=== PATIENT | male | born 1965 | race Caucasian/White ===

== ENCOUNTER 2019-12-31 13:41 | Outpatient (REF) | payer OTHER, MEDICARE, MEDICAID, SELFPAY ==
--- NOTE | 2019-12-31 13:58 | XR_ITS ---
EXAMINATION: XR HIP, RIGHT CLINICAL INFORMATION: Hip pain status post fall. COMPARISON: 05/07/2014 TECHNIQUE: Two views of the right hip. FINDINGS: Alignment is anatomic. Hip joint space is maintained. No acute fracture or dislocation is seen. Mild symphysis pubis degeneration. IMPRESSION: No radiographic evidence of acute fracture.
--- NOTE | 2019-12-31 13:58 | XR_ITS ---
EXAMINATION: XR RIBS, RIGHT CLINICAL INFORMATION: Right-sided rib pain status post fall. COMPARISON: 05/28/2019 TECHNIQUE: 3 views of the right ribs were obtained. FINDINGS: Lungs are clear. No consolidation, pneumothorax, or pleural effusion. The cardiomediastinal silhouette and pulmonary vasculature are normal. No acute displaced rib fracture is seen. IMPRESSION: No evidence of acute pulmonary process. No acute displaced rib fracture is seen.
== END 2019-12-31 13:42 | disposition home or self-care (01) ==
LOC: HO.HMGCX 13:41
PROVIDERS: PCP Nurse Practitioner Family; Visit Provider Nurse Practitioner Family
DX: M25.551 Pain in right hip (principal); R07.81 Pleurodynia; Z91.81 History of falling
CPT/HCPCS: 71101; 73502

== ENCOUNTER → 2020-01-13 11:08 | Outpatient (BNVA) | payer OTHER, MEDICARE, MEDICAID, SELFPAY | PROVIDERS: PCP Nurse Practitioner Family; Referring Provider Nurse Practitioner Family; Visit Provider Dietitian, Registered | DX: Z76.89 Persons encountering health services in other specified circumstances (principal) ==

== ENCOUNTER 2020-01-13 15:21 | Outpatient (REF) | payer OTHER, MEDICARE, MEDICAID, SELFPAY | END 2020-01-13 15:22 | disposition home or self-care (01) | LOC: HO.HMGCLDS 15:21 | PROVIDERS: PCP Nurse Practitioner Family; Visit Provider Internal Medicine | DX: Z20.828 Contact with and (suspected) exposure to other viral communicable diseases (principal) | CPT/HCPCS: 87635 ==

== ENCOUNTER 2020-02-07 11:51 | Outpatient (REF) | payer OTHER, MEDICARE, MEDICAID, SELFPAY ==
[2020-02-07 14:05] LABS: MANUAL DIFF FLAG NO
[2020-02-07 14:17] LABS: Basophils Absolute Auto 0.1 X10*3/uL (0.0-0.2); Basophils Percent Auto 0.9 % (0-2); Eosinophils Absolute Auto 0.6 X10*3/uL (0.0-0.4); Eosinophils Percent Auto 7.9 % (0-4); Hematocrit 42.6 % (42-52); Imm Gran Abs Auto 0.02 X10*3/uL (0.00-0.03); Imm Gran Pct Auto 0.3 % (0.0-0.4); Lymphocytes Absolute Auto 2.7 X10*3/uL (1.2-4.9); Lymphocytes Percent Auto 37.6 % (20-40); Mean Corpuscular HGB Conc 32.9 g/dl (31.0-36.0); Mean Corpuscular Hemoglobin 31.9 pg (27.0-33.0); Mean Platelet Volume 10.2 fL (9.4-12.4); Monocytes Absolute Auto 0.6 X10*3/uL (0.1-1.2); Monocytes Percent Auto 8.9 % (2-11); Neutrophils Absolute Auto 3.1 X10*3/uL (2.0-8.3); Neutrophils Percent Auto 44.4 % (45-73); Platelet Count 265 X10*3/uL (160-400); Red Blood Count 4.39 X10*6/uL (4.60-5.80); Red Cell Distribution Width 13.5 % (11.0-16.0); White Blood Count 7.1 X10*3/uL (4.8-10.8)
[2020-02-07 14:52] LABS: Alanine Aminotransferase 29 U/L (0-40); Albumin Level 4.3 g/dL (3.5-5.0); Alkaline Phosphatase 76 U/L (39-117); Anion Gap 15 (12-20); Aspartate Amino Transferase 29 U/L (5-37); Bilirubin Total 1.1 mg/dL (0.0-1.0); Blood Urea Nitrogen 17 mg/dL (9-16); Calcium 8.8 mg/dL (8.4-10.2); Carbon Dioxide 25 mmol/L (22-29); Chloride 104 mmol/L (96-108); Cholesterol 165 mg/dL; Estimated Glomerular Filt Rate > 60; Glucose Fasting 95 mg/dL (60-99); HDL Cholesterol 63 mg/dL; LDL Cholesterol Calculated 90 mg/dl; Potassium 4.4 mmol/l (3.3-5.1); Sodium 140 mmol/L (135-145); Total Protein 6.9 g/dL (6.5-8.0); Triglycerides 61 mg/dL
[2020-02-07 15:00] LABS: Prostate Specific Antigen Scr 1.65 ng/mL (<0.05-4.0); TSH reflex Free T4 1.14 mIU/mL (0.32-4.0)
== END 2020-02-07 11:52 | disposition home or self-care (01) ==
LOC: HO.HMGCLDS 11:51
PROVIDERS: PCP Nurse Practitioner Family; Visit Provider Internal Medicine
DX: N40.0 Benign prostatic hyperplasia without lower urinary tract symptoms (principal); Z20.828 Contact with and (suspected) exposure to other viral communicable diseases; Z86.73 Personal history of transient ischemic attack (TIA), and cerebral infarction without residual deficits; Z12.5 Encounter for screening for malignant neoplasm of prostate
CPT/HCPCS: 36415; 80053; 80061; 84153; 84443; 85025; C9803; U0003

== ENCOUNTER → 2020-02-21 07:32 | Outpatient (REF) | payer OTHER, MEDICARE, MEDICAID, SELFPAY ==
--- NOTE | 2020-02-21 07:35 | CA_ITS ---
Transthoracic Echocardiogram Patient (Last, First, Middle): Michael Bland K Gender: Male Date of : 1965 Age: 54 Procedure Date: 02/21/2020 Procedure Type: Transthoracic Echocardiogram Location: OP Height: 172.72 cm Weight: 89.36 kg BSA: 2.03 m2 Heart Rate: bpm BP: 128 / 80 mmHg Structural Ironworker: Referring MD: Don Meraz [facility] Flame Channeler: Alec Moreland MD Symptoms: Q21.1 - Atrial septal defect Study Quality: Fair ECG Rhythm: Sinus Conclusions: - 1. Atrial shunting cannot be ruled out on this study 2. Normal LV systolic function with mild LVH with grade 1 diastolic dysfunction 3. Normal cardiac valvular Doppler 4. Normal RV systolic pressure 5. No pericardial effusion Findings Left Ventricle Normal left ventricular size and systolic function. There is mildly increased left ventricular wall thickness. The visually estimated ejection fraction is between 60-65%. Spectral Doppler is indicative of an impaired relaxation filling pattern. E/E prime ratio is <8, consistent with normal filling pressures. Evidence suggests grade I (mild) diastolic dysfunction. Right Ventricle Normal right ventricular cavity size and systolic function. Atria Both atria are normal in size. There is lipomatous hypertrophy of the interatrial septum. Interatrial shunt cannot be excluded. Saline contrast study was suboptimal. Aortic Valve The aortic valve structure and function is likely normal. There is no aortic valve stenosis. There is no aortic valve regurgitation. Mitral Valve There is mild anterior and posterior mitral leaflet thickening. There is trace mitral valve regurgitation. There is no mitral valve stenosis. Pulmonic Valve The pulmonic valve was not well visualized. Tricuspid Valve Likely normal tricuspid valve structure and function. There is trace tricuspid valve regurgitation. The right ventricular systolic pressure is normal. The right ventricular systolic pressure is 23 mmHg. Normal right atrial pressure. There is no evidence of pulmonary hypertension. Great Vessels All visible segments of the aorta are normal in size. The pulmonary artery was not well visualized. Venous The inferior vena cava is normal in size and collapses greater than 50% with inspiration. Pericardium/Pleural There is no evidence of pericardial effusion. Prior Study Comparison No previous study in the last 5 years for comparison Measurements 2D Linear Measurements IVSd: 1.31 0.6-0.9/0.6-1.0 cm LVIDd: 4.02 3.9-5.3/4.2-5.9 cm LVIDd Index: 1.98 2.4-3.2/2.2-3.1 cm/m2 LVIDs: 2.74 2.0-3.6 cm LVPWd: 1.38 0.7-1.1 cm Ao Root: 3.10 2.1-3.5 cm LA Diam: 3.00 2.7-3.8/3.0-4.0 cm LAIDs Index: 1.48 1.5-2.3 cm/m2 LV Mass: 246.63 67-162/88-224 g LV Mass Index: 121.49 43-95/49-115 g/m2 LVOT Diam: 2.30 3.0+(-)1.3 cm Mitral Valve MV Pk E: 0.84 MV PK A: 1.01 MV Decel Time: 215.00 E/A: 0.80 E'Lateral: 7.93 E'Medial: 12.20 E/E' Med: 6.90 E/E' Lat: 10.60 PHT: 63.00 MVA PHT: 3.49 Decel [place]: 3.91 Aortic Valve AoV Pk Noel: 1.37 AoV Mn Noel: 0.88 AoV VTI: 0.32 AoV Pk Grad: 8.00 Aov Mn Grad: 4.00 LVOT LVOT Diam: 2.30 LVOT Area: 4.15 Diastolic Function MV Pk E: 0.84 MV Pk A: 1.01 E/A: 0.80 E'Medial: 12.20 E/E' Med: 6.90 E' Laterial: 7.93 E/E' Lat: 10.60 Tricuspid Valve TR Pk Noel: 2.23 TR Pk Grad: 20.00 RA Press: 3.00 RVSP: 23.00 Great Vessels Aorta Ao Root-2D: 3.10 2.0-3.7 cm Ao Asc: 3.00 2.1-3.4 cm Pulmonary Valve PV Pk Noel: 1.07 Peak PV Grad: 5.00 Updated in Other Vendor System with Status of Final Alce Moreland MD electronically signed on 02/22/2020 11:30:05 AM with status of Final
== END ==
LOC: HO.CARD 07:32
PROVIDERS: PCP Nurse Practitioner Family; Visit Provider Nurse Practitioner Family
DX: Q21.1 Atrial septal defect (principal)
CPT/HCPCS: 93306

== ENCOUNTER 2020-02-21 09:06 | Outpatient (REF) | payer OTHER, MEDICARE, MEDICAID, SELFPAY | END 2020-02-21 09:07 | disposition home or self-care (01) | LOC: HO.LAB 09:06 | PROVIDERS: Visit Provider Internal Medicine | DX: Z20.828 Contact with and (suspected) exposure to other viral communicable diseases (principal) | CPT/HCPCS: C9803; U0003 ==

== ENCOUNTER 2020-02-27 13:25 | Outpatient (REF) | payer OTHER, MEDICARE, MEDICAID, SELFPAY ==
--- NOTE | 2020-02-27 13:27 | FL_ITS ---
EXAMINATION: XR BARIUM SWALLOW CLINICAL INFORMATION: Dysphagia, right-sided stroke. COMPARISON: None. TECHNIQUE: Modified barium swallow was performed and lateral fluoroscopy in presence of speech therapist. FINDINGS: Following oral administration of thin barium, apple puree, pudding and cookie-coated with barium, there is normal oral mastication with propagation of bolus from the oral cavity through the pharynx and into the esophagus. No laryngeal penetration or aspiration seen. No retention of food seen in the valleculae or piriform sinuses. FLUOROSCOPY TIME: 1.9 minutes. DOSE AREA PRODUCT: 1.645 uGy-m2 (microgray-meter squared). FL/FL barium swallow modified IMPRESSION: Unremarkable modified barium swallow exam. No laryngeal penetration or aspiration. Correlate with speech therapy report.
--- NOTE | 2020-03-17 11:47 | MHC.SL.POC ---
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 Patient is recommended chopped solids with GROUND/MECHANICALLY SOFT meats. Patient tolerated THIN liquids during this exam. Patient is recommended the following precautions: -avoid tough (i.e. steak) and sticky (i.e. peanut butter) foods -sit upright at 90 degree angle during meals and for at least 30 minutes afterwards -take small bites and chew food well -swallow what is in oral cavity before taking more bites -alternate a bite of food with a sip of liquid -multiple swallow strategy with both solids and liquids -take one sip of liquid at a time/ avoid chugging or consecutive sips -take small sips Frequency/Duration: Patient would benefit from 3-5 weekly speech therapy visits for dysphagia. Recommend review aspiration precautions, strategies promoting oral/pharyngeal clearance, trial pharyngeal strengthening exercises improve pharyngeal clearance, and provide education RE: modified diet. Date Range for Service Requested: 03/02/20-05/03/20 Timeline to reassess: 3 months Notes: Patient is a 54 year old male who was referred for a modified barium swallow study due to complaints of dysphagia with dry food. Patient had CVA at age 3, and presents with residual right side weakness. He is hard of hearing and has a cochlear implant. Patient reports having a previous MBSS ?years ago,? but was unable to recall where it was done or the findings. Patient reports difficulty swallowing solids, stating, ?it feels stuck.? He states that he is unable to swallow any dry meat (i.e. chicken), unless it is moistened with gravy, softened, or ground up. He reports intermittent pain, which he rated 5 out of 10. Patient reports dysphagia for a long time, but feels that it has recently worsened. Patient prepares his own meals. Goal #1 : Status of Goal #1 : Objectives/Clinical Observations: Goal #2 : Status of Goal #2: Objectives/Clinical Observations : Goal #3 : Status of Goal #3: Objectives/Clinical Observations : Goal #4: Status of Goal #4: Objectives/Clinical Observations : Recommended Referrals: Audiological Evaluation Neurology Other Referrals: The patient might benefit from a referral to: -Neurology- to follow-up RE: history of CVA -Audiology- Patient complains of difficulty hearing speech in his good ear. -Speech-language pathology- Patient expressed concerns regarding his communication. Soap Boiler Clinican/Clinical Fellow: No Supervisory Statement: I have reviewed and agree with the documentation written by the student/clinical fellow: N/A Speech Language Pathologist: Charleen Andres M.A., CCC-RAG SHREDDER
--- NOTE | 2020-03-17 11:49 | MHC.SL.IMP ---
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 Patient had CVA at age 3, and presents with residual right side weakness. He is hard of hearing and has a cochlear implant. Patient reports having a previous MBSS ?years ago,? but was unable to recall where it was done or the findings. Patient reports difficulty swallowing solids, stating, ?it feels stuck.? He states that he is unable to swallow any dry meat (i.e. chicken), unless it is moistened with gravy, softened, or ground up. He reports intermittent pain, which he rated 5 out of 10. Patient reports dysphagia for a long time, but feels that it has recently worsened. Patient prepares his own meals. Pre-evaluation Dietary Consistencies: Regular Pre-evaluation Liquid Consistency: Thin Pre-evaluation Medication Administration: Whole with Liquid Medical History: Hearing Loss Stroke Comments: Modified Barium Swallow Study Fluoroscopic Evaluation of Swallowing Function CPT Code 25676 Evaluation Year: 2019 Reason for Study: Patient reports globus sensation. Referring Physician: Don Meraz HEAVY MEDIA OPERATOR-BC/ PCP Dr. Ornelas Evaluating Clinician: Charleen Andres M.A. CCC-MARINE EQUIPMENT DESIGN ENGINEER Study Number: 1 Patient Name: Michael Bland Status: Outpatient, Ambulatory/Assisted Age: 54 Gender: Male MEDICAL HISTORY: Year of Onset or Diagnosis: 2019 Comorbidities: Acoustic neuroma ADD Bipolar disorder 1 CVA Cervical radiculopathy Enlarged prostate Past Surgical History: Colonoscopy Brain surgery Cochlear implant Elbow surgery Sinus surgery Current (pre-evaluation) Intake/Diet: Route: PO Diet Grade: Regular Liquid Consistencies: Thin Pre-Study Functional Oral Intake Scale (FOIS): 7- Total oral intake with no restrictions Pain: Chronic/Ongoing reported at time of study, Level of vocal folds and in region of sternum, rated 5 on scale 0-10 Oral Motor Exam Facial Symmetry: Symmetrical Facial Movement: Oral-Facial Facial Miscellaneous Observations: Mouth Occlusion: Normal Oral-Facial Teeth Characteristics: Intact/Normal Oral-Facial Teeth Miscellaneous Observation: Oral-Facial Lip Pucker Description: Normal Oral-Facial Smile (Lips) Description: Normal Oral-Facial Puff Cheeks Description: Normal Oral-Facial Lip Miscellaneous Comment: Tongue Size: Normal Tongue Frenum Length: Tongue Excursion Description: Normal Tongue Range of Movement Description: Normal Tongue Speed of Movement Description: Normal Tongue Strength of Movement (against opposing pressure): Normal Tongue Movement Characteristics: Tongue Movement Miscellaneous Observation: Oral Expression Ability: Is patient able to manage secretions?: Yes Is patient able to produce volitional cough?: Yes Food and Liquid Trials: Oral Impairment: Lip Closure: 0=No labial escape Oral Impairment: Tongue Control During Bolus Hold: 1=Escape to lateral buccal cavity/floor of mouth (FOM) Oral Impairment: Bolus Preparation/Mastication: 1=Slow prolonged chewing/mashing with complete re-collection Oral Impairment: Bolus Transport/Lingual Motion: 2=Slowed tongue motion Oral Impairment: Oral Residue: 2=Residue collection on oral structures Oral Impairment:Initiation of Pharyngeal Swallow: 2=Bolus head at posterior laryngeal surface of epiglottis Pharyngeal Impairment: Soft Palate Elevation: 0=No bolus between soft palate (SP)/pharyngeal wall (PW) Pharyngeal Impairment: Larngeal Elevation: 1=Partial thyroid cartilage/arytenoids to epiglottic petiole movement Pharyngeal Impairment: Anterior Hyoid Excursion: 0=Complete anterior movement Pharyngeal Impairment: Epiglottic Movement: 1=Partial inversion Pharyngeal Impairment: Laryngeal Vestibular Closure:: 0=Complete: no air/contrast in laryngeal vestibule Pharyngeal Impairment: Pharyngeal Stripping Wave: 1=Present: diminished Pharyngeal Impairment: Pharyngeal Contraction: Did not test Pharyngeal Impairment: Pharyngoesophageal Segment Openin=Complete distension and complete duration: no obstruction of flow Pharyngeal Impairment: Tongue Base (TB) Retraction: 2=Narrow column of contrast/air between TB and posterior PW Pharyngeal Impairment: Pharyngeal Residue: 2=Collection of residue within or on pharyngeal structures Pharyngeal Impairment: Espohogeal Clearance Upright Position: Did not test Impressions and Recommendations Clinicial Observations: OBJECTIVE: Time-out: performed at 1:45 Evaluation Start: 1:35; Stop: 1:40 Viewing Planes: LATERAL ONLY Contrast: MBSImP? Standardized Protocol using commercially prepared, standardized Barium viscosities, including: Varibar? THIN LIQUID (40% w/v, <15 cps) , 1/2 Shortbread Cookie (1 x1 x.25 ) MBSImP ID: [id number] MBSImP Results: Lip closure for intraoral bolus containment resulted in no labial escape. Tongue control during bolus hold allowed bolus escape to the lateral buccal cavity/floor of mouth. Bolus preparation and mastication resulted in slow, prolonged chewing/mashing but with complete re-collection. Bolus transport/lingual motion was with slowed tongue motion. Oral residue was a collection on oral structures. Initiation of the pharyngeal swallow occurred as the bolus head was at the posterior laryngeal surface of the epiglottis. Soft palate elevation resulted in no bolus between the soft palate and the pharyngeal wall. Laryngeal elevation was decreased, with partial superior movement of the thyroid cartilage/partial approximation of the arytenoids to the epiglottic petiole. Anterior hyoid excursion demonstrated complete anterior movement. Epiglottic movement resulted in partial inversion. Laryngeal vestibular closure was complete, as indicated by no air or contrast within the laryngeal vestibule at the height of the swallow. Pharyngeal stripping wave was present, but diminished. Pharyngeal contraction could not be determined due to logistical reasons not related to physiologic impairment. Pharyngoesophageal segment opening was completely distended for complete duration with no obstruction of bolus flow. Tongue base retraction allowed a narrow column of contrast or air between the retracted tongue base and the posterior pharyngeal wall. Pharyngeal residue was a collection of residue within or on pharyngeal structures. Esophageal clearance in the upright position could not be assessed due to logistical reasons not related to physiologic impairment. Oral Impairment Score: 8 Pharyngeal Impairment Score: 7 (absence of score, component 13) Esophageal Impairment Score: --- (absence of score, component 17) Laryngeal Penetration and Aspiration: Neither penetration nor aspiration was observed in today's study with Cookie, Thin. ASSESSMENT: This exam was conducted by speech-language pathologist and radiologist. Patient sat upright at 90 degree angle for lateral view only. Patient trialed the following solid and liquid consistencies: -5 mL thin liquid barium -cup sip thin liquid barium -pureed solid (applesauce mixed with barium paste) -ground solid (chicken salad mixed with barium paste) -regular solid (Kaylene Doone cookie coated with barium paste) The patient's performance in today's study indicates mild oropharyngeal dysphagia characterized by impairments in the following components of swallow physiology: ORAL PHASE: -mildly prolonged mastication when chewing hard solid with mild oral residue collection PHARYNGEAL PHASE: -partial laryngeal elevation with partial epiglottic inversion -diminished pharyngeal stripping wave -reduced tongue base retraction -mild to moderate pharyngeal retention No aspiration or penetration evident with this exam. Patient took large sips of liquid. He displayed trace pharyngeal retention in valleculae and pyriforms when taking large sips of liquid. This cleared with subsequent dry swallow. Good oral and pharyngeal seen with pureed solid. Mild oral and pharyngeal residue seen with ground solid. Retention increased in valleculae and pyriforms with hard solid, which he exhibited difficulty clearing. Patient trialed various strategies. Liquid wash, multiple swallows, and effortful swallow were effective in reducing pharyngeal collection. Chin tuck and head turn to right and left sides had minimal to no effect in reducing pharyngeal residue. The following compensatory strategies have not been used until today's study, but when employed, improved swallowing function: Bolus Volume Change decreased Oral Residue, Pharyngeal Residue The following compensatory strategies have been used in therapy as well as in today's study and improved swallowing function: Rate of Ingestion Change decreased Oral Residue, Pharyngeal Residue Liquid Wash decreased Oral Residue, Pharyngeal Residue Additional Swallow(s) per Bolus decreased Oral Residue, Pharyngeal Residue Effortful Swallow (used during PO intake) decreased Oral Residue, Pharyngeal Residue Liquid Intake Recommendation: Thin Liquid Intake Strategies: Small Sips: Unrestricted Dietary Recommendations: Medication Administration: Compensatory Strategies Recommended: Sitting Upright (90 deg) Double Swallow Small Bites and Sips Alternate Liquids/Solids Rate of Ingestion Change Avoid Specific Foods Supervision during eating and or drinking: Intermittent Supervision Recommended Treatments: Recommendation for Speech Therapy: Further Testing Needed Outpatient Speech Therapy: Intake Recommendations: Route: PO Diet Grade: Mechanical Soft Liquid Consistencies: Thin Post-Study Functional Oral Intake Scale (FOIS): 5- Total oral intake of multiple consistencies requiring special preparation Due to patient?s complaints of pain/globus sensation and effort in clearing oral/pharyngeal spaces during this exam, patient is recommended a softer diet. Patient is recommended chopped solids with GROUND/MECHANICALLY SOFT meats. Patient tolerated THIN liquids during this exam. Patient is recommended the following precautions: -avoid tough (i.e. steak) and sticky (i.e. peanut butter) foods -sit upright at 90 degree angle during meals and for at least 30 minutes afterwards -take small bites and chew food well -swallow what is in oral cavity before taking more bites -alternate a bite of food with a sip of liquid -multiple swallow strategy with both solids and liquids -take one sip of liquid at a time/ avoid chugging or consecutive sips -take small sips Frequency/Duration: Patient would benefit from 3-5 weekly speech therapy visits for dysphagia. Recommend review aspiration precautions, strategies promoting oral/pharyngeal clearance, trial pharyngeal strengthening exercises improve pharyngeal clearance, and provide education RE: modified diet. Date Range for Service Requested: 03/02/20-05/03/20 Timeline to reassess: 3 months Real Estate Utilization Officer Clinican/Clinical Fellow: No Supervisory Statement: N/A Speech Language Pathologist: Charleen Andres M.A., CCC-MARINE EQUIPMENT DESIGN ENGINEER
--- NOTE | 2020-03-17 11:57 | MHC.SL.IMP ---
Name: Michael Bland Date of : 1965 Age: 55 Date of Registration: 02/27/20 Date of Plan of Treatment: 02/27/20 Onset of Symptoms/Illness: 02/27/20 Date Treatment Started: 02/27/20 Admitting Diagnosis: CVA age 3 Primary Speech & Language Diagnosis: R13.12 Oropharyngeal Phase Dysphagia Secondary Speech & Language Diagnosis: Reason for Today's Visit: 18250 Modified Barium Swallow Study Comments: Patient is a 54 year old male who was referred for a modified barium swallow study due to complaints of dysphagia with dry food. Patient had CVA at age 3, and presents with residual right side weakness. He is hard of hearing and has a cochlear implant. Patient reports having a previous MBSS ?years ago,? but was unable to recall where it was done or the findings. Patient reports difficulty swallowing solids, stating, ?it feels stuck.? He states that he is unable to swallow any dry meat (i.e. chicken), unless it is moistened with gravy, softened, or ground up. He reports intermittent pain, which he rated 5 out of 10. Patient reports dysphagia for a long time, but feels that it has recently worsened. Patient prepares his own meals. Pre-evaluation Dietary Consistencies: Regular Pre-evaluation Liquid Consistency: Thin Pre-evaluation Medication Administration: Whole with Liquid Medical History: Hearing Loss Stroke Comments: Modified Barium Swallow Study Fluoroscopic Evaluation of Swallowing Function CPT Code 40973 Evaluation Year: 2019 Reason for Study: Patient reports globus sensation. Referring Physician: Don Meraz VETERINARY MEDICINE TEACHER-BC/ PCP Dr. Ornelas Evaluating Clinician: Charleen Andres M.A., CCC-MANAGER QUALITY Study Number: 1 Patient Name: Michael Bland Status: Outpatient, Ambulatory/Assisted Age: 54 Gender: Male MEDICAL HISTORY: Year of Onset or Diagnosis: 2019 Comorbidities: Acoustic neuroma ADD Bipolar disorder 1 CVA Cervical radiculopathy Enlarged prostate Past Surgical History: Colonoscopy Brain surgery Cochlear implant Elbow surgery Sinus surgery Current (pre-evaluation) Intake/Diet: Route: PO Diet Grade: Regular Liquid Consistencies: Thin Pre-Study Functional Oral Intake Scale (FOIS): 7- Total oral intake with no restrictions Pain: Chronic/Ongoing reported at time of study, Level of vocal folds and in region of sternum, rated 5 on scale 0-10 [facility] Fall Risk Assessment Score: Oral Motor Exam Facial Symmetry: Symmetrical Facial Movement: Oral-Facial Facial Miscellaneous Observations: Mouth Occlusion: Normal Oral-Facial Teeth Characteristics: Intact/Normal Oral-Facial Teeth Miscellaneous Observation: Oral-Facial Lip Pucker Description: Normal Oral-Facial Smile (Lips) Description: Normal Oral-Facial Puff Cheeks Description: Normal Oral-Facial Lip Miscellaneous Comment: Tongue Size: Normal Tongue Frenum Length: Tongue Excursion Description: Normal Tongue Range of Movement Description: Normal Tongue Speed of Movement Description: Normal Tongue Strength of Movement (against opposing pressure): Normal Tongue Movement Characteristics: Tongue Movement Miscellaneous Observation: Oral Expression Ability: Is patient able to manage secretions?: Yes Is patient able to produce volitional cough?: Yes Food and Liquid Trials: Oral Impairment: Lip Closure: 0=No labial escape Oral Impairment: Tongue Control During Bolus Hold: 1=Escape to lateral buccal cavity/floor of mouth (FOM) Oral Impairment: Bolus Preparation/Mastication: 1=Slow prolonged chewing/mashing with complete re-collection Oral Impairment: Bolus Transport/Lingual Motion: 2=Slowed tongue motion Oral Impairment: Oral Residue: 2=Residue collection on oral structures Oral Impairment:Initiation of Pharyngeal Swallow: 2=Bolus head at posterior laryngeal surface of epiglottis Pharyngeal Impairment: Soft Palate Elevation: 0=No bolus between soft palate (SP)/pharyngeal wall (PW) Pharyngeal Impairment: Larngeal Elevation: 1=Partial thyroid cartilage/arytenoids to epiglottic petiole movement Pharyngeal Impairment: Anterior Hyoid Excursion: 0=Complete anterior movement Pharyngeal Impairment: Epiglottic Movement: 1=Partial inversion Pharyngeal Impairment: Laryngeal Vestibular Closure:: 0=Complete: no air/contrast in laryngeal vestibule Pharyngeal Impairment: Pharyngeal Stripping Wave: 1=Present: diminished Pharyngeal Impairment: Pharyngeal Contraction: Did not test Pharyngeal Impairment: Pharyngoesophageal Segment Openin=Complete distension and complete duration: no obstruction of flow Pharyngeal Impairment: Tongue Base (TB) Retraction: 2=Narrow column of contrast/air between TB and posterior PW Pharyngeal Impairment: Pharyngeal Residue: 2=Collection of residue within or on pharyngeal structures Pharyngeal Impairment: Espohogeal Clearance Upright Position: Did not test Impressions and Recommendations Clinicial Observations: OBJECTIVE: Time-out: performed at 1:45 Evaluation Start: 1:35; Stop: 1:40 Viewing Planes: LATERAL ONLY Contrast: MBSImP? Standardized Protocol using commercially prepared, standardized Barium viscosities, including: Varibar? THIN LIQUID (40% w/v, <15 cps) , 1/2 Shortbread Cookie (1 x1 x.25 ) MBSImP ID: [id number] MBSImP Results: Lip closure for intraoral bolus containment resulted in no labial escape. Tongue control during bolus hold allowed bolus escape to the lateral buccal cavity/floor of mouth. Bolus preparation and mastication resulted in slow, prolonged chewing/mashing but with complete re-collection. Bolus transport/lingual motion was with slowed tongue motion. Oral residue was a collection on oral structures. Initiation of the pharyngeal swallow occurred as the bolus head was at the posterior laryngeal surface of the epiglottis. Soft palate elevation resulted in no bolus between the soft palate and the pharyngeal wall. Laryngeal elevation was decreased, with partial superior movement of the thyroid cartilage/partial approximation of the arytenoids to the epiglottic petiole. Anterior hyoid excursion demonstrated complete anterior movement. Epiglottic movement resulted in partial inversion. Laryngeal vestibular closure was complete, as indicated by no air or contrast within the laryngeal vestibule at the height of the swallow. Pharyngeal stripping wave was present, but diminished. Pharyngeal contraction could not be determined due to logistical reasons not related to physiologic impairment. Pharyngoesophageal segment opening was completely distended for complete duration with no obstruction of bolus flow. Tongue base retraction allowed a narrow column of contrast or air between the retracted tongue base and the posterior pharyngeal wall. Pharyngeal residue was a collection of residue within or on pharyngeal structures. Esophageal clearance in the upright position could not be assessed due to logistical reasons not related to physiologic impairment. Oral Impairment Score: 8 Pharyngeal Impairment Score: 7 (absence of score, component 13) Esophageal Impairment Score: --- (absence of score, component 17) Laryngeal Penetration and Aspiration: Neither penetration nor aspiration was observed in today's study with Cookie, Thin. ASSESSMENT: This exam was conducted by speech-language pathologist and radiologist. Patient sat upright at 90 degree angle for lateral view only. Patient trialed the following solid and liquid consistencies: -5 mL thin liquid barium -cup sip thin liquid barium -pureed solid (applesauce mixed with barium paste) -ground solid (chicken salad mixed with barium paste) -regular solid (Kaylene Doone cookie coated with barium paste) The patient's performance in today's study indicates mild oropharyngeal dysphagia characterized by impairments in the following components of swallow physiology: ORAL PHASE: -mildly prolonged mastication when chewing hard solid with mild oral residue collection PHARYNGEAL PHASE: -partial laryngeal elevation with partial epiglottic inversion -diminished pharyngeal stripping wave -reduced tongue base retraction -mild to moderate pharyngeal retention No aspiration or penetration evident with this exam. Patient took large sips of liquid. He displayed trace pharyngeal retention in valleculae and pyriforms when taking large sips of liquid. This cleared with subsequent dry swallow. Good oral and pharyngeal seen with pureed solid. Mild oral and pharyngeal residue seen with ground solid. Retention increased in valleculae and pyriforms with hard solid, which he exhibited difficulty clearing. Patient trialed various strategies. Liquid wash, multiple swallows, and effortful swallow were effective in reducing pharyngeal collection. Chin tuck and head turn to right and left sides had minimal to no effect in reducing pharyngeal residue. The following compensatory strategies have not been used until today's study, but when employed, improved swallowing function: Bolus Volume Change decreased Oral Residue, Pharyngeal Residue The following compensatory strategies have been used in therapy as well as in today's study and improved swallowing function: Rate of Ingestion Change decreased Oral Residue, Pharyngeal Residue Liquid Wash decreased Oral Residue, Pharyngeal Residue Additional Swallow(s) per Bolus decreased Oral Residue, Pharyngeal Residue Effortful Swallow (used during PO intake) decreased Oral Residue, Pharyngeal Residue Liquid Intake Recommendation: Thin Liquid Intake Strategies: Small Sips Unrestricted Dietary Recommendations: Medication Administration: Compensatory Strategies Recommended: Sitting Upright (90 deg) Double Swallow Small Bites and Sips Alternate Liquids/Solids Rate of Ingestion Change Avoid Specific Foods Supervision during eating and or drinking: Intermittent Supervision Recommended Treatments: Recommendation for Speech Therapy: Further Testing Needed Outpatient Speech Therapy Text Comment: Intake Recommendations: Route: PO Diet Grade: Mechanical Soft Liquid Consistencies: Thin Post-Study Functional Oral Intake Scale (FOIS): 5- Total oral intake of multiple consistencies requiring special preparation Due to patient?s complaints of pain/globus sensation and effort in clearing oral/pharyngeal spaces during this exam, patient is recommended a softer diet. Patient is recommended chopped solids with GROUND/MECHANICALLY SOFT meats. Patient tolerated THIN liquids during this exam. Patient is recommended the following precautions: -avoid tough (i.e. steak) and sticky (i.e. peanut butter) foods -sit upright at 90 degree angle during meals and for at least 30 minutes afterwards -take small bites and chew food well -swallow what is in oral cavity before taking more bites -alternate a bite of food with a sip of liquid -multiple swallow strategy with both solids and liquids -take one sip of liquid at a time/ avoid chugging or consecutive sips -take small sips Frequency/Duration: Patient would benefit from 3-5 weekly speech therapy visits for dysphagia. Recommend review aspiration precautions, strategies promoting oral/pharyngeal clearance, trial pharyngeal strengthening exercises improve pharyngeal clearance, and provide education RE: modified diet. Date Range for Service Requested: 03/02/20-05/03/20 Timeline to reassess: 3 months Preflight Inspector Clinican/Clinical Fellow: No Supervisory Statement: N/A Speech Language Pathologist: Charleen Andres M.A., CCC-MANAGER QUALITY
== END 2020-02-27 13:26 | disposition home or self-care (01) ==
LOC: HO.XRAY 13:25
PROVIDERS: PCP Nurse Practitioner Family; Referring Provider Nurse Practitioner Family; Visit Provider Nurse Practitioner Family
DX: R13.10 Dysphagia, unspecified (principal)
CPT/HCPCS: 74230; 92611

== ENCOUNTER → 2020-03-16 12:00 | Outpatient (BNVA) | payer OTHER, MEDICARE, MEDICAID, SELFPAY | PROVIDERS: PCP Nurse Practitioner Family; Visit Provider Dietitian, Registered | DX: Z76.89 Persons encountering health services in other specified circumstances (principal) ==

== ENCOUNTER 2020-03-17 12:53 | Outpatient (REF) | payer OTHER, MEDICARE, MEDICAID, SELFPAY ==
--- NOTE | 2020-03-17 13:03 | CT_ITS ---
EXAMINATION: CT HEAD WITHOUT CONTRAST CLINICAL INFORMATION: Cerebral infarction. COMPARISON: CT brain with IV contrast 10/16/2018 TECHNIQUE: Contiguous axial imaging was performed from the skull base to vertex without intravenous administration of contrast. This CT examination was performed using dose optimization techniques as appropriate, variously including the following: *Automated exposure control *Adjustment of mA and/or kV according to patient size (this includes techniques or standardized protocols for targeted exams where dose is matched to indication/reason for exam; i.e. extremities or head) *Use of iterative reconstruction technique DLP: 820 mGy-cm FINDINGS: There is a left frontal temporal lobe encephalomalacia from previous insult. No acute intracranial lead, mass or acute infarct seen. No midline shift or edema noted. There is asymmetrical ventricles with left lateral ventricle appearing larger secondary to ex vacuole dilatation from adjacent encephalomalacia and gliosis. No abnormality seen in the posterior fossa. On the senior advisor view there is left-sided bone anchored hearing aid in place with abundant streak artifact. Left occipital craniotomy with a small metallic plate anchoring the flap is noted. Bilateral mastoid sinuses are well-aerated and clear. There is diffuse mucoperiosteal thickening of bilateral ethmoid and maxillary sinuses. CT/CT head/brain wo con IMPRESSION: No acute intracranial process seen on the present exam given the limitations hearing 8 and the streak artifact. 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 The findings are stable compared to 10/09/2018.
== END 2020-03-17 12:54 | disposition home or self-care (01) ==
LOC: HO.CT 12:53
PROVIDERS: PCP Nurse Practitioner Family; Visit Provider Nurse Practitioner Family
DX: I63.9 Cerebral infarction, unspecified (principal); S09.90XA Unspecified injury of head, initial encounter; W19.XXXA Unspecified fall, initial encounter
CPT/HCPCS: 70450

== ENCOUNTER 2020-03-30 08:06 | Outpatient (REF) | payer OTHER, MEDICARE, MEDICAID, SELFPAY ==
--- NOTE | 2020-03-31 12:18 | MHC.AU.P13 ---
Adult Audiological Evaluation Date of Visit: 03/30/20 Medicaid Plan Compliance Director Used: Not Applicable Reason for Appointment: Audiologic evaluation due to increasing difficulties understanding speech as well as perception of speech and sounds reverberating. Does patient feel they have a hearing loss?: Yes If Yes, Which Ear?: Both Ears When Was Hearing Difficulty First Noticed?: Long-standing Has hearing been tested previously?: Yes Previous Hearing Test Results: Dr. Rodriguez Results are not available for review. Hearing Handicap Inventory HHIE SCORE: 28 Based on HHIE score, patient has: Severe perceived hearing handicap Ear History: History of Ear Wax Buildup: Both Ears Previous Ear Surgery: BAHA Left Ear Approximately 7 years ago Bothersome Tinnitus/Ringing/Noises in Ears: Left Ear Ear used on the phone: Right Ear History of occupational noise exposure?: Yes History: History: No Medical History: Medical History: Measles Meningitis Stroke Medication List: Adderall, Vitamin D, Asprin Otoscopy: Right Ear: Non-occluding cerumen around canal wall Left Ear: Partially occluded with cerumen Tympanometry: Right Ear: Normal Middle Ear System (Type A) Left Ear: Normal Middle Ear System (Type A) Otoacoustic Emissions Right Ear Results: Not performed at today's visit. Left Ear Results: Not performed at today's visit. Hearing Evaluation: Transducer(s) Used: Insert Earphones Bone Conduction Method: Conventional Audiometry Stimuli Used: Pure Tones Right Ear: Description of Hearing: Normal hearing thresholds 250-8000 Hz Left Ear: Description of Hearing: Profound mixed hearing loss through all frequencies Speech Recognition Threshold (SRT): Method Used: Monitored Live Voice Stimuli Used: Spondee Words Right Ear: 10 dB HL Left Ear: Could Not Test Word Discrimination: Method: Recorded Lists Word Lists Used: NU-6 Right Ear: 96% at 50 dB HL Left Ear: Could Not Test Comparison: Compared to the most recent evaluation: N/A Recommendations: Recommendations: Audiological re-evaluation in one year. Trial with amplification is recommended. Medical clearance from a physician is required before fitting. Recommendations (Other): Trial period with a CROS hearing aid system. Scheduled an appointment to place a Applimation CROS system on 04/06/2020 Diagnosis: Primary Diagnosis: H90.42 SNHL Unilateral Left Side, W/Unrestricted Contralateral Hearing Services Performed: Services Performed: Comprehensive Audiological Evaluation (CPT 26820) Tympanometry (CPT 96245) Signature: Provider: Gabbie Escobedo, SELAM-A
--- NOTE | 2020-04-06 11:07 | MHC.AU.MED ---
Medical Clearance for Hearing Instrumentation Date: 04/06/20 Patient Name: Michael Bland Date of : 1965 Primary Care Provider: Referring Provider: PITA Corona We have seen your patient on 04/06/20 and have determined that they are a candidate for amplification (See accompanying report). Specifically, they would benefit from: Hearing aid use in the right ear Hearing aid use in the left ear Hearing aid use in both ears There is a statute that addresses Medical Evaluation Requirements prior to fitting a patient with a hearing aid. According to [place] statute 265 CMR:6.03(1), (a) General. Except as provided in 265 CMR 6.03(1)(b), a alloy weigher shall not sell a hearing aid unless the prospective user has presented to the alloy weigher a written statement signed by a licensed physician that states that the patient's hearing loss has been medically evaluated and the patient may be considered a candidate for a hearing aid. The medical evaluation must have taken place within the preceding six months. Please note: Due to the [place] Statute referenced above, we cannot accept a signature other than that of a licensed physician. EXECUTIVE ADMINISTRATOR and PA signatures cannot be accepted. I am in agreement with the above recommendation. There is no medical contraindication for hearing instrumentation. Physician Signature Date Physician Name (Printed)
== END 2020-03-30 08:07 | disposition home or self-care (01) ==
LOC: HO.SH 08:06
PROVIDERS: Visit Provider Nurse Practitioner Family
DX: H90.42 Sensorineural hearing loss, unilateral, left ear, with unrestricted hearing on the contralateral side (principal)
CPT/HCPCS: 92526; 92557; 92567

== ENCOUNTER 2020-04-06 10:01 | Outpatient (REF) | payer OTHER, MEDICARE, MEDICAID, SELFPAY ==
--- NOTE | 2020-04-06 11:19 | MHC.AU.P13 ---
Hearing Aid Evaluation- Binaural Date of Visit: 04/06/20 Solar Energy System Installer Used: Not Applicable Description of Hearing: Right ear - Normal hearing thresholds through all frequencies. Left ear - Profound sensorineural hearing loss Current Hearing Instrument Information: BAHA, unable to use as it causes migraines and constant echo/reverberation Additional Information: Due to patient's inability to tolerate the BAHA system, tried a Demo Richar CROS hearing aid system in the office today with patient noticing improved understanding of speech and the system is comfortable while in the office. Practiced insertion and patient is able to manipulate the aids and chuck tender well. As part of the remediation process, recommend the below rechargeable CROS hearing aid system as patient has manual dexterity difficulties with no use of his right hand Hearing Instrument Selection: Right Ear: Drink Waiter: Adapta Medical Model: Shaquille 1600 ERIKA-R Battery Size: Rechargeable Color: Roly Biology Internship: #3 40 gain Type of Dome: Small Open Left Ear: Drink Waiter: Adapta Medical Model: CROS-R Battery Size: Rechargeable Color: Roly Biology Internship: #3 CROS Tube Type of Dome: Small Open Plan: Plan of Care for Hearing Instrument Fitting: Patient wishes to purchase hearing aids as prescribed Action Taken/Action Needed: Medical Clearance to be requested from PCP Hearing Fitting to be scheduled when materials arrive Diagnosis Code(s): Primary Diagnosis: H90.42 SNHL Unilateral Left Side, W/Unrestricted Contralateral Hearing Services Performed: Hearing Aid Evaluation Type: HAE B: Binaural 3rd Green Party Signature: Provider: Gabbie Escobedo, [facility]
--- NOTE | 2020-04-06 11:24 | MHC.AU.MED ---
Medical Clearance for Hearing Instrumentation Date: 04/06/20 Patient Name: Michael Bland Date of : 1965 Primary Care Provider: Referring Provider: PITA Corona We have seen your patient on 04/06/20 and have determined that they are a candidate for amplification (See accompanying report). Specifically, they would benefit from: Hearing aid use : CROS Hearing Aid System There is a statute that addresses Medical Evaluation Requirements prior to fitting a patient with a hearing aid. According to [place] statute 265 CMR:6.03(1), (a) General. Except as provided in 265 CMR 6.03(1)(b), a parole hearing officer shall not sell a hearing aid unless the prospective user has presented to the parole hearing officer a written statement signed by a licensed physician that states that the patient's hearing loss has been medically evaluated and the patient may be considered a candidate for a hearing aid. The medical evaluation must have taken place within the preceding six months. Please note: Due to the [place] Statute referenced above, we cannot accept a signature other than that of a licensed physician. DISPLAY SCREEN FABRICATOR and PA signatures cannot be accepted. I am in agreement with the above recommendation. There is no medical contraindication for hearing instrumentation. Physician Signature Date Physician Name (Printed)
== END 2020-04-06 10:02 | disposition home or self-care (01) ==
LOC: HO.HAP 10:01
PROVIDERS: Visit Provider Nurse Practitioner Family
DX: Z46.1 Encounter for fitting and adjustment of hearing aid (principal)
CPT/HCPCS: 92591

== ENCOUNTER 2020-04-20 10:06 | Outpatient (REF) | payer OTHER, MEDICARE, MEDICAID, SELFPAY | END 2020-04-20 10:07 | disposition home or self-care (01) | LOC: HO.HAP 10:06 | PROVIDERS: Visit Provider Internal Medicine | DX: Z46.1 Encounter for fitting and adjustment of hearing aid (principal); H90.42 Sensorineural hearing loss, unilateral, left ear, with unrestricted hearing on the contralateral side | CPT/HCPCS: V5011; V5020; V5221; V5240 ==

== ENCOUNTER 2020-04-30 12:29 | Outpatient (REF) | payer OTHER, MEDICARE, MEDICAID, SELFPAY | END 2020-04-30 12:30 | disposition home or self-care (01) | LOC: HO.HAP 12:29 | PROVIDERS: Visit Provider Internal Medicine | DX: Z13.89 Encounter for screening for other disorder (principal) ==

== ENCOUNTER → 2020-06-11 13:46 | Outpatient (BNVA) | payer OTHER, MEDICARE, MEDICAID, SELFPAY | PROVIDERS: PCP Nurse Practitioner Family; Visit Provider Dietitian, Registered ==

== ENCOUNTER → 2020-06-23 13:19 | Outpatient (BNVA) | payer OTHER, MEDICARE, MEDICAID, SELFPAY | PROVIDERS: PCP Nurse Practitioner Family; Visit Provider Urology | DX: N52.01 Erectile dysfunction due to arterial insufficiency (principal); N32.0 Bladder-neck obstruction | CPT/HCPCS: 51798 ==

== ENCOUNTER 2020-09-18 12:57 | Outpatient (REF) | payer OTHER, MEDICARE, MEDICAID, SELFPAY ==
[2020-09-18 14:09] LABS: Prostate Specific Antigen 2.04 ng/mL (<0.05-4.0)
== END 2020-09-18 12:58 | disposition home or self-care (01) ==
LOC: HO.LAB 12:57
PROVIDERS: PCP Nurse Practitioner Family; Visit Provider Urology
DX: Z12.5 Encounter for screening for malignant neoplasm of prostate (principal); N13.8 Other obstructive and reflux uropathy; N32.0 Bladder-neck obstruction; N40.1 Benign prostatic hyperplasia with lower urinary tract symptoms
CPT/HCPCS: 36415; 84153

== ENCOUNTER → 2020-09-24 13:58 | Outpatient (BNVA) | payer OTHER, MEDICARE, MEDICAID, SELFPAY | PROVIDERS: PCP Nurse Practitioner Family; Visit Provider Urology ==

== ENCOUNTER → 2020-11-03 14:01 | Outpatient (REF) | payer OTHER, MEDICARE, MEDICAID, SELFPAY | LOC: HO.CARD 14:01 | PROVIDERS: Visit Provider Nurse Practitioner Family | DX: Z13.89 Encounter for screening for other disorder (principal) ==

== ENCOUNTER → 2020-11-09 07:38 | Outpatient (REF) | payer OTHER, MEDICARE, MEDICAID, SELFPAY | LOC: HO.CARD 07:38 | PROVIDERS: Visit Provider Nurse Practitioner Family | DX: Q21.1 Atrial septal defect (principal) | CPT/HCPCS: 93308 ==

== ENCOUNTER → 2020-11-27 11:29 | Outpatient (REF) | payer OTHER, MEDICARE, MEDICAID, SELFPAY ==
--- NOTE | 2020-11-27 11:35 | CA_ITS ---
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 Findings Atria During rest, there is no transit of bubbles. With valsalva, few bubbles seen in left ventricle. Possible small PFO vs pulmonary AVM. Prior Study Comparison No significant change compared to prior study. Updated in Other Vendor System with Status of Final Kurt Bergman MD electronically signed on 11/28/2020 2:39:29 PM with status of Final
== END ==
LOC: HO.CARD 11:29
PROVIDERS: Visit Provider Nurse Practitioner Family
DX: Q21.1 Atrial septal defect (principal)
CPT/HCPCS: 93308

== ENCOUNTER → 2020-12-16 13:43 | Outpatient (BNVA) | payer OTHER, MEDICARE, MEDICAID, SELFPAY | PROVIDERS: PCP Nurse Practitioner Family; Referring Provider Nurse Practitioner Family; Visit Provider Internal Medicine | DX: Q21.1 Atrial septal defect (principal); I63.9 Cerebral infarction, unspecified | CPT/HCPCS: 93005 ==

== ENCOUNTER 2020-12-21 16:36 | Outpatient (REF) | payer OTHER, MEDICARE, MEDICAID, SELFPAY ==
--- NOTE | ~2020-12-21 | XR_ITS ---
EXAMINATION: XR THORACIC SPINE CLINICAL INFORMATION: Pain in the thoracic spine COMPARISON: Chest x-ray May 28, 2019 TECHNIQUE: 2 views. FINDINGS: There is no fracture or bone destruction seen and the vertebral alignment is normal. There is no disc space narrowing. There is no abnormality of the paraspinal soft tissues. XR/XR thoracic spine 3V IMPRESSION: Unremarkable examination.
== END 2020-12-21 16:37 | disposition home or self-care (01) ==
LOC: HO.HMGCX 16:36
PROVIDERS: PCP Nurse Practitioner Family; Visit Provider Physician Assistant Medical
DX: M54.9 Dorsalgia, unspecified (principal)
CPT/HCPCS: 72072

== ENCOUNTER → 2021-02-22 15:39 | Outpatient (BNVA) | payer OTHER, MEDICARE, MEDICAID, SELFPAY | PROVIDERS: PCP Nurse Practitioner Family; Visit Provider Internal Medicine | DX: G47.30 Sleep apnea, unspecified (principal); F90.9 Attention-deficit hyperactivity disorder, unspecified type; Q21.1 Atrial septal defect; Z86.73 Personal history of transient ischemic attack (TIA), and cerebral infarction without residual deficits | CPT/HCPCS: 99202 ==

== ENCOUNTER 2021-03-08 11:12 | Outpatient (REF) | payer OTHER, MEDICARE, MEDICAID, SELFPAY ==
[2021-03-08 14:03] LABS: Appearance Urine TURBID; Color Urine YELLOW; Glucose Urine UA NEG (NEG); Leukocyte Esterase Urine NEG (NEG); Nitrite Urine NEG (NEG); Specific Gravity - Urine >= 1.030 (1.005-1.025); Urine Blood NEG (NEG); Urine Ketones 15 MG/DL (NEG); Urine Protein TRACE MG/DL (NEG-TRACE)
[2021-03-08 14:53] LABS: Alanine Aminotransferase 19 U/L (0-40); Albumin Level 4.3 g/dL (3.5-5.0); Alkaline Phosphatase 59 U/L (39-117); Anion Gap 15 (12-20); Aspartate Amino Transferase 21 U/L (5-37); Bilirubin Total 0.8 mg/dL (0.0-1.0); Blood Urea Nitrogen 16 mg/dL (9-16); Calcium 9.5 mg/dL (8.4-10.2); Carbon Dioxide 27 mmol/L (22-29); Chloride 105 mmol/L (96-108); Cholesterol 155 mg/dL; Estimated Glomerular Filt Rate > 60; Glucose Fasting 85 mg/dL (60-99); HDL Cholesterol 56 mg/dL; LDL Cholesterol Calculated 88 mg/dl; Potassium 3.8 mmol/L (3.3-5.1); Sodium 143 mmol/L (135-145); Total Protein 7.2 g/dL (6.5-8.0); Triglycerides 57 mg/dL
[2021-03-08 15:00] LABS: TSH reflex Free T4 1.42 uIU/mL (0.32-4.0)
== END 2021-03-08 11:13 | disposition home or self-care (01) ==
LOC: HO.HMGCLDS 11:12
PROVIDERS: PCP Nurse Practitioner Family; Visit Provider Nurse Practitioner Family
DX: Z00.00 Encounter for general adult medical examination without abnormal findings (principal)
CPT/HCPCS: 36415; 80053; 80061; 81003; 84443

== ENCOUNTER → 2021-03-25 11:56 | Outpatient (BNVA) | payer OTHER, MEDICARE, MEDICAID, SELFPAY | PROVIDERS: PCP Nurse Practitioner Family; Visit Provider Urology | DX: N52.01 Erectile dysfunction due to arterial insufficiency (principal) | CPT/HCPCS: 51798 ==

== ENCOUNTER → 2021-03-30 14:10 | Outpatient (BNVA) | payer OTHER, MEDICARE, MEDICAID, SELFPAY | PROVIDERS: PCP Nurse Practitioner Family; Referring Provider Nurse Practitioner Family; Visit Provider Internal Medicine ==

== ENCOUNTER 2021-05-08 13:38 | Outpatient (REF) | payer OTHER, MEDICARE, MEDICAID, SELFPAY ==
--- NOTE | ~2021-05-08 | XR_ITS ---
EXAMINATION: XR BILATERAL HIPS CLINICAL INFORMATION: Bilateral hip pain COMPARISON: Right hip x-rays December 31, [address] abdomen pelvis May 06, 2019 TECHNIQUE: 2 views of each hip were obtained. FINDINGS: There is neither fracture nor dislocation of either hip. There is only mild narrowing of both femoral acetabular joint spaces. There are no significant degenerative changes of either hip identified. Sacroiliac joints appear symmetric. Pelvic calcifications are likely vascular in nature. XR/XR hips JOAQUÍN min 3V IMPRESSION: Minimal degenerative changes of both hips without fracture or dislocation.
== END 2021-05-08 13:39 | disposition home or self-care (01) ==
LOC: HO.HMGCX 13:38
PROVIDERS: PCP Nurse Practitioner Family; Visit Provider Physician Assistant Medical
DX: M54.50 Low back pain, unspecified (principal)
CPT/HCPCS: 73522

== ENCOUNTER 2021-05-17 08:43 | Outpatient (REF) | payer OTHER, MEDICARE, MEDICAID, SELFPAY ==
[2021-05-17 12:07] LABS: Alanine Aminotransferase 20 U/L (0-40); Albumin Level 4.3 g/dL (3.5-5.0); Alkaline Phosphatase 59 U/L (39-117); Anion Gap 11 (12-20); Aspartate Amino Transferase 26 U/L (5-37); Bilirubin Total 0.5 mg/dL (0.0-1.0); Blood Urea Nitrogen 26 mg/dL (9-16); Calcium 9.7 mg/dL (8.4-10.2); Carbon Dioxide 30 mmol/L (22-29); Chloride 103 mmol/L (96-108); Estimated Glomerular Filt Rate > 60; Glucose Random 99 mg/dL (60-115); Potassium 4.3 mmol/L (3.3-5.1); Sodium 140 mmol/L (135-145); Total Protein 7.3 g/dL (6.5-8.0)
== END 2021-05-17 08:44 | disposition home or self-care (01) ==
LOC: HO.HMGCLDS 08:43
PROVIDERS: Visit Provider Nurse Practitioner Family
DX: R10.11 Right upper quadrant pain (principal)
CPT/HCPCS: 36415; 80053

== ENCOUNTER → 2021-06-28 10:53 | Outpatient (BNVA) | payer OTHER, MEDICARE, MEDICAID, SELFPAY | PROVIDERS: PCP Nurse Practitioner Family; Visit Provider Internal Medicine | DX: Z13.89 Encounter for screening for other disorder (principal) ==

== ENCOUNTER 2021-06-29 12:34 | Outpatient (REF) | payer OTHER, MEDICARE, MEDICAID, SELFPAY ==
--- NOTE | ~2021-06-29 | US_ITS ---
EXAMINATION: US ABDOMEN COMPLETE CLINICAL INFORMATION: Right upper quadrant pain. COMPARISON: Ultrasound abdomen complete 05/06/2019. CT abdomen with contrast 06/27/2018. TECHNIQUE: Real-time imaging of the abdominal viscera. FINDINGS: PANCREAS: The pancreas is obscured partially. Visualized body of the pancreas is homogeneous in echotexture. ABDOMINAL AORTA: The proximal, mid, and distal segments are normal in caliber. INFERIOR VENA CAVA: Visualized portions are normal. LIVER: The liver is normal in size. The liver contour is normal. Parenchymal echogenicity is normal. There are 2 anechoic cysts and right hepatic lobe measuring 1.4 x 0.8 x 1.6 cm and 1.3 x 1.0 x 1.5 cm. There is no intrahepatic biliary duct dilatation seen. GALLBLADDER: Normal. The gallbladder is physiologically distended without evidence of stones, sludge, polyps, wall thickening or pericholecystic fluid. COMMON BILE DUCT: Normal in caliber measuring 0.4 cm in diameter. RIGHT KIDNEY: There is a small anechoic cyst in the midpole measuring 0.6 x 0.4 x 0.4 cm. No hydronephrosis or renal calculi. The kidney measures 10.2 cm in maximum dimension. LEFT KIDNEY: There is an anechoic cyst in the lower pole measuring 0.6 x 0.4 x 0.4 cm. No hydronephrosis or renal calculi. The kidney measures 9.6 cm in maximum dimension. SPLEEN: Normal. The spleen measures 9.1 cm in maximum dimension. FREE FLUID: None. US/US abdomen complete IMPRESSION: Two right hepatic lobe cysts. Single cyst in each kidney. No echogenic stones or hydronephrosis.
== END 2021-06-29 12:35 | disposition home or self-care (01) ==
LOC: HO.US 12:34
PROVIDERS: PCP Nurse Practitioner Family; Visit Provider Nurse Practitioner Family
DX: R10.11 Right upper quadrant pain (principal)
CPT/HCPCS: 76700

== ENCOUNTER → 2021-07-06 11:51 | Outpatient (BNVA) | payer OTHER, MEDICARE, MEDICAID, SELFPAY | PROVIDERS: PCP Nurse Practitioner Family; Visit Provider Urology | DX: N52.01 Erectile dysfunction due to arterial insufficiency (principal); N28.1 Cyst of kidney, acquired | CPT/HCPCS: 51798 ==

== ENCOUNTER 2021-07-06 13:45 | Outpatient (REF) | payer OTHER, MEDICARE, MEDICAID, SELFPAY ==
--- NOTE | ~2021-07-06 | XR_ITS ---
EXAMINATION: XR LUMBOSACRAL SPINE CLINICAL INFORMATION: Low back pain. COMPARISON: 04/28/2017 TECHNIQUE: Three views of the lumbosacral spine. FINDINGS: There is mild scoliosis of the lumbar spine convex left. There is significant narrowing of the L2-L3 disc space with marginal spurring and sclerosis. There is also noted to be spurring involving the L4 and L5 vertebral bodies. There is mild narrowing of the L4-L5 and L5-S1 disc spaces. There is facet arthropathy seen on the left L5-S1 level. No acute fracture, spondylolisthesis, or spondylolysis is appreciated. There appears to be some degree of facet arthropathy involving the right L2-L3 space. SI joints appear unremarkable. Pedicles are intact. XR/XR lumbar spine 2-3V IMPRESSION: Lumbar spondylosis as described above without evidence of acute fracture, spondylolisthesis, or spondylolysis.
== END 2021-07-06 13:46 | disposition home or self-care (01) ==
LOC: HO.HMGCX 13:45
PROVIDERS: Visit Provider Nurse Practitioner Family
DX: M54.50 Low back pain, unspecified (principal)
CPT/HCPCS: 72100

== ENCOUNTER → 2021-07-19 16:06 | Outpatient (RCR) | payer OTHER, MEDICARE, MEDICAID, SELFPAY ==
--- NOTE | 2020-06-10 10:19 | MHC.SL.POC ---
Name: Michael Bland Date of : 1965 Age: 55 Date of Registration: 05/28/20 Referring provider: Don Meraz NP-BC/ PCP Dr. Ornelas Reason for Referral: Globus sensation and pain when swallowing Type of Treatment: Date of Plan of Treatment: 02/27/20 Onset of Symptoms/Illness: 02/27/20 Date Treatment Started: 02/27/20 Medical Diagnosis: Pt is a 54 year old male who was referred for an MBSS due to complaints of dysphagia with dry food. Patient had a CVA at age 3, and presents with residual right sided weakness. He is hard of hearing and has a cochlear implant, however stated that he does not wear it because of the level of discomfort it causes. Patient reports difficulty swallowing solids, stating it feels stuck . An MBSS was completed on 02/27/20 in which he was recommended chopped diet with meats ground/mechanically altered and thin liquids. Speech & Language Primary Diagnosis:R13.12 Oropharyngeal Phase Dysphagia Recommendation for Speech Therapy: Michael has completed his course of recommended outpatient speech therapy. He has been practicing pharyngeal strengthening exercises at home and is aware of the compensatory strategies to ensure safe swallowing. LABORATORY GENETICIST continues to recommend CHOPPED/ADVANCED (NDD3) solids and GROUND/MECH ALTERED(NDD2) meats and THIN liquids. A repeat MBSS is also recommended to re-assess his swallowing function after practicing pharyngeal strengthening exercises for 3 months. Recommended Referrals: Other Referrals: Repeat MBSS in June or July District Director Clinican/Clinical Fellow: Yes: Iman Weinberg M.A., CF-LABORATORY GENETICIST Supervisory Statement: I have reviewed and agree with the documentation written by the student/clinical fellow: Yes Speech Language Pathologist: Charleen Andres M.A., CCC-LABORATORY GENETICIST
--- NOTE | 2020-06-10 10:31 | MHC.SL.SOA ---
Referring Provider: Don Meraz BUTCHER-BC/ PCP Dr. Ornelas Reason for Referral: Globus sensation and pain when swallowing Date of Plan of Treatment:02/27/20 Onset of Symptoms/Illness:02/27/20 Date Treatment Started:02/27/20 Medical Diagnosis:Pt is a 54 year old male who was referred for an MBSS due to complaints of dysphagia with dry food. Patient had a CVA at age 3, and presents with residual right sided weakness. He is hard of hearing and has a cochlear implant, however stated that he does not wear it because of the level of discomfort it causes. Patient reports difficulty swallowing solids, stating it feels stuck . An MBSS was completed on 02/27/20 in which he was recommended chopped diet with meats ground/mechanically altered and thin liquids. Primary Speech Language Diagnosis:R13.12 Oropharyngeal Phase Dysphagia Reason for Visit:[id number] Dysphagia Treatment Other: Subjective:Michael arrived on time to his treatment session today. He was pleasant and appeared eager to participate. Pt was seen for dysphagia therapy following an MBSS completed on 02/27/20 in which he was recommended chopped/advanced solids with ground/mechanically altered meats and thin liquids. Pt presents with oropharyngeal dysphagia characterized by the following: mildly prolonged mastication, partial laryngeal elevation, partial epiglottic inversion, diminished pharyngeal stripping wave, reduced tongue base retraction, and mild to moderate pharyngeal retention. Objective: Michael participated in review of pharyngeal strengthening exercises (Nelsy, Effortful Swallow, Shaker, and Elizabeth Maneuver). Michael stated that the exercises have been going well at home. Assessment: Michael participated in conversation RE: how pharyngeal strengthening exercises have been going at home. He stated that he has difficulty with the Shaker exercise due to inability to keep his shoulders flat to the surface when lifting chin. POULTRY FARMER MEAT stated that it is not imperative that he complete this exercise, as the other exercises are targeting pharyngeal strengthening as well. . Michael stated that the other exercises, effortful swallow, nelsy, and elizabeth maneuver are easy for him to complete. Compensatory strategies were reviewed this date as well. Michael stated that he no longer is grinding up his meats, however he has a friend who is cutting up his meat into small bite sizes which he seems to be tolerating. POULTRY FARM[employer] reiterated the rationale behind recommendation for ground meats. Michael stated that he is extremely carful when chewing and takes his time during meals. Michael participated in further discussion regarding recommendation for occupational therapist as he continues to ask this POULTRY FARMER MEAT for recommendations for eating utensils that will help him become more independent in cutting his food. Plan: Michael was scheduled for one final session on 05/14 at 1pm however, called and cancelled due to transportation issues. P[employer] FARMER [employer] contacted Michael to re-schedule his last appointment. Michael stated that he is practicing the pharyngeal strengthening exercises at home and understands the compensatory strategies reviewed. He opted to not to re-schedule, as his life is busy right now . POULTRY FARMER ME[employer] discussed recommendation for repeat MBSS in 1-2 months to identify any changes in swallowing function following consistent practice of pharyngeal strengthening exercises. Recommendation was sent to Don HUERTA/ PCP Dr. Ornelas. Seen by: Graduate/Clinical Fellow: Yes: Iman Weinberg M.A., CF-[employer] Supervisory Statement: f_Reg Query Last Value , MHC.AU.SIGNAT Speech Language Pathologist: Charleen Andres M.A., CCC-[employer]
== END | disposition home or self-care (01) ==
LOC: HO.SH 03-26 12:58
PROVIDERS: Visit Provider Nurse Practitioner Family
DX: R13.12 Dysphagia, oropharyngeal phase (principal)
CPT/HCPCS: 92526

== ENCOUNTER 2021-08-19 10:10 | Outpatient (REF) | payer OTHER, MEDICARE, MEDICAID, SELFPAY ==
--- NOTE | ~2021-08-19 | XR_ITS ---
EXAMINATION: XR FOOT, RIGHT CLINICAL INFORMATION: Right foot pain, unspecified. COMPARISON: None TECHNIQUE: AP, lateral, and oblique views of the right foot. FINDINGS: Comminuted fracture is seen involving the paramediastinal phalanx of the right great toe. The remainder of the visualized bones show satisfactory alignment and intact cortices. XR/XR foot RT min 3V IMPRESSION: Comminuted fracture involving terminal phalanx of the right great toe.
[2021-08-19 12:20] LABS: Influenza A PCR NEGATIVE (Negative); Influenza B PCR NEGATIVE (Negative); Resp Syncy Virus RNA Qual PCR NEGATIVE (Negative); SARS COV2 PCR INHOUSE NEGATIVE (Negative)
== END 2021-08-19 10:11 | disposition home or self-care (01) ==
LOC: HO.HOSX 10:10
PROVIDERS: Internal Medicine; Visit Provider Physician Assistant
DX: M79.671 Pain in right foot (principal); M21.371 Foot drop, right foot; Z20.822 Contact with and (suspected) exposure to COVID-19
CPT/HCPCS: 0241U; 73630

== ENCOUNTER 2021-09-01 11:35 | Outpatient (REF) | payer OTHER, MEDICARE, MEDICAID, SELFPAY ==
--- NOTE | ~2021-09-01 | US_ITS ---
EXAMINATION: US VENOUS ULTRASOUND WITH DOPPLER LOWER EXTREMITY, RIGHT CLINICAL INFORMATION: Swelling. COMPARISON: None TECHNIQUE: Ultrasound of the deep veins is performed from the hip to the calf with compression sonography and color and pulse Doppler assessment. Spectral analysis with color-flow imaging is performed. FINDINGS: There is acute thrombus seen in the posterior tibial veins in the calf. There is normal venous compression and respiratory variation and augmented flow. The visualized common femoral vein, superficial femoral vein, profunda femoral vein, popliteal vein, and the peroneal veins shows no evidence of deep venous thrombosis. There is no significant popliteal fossa cyst. US/US venous duplex LE RT IMPRESSION: DVT in the posterior tibial veins in the calf. Findings were communicated to Dr. Don Meraz by telephone on 09/01/2021 at 12:23 PM.
== END 2021-09-01 11:36 | disposition home or self-care (01) ==
LOC: HO.HMGCX 11:35
PROVIDERS: Visit Provider Nurse Practitioner Family
DX: R60.0 Localized edema (principal); M79.89 Other specified soft tissue disorders
CPT/HCPCS: 93971

== ENCOUNTER 2021-09-01 12:43 | Emergency (ER) | payer OTHER, MEDICARE, MEDICAID, SELFPAY ==
[2021-09-01 13:19] VITALS: BP 145/76; PULSE 86; RESP 17; TEMP 36.3; O2SAT 97; BMI 26.9
[2021-09-01 13:41] LABS: Basophils Percent Auto 0.6 % (0-2); Eosinophils Absolute Auto 0.6 X10*3/uL (0.0-0.4); Eosinophils Percent Auto 7.9 % (0-4); Hematocrit 39.5 % (42.0-52.0); Hemoglobin 12.9 g/dl (14.0-18.0); Imm Gran Abs Auto 0.02 X10*3/uL (0.00-0.03); Imm Gran Pct Auto 0.3 % (0.0-0.4); Lymphocytes Absolute Auto 3.2 X10*3/uL (1.2-4.9); Lymphocytes Percent Auto 45.3 % (20-40); MANUAL DIFF FLAG NO; Mean Corpuscular HGB Conc 32.7 g/dl (31.0-36.0); Mean Corpuscular Hemoglobin 31.7 pg (27.0-33.0); Mean Corpuscular Volume 97.1 fL (80.0-98.0); Monocytes Absolute Auto 0.8 X10*3/uL (0.1-1.2); Monocytes Percent Auto 11.4 % (2-11); Neutrophils Absolute Auto 2.4 x10*3/uL (2.0-8.3); Neutrophils Percent Auto 34.5 % (45-73); Platelet Count 253 X10*3/uL (160-400); Red Blood Count 4.07 X10*6/uL (4.60-5.80); Red Cell Distribution Width 13.5 % (11.0-16.0)
[2021-09-01 13:50] LABS: Partial Thromboplastin Time 34.4 SEC (24.1-38.0)
[2021-09-01 13:59] LABS: Anion Gap 12 (12-20); Blood Urea Nitrogen 23 mg/dL (9-16); Calcium 9.4 mg/dL (8.4-10.2); Carbon Dioxide 26 mmol/L (22-29); Chloride 106 mmol/L (96-108); Creatinine Clr Calc Pharmacy 82.1; Estimated Glomerular Filt Rate > 60; Glucose Random 103 mg/dL (60-115); Potassium 4.4 mmol/L (3.3-5.1); Sodium 140 mmol/L (135-145)
[2021-09-01 14:04] LABS: B Type Natriuretic Peptide 33 pg/mL (<100); Troponin-I High Sensitivity < 3.5 ng/L (<3.5-35.0)
[2021-09-01 15:29] LABS: Prothrombin Time 11.4 SEC (9.9-13.0)
--- NOTE | 2021-09-01 15:42 | ED.EXTPRO ---
HPI - Extremity Problem General Chief complaint: General Medical Stated complaint: quest of blood clot r leg Time Seen by Provider: 09/01/21 15:39 Source: patient Mode of arrival: wheelchair Limitations: no limitations History of Present Illness HPI Narrative: Patient presents emergency department stating that he has a blood clot in his right leg. States that he had an ultrasound obtained from . Isac was advised to come to the emergency department. A that he had neck surgery 4 weeks ago, 2 weeks later he noticed redness and swelling to the right foot. Denies any numbness or tingling in the leg or foot. Denies confusion, persistent headache, vision changes, neck pain, chest pain, palpitations, shortness of breath, difficulty breathing, nausea, vomiting, abdominal pain. Denies being on any anticoagulants, currently taking a low-dose aspirin daily. Denies prior history of DVT/PE. Denies any personal history of cancer. Related Data Home Medications Medication Instructions Recorded Confirmed aspirin 81 mg tablet,delayed 81 mg PO DAILY 02/05/20 09/01/21 release cholecalciferol (vitamin D3) 25 25 mcg PO DAILY 02/05/20 09/01/21 mcg (1,000 unit) capsule multivitamin 1 tab PO DAILY 02/05/20 09/01/21 dextroamphetamine-amphetamine 20 20 mg PO QID 03/30/21 09/01/21 mg tablet (Adderall) gabapentin 300 mg capsule 300 mg PO TID 09/01/21 09/01/21 Previous Rx's Medication Instructions Recorded leg brace (Ankle Brace) #1 ea 03/24/20 miscellaneous medical supply 1 ea miscellaneous .COMPLEX #1 ea 12/08/20 cyclobenzaprine 10 mg tablet 10 mg PO BEDTIME PRN muscle spasm 07/05/21 25 days #25 tabs celecoxib 100 mg capsule (Celebrex) 100 mg PO BID PRN pain 30 days #60 07/08/21 caps apixaban 5 mg (74 tabs) tablets in 5 mg PO BID #74 ea 09/01/21 a dose pack (Eliquis DVT-PE Treat 30D Start) Allergies Allergy/AdvReac Type Severity Reaction Status Date / Time Penicillins Allergy Severe ANAPHYLAXIS Verified 09/01/21 11:30 Review of Systems Review of Systems: Constitutional: No fever. No chills. No weakness. No fatigue. Eye: No swelling. No redness. ENT: No sore throat. No rhinorrhea. No nasal congestion. Skin: No rash. No itching. Cardiovascular: No chest pain. No chest pressure. No palpitations. Positive right pedal edema. Respiratory: No shortness of breath. No cough. No sputum production. Gastrointestinal: No nausea. No vomiting. No diarrhea. No abdominal pain. No blood in stool. Genitourinary: No burning micturition. No urinary frequency. No incontinence. Neurologic: No headache. No dizziness. No pre-syncope/ syncope. No unilateral weakness. No ataxia. No numbness. No tingling. Musculoskeletal: Positive foot pain Hematologic: No bleeding. No bruising. Yes all other systems are reviewed and are negative PMFSH Past Medical History Attestation statement: The following information was validated with the patient. Source: old records reviewed Medical History Acoustic neuroma Attention deficit disorder Bipolar 1 disorder Cervical radiculopathy Encounter for screening Encounter for screening Feeling of incomplete bladder emptying Hearing loss Weak urinary stream Surgical History H/O colonoscopy History of back surgery History of brain surgery History of cochlear implant History of elbow surgery History of sinus surgery History of surgery Family History Family History Father No problems noted. Mother History of breast cancer Social History Social History Housing: House Alcohol intake: current Alcohol intake frequency: holidays/special occasions only Patient Tobacco Use Status: Never used Tobacco e-Cigarette/Vaping Use: Never Used Advance Directives: No Advance Directives Information Provided: No service: No Current occupational status: unemployed Cognitive needs: No Hearing needs: No Vision needs: No Physical Exam Vital Signs: Vital Signs: Last Vital Signs Temp 97.3 F 09/01/21 13:19 Pulse 86 09/01/21 13:19 Resp 17 09/01/21 13:19 BP 145/76 H 09/01/21 13:19 Pulse Ox 97 09/01/21 13:19 O2 Del Method 09/01/21 13:19 BMI result Body Mass Index 26.9 Vital signs have been reviewed and appeared to be correct. Hypertensive? Heart rate normal.? Respiration rate normal. Temperature normal.? Oxygen saturation normal. Appearance: Alert.?Oriented to person, place and time. No acute distress.?Normal affect. Eyes: Pupils equal, round and reactive to light.? ENT: Pharynx normal.?? Neck: Normal inspection.? Neck supple.?? CVS: Heart sounds normal. Normal heart rate and rhythm.? Pulses normal.?? Respiratory: No respiratory distress.? Lung sounds clear to auscultation bilaterally?? Abdomen: Soft and non-tender. ? Skin: Skin warm and dry.? Normal skin color.? Extremities: 1+ palpable DP/PT pulse on the right, nonpitting edema, erythema COVID a right dorsal foot, tenderness with palpation right calf, no calf/ swelling/ erythema/ rash. Neuro: Moves all extremities spontaneously. Sensation intact bilaterally. No focal neuro deficits. Course Course Course Narrative: Patient is a 56-year-old male with a past medical history of cervical radiculopathy, bipolar disorder, PVD, remote history of stroke as a child, presenting to the emergency department by recommendation of his PCP for DVT to the right lower extremity. Patient underwent a laminectomy with decompression C6-C7 and T1 approximately 1 month ago at [facility], he is unaware of the name of his surgeon. He states he has been less mobile since his surgery, thinks that may be why he developed a clot. He states he has had swelling and redness to the right foot for the past 2 weeks, therefore when evaluated by his primary care provider today, he had an ultrasound obtained outpatient which revealed acute thrombus of the posterior tibial veins. Patient is followed by Dr. 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 Discussed plan of care with patient including Eliquis with dosage taper, discontinuation of aspirin, not to use NSAIDs in addition of this medication, advised reasons to return back to the emergency department, outpatient follow-up with his primary care provider within 5 days. Discussed this case with ED attending Dr. Fofana, who agrees with plan of care in for discharge home, he is at low risk for bleeding, has no renal insufficiency, no suspicion for pulmonary embolism, do not feel that patient needs inpatient care. Will refer patient to wire straightener, to determine duration of anti-coagulation, whether provoked or not. MDM - Extremity (Nontraumatic) Medical Records Attestation: I reviewed the patient's medical records. Lab Data Attestation: I reviewed the patient's lab results. Result diagrams: 09/01/21 13:33 09/01/21 13:33 Labs: Lab Results 09/01/21 09/01/21 09/01/21 Range/Units 13:33 13:33 13:33 WBC 7.0 (4.8-10.8) X10*3/uL RBC 4.07 L (4.60-5.80) X10*6/uL Hgb 12.9 L (14.0-18.0) g/dl Hct 39.5 L (42.0-52.0) % MCV 97.1 (80.0-98.0) fL MCH 31.7 (27.0-33.0) pg MCHC 32.7 (31.0-36.0) g/dl RDW 13.5 (11.0-16.0) % Plt Count 253 (160-400) X10*3/uL MPV 9.0 L (9.4-12.4) fL Immature Gran % (Auto) 0.3 (0.0-0.4) % Neut % (Auto) 34.5 L (45-73) % Lymph % (Auto) 45.3 H (20-40) % [place] % (Auto) 11.4 H (2-11) % Eos % (Auto) 7.9 H (0-4) % Baso % (Auto) 0.6 (0-2) % Lymph # (Auto) 3.2 (1.2-4.9) X10*3/uL [place] # (Auto) 0.8 (0.1-1.2) X10*3/uL Eos # (Auto) 0.6 H (0.0-0.4) X10*3/uL Baso # (Auto) 0.0 (0.0-0.2) X10*3/uL Abs Immat Gran (auto) 0.02 (0.00-0.03) X10*3/uL Absolute Neuts (auto) 2.4 (2.0-8.3) x10*3/uL Absolute Nucleated RBC 0.000 (0.0-0.012) X10*3/uL Nucleated RBC % (auto) 0.0 (0.0-0.2) /100WBC PT (9.9-13.0) SEC INR (0.9-1.1) APTT (24.1-38.0) SEC Sodium 140 (135-145) mmol/L Potassium 4.4 (3.3-5.1) mmol/L Chloride 106 (96-108) mmol/L Carbon Dioxide 26 (22-29) mmol/L Anion Gap 12 (12-20) BUN 23 H (9-16) mg/dL Creatinine 0.98 (0.5-1.4) mg/dL Estim Creat Clear Calc 82.1 Estimated GFR > 60 Random Glucose 103 (60-115) mg/dL Calcium 9.4 (8.4-10.2) mg/dL Troponin I High Sens < 3.5 (<3.5-35.0) ng/L B-Natriuretic Peptide 33 (<100) pg/mL 09/01/21 Range/Units 13:33 WBC (4.8-10.8) X10*3/uL RBC (4.60-5.80) X10*6/uL Hgb (14.0-18.0) g/dl Hct (42.0-52.0) % MCV (80.0-98.0) fL MCH (27.0-33.0) pg MCHC (31.0-36.0) g/dl RDW (11.0-16.0) % Plt Count (160-400) X10*3/uL MPV (9.4-12.4) fL Immature Gran % (Auto) (0.0-0.4) % Neut % (Auto) (45-73) % Lymph % (Auto) (20-40) % [place] % (Auto) (2-11) % Eos % (Auto) (0-4) % Baso % (Auto) (0-2) % Lymph # (Auto) (1.2-4.9) X10*3/uL [place] # (Auto) (0.1-1.2) X10*3/uL Eos # (Auto) (0.0-0.4) X10*3/uL Baso # (Auto) (0.0-0.2) X10*3/uL Abs Immat Gran (auto) (0.00-0.03) X10*3/uL Absolute Neuts (auto) (2.0-8.3) x10*3/uL Absolute Nucleated RBC (0.0-0.012) X10*3/uL Nucleated RBC % (auto) (0.0-0.2) /100WBC PT 11.4 (9.9-13.0) SEC INR 1.0 (0.9-1.1) APTT 34.4 (24.1-38.0) SEC Sodium (135-145) mmol/L Potassium (3.3-5.1) mmol/L Chloride (96-108) mmol/L Carbon Dioxide (22-29) mmol/L Anion Gap (12-20) BUN (9-16) mg/dL Creatinine (0.5-1.4) mg/dL Estim Creat Clear Calc Estimated GFR Random Glucose (60-115) mg/dL Calcium (8.4-10.2) mg/dL Troponin I High Sens (<3.5-35.0) ng/L B-Natriuretic Peptide (<100) pg/mL Imaging Data Venous US: Radiologist's impression: FINDINGS: There is acute thrombus seen in the posterior tibial veins in the calf. There is normal venous compression and respiratory variation and augmented flow. The visualized common femoral vein, superficial femoral vein, profunda femoral vein, popliteal vein, and the peroneal veins shows no evidence of deep venous thrombosis. There is no significant popliteal fossa cyst. US/US venous duplex LE RT IMPRESSION: DVT in the posterior tibial veins in the calf. Discharge Plan Discharge Clinical Impression: DVT (deep venous thrombosis) Patient Disposition: Home, Self-Care Instructions: Deep Vein Thrombosis (ED), Blood Thinners (ED) Additional Instructions: You have a blood clot in the veins of your lower leg, your calf. Eliquis 10 mg twice daily for 7 days. After that dosage would be 5 mg twice daily. This is a blood thinning medication. As we discussed you may be at risk for bleeding and easy bruising. If fall and hit your head you need to be evaluated in the emergency department right away. If you have any bleeding, developed chest pain, palpitations, shortness of breath, difficulty breathing, dizziness, lightheadedness, persistent headache he should be re-evaluated in the emergency department. Stop taking aspirin. Do not take other NSAIDs such as ibuprofen/Motrin, Aleve/naproxen while taking Eliquis. Please contact Hematology to schedule a new patient visit. Follow-up with your primary care provider as scheduled. Prescriptions: New Eliquis DVT-PE Treat 30D Start 5 mg (74 tabs) tablets,dose pack 5 mg PO BID Qty: 74 0RF Rx Instructions: Take 2 tablets, 10 mg twice daily for 7 days. Then take 1 tablet 5 mg twice daily. No Action (DME) Ankle Brace Misc See Rx Instructions .ROUTE .MEDSUPPLY Qty: 1 0RF Rx Instructions: Right solid ankle AFO celecoxib [Celebrex] 100 mg capsule 100 mg PO BID PRN (Reason: pain) 30 Days Qty: 60 0RF Rx Instructions: do not take with motrin cholecalciferol (vitamin D3) 25 mcg (1,000 unit) capsule 25 mcg PO DAILY aspirin 81 mg tablet,delayed release (DR/EC) 81 mg PO DAILY multivitamin Tablet 1 tab PO DAILY miscellaneous medical supply Misc 1 ea miscellaneous .COMPLEX Qty: 1 0RF Rx Instructions: 1 ea miscellaneous right arch support, daily; right arch support dextroamphetamine-amphetamine [Adderall] 20 mg tablet 20 mg PO QID gabapentin 300 mg capsule 300 mg PO TID cyclobenzaprine 10 mg tablet 10 mg PO BEDTIME PRN (Reason: muscle spasm) 25 Days Qty: 25 0RF Referrals: Don Meraz FNP-JESUS [Primary Care Provider] - Segundo Salas MD [Physician] - 1 week (DVT, ) Interventions: ED Discharge Assessment Last Done: 09/01/21 16:51 Discharge Date/Time: 09/01/21 16:53
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
== END 2021-09-01 16:53 | disposition home or self-care (01) ==
PROVIDERS: Emergency Provider Emergency Medicine; PCP Nurse Practitioner Family
DX: I82.441 Acute embolism and thrombosis of right tibial vein (principal); I73.9 Peripheral vascular disease, unspecified; Z86.73 Personal history of transient ischemic attack (TIA), and cerebral infarction without residual deficits; Z79.82 Long term (current) use of aspirin; Z79.899 Other long term (current) drug therapy
CPT/HCPCS: 36415; 80048; 83880; 84484; 85025; 85610; 85730; 99283

== ENCOUNTER → 2021-09-30 11:05 | Outpatient (REF) | payer OTHER, MEDICARE, MEDICAID, SELFPAY | LOC: HO.SL 11:05 | PROVIDERS: PCP Nurse Practitioner Family; Visit Provider Internal Medicine | DX: G47.33 Obstructive sleep apnea (adult) (pediatric) (principal); R40.0 Somnolence | CPT/HCPCS: 95806 ==

== ENCOUNTER 2022-02-02 11:56 | Day surgery (SDC) | payer OTHER, MEDICARE, MEDICAID, SELFPAY ==
--- NOTE | 2022-02-01 08:02 | P.CONAN_ITS ---
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 DVT s/p cervial spine surgery - was on eliquis until 11/2021 [facility] Active Problems Active Problems: All Active Problems (Updated 01/26/22 @ 15:25 by Joyce Jorge RN) Rib pain on right side (Acute) Hip pain (Acute) Overweight (BMI 25.0-29.9) (Acute) Enlarged prostate (Acute) Dysphagia (Acute) PFO (patent foramen ovale) (Acute) Fall (Acute) Acute head trauma (Acute) Atrial septal defect (Acute) ADHD (Acute) Numerous moles (Acute) Dermatitis (Acute) Erectile dysfunction due to arterial insufficiency (Acute) Sleep apnea (Acute) Physical exam (Acute) Stroke due to embolism (Acute) Back pain (Acute) RUQ pain (Acute) Liver cyst (Acute) Kidney cysts (Acute) Weakness of left upper extremity (Acute) Cervical neck pain with evidence of disc disease (Acute) Chronic pain (Acute) Encounter for screening for COVID-19 (Acute) Weakness of left upper extremity (Acute) Right foot drop (Acute) Swelling of right lower extremity (Acute) Discoloration of skin of lower leg (Acute) DVT (deep venous thrombosis) (Acute) Cerumen impaction (Acute) KASANDRA (obstructive sleep apnea) (Acute) Somnolence, daytime (Acute) Thoracic back pain (Acute) Lower back pain (Acute) Bladder outlet obstruction (Acute) Cerebrovascular accident (Acute) Past Medical History Medical History Acoustic neuroma Attention deficit disorder Bipolar 1 disorder Bladder outlet obstruction Cerebrovascular accident Cervical radiculopathy Encounter for screening Encounter for screening Feeling of incomplete bladder emptying Hearing loss History of shingles Lower back pain Migraine KASANDRA (obstructive sleep apnea) PTSD (post-traumatic stress disorder) Somnolence, daytime Thoracic back pain Weak urinary stream Family History Family History Father No problems noted. Mother History of breast cancer Surgical History Surgical History H/O colonoscopy History of back surgery History of brain surgery History of cochlear implant History of elbow surgery History of esophagogastroduodenoscopy (EGD) History of sinus surgery History of surgery Social History Social History Household Members: None Housing: House Are you a primary post acute care nurse practitioner to a significant other at home: No Do you presently have visiting nurse or other home services: No Alcohol intake: current Alcohol intake frequency: holidays/special occasions only Patient Tobacco Use Status: Never used Tobacco e-Cigarette/Vaping Use: Never Used Second Hand Smoke Exposure: No Advance Directives: No Advance Directives Information Provided: Yes service: No Current occupational status: unemployed Cognitive needs: No Hearing needs: No Vision needs: No Meds Allergies Allergy/AdvReac Type Severity Reaction Status Date / Time Penicillins Allergy Severe ANAPHYLAXIS Verified 01/26/22 15:24 Home Medications Medication Instructions Recorded Confirmed Last Taken Type cholecalciferol (vitamin D3) 25 25 mcg PO DAILY 02/05/20 01/26/22 Unknown History mcg (1,000 unit) capsule multivitamin 1 tab PO DAILY 02/05/20 01/26/22 Unknown History vitamin E (dl, acetate) 45 mg (100 45 mg PO DAILY 11/01/21 01/26/22 Unknown History unit) capsule dextroamphetamine-amphetamine 20 20 mg PO BID attention 11/08/21 01/26/22 Unknown History mg tablet (Adderall) levomilnacipran 20 mg capsule,24 1 cap PO QAM depressive disorder 01/26/22 01/26/22 Unknown History hr,extended release (Fetzima) aspirin 81 mg tablet,delayed 81 mg PO DAILY 01/27/22 01/27/22 Unknown History release Exam Exam Date and Time: February 01, 2022 0802 Pertinent Lab Results Pertinent Lab Results: Laboratory Tests 09/01/21 09/01/21 13:33 13:33 WBC 7.0 Hgb 12.9 L Hct 39.5 L Plt Count 253 Sodium 140 Potassium 4.4 Chloride 106 Carbon Dioxide 26 BUN 23 H Creatinine 0.98 Narrative Narrative: Limited Echo 2020 Findings [facility] During rest, there is no transit of bubbles. With valsalva, few bubbles seen in left ventricle. Possible small PFO vs pulmonary AVM. Assessment and Plan Assessment Anesthesia Assessment: Chart Reviewed Documented by User: Ashley Pena MD 02/02/22 12:42 PMFSH Past Medical History Medical History Acoustic neuroma Attention deficit disorder Bipolar 1 disorder Bladder outlet obstruction Cerebrovascular accident Cervical radiculopathy Encounter for screening Encounter for screening Feeling of incomplete bladder emptying Hearing loss History of shingles Lower back pain Migraine KASANDRA (obstructive sleep apnea) PTSD (post-traumatic stress disorder) Somnolence, daytime Thoracic back pain Weak urinary stream Family History Family History Father No problems noted. Mother History of breast cancer Surgical History Surgical History H/O colonoscopy History of back surgery History of brain surgery History of cochlear implant History of elbow surgery History of esophagogastroduodenoscopy (EGD) History of sinus surgery History of surgery History of Problems with Anesthesia: No Social History Social History Household Members: None Housing: House Are you a primary post acute care nurse practitioner to a significant other at home: No Do you presently have visiting nurse or other home services: No Alcohol intake: current Alcohol intake frequency: holidays/special occasions only Patient Tobacco Use Status: Never used Tobacco e-Cigarette/Vaping Use: Never Used Second Hand Smoke Exposure: No Advance Directives: No Advance Directives Information Provided: Yes service: No Current occupational status: unemployed Cognitive needs: No Hearing needs: No Vision needs: No Meds Allergies Allergy/AdvReac Type Severity Reaction Status Date / Time Penicillins Allergy Severe ANAPHYLAXIS Verified 01/26/22 15:24 Home Medications Medication Instructions Recorded Confirmed Last Taken Type cholecalciferol (vitamin D3) 25 25 mcg PO DAILY 02/05/20 01/26/22 Unknown History mcg (1,000 unit) capsule multivitamin 1 tab PO DAILY 02/05/20 01/26/22 Unknown History vitamin E (dl, acetate) 45 mg (100 45 mg PO DAILY 11/01/21 01/26/22 Unknown History unit) capsule dextroamphetamine-amphetamine 20 20 mg PO BID attention 11/08/21 01/26/22 Unknown History mg tablet (Adderall) levomilnacipran 20 mg capsule,24 1 cap PO QAM depressive disorder 01/26/22 01/26/22 Unknown History hr,extended release (Fetzima) aspirin 81 mg tablet,delayed 81 mg PO DAILY 01/27/22 01/27/22 Unknown History release Exam Airway Mallampati Class: II TM Dist: >3cm Neck ROM: Full Loose/Missing/Broken Teeth: No Heart: RRR Lungs: CTA Assessment and Plan Assessment Anesthesia Assessment: Anesthesia Plan Discussed Final Anesthetic Review History of Problems with Anesthesia: No NPO: Yes ASA Class: III Final Preanesthetic Review: Meds/Allgs Chart Reviewed, Consent Obtained/Reviewed and Anes Risks/Benef Reviewed Patient Risk: Intermediate Procedure Risk: Low Anesthetic Plan Anesthetic Plan: MAC: Disposition: Standard PACU
--- NOTE | 2022-02-02 12:11 | MHC.SHP ---
Pre-Procedural Eval Section A Date of Service: 02/02/22 Section B Chief Complaint: Benign neoplasm of colon, Relevant Family History (Specify if Yes): No Relevant Social History: None Present Medications: see Short Stay Collaborative assessment Medical History: Significant History (Acoustic neuroma Attention deficit disorder Bipolar 1 disorder Bladder outlet obstruction Cerebrovascular accident Cervical radiculopathy Encounter for screening Encounter for screening Feeling of incomplete bladder emptying Hearing loss History of shingles Lower back pain Migraine KASANDRA (obstructive ) History of Previous Operations: Relevant previous surgery/procedure and date(s) ( H/O colonoscopy History of back surgery History of brain surgery History of cochlear implant History of elbow surgery History of esophagogastroduodenoscopy (EGD) History of sinus surgery History of surgery) Allergies: Allergies Allergy/AdvReac Type Severity Reaction Status Date / Time Penicillins Allergy Severe ANAPHYLAXIS Verified 01/26/22 15:24 Review of Systems Sugical H&P ROS: Negative: Constitution, Cardiovascular, Respiratory, Neurological, Psychiatric, Hem-Onc, Allergic/Immunologic, Gastrointestinal, Genitourinary, Musculoskeletal, Integumentary, Endocrine and Eyes/Ears/Nose/Throat Exam Surgical H&P Exam: Normal: HEENT, Normal: Heart, Normal: Lungs, Normal: Extremities, Normal: Abdomen and Normal: Skin and Significant Findings: Neurological (hemiparesis) Plan Diagnosis/Plan: Unchanged I have reviewed the history and physical and performed a pertinent physical examination on my patient. No changes have occurred unless specified.
--- NOTE | 2022-02-02 12:32 | W.PM.OPN ---
Operative Note Operative Note Date of Service: 02/02/22 Narrative: Operative Information Procedure Description: Colonoscopy Indication: screening Anesthesia: MAC COLONOSCOPY Instrument: Olympus variable stiffness adult scope 190L Colonoscopy Monitoring: Vital signs and clinical assessment, continuous EKG monitoring, Pulse oximetry, Carbon Dioxide monitoring and blood pressure monitoring were done throughout the procedure. Colon withdrawal time was 7 minutes. Procedure: The patient was placed in the left lateral decubitis position and pre-procedure medications were administered. After a digital rectal examination of the ano-rectum, the video colonoscope was inserted into the rectum and advanced through the colon to the cecum/TI. The colonoscope was slowly withdrawn in a retrograde panoramic fashion and the colon mucosa was carefully examined including a retroflexed view of the rectum. Findings and interventions are described below. Procedure Difficulty: easy Findings: Terminal Ileum-normal Cecum:normal Ascending Colon: normal Transverse Colon -normal Descending Colon:normal Sigmoid Colon: mild diverticulosis Rectum: Retroflexion with small internal hemorrhoids, grade I Anorectum - normal Colon preparation: [place] Bowel Preparation Scale Right colon; 2 Transverse colon: 3 Left colon; 3 (0 = Unprepared colon segment with mucosa not seen due to solid stool that cannot be cleared. 1 = Portion of mucosa of the colon segment seen, but other areas of the colon segment not well seen due to staining, residual stool and/or opaque liquid. 2 = Minor amount of residual staining, small fragments of stool and/or opaque liquid, but mucosa of colon segment seen well. 3 = Entire mucosa of colon segment seen well with no residual staining, small fragments of stool or opaque liquid) Impression and Post Procedure Diagnosis: internal hemorrhoids diverticular disease Plan: High fiber diet leaflet Avoid straining at stool, epsom salts and sitz bath, anusol supps or cream Repeat Colonoscopy in 5 years due to hx of polyps in past or earlier if clinically indicated Above findings were reviewed with the patient and relevant handouts were provided if indicated.
[2022-02-02 12:49] VITALS: BMI 27.1
[2022-02-02] MEDS: Lactated Ringers 1,000 ML 100 ML IVCONT (12:50)
[2022-02-02 12:51] VITALS: BP 111/74; PULSE 74; RESP 16; TEMP 37.1; O2SAT 96
[2022-02-02 13:15] VITALS: BP 114/68; PULSE 76; RESP 16; TEMP 36.6; O2SAT 98
[2022-02-02 13:30] VITALS: BP 120/64; PULSE 80; RESP 16; TEMP 37.3; O2SAT 96
[2022-02-02 13:45] VITALS: BP 140/81; PULSE 72; RESP 16; O2SAT 98
[2022-02-02 14:00] VITALS: BP 133/86; PULSE 67; RESP 16; TEMP 37.1; O2SAT 99
--- NOTE | 2022-02-02 14:18 | MHC.SHP ---
Pre-Procedural Eval Section A Date of Service: 02/02/22 Section B Chief Complaint: Benign neoplasm of colon, Details of Present Illness: GERD Relevant Family History (Specify if Yes): No Relevant Social History: None Present Medications: see Short Stay Collaborative assessment Medical History: Significant History (Acoustic neuroma Attention deficit disorder Bipolar 1 disorder Bladder outlet obstruction Cerebrovascular accident Cervical radiculopathy Encounter for screening Encounter for screening Feeling of incomplete bladder emptying Hearing loss History of shingles Lower back pain Migraine KASANDRA (obstructive ) History of Previous Operations: Relevant previous surgery/procedure and date(s) (H/O colonoscopy History of back surgery History of brain surgery History of cochlear implant History of elbow surgery History of esophagogastroduodenoscopy (EGD) History of sinus surgery History of surgery) Allergies: Allergies Allergy/AdvReac Type Severity Reaction Status Date / Time Penicillins Allergy Severe ANAPHYLAXIS Verified 01/26/22 15:24 Review of Systems Sugical H&P ROS: Negative: Constitution, Cardiovascular, Respiratory, Neurological, Psychiatric, Hem-Onc, Allergic/Immunologic, Gastrointestinal, Genitourinary, Musculoskeletal, Integumentary, Endocrine and Eyes/Ears/Nose/Throat Exam Surgical H&P Exam: Normal: HEENT, Normal: Heart, Normal: Lungs, Normal: Extremities, Normal: Abdomen, Normal: Skin and Normal: Neurological Plan Diagnosis/Plan: Unchanged I have reviewed the history and physical and performed a pertinent physical examination on my patient. No changes have occurred unless specified.
== END 2022-02-02 15:21 | disposition home or self-care (01) ==
PROVIDERS: PCP Nurse Practitioner Family; Visit Provider Internal Medicine Gastroenterology
PROC: 0DJD8ZZ Inspection of Lower Intestinal Tract, Via Natural or Artificial Opening Endoscopic (ICD-10-PCS; CPT 45378; principal; 2022-02-02 13:00)
DX: Z12.11 Encounter for screening for malignant neoplasm of colon (principal); Z86.010 Personal history of colon polyps; K57.30 Diverticulosis of large intestine without perforation or abscess without bleeding; K64.0 First degree hemorrhoids; F90.9 Attention-deficit hyperactivity disorder, unspecified type; F31.9 Bipolar disorder, unspecified; H91.90 Unspecified hearing loss, unspecified ear; G47.33 Obstructive sleep apnea (adult) (pediatric); Q21.12 Patent foramen ovale; I69.351 Hemiplegia and hemiparesis following cerebral infarction affecting right dominant side; Z86.718 Personal history of other venous thrombosis and embolism; Z79.01 Long term (current) use of anticoagulants; Z79.899 Other long term (current) drug therapy; Z88.0 Allergy status to penicillin; Z86.69 Personal history of other diseases of the nervous system and sense organs; Z98.890 Other specified postprocedural states; Z79.82 Long term (current) use of aspirin
CPT/HCPCS: G0105

== ENCOUNTER → 2022-03-31 14:23 | Outpatient (BNVA) | payer OTHER, MEDICARE, MEDICAID, SELFPAY | PROVIDERS: PCP Nurse Practitioner Family; Referring Provider Nurse Practitioner Family; Visit Provider Internal Medicine | DX: Q21.10 Atrial septal defect, unspecified (principal); I63.9 Cerebral infarction, unspecified | CPT/HCPCS: 93005 ==

== ENCOUNTER 2022-06-06 15:30 | Outpatient (REF) | payer OTHER, MEDICARE, MEDICAID, SELFPAY ==
--- NOTE | ~2022-06-06 | US_ITS ---
EXAMINATION: US RETROPERITONEAL LIMITED (RENAL ONLY) CLINICAL INFORMATION: Cyst of kidney, acquired. COMPARISON: Ultrasound abdomen complete 06/29/2021 and 05/06/2019. CT abdomen with contrast 06/27/2018. TECHNIQUE: Real-time imaging of the kidneys. FINDINGS: RIGHT KIDNEY: 9.0 x 4.5 x 5.1 cm (SAG x AP x TRV). The kidney is normal in size, contour, and echogenicity. Renal cortical thickness is normal. No calculi or focal parenchymal lesions. No hydronephrosis. LEFT KIDNEY: 8.5 x 4.7 x 5.3 cm (SAG x AP x TRV). The kidney is normal in size, contour, and echogenicity. Renal cortical thickness is normal. No renal calculi or hydronephrosis. Simple cyst in the midpole measuring 0.6 x 0.5 x 0.7 cm, for which no imaging follow-up is recommended. US/US renal BI IMPRESSION: No acute sonographic abnormalities.
== END 2022-06-06 15:31 | disposition home or self-care (01) ==
LOC: HO.HMGCX 15:30
PROVIDERS: PCP Nurse Practitioner Family; Visit Provider Urology
DX: N28.1 Cyst of kidney, acquired (principal)
CPT/HCPCS: 76775

== ENCOUNTER → 2022-09-01 11:00 | Outpatient (BNVA) | payer OTHER, MEDICARE, MEDICAID, SELFPAY | PROVIDERS: PCP Nurse Practitioner Family; Visit Provider Urology ==

== ENCOUNTER 2022-09-23 12:05 | Outpatient (REF) | payer OTHER, MEDICARE, MEDICAID, SELFPAY | END 2022-09-23 12:06 | disposition home or self-care (01) | LOC: HO.HMGCLDS 12:05 | PROVIDERS: PCP Nurse Practitioner Family; Visit Provider Nurse Practitioner Family | DX: Z00.00 Encounter for general adult medical examination without abnormal findings (principal); Z12.5 Encounter for screening for malignant neoplasm of prostate; Z20.2 Contact with and (suspected) exposure to infections with a predominantly sexual mode of transmission; Z13.220 Encounter for screening for lipoid disorders; Z13.29 Encounter for screening for other suspected endocrine disorder | CPT/HCPCS: 36415; 80053; 80061; 81003; 84153; 84443; 85025 ==

== ENCOUNTER 2022-10-13 14:57 | Outpatient (AMB) | payer OTHER, MEDICARE, MEDICAID, SELFPAY ==
[2022-10-13 14:59] VITALS: BP 138/86; PULSE 79; O2SAT 97; BMI 29.3
--- NOTE | 2022-10-13 14:59 | A.OFFPC_ITS ---
Vital Signs 10/13/22 14:59 Height 5 ft 9 in Weight 198 lb 6 oz BMI 29.3 BP 138/86 Blood Pressure Location Lt brachial Position Sitting Pulse 79 Pulse Source Pulse Oximeter Pulse Oximetry (%) 97 Oxygen Delivery Method Room Air Intake Visit Reasons: Annual PE Allergies Penicillins Allergy (Severe, Verified 10/13/22 15:02) ANAPHYLAXIS Tobacco use date assessed: 10/13/22 Dental Screening Dental Screen Date: 10/13/22 Did you have a dental visit in the last 12 months?: Yes Did you have a dental problem in the last 6 months where you did not have access to dental care?: No Was dental information given to patient?: Patient has dentist HPI Annual PE HPI Details Pt is here for a PE. Will order labs. Colon screen is up to date. PSA is up to date. Pt has baseline weakness to his RUE and RLE due to hx of stroke (at age 2). Pt is seeing a neurosurgeon in [place] for LUE weakness/cervical spine issue. [facility] Medical History Acoustic neuroma Attention deficit disorder Bipolar 1 disorder Bladder outlet obstruction Cerebrovascular accident Cervical radiculopathy Encounter for screening Encounter for screening Feeling of incomplete bladder emptying Hearing loss History of shingles Lower back pain Migraine KASANDRA (obstructive sleep apnea) PTSD (post-traumatic stress disorder) Somnolence, daytime Thoracic back pain Weak urinary stream Surgical History H/O colonoscopy History of back surgery History of brain surgery History of cochlear implant History of elbow surgery History of esophagogastroduodenoscopy (EGD) History of sinus surgery History of surgery Family History Father No problems noted. Mother History of breast cancer Social History Household Members: None Housing: House Are you a primary healthcare advisory services manager to a significant other at home: No Do you presently have visiting nurse or other home services: No Alcohol intake: current Alcohol intake frequency: does not drink Patient Tobacco Use Status: Never used Tobacco e-Cigarette/Vaping Use: Never Used Second Hand Smoke Exposure: No service: No Current occupational status: unemployed Cognitive needs: No Hearing needs: No Vision needs: No Questionnaire Thrive Questionnaire Date Thrive assessed: 07/05/21 BERNADETTE-7 AMB Questionnaire BERNADETTE-7 Date BERNADETTE - 7 assessed: 07/05/21 Source: Developed by Drs. Manjeet Hawthorne, Martha Alonso, Elijah Pena and colleagues, with an educational gustavo from [employer]. Review of Systems Const Denies chills and Denies fever(s) Eyes Denies blurry vision ENT Denies vertigo, Denies dizziness and Denies sore throat Card Denies chest pain at rest, Denies chest pain with activity, Denies diaphoresis, Denies dyspnea and Denies dyspnea on exertion Resp Denies cough, Denies dyspnea, Denies dyspnea on exertion and Denies wheezing GI Denies abdominal pain, Denies melena, Denies hematochezia, Denies constipation, Denies diarrhea and Denies loose stools Denies hematuria Musc Denies numbness and Denies tingling Skin/Breast Denies lesions Neuro Denies vertigo, Denies dizziness, Denies numbness and Denies tingling Psych Denies anxiety, Denies depression, Denies homicidal ideation, Denies suicidal ideation and Denies other (substance abuse) Aller/Immun Denies wheezing Physical exam (Primary Care) Vital Signs: Last Vital Signs Pulse 79 10/13/22 14:59 BP 138/86 10/13/22 14:59 Pulse Ox 97 10/13/22 14:59 Oxygen Delivery Method Room Air 10/13/22 14:59 BMI result Body Mass Index 29.3 Tobacco/Smoking Status: Tobacco use Status Tobacco use date assessed 10/13/22 10/13/22 15:07 Patient Tobacco Use Status Never used Tobacco 10/13/22 15:03 e-Cigarette/Vaping Use Never Used 10/13/22 15:03 Thrive Assessment: Date of Thrive Assessment Date Thrive assessed 07/05/21 10/13/22 15:03 Const General: cooperative Nutritional Appearance: well nourished Orientation/consciousness: patient oriented x3 HENMT Head: Yes normal to inspection, Yes normocephalic and Yes atraumatic Ears: TM's normal bilaterally Eyes General: appearance normal, both eyes and all related structures Alignment and Position: alignment normal and position normal Neck Neck: Yes normal visual inspection and Yes no lymphadenopathy Thyroid: Thyroid normal Resp Effort & Inspection: normal respiratory effort Auscultation: clear to auscultation bilaterally Cardio Rate: regular rate Rhythm: regular rhythm Heart sounds: S1 normal heart sound present, S2 normal heart sound present and no murmurs GI Palpation (GI): Soft to palpation and nontender Auscultation: normal bowel sounds Male General Exam: Yes normal external exam Penis: normal penis Scrotum: scrotum normal, testes descended bilaterally and no inguinal hernias Testes: no testicular mass Skin Other: just behind left ear with sutured region (to skull), no signs of infection, right inguinal region with faint macular erythema Rashes: no rashes Neuro General: patient oriented x3 and deep tendon reflexes 2+ bilaterally Romberg Test: Negative Extrem Other: baseline weakness of RUE (muscle atrophy) and RLE, left hand finger flexion at PIP joints of all fingers, carbon fiber brace to distal RLE Psych Appearance: grossly normal Mental Status: mental status grossly normal Speech and movement: Normal speech and movement present Affect: normal affect Attitude: cooperative Thought process: Normal thought process present Thought content: Normal thought content present Insight: Good insight present (Psych) Judgement: Good judgement present (Psych) Assessment and Plan Assessment & Plan (1) Physical exam: Code(s): Z00.00 - Encounter for general adult medical examination without abnormal findings Plan: Labs ordered (2) Screening PSA (prostate specific antigen): Code(s): Z12.5 - Encounter for screening for malignant neoplasm of prostate Plan The patient agreed to the use of a medical office professional instructor for this encounter. Scribed for PITA Lucas by Maura Mc medical office professional instructor, on 10/13/2022 at 15:15 EST. Orders: Orders Comprehensive [place]. Panel Fast Today Z00.00 - Encounter for general adult medical examination without abnormal findings Lipid Panel Today Z00.00 - Encounter for general adult medical examination without abnormal findings TSH reflex Free T4 Today Z00.00 - Encounter for general adult medical examination without abnormal findings Complete Blood Count Auto Diff Today Z00.00 - Encounter for general adult medical examination without abnormal findings UA CC w/rflx Micro + Cult Today Z00.00 - Encounter for general adult medical examination without abnormal findings Prostate Specific Antigen Scr Today Z12.5 - Encounter for screening for malignant neoplasm of prostate Medications: New triamcinolone acetonide 0.5% 1 appl topical DAILY 15 grams 1RF Coding Level of Care Code Est Pt Prev Care 40-64y(85052) Diagnoses Physical exam Z00.00 Screening PSA (prostate specific antigen) Z12.5
== END 2022-10-13 16:55 | disposition home or self-care (01) ==
PROVIDERS: Visit Provider Nurse Practitioner Family
DX: Z00.00 Encounter for general adult medical examination without abnormal findings (principal); Z12.5 Encounter for screening for malignant neoplasm of prostate
CPT/HCPCS: 99396

== ENCOUNTER 2023-02-27 14:35 | Outpatient (AMB) | payer OTHER, MEDICARE, MEDICAID, SELFPAY ==
--- NOTE | 2023-02-27 14:47 | A.OFFPC_ITS ---
Vital Signs 02/27/23 14:49 Height 5 ft 9 in Weight 200 lb BMI 29.5 BP 118/80 Blood Pressure Location Lt brachial Position Sitting Intake Visit Reasons: HDF ~ Post hospital discharge FU Allergies Penicillins Allergy (Severe, Verified 02/27/23 15:01) ANAPHYLAXIS Medication List - Last Reconciled 02/27/23 by PITA Corbin aspirin 81 mg PO DAILY atorvastatin 80 mg PO BEDTIME cholecalciferol (vitamin D3) 25 mcg PO DAILY dextroamphetamine-amphetamine 20 mg (Adderall) 20 mg PO BID mecobalamin (vitamin B12) 1,000 mcg PO metoprolol succinate ER 25 mg PO DAILY multivitamin 1 tab PO DAILY ticagrelor 90 mg PO BID triamcinolone acetonide 0.025% 1 appl topical BID Tobacco use date assessed: 10/13/22 HPI HDF ~ Post hospital discharge FU HPI Details (see [facility] notes)Pt was seen in the [facility] on 02/10 c/o left-sided neck and chest pain. EKG showed ST depression in V2 to V4. Troponin was 694, repeat tripled to 1886. Pt was started on a heparin and nitro drip. He underwent a cath on 02/10 with TITA to mLAD and [employer]ISS[employer]ED POL[employer] OFFICER of RCA with good collaterals. Echo showed significantly reduced LVEF of 15-20% with inferior hypokinesis and akinetic lateral and anterior wall. Pt was started on aspirin, brilinta, metoprolol, and atorvastatin. Pt was seen by OT and it was recommended that he be d/c to rehab. There was an incidental finding of liver lesions on CT. Follow-up US showed simple cystic structures with no concerning findings, no further imaging recommended. Pt reports doing well overall. Pt reports that his blood pressure at home is usually in the 110s/80s-90s. Will start spironolactone 25mg. Pt will continue to monitor his blood pressure at home. Pt will follow up with his casserole preparer 03/27/2023. Denies chest pain, shortness of breath, headache, dizziness, and blurred vision. Encouraged pt to have his labs drawn (ordered in September). Pt's is also partaking in pt's care. [facility] Medical History History of shingles Migraine PTSD (post-traumatic stress disorder) KASANDRA (obstructive sleep apnea) Somnolence, daytime Encounter for screening Encounter for screening Thoracic back pain Lower back pain Feeling of incomplete bladder emptying Weak urinary stream Bladder outlet obstruction Hearing loss Acoustic neuroma Cervical radiculopathy Cerebrovascular accident Attention deficit disorder Bipolar 1 disorder Surgical History History of esophagogastroduodenoscopy (EGD) History of back surgery H/O colonoscopy History of surgery History of cochlear implant History of elbow surgery History of sinus surgery History of brain surgery Family History Father No problems noted. Mother History of breast cancer Social History Household Members: None Housing: House Are you a primary healthcare business analyst to a significant other at home: No Do you presently have visiting nurse or other home services: No Alcohol intake: current Alcohol intake frequency: does not drink Patient Tobacco Use Status: Never used Tobacco e-Cigarette/Vaping Use: Never Used Second Hand Smoke Exposure: No service: No Current occupational status: unemployed Cognitive needs: No Hearing needs: No Vision needs: No Questionnaire Thrive Questionnaire Date Thrive assessed: 07/05/21 BERNADETTE-7 AMB Questionnaire BERNADETTE-7 Date BERNADETTE - 7 assessed: 07/05/21 Source: Developed by Drs. Manjeet Hawthorne, Martha Alonso, Elijah Pena and colleagues, with an educational gustavo from [employer]. Review of Systems Const Reports as per HPI Physical exam (Primary Care) Vital Signs: Last Vital Signs BP 118/80 02/27/23 14:49 BMI result Body Mass Index 29.5 Tobacco/Smoking Status: Tobacco use Status Tobacco use date assessed 10/13/22 02/27/23 14:47 Patient Tobacco Use Status Never used Tobacco 02/27/23 14:47 e-Cigarette/Vaping Use Never Used 02/27/23 14:47 Thrive Assessment: Date of Thrive Assessment Date Thrive assessed 07/05/21 02/27/23 14:47 Const General: cooperative Orientation/consciousness: patient oriented x3 Resp Effort & Inspection: normal respiratory effort Auscultation: clear to auscultation bilaterally Cardio Rate: regular rate Rhythm: regular rhythm Heart sounds: S1 normal heart sound present and S2 normal heart sound present Neuro General: patient oriented x3 Extrem Right lower extremity: no edema Left lower extremity: no edema Psych Appearance: grossly normal Mental Status: mental status grossly normal Speech and movement: Normal speech and movement present Affect: normal affect Attitude: cooperative Thought process: Normal thought process present Thought content: Normal thought content present Insight: Good insight present (Psych) Judgement: Good judgement present (Psych) Assessment and Plan Assessment & Plan (1) NSTEMI (non-ST elevated myocardial infarction): Comment: 01/2023 Code(s): I21.4 - Non-ST elevation (NSTEMI) myocardial infarction Plan The patient agreed to the use of a medical coding auditor for this encounter. Scribed for PITA Lucas by Maura Mc medical coding auditor, on 02/27/2023 at 15:10 EST. Medications: New spironolactone 25 mg PO DAILY 90 tabs 0RF Coding Level of Care Code Est Pt Level 3 (17133) Diagnoses NSTEMI (non-ST elevated myocardial infarction) I21.4
[2023-02-27 14:49] VITALS: BP 118/80; BMI 29.5
== END 2023-02-27 16:45 | disposition home or self-care (01) ==
LOC: HO.HMGC 14:35
PROVIDERS: PCP Nurse Practitioner Family; Visit Provider Nurse Practitioner Family
DX: I21.4 Non-ST elevation (NSTEMI) myocardial infarction (principal)
CPT/HCPCS: 99213

== ENCOUNTER 2023-03-22 13:20 | Outpatient (REF) | payer OTHER, MEDICARE, MEDICAID, SELFPAY | END 2023-03-22 13:21 | disposition home or self-care (01) | LOC: HO.HMGCLDS 13:20 | PROVIDERS: PCP Nurse Practitioner Family; Visit Provider Nurse Practitioner Family | DX: Z00.00 Encounter for general adult medical examination without abnormal findings (principal); Z12.5 Encounter for screening for malignant neoplasm of prostate | CPT/HCPCS: 36415; 80053; 80061; 81001; 84153; 84443; 85025 ==

== ENCOUNTER 2023-03-27 13:38 | Outpatient (REF) | payer OTHER, MEDICARE, MEDICAID, SELFPAY | END 2023-03-27 13:39 | disposition home or self-care (01) | LOC: HO.HMGCLDS 13:38 | PROVIDERS: PCP Nurse Practitioner Family; Visit Provider Nurse Practitioner Family | DX: Z13.89 Encounter for screening for other disorder (principal) ==

== ENCOUNTER 2023-03-27 15:31 | Outpatient (REF) | payer OTHER, MEDICARE, MEDICAID, SELFPAY ==
[2023-03-28 13:18] LABS: Urine Cytology See Pathology rpt
[2023-03-28 13:26] LABS: Appearance Urine Clear; Color Urine Yellow; Glucose Urine UA Negative (Negative); Leukocyte Esterase Urine Negative (Negative); Nitrite Urine Negative (Negative); Specific Gravity - Urine 1.015 (1.005-1.025); Urine Blood Negative (Negative); Urine Ketones Negative (Negative); Urine Protein Negative (Neg-Trace)
== END 2023-03-27 15:32 | disposition home or self-care (01) ==
LOC: HO.HMGCLNP 15:31
PROVIDERS: PCP Nurse Practitioner Family; Visit Provider Nurse Practitioner Family
DX: R31.29 Other microscopic hematuria (principal)
CPT/HCPCS: 81003; 87086; 88112

== ENCOUNTER 2023-04-17 09:48 | Outpatient (AMB) | payer OTHER, MEDICARE, MEDICAID, SELFPAY ==
[2023-04-17 09:56] VITALS: BP 118/80; PULSE 89; O2SAT 95; BMI 29.1
--- NOTE | 2023-04-17 09:56 | MHC.PC.OV ---
Vital Signs 04/17/23 09:56 Height 5 ft 9 in Weight 197 lb 4 oz BMI 29.1 BP 118/80 Blood Pressure Location Lt brachial Position Sitting Pulse 89 Pulse Source Pulse Oximeter Pulse Oximetry (%) 95 Oxygen Delivery Method Room Air Intake Visit Reasons: 6 M. F/U-ADD Intake Note: Pt is here for a 6 month follow up for ADD Allergies Penicillins Allergy (Severe, Verified 04/17/23 09:59) ANAPHYLAXIS Medication List - Last Reconciled 04/17/23 by PITA Corbin aspirin 81 mg PO DAILY atorvastatin 80 mg PO BEDTIME cholecalciferol (vitamin D3) 25 mcg PO DAILY dextroamphetamine-amphetamine 20 mg (Adderall) 20 mg PO BID mecobalamin (vitamin B12) 1,000 mcg PO metoprolol succinate ER 25 mg PO DAILY multivitamin 1 tab PO DAILY sacubitril-valsartan 24-26 mg (Entresto) 1 tab PO BID ticagrelor 90 mg PO BID 90 days triamcinolone acetonide 0.025% 1 appl topical BID Tobacco use date assessed: 04/17/23 Dental Screening Dental Screen Date: 04/17/23 Did you have a dental visit in the last 12 months?: Yes Did you have a dental problem in the last 6 months where you did not have access to dental care?: No Was dental information given to patient?: Patient has dentist HPI 6 M. F/U-ADD HPI Details Pt is following up with cardiology due to a recent NSTEMI. He also recently started cardiac rehab. Pt reports doing well overall, though he does report fatigue. Denies chest pain, shortness of breath, and dizziness. Pt c/o muscle twitching of his left leg/spasms. Recommended OTC magnesium or vitamin B complex to try. [facility] Medical History History of shingles Migraine PTSD (post-traumatic stress disorder) KASANDRA (obstructive sleep apnea) Somnolence, daytime Encounter for screening Encounter for screening Thoracic back pain Lower back pain Feeling of incomplete bladder emptying Weak urinary stream Bladder outlet obstruction Hearing loss Acoustic neuroma Cervical radiculopathy Cerebrovascular accident Attention deficit disorder Bipolar 1 disorder Surgical History History of esophagogastroduodenoscopy (EGD) History of back surgery H/O colonoscopy History of surgery History of cochlear implant History of elbow surgery History of sinus surgery History of brain surgery Family History Father No problems noted. Mother History of breast cancer Social History Household Members: None Housing: House Are you a primary assisted living care manager to a significant other at home: No Do you presently have visiting nurse or other home services: No Alcohol intake: current Alcohol intake frequency: does not drink Patient Tobacco Use Status: Never used Tobacco e-Cigarette/Vaping Use: Never Used Second Hand Smoke Exposure: No service: No Current occupational status: unemployed Cognitive needs: No Hearing needs: No Vision needs: No Questionnaire PHQ-9 Over the last 2 weeks, how often have you been bothered by any of the following problems? 1. Little interest or pleasure in doing things: not at all 2. Feeling down, depressed, or hopeless: not at all 3. Trouble falling or staying asleep, or sleeping too much: not at all 4. Feeling tired or having little energy: not at all 5. Poor appetite or overeating: not at all 6. Feeling bad about yourself - or that you are a failure or have let yourself or your family down: not at all 7. Trouble concentrating on things, such as reading the newspaper or watching television: not at all 8. Moving or speaking so slowly that other people could have noticed. Or the opposite - being so fidgety or restless that you have been moving around a lot more than usual: not at all 9. Thoughts that you would be better off or of hurting yourself in some way: not at all Total score: 0 Source: Developed by Drs. Manjeet Hawthorne, Martha Alonso, Elijah Pena and colleagues, with an educational gustavo from [employer]. Thrive Questionnaire Date Thrive assessed: 04/17/23 I am a: Patient What is your living situation today?: I have a steady place to live Within the past 12 months, did the food you bought not last and you didn't have the money to get more?: Never true Within the past 12 months, did you worry whether your food would run out before you got money to buy more?: Never true Do you have trouble paying for medicines?: No Do you have trouble getting transportation to medical appointments?: No Do you have trouble paying your heating and electricity bill?: No Do you have trouble taking care of your child, family member or friend?: No Do you have trouble with day-to-day activities such as bathing, preparing meals, shopping, managing finances, etc.?: No Are you currently unemployed and looking for a job?: No Are you interested in more education?: No THRIVE Score: 0 AUDIT C Alcohol Use Questionnaire (AUDIT-C) 1. How often do you have a drink containing alcohol?: Never Total Score: 0 BERNADETTE-7 AMB Questionnaire BERNADETTE-7 Date BERNADETTE - 7 assessed: 04/17/23 Feeling nervous, anxious, or on edge: 0 = Not at all Not being able to stop or control worryin = Not at all Worrying too much about different things: 0 = Not at all Trouble relaxin = Not at all Being so restless that it is hard to sit still: 0 = Not at all Becoming easily annoyed or irritable: 1 = Several days Feeling afraid as if something awful might happen: 0 = Not at all Total BERNADETTE-7 score (0-4 normal; 5-9 mild; 10-14 moderate; 15-21 severe): 1 Source: Developed by Drs. Manjeet Hawthorne, Martha Alonso, Elijah Pena and colleagues, with an educational gustavo from [employer]. Review of Systems Const Reports as per HPI Physical exam (Primary Care) Vital Signs: Last Vital Signs Pulse 89 04/17/23 09:56 BP 118/80 04/17/23 09:56 Pulse Ox 95 04/17/23 09:56 Oxygen Delivery Method Room Air 04/17/23 09:56 BMI result Body Mass Index 29.1 Tobacco/Smoking Status: Tobacco use Status Tobacco use date assessed 04/17/23 04/17/23 10:05 Patient Tobacco Use Status Never used Tobacco 04/17/23 10:05 e-Cigarette/Vaping Use Never Used 04/17/23 10:05 Thrive Assessment: Date of Thrive Assessment Date Thrive assessed 07/05/21 04/17/23 10:05 Const General: cooperative Orientation/consciousness: patient oriented x3 Resp Effort & Inspection: normal respiratory effort Auscultation: clear to auscultation bilaterally Cardio Rate: regular rate Rhythm: regular rhythm Heart sounds: S1 normal heart sound present and S2 normal heart sound present Neuro General: patient oriented x3 Extrem Right lower extremity: no edema Left lower extremity: no edema Psych Appearance: grossly normal Mental Status: mental status grossly normal Speech and movement: Normal speech and movement present Affect: normal affect Attitude: cooperative Thought process: Normal thought process present Thought content: Normal thought content present Insight: Good insight present (Psych) Judgement: Good judgement present (Psych) Assessment and Plan Assessment & Plan (1) NSTEMI (non-ST elevated myocardial infarction): Comment: 01/2023 Code(s): I21.4 - Non-ST elevation (NSTEMI) myocardial infarction Plan: started cardiac rehab, sees cardiology (2) Muscle spasm: Code(s): M62.838 - Other muscle spasm Plan The patient agreed to the use of a medical center representative for this encounter. Scribed for AUGIE Lucas- by Maura Mc medical center representative, on 04/17/2023 at 10:10 EST. Orders: Orders UA CC w/rflx Micro + Cult Today I21.4 - Non-ST elevation (NSTEMI) myocardial infarction Vitamin B12 and Folate Today E53.8 - Deficiency of other specified B group vitamins Complete Blood Count Auto Diff Today I21.4 - Non-ST elevation (NSTEMI) myocardial infarction Comprehensive [place]. Panel Fast Today I21.4 - Non-ST elevation (NSTEMI) myocardial infarction TSH reflex Free T4 Today I21.4 - Non-ST elevation (NSTEMI) myocardial infarction Lipid Panel Today I21.4 - Non-ST elevation (NSTEMI) myocardial infarction Coding Level of Care Code Est Pt Level 3 (42858) Diagnoses NSTEMI (non-ST elevated myocardial infarction) I21.4 Muscle spasm M62.838
== END 2023-04-17 10:31 | disposition home or self-care (01) ==
LOC: HO.HMGC 09:49
PROVIDERS: PCP Nurse Practitioner Family; Visit Provider Nurse Practitioner Family
DX: M62.838 Other muscle spasm (principal); I25.2 Old myocardial infarction
CPT/HCPCS: 99213

== ENCOUNTER 2023-06-02 14:59 | Outpatient (AMB) | payer OTHER, MEDICARE, MEDICAID, SELFPAY ==
--- NOTE | 2023-06-02 15:04 | A.OFFVIS_ITS ---
Intake Intake Visit Reasons: micro hematuria Intake Note: Patient presents today for a follow-up on microhematuria Meds- None Allergies to Antibiotic- No Known Allergies Blood Thinner- Aspirin Cell Technician Required: No Accompanied by: Self / Same As Patient Allergies Penicillins Allergy (Severe, Verified 06/02/23 15:08) ANAPHYLAXIS HPI HPI Comments History of Present Illness Details Michael is a very pleasant male. He is a patient of Dr Gaines . He is seen for the following urologic conditions. 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 Current treatment includes more medications Prostate Symptom Score Moderate (9-19), Bother 3. Symptoms include incomplete emptying, nocturia (>2), and are progressing. Prior Prostate Score unknown. PSA - 10/07 2.0, 04/12 1.8 Associated conditions CAD No CVA No diabetes No elevated PSA No erectile dysfunction yes PFSH Medical History History of shingles Migraine PTSD (post-traumatic stress disorder) KASANDRA (obstructive sleep apnea) Somnolence, daytime Encounter for screening Encounter for screening Thoracic back pain Lower back pain Feeling of incomplete bladder emptying Weak urinary stream Bladder outlet obstruction Hearing loss Acoustic neuroma Cervical radiculopathy Cerebrovascular accident Attention deficit disorder Bipolar 1 disorder Surgical History History of esophagogastroduodenoscopy (EGD) History of back surgery H/O colonoscopy History of surgery History of cochlear implant History of elbow surgery History of sinus surgery History of brain surgery Family History Father No problems noted. Mother History of breast cancer Social History Household Members: None Housing: House Are you a primary home health care provider to a significant other at home: No Do you presently have visiting nurse or other home services: No Alcohol intake: current Alcohol intake frequency: does not drink Patient Tobacco Use Status: Never used Tobacco e-Cigarette/Vaping Use: Never Used Second Hand Smoke Exposure: No service: No Current occupational status: unemployed Cognitive needs: No Hearing needs: No Vision needs: No Review of Systems Const Denies chills and Denies fever(s) Card Reports no additional complaints and Denies syncope Resp Denies cough GI Denies abdominal pain and Denies heartburn Reports as per HPI and Denies change in libido Neuro Denies syncope Psych Denies change in libido Endo Denies change in libido Physical Exam Const General: cooperative, healthy appearing, comfortable and no acute distress Orientation/consciousness: patient oriented x3 HEENT Face and sinus: Yes normal facial exam Mouth: moist mucous membranes Neck Neck: Yes normal visual inspection, Yes full ROM and Yes trachea midline Chest Chest palpation & inspection: normal inspection of the chest Resp Effort & Inspection: normal respiratory effort, able to speak in complete sentences and no respiratory distress GI Inspection: Yes normal to inspection Back/Spine/Pelvis Cervical Spine: normal cervical lordosis Thoracic/Lumbar Spine: thoracic and lumbar spine normal to inspection Skin General skin exam: no rashes or lesions noted Neuro General: patient oriented x3, gait normal, tone normal and moves all extremities Extrem General: Yes normal to inspection and Yes capillary refill normal Results AMB Urinalysis, Automated UA Leukoctes 0 Chalino/uL Last Edit by Rosmery Fuller CMA on 06/02/23 15 :20 UA Nitrite Negative Last Edit by Rosmery Fuller CMA on 06/02/23 15: 20 UA Urobilinogen 0.2 mg/dL Last Edit by Rosmery Fuller CMA on 4 15:20 UA Protein 15 mg/dL Last Edit by oRsmery Fuller CMA on 06/02/23 15:2 0 UA pH 6.0 Last Edit by Rosmery Fuller CMA on 06/02/23 15:20 UA Blood 10 Giovanni/uL Last Edit by [facility] on 06/02/23 15:20 UA Specific [place] 1.025 Last Edit by [facility], [facility] on 15:20 UA Ketone Negative Last Edit by [facility], [facility] on 06/02/23 15:2 0 UA Bilirubin 0 mg/dL Last Edit by [facility], [facility] on 06/02/23 15: 20 UA Glucose 0 mg/dL Last Edit by [facility], [facility] on 06/02/23 15:20 Results Reviewed Results Reviewed: Laboratory Last Values Urine pH (Auto) 6.0 06/02/23 15:09 Specific [place] (Auto) 1.025 06/02/23 15:09 Urine Protein (Auto) 15 mg/dL 06/02/23 15:09 Glucose (UA)(Auto) 0 mg/dL 06/02/23 15:09 Urine Ketones (Auto) Negative 06/02/23 15:09 Urine Blood (Auto) 10 Giovanni/uL 06/02/23 15:09 Urine Nitrite (Auto) Negative 06/02/23 15:09 Urine Bilirubin (Auto) 0 mg/dL 06/02/23 15:09 Urine Urobilinogen (Auto) 0.2 mg/dL 06/02/23 15:09 Leukocyte Esterase (Auto) 0 Chalino/uL 06/02/23 15:09 Assessment & Plan Assessment & Plan (1) Microscopic hematuria: Code(s): R31.29 - Other microscopic hematuria (2) Enlarged prostate: Code(s): N40.0 - Benign prostatic hyperplasia without lower urinary tract symptoms Plan 12 month follow-up Orders: Orders AMB Urinalysis Automated 06/02/23 R33.9 - Retention of urine, unspecified Prostate Specific Antigen 364 Days N32.0 - Bladder-neck obstruction Patient Instructions: Imaging studies, laboratory and physical exam results were discussed and reviewed in detail. No major barriers to patient understanding were identified. An opportunity to ask questions regarding the treatment plan was provided. All questions were answered. The patient expressed understanding and agreement with the above treatment plan. The patient is aware they should contact our office by phone for worsening of their current condition or the appearance of new urologic symptoms. Compliance is encouraged with any medications and followup testing that is ordered. It is a privilege to participate in the urologic care of your patient. If you have any questions or concerns regarding treatment for the above conditions, or other urologic issues, please do not hesitate to contact me. The office telephone contact is [phone]. This note is constructed using voice recognition software. While every effort has been made to ensure accuracy court bailiff errors may have been included. Yours sincerely, Dr Fabian Walton MD, [facility] - Urology Providers of Expert, Compassionate Care for the Genitourinary System Coding Level of Care Code Est Pt Level 3 (51519) Diagnoses Microscopic hematuria R31.29 Enlarged prostate N40.0
== END 2023-06-02 15:57 | disposition home or self-care (01) ==
LOC: HO.HUSH 14:59
PROVIDERS: PCP Nurse Practitioner Family; Visit Provider Urology
DX: R31.29 Other microscopic hematuria (principal); N40.0 Benign prostatic hyperplasia without lower urinary tract symptoms
CPT/HCPCS: 99213

== ENCOUNTER → 2023-06-02 14:59 | Outpatient (BNVA) | payer OTHER, MEDICARE, MEDICAID, SELFPAY | PROVIDERS: PCP Nurse Practitioner Family; Visit Provider Urology | DX: R31.29 Other microscopic hematuria (principal); N40.1 Benign prostatic hyperplasia with lower urinary tract symptoms; R33.8 Other retention of urine | CPT/HCPCS: 81003 ==

== ENCOUNTER 2023-07-20 14:15 | Outpatient (REF) | payer OTHER, MEDICARE, MEDICAID, SELFPAY ==
[2023-07-20 16:08] LABS: MANUAL DIFF FLAG NO
[2023-07-20 16:18] LABS: Basophils Absolute Auto 0.1 X10*3/uL (0.0-0.2); Basophils Percent Auto 0.6 % (0-2); Eosinophils Absolute Auto 0.7 X10*3/uL (0.0-0.4); Hemoglobin 13.2 g/dl (14.0-18.0); Imm Gran Abs Auto 0.03 X10*3/uL (0.00-0.03); Imm Gran Pct Auto 0.4 % (0.0-0.4); Lymphocytes Absolute Auto 2.5 X10*3/uL (1.2-4.9); Lymphocytes Percent Auto 31.8 % (20-40); Mean Corpuscular HGB Conc 33.8 g/dl (31.0-36.0); Mean Corpuscular Hemoglobin 32.4 pg (27.0-33.0); Mean Corpuscular Volume 95.8 fL (80.0-98.0); Monocytes Absolute Auto 0.6 X10*3/uL (0.1-1.2); Monocytes Percent Auto 7.6 % (2-11); Neutrophils Absolute Auto 3.9 x10*3/uL (2.0-8.3); Neutrophils Percent Auto 50.6 % (45-73); Platelet Count 274 X10*3/uL (160-400); Red Blood Count 4.07 X10*6/uL (4.60-5.80); Red Cell Distribution Width 14.7 % (11.0-16.0); White Blood Count 7.7 X10*3/uL (4.8-10.8)
[2023-07-20 16:55] LABS: Alanine Aminotransferase 25 U/L (0-40); Albumin Level 4.2 g/dL (3.5-5.0); Alkaline Phosphatase 68 U/L (39-117); Anion Gap 13 (12-20); Aspartate Amino Transferase 25 U/L (5-37); Blood Urea Nitrogen 17 mg/dL (9-16); Calcium 9.6 mg/dL (8.4-10.2); Carbon Dioxide 24 mmol/L (22-29); Chloride 106 mmol/L (96-108); Cholesterol 120 mg/dL (<200); Estimated Glomerular Filt Rate > 60; Glucose Fasting 103 mg/dL (60-99); HDL Cholesterol 57 mg/dL (>40); LDL Cholesterol Calculated 54 mg/dL (<100); Potassium 4.3 mmol/L (3.3-5.1); Sodium 139 mmol/L (135-145); Total Protein 7.3 g/dL (6.5-8.0); Triglycerides 45 mg/dL (<150)
[2023-07-20 16:57] LABS: Appearance Urine Cloudy; Color Urine Yellow; Glucose Urine UA Negative (Negative); Leukocyte Esterase Urine Negative (Negative); Nitrite Urine Negative (Negative); Urine Blood Negative (Negative); Urine Ketones Negative (Negative); Urine Protein Negative (Neg-Trace)
[2023-07-20 17:07] LABS: Prostate Specific Antigen 1.91 ng/mL (<0.05-4.0)
[2023-07-20 17:10] LABS: TSH reflex Free T4 1.46 uIU/mL (0.32-4.0)
[2023-07-20 17:18] LABS: Folate 14.3 ng/mL (> or = 4.0); Vitamin B12 1516 pg/mL (200-900)
== END 2023-07-20 14:16 | disposition home or self-care (01) ==
LOC: HO.HMGCLDS 14:15
PROVIDERS: Urology; PCP Nurse Practitioner Family; Visit Provider Nurse Practitioner Family
DX: Z12.5 Encounter for screening for malignant neoplasm of prostate (principal); E53.8 Deficiency of other specified B group vitamins; I21.4 Non-ST elevation (NSTEMI) myocardial infarction; N32.0 Bladder-neck obstruction
CPT/HCPCS: 36415; 80053; 80061; 81003; 82607; 82746; 84153; 84443; 85025

== ENCOUNTER → 2023-08-09 10:17 | Outpatient (AMB) | payer OTHER, MEDICARE, MEDICAID, SELFPAY ==
--- NOTE | 2023-08-09 10:19 | MHC.PC.OV ---
Vital Signs 08/09/23 10:21 Height 5 ft 9 in Weight 198 lb BMI 29.2 BP 116/70 Blood Pressure Location Lt brachial Position Sitting Pulse 94 Pulse Source Pulse Oximeter Pulse Oximetry (%) 97 Oxygen Delivery Method Room Air Intake Visit Reasons: 4 M. F/U-ADD Intake Note: Patient is here to f/u on ADD Allergies Penicillins Allergy (Severe, Verified 06/02/23 15:08) ANAPHYLAXIS clopidogrel [From Plavix] Allergy (Intermediate, Verified 08/09/23 10:22) Itching morphine Adverse Reaction (Intermediate, Verified 08/09/23 10:43) Agitated Medication List - Last Reconciled 08/09/23 by PITA Corbin aspirin 81 mg PO DAILY atorvastatin 80 mg PO BEDTIME cholecalciferol (vitamin D3) 25 mcg PO DAILY dextroamphetamine-amphetamine 20 mg (Adderall) 20 mg PO BID mecobalamin (vitamin B12) 1,000 mcg PO metoprolol succinate ER 50 mg PO DAILY miscellaneous medical supply 1 ea miscellaneous .daily use 1 day multivitamin 1 tab PO DAILY sacubitril-valsartan 24-26 mg (Entresto) 1 tab PO BID ticagrelor 90 mg PO BID 90 days triamcinolone acetonide 0.025% 1 appl topical BID Tobacco use date assessed: 04/17/23 Dental Screening Dental Screen Date: 04/17/23 HPI 4 M. F/U-ADD HPI Details Pt reports ongoing weakness of his LUE. He also has baseline weakness to his RUE. Pt reports that it is difficult for him to complete daily tasks. He will be following up with neurosurgery at the beginning of August. Denies fever, chills, and dizziness. Expect OT after neurosurg. Will await their treatment plan (pt spoke about surg). [facility] Medical History History of shingles Migraine PTSD (post-traumatic stress disorder) KASANDRA (obstructive sleep apnea) Somnolence, daytime Encounter for screening Encounter for screening Thoracic back pain Lower back pain Feeling of incomplete bladder emptying Weak urinary stream Bladder outlet obstruction Hearing loss Acoustic neuroma Cervical radiculopathy Cerebrovascular accident Attention deficit disorder Bipolar 1 disorder Surgical History History of esophagogastroduodenoscopy (EGD) History of back surgery H/O colonoscopy History of surgery History of cochlear implant History of elbow surgery History of sinus surgery History of brain surgery Family History Father No problems noted. Mother History of breast cancer Social History Household Members: None Housing: House Are you a primary child caregiver private home to a significant other at home: No Do you presently have visiting nurse or other home services: No Alcohol intake: current Alcohol intake frequency: does not drink Patient Tobacco Use Status: Never used Tobacco e-Cigarette/Vaping Use: Never Used Second Hand Smoke Exposure: No service: No Current occupational status: unemployed Cognitive needs: No Hearing needs: No Vision needs: No Questionnaire Thrive Questionnaire Date Thrive assessed: 04/17/23 AUDIT C Alcohol Use Questionnaire (AUDIT-C) 1. How often do you have a drink containing alcohol?: Monthly or less 2. How many drinks containing alcohol do you have on a typical day when you are drinking?: 1 or 2 3. How often do you have six or more drinks on one occasion?: Never Total Score: 1 BERNADETTE-7 AMB Questionnaire BERNADETTE-7 Date BERNADETTE - 7 assessed: 04/17/23 Source: Developed by Drs. Manjeet Hawthorne, Martha Alonso, Elijah Pena and colleagues, with an educational gustavo from [employer]. Review of Systems Const Reports as per HPI Physical exam (Primary Care) Vital Signs: Last Vital Signs Pulse 94 08/09/23 10:21 BP 116/70 08/09/23 10:21 Pulse Ox 97 08/09/23 10:21 Oxygen Delivery Method Room Air 08/09/23 10:21 BMI result Body Mass Index 29.2 Tobacco/Smoking Status: Tobacco use Status Tobacco use date assessed 04/17/23 08/09/23 10:21 Patient Tobacco Use Status Never used Tobacco 08/09/23 10:21 e-Cigarette/Vaping Use Never Used 08/09/23 10:21 Thrive Assessment: Date of Thrive Assessment Date Thrive assessed 01/29/24 05/22/24 10:21 Const General: cooperative Orientation/consciousness: patient oriented x3 Resp Effort & Inspection: normal respiratory effort Auscultation: clear to auscultation bilaterally Cardio Rate: regular rate Rhythm: regular rhythm Heart sounds: S1 normal heart sound present and S2 normal heart sound present Neuro General: patient oriented x3 Extrem Other: significant muscle atrophy to RUE, weakness to LUE from forearm to hand, fingers are more contracted/flexed and weak at PIP joints, limited ROM and strength to left thumb Psych Appearance: grossly normal Mental Status: mental status grossly normal Speech and movement: Normal speech and movement present Affect: normal affect Attitude: cooperative Thought process: Normal thought process present Thought content: Normal thought content present Insight: Good insight present (Psych) Judgement: Good judgement present (Psych) Assessment and Plan Assessment & Plan (1) Weakness of left upper extremity: Code(s): R29.898 - Other symptoms and signs involving the musculoskeletal system Plan: awaiting neuro surg treatment, then OT, pt will follow up with me (2) Cervical neck pain with evidence of disc disease: Code(s): M50.90 - Cervical disc disorder, unspecified, unspecified cervical region Plan The patient agreed to the use of a medical transcriber for this encounter. Scribed for PITA Lucas by Maura Mc medical transcriber, on 08/09/2023 at 10:40 EST. Medications: New miscellaneous medical supply right foot, 1/2 inch lift (heel) 1 ea miscellaneous .daily use 1 ea 0RF off balance 1 day Changed From metoprolol succinate ER 25 mg PO DAILY 90 tabs 0RF To metoprolol succinate ER 50 mg PO DAILY Coding Level of Care Code Est Pt Level 3 (33410) Diagnoses Weakness of left upper extremity R29.898 Cervical neck pain with evidence of disc disease M50.90
[2023-08-09 10:21] VITALS: BP 116/70; PULSE 94; O2SAT 97; BMI 29.2
== END ==
PROVIDERS: PCP Nurse Practitioner Family; Visit Provider Nurse Practitioner Family
DX: R29.898 Other symptoms and signs involving the musculoskeletal system (principal); M50.90 Cervical disc disorder, unspecified, unspecified cervical region
CPT/HCPCS: 99213

== ENCOUNTER 2023-09-08 11:06 | Outpatient (AMB) | payer OTHER, MEDICARE, MEDICAID, SELFPAY ==
--- NOTE | 2023-09-08 11:07 | MHC.OFFVIS ---
Intake Visit Reasons: follow up/stress incontinence Intake Note: Pt presents to the office today for a follow up for stress incontinence. Urology Meds: none Blood thinner: Aspirin PVR: 24ml Allergies Penicillins Allergy (Severe, Verified 09/08/23 11:07) ANAPHYLAXIS clopidogrel [From Plavix] Allergy (Intermediate, Verified 09/08/23 11:07) Itching morphine Adverse Reaction (Intermediate, Verified 09/08/23 11:07) Agitated HPI Comments Details: Michael is a very pleasant male. He is a patient of Dr Gaines. He is seen for the following urologic conditions. 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 Current treatment includes more medications Prostate Symptom Score Moderate (9-19), Bother 3. Symptoms include incomplete emptying, nocturia (>2), and are progressing. Prior Prostate Score unknown. PSA - 10/07 2.0, 04/12 1.8 Associated conditions CAD No CVA No diabetes No elevated PSA No erectile dysfunction yes PFSH Medical History History of shingles Migraine PTSD (post-traumatic stress disorder) KASANDRA (obstructive sleep apnea) Somnolence, daytime Encounter for screening Encounter for screening Thoracic back pain Lower back pain Feeling of incomplete bladder emptying Weak urinary stream Bladder outlet obstruction Hearing loss Acoustic neuroma Cervical radiculopathy Cerebrovascular accident Attention deficit disorder Bipolar 1 disorder Surgical History History of esophagogastroduodenoscopy (EGD) History of back surgery H/O colonoscopy History of surgery History of cochlear implant History of elbow surgery History of sinus surgery History of brain surgery Family History Father No problems noted. Mother History of breast cancer Social History Household Members: None Housing: House Are you a primary resident care supervisor to a significant other at home: No Do you presently have visiting nurse or other home services: No Alcohol intake: current Alcohol intake frequency: does not drink Patient Tobacco Use Status: Never used Tobacco e-Cigarette/Vaping Use: Never Used Second Hand Smoke Exposure: No service: No Current occupational status: unemployed Cognitive needs: No Hearing needs: No Vision needs: No Review of Systems Const Denies chills and Denies fever(s) Card Reports no additional complaints and Denies syncope Resp Denies cough GI Denies abdominal pain and Denies heartburn Reports as per HPI and Denies change in libido Neuro Denies syncope Psych Denies change in libido Endo Denies change in libido Physical Exam Const General: cooperative, healthy appearing, comfortable and no acute distress Orientation/consciousness: patient oriented x3 HEENT Face and sinus: Yes normal facial exam Mouth: moist mucous membranes Neck Neck: Yes normal visual inspection, Yes full ROM and Yes trachea midline Chest Chest palpation & inspection: normal inspection of the chest Resp Effort & Inspection: normal respiratory effort, able to speak in complete sentences and no respiratory distress GI Inspection: Yes normal to inspection Back/Spine/Pelvis Cervical Spine: normal cervical lordosis Thoracic/Lumbar Spine: thoracic and lumbar spine normal to inspection Skin General skin exam: no rashes or lesions noted Neuro General: patient oriented x3, gait normal, tone normal and moves all extremities Extrem General: Yes normal to inspection and Yes capillary refill normal Office Procedures Post Void Residual Post Residual Void Post Void Residual (PVR): 24 25095-Xinh Void Residual by ultrasound Assessment & Plan Assessment & Plan (1) Enlarged prostate: Code(s): N40.0 - Benign prostatic hyperplasia without lower urinary tract symptoms Category: Medical (2) Erectile dysfunction due to arterial insufficiency: Code(s): N52.01 - Erectile dysfunction due to arterial insufficiency Category: Medical Plan Trial daily tadalafil Orders: Orders AMB Post Void Residual by ultrasound Today N39.3 - Stress incontinence (female) (male) Medications: New tadalafil 5 mg PO DAILY 90 days 90 tabs 1RF sexual activity N32.0 - Bladder-neck obstruction, N52.01 - Erectile dysfunction due to arterial insufficiency Patient Instructions: Imaging studies, laboratory and physical exam results were discussed and reviewed in detail. No major barriers to patient understanding were identified. An opportunity to ask questions regarding the treatment plan was provided. All questions were answered. The patient expressed understanding and agreement with the above treatment plan. The patient is aware they should contact our office by phone for worsening of their current condition or the appearance of new urologic symptoms. Compliance is encouraged with any medications and followup testing that is ordered. It is a privilege to participate in the urologic care of your patient. If you have any questions or concerns regarding treatment for the above conditions, or other urologic issues, please do not hesitate to contact me. The office telephone contact is [phone]. This note is constructed using voice recognition software. While every effort has been made to ensure accuracy senior technical business analyst errors may have been included. Yours sincerely, Dr Fabian Walton MD, [facility] - Urology Providers of Expert, Compassionate Care for the Genitourinary System Coding Level of Care Code Est Pt Level 4 (57041) Diagnoses Enlarged prostate N40.0 Erectile dysfunction due to arterial insufficiency N52.01 CPT Codes Post Residual Void - PVR CPT Code: 53567-Vsth Void Residual by ultrasound ([id number])
== END 2023-09-08 11:53 | disposition home or self-care (01) ==
LOC: HO.HUSH 11:06
PROVIDERS: PCP Nurse Practitioner Family; Visit Provider Urology
DX: N40.0 Benign prostatic hyperplasia without lower urinary tract symptoms (principal); N52.01 Erectile dysfunction due to arterial insufficiency
CPT/HCPCS: 99214

== ENCOUNTER → 2023-09-08 11:06 | Outpatient (BNVA) | payer OTHER, MEDICARE, MEDICAID, SELFPAY | PROVIDERS: PCP Nurse Practitioner Family; Visit Provider Urology | DX: N40.0 Benign prostatic hyperplasia without lower urinary tract symptoms (principal); N52.01 Erectile dysfunction due to arterial insufficiency; N39.3 Stress incontinence (female) (male) | CPT/HCPCS: 51798 ==

== ENCOUNTER 2023-11-09 13:06 | Outpatient (AMB) | payer OTHER, MEDICARE, MEDICAID, SELFPAY ==
[2023-11-09 13:07] VITALS: BP 118/72; PULSE 82; O2SAT 96
--- NOTE | 2023-11-09 13:07 | MHC.PC.OV ---
Vital Signs 11/09/23 13:07 Height 5 ft 9 in BMI Reason not done Patient refused/unable BP 118/72 Blood Pressure Location Rt brachial Position Sitting Pulse 82 Pulse Source Pulse Oximeter Pulse Oximetry (%) 96 Intake Visit Reasons: Annual PE Intake Note: pt is here for annual exam Sound Effects Manager Required: No Accompanied by: Self / Same As Patient Allergies Penicillins Allergy (Severe, Verified 11/09/23 13:08) ANAPHYLAXIS clopidogrel [From Plavix] Allergy (Intermediate, Verified 11/09/23 13:08) Itching morphine Adverse Reaction (Intermediate, Verified 11/09/23 13:08) Agitated Tobacco use date assessed: 04/17/23 Dental Screening Dental Screen Date: 04/17/23 HPI Annual PE HPI Details Pt is here for a PE. Will order labs. Colon screen is up to date. PSA is up to date. Denies dribbling with urination, weak stream, and frequent nocturia. Pt is seeing cardiology, dermatology, neurology, and urology. [facility] Medical History History of shingles Migraine PTSD (post-traumatic stress disorder) KASANDRA (obstructive sleep apnea) Somnolence, daytime Encounter for screening Encounter for screening Thoracic back pain Lower back pain Feeling of incomplete bladder emptying Weak urinary stream Bladder outlet obstruction Hearing loss Acoustic neuroma Cervical radiculopathy Cerebrovascular accident Attention deficit disorder Bipolar 1 disorder Surgical History History of esophagogastroduodenoscopy (EGD) History of back surgery H/O colonoscopy History of surgery History of cochlear implant History of elbow surgery History of sinus surgery History of brain surgery Family History Father No problems noted. Mother History of breast cancer Social History Household Members: None Housing: House Are you a primary career technical supervisor to a significant other at home: No Do you presently have visiting nurse or other home services: No Alcohol intake: current Alcohol intake frequency: does not drink Patient Tobacco Use Status: Never used Tobacco e-Cigarette/Vaping Use: Never Used Second Hand Smoke Exposure: No service: No Current occupational status: unemployed Cognitive needs: No Hearing needs: No Vision needs: No Questionnaire PHQ-9 Over the last 2 weeks, how often have you been bothered by any of the following problems? 31016 - PHQ-9 Billing: Patient declined-do not bill Source: Developed by Drs. Manjeet Hawthorne, Elijah Stevenson and colleagues, with an educational gustavo from [employer] Thrive Questionnaire Date Thrive assessed: 04/17/23 BERNADETTE-7 AMB Questionnaire BERNADETTE-7 Date BERNADETTE - 7 assessed: 04/17/23 Source: Developed by Drs. Manjeet Hawthorne, Martha Alonso, Elijah Pena and colleagues, with an educational gustavo from [employer] BERNADETTE-7 Assessment Billing BERNADETTE-7 Assessment Tool: pt declined-do not bill Review of Systems Const Denies chills and Denies fever(s) Eyes Denies blurry vision ENT Denies vertigo, Denies dizziness and Denies sore throat Card Denies chest pain at rest, Denies chest pain with activity, Denies diaphoresis, Denies dyspnea and Denies dyspnea on exertion Resp Denies cough, Denies dyspnea, Denies dyspnea on exertion and Denies wheezing GI Denies abdominal pain, Denies melena, Denies hematochezia, Denies constipation, Denies diarrhea and Denies loose stools Denies hematuria Musc Denies numbness and Denies tingling Skin/Breast Denies lesions Neuro Denies vertigo, Denies dizziness, Denies numbness and Denies tingling Psych Denies anxiety, Denies depression, Denies homicidal ideation, Denies suicidal ideation and Denies other (substance abuse) Aller/Immun Denies wheezing Physical exam (Primary Care) Vital Signs: Last Vital Signs Pulse 82 11/09/23 13:07 BP 118/72 11/09/23 13:07 Pulse Ox 96 11/09/23 13:07 Tobacco/Smoking Status: Tobacco use Status Tobacco use date assessed 04/17/23 11/09/23 13:18 Patient Tobacco Use Status Never used Tobacco 11/09/23 13:18 e-Cigarette/Vaping Use Never Used 11/09/23 13:18 Thrive Assessment: Date of Thrive Assessment Date Thrive assessed 04/17/23 11/09/23 13:18 Const General: cooperative Nutritional Appearance: well nourished Orientation/consciousness: patient oriented x3 HENMT Other: cerumen noted to right ear, after ear lavage TM easily seen Head: Yes normal to inspection, Yes normocephalic and Yes atraumatic Eyes General: appearance normal, both eyes and all related structures Alignment and Position: alignment normal and position normal Neck Neck: Yes normal visual inspection and Yes no lymphadenopathy Thyroid: Thyroid normal Resp Effort & Inspection: normal respiratory effort Auscultation: clear to auscultation bilaterally Cardio Rate: regular rate Rhythm: regular rhythm Heart sounds: S1 normal heart sound present, S2 normal heart sound present and no murmurs GI Palpation (GI): Soft to palpation and nontender Auscultation: normal bowel sounds Male General Exam: Yes normal external exam Penis: normal penis Scrotum: scrotum normal, testes descended bilaterally and no inguinal hernias Testes: no testicular mass Skin Other: scattered small singular areas of ecchymosis to abd Rashes: no rashes Neuro General: patient oriented x3, moves all extremities, no focal motor deficits and deep tendon reflexes 2+ bilaterally (hyperreflexsive right patellar) Romberg Test: Negative Extrem Other: AFO brace to RLE, RUE slightly contracted from elbow with muscle atrophy throughout (baseline), weakness with right knee and hip extension and flexion (baseline). slight weakness to LUE hand grasp Psych Appearance: grossly normal Mental Status: mental status grossly normal Speech and movement: Normal speech and movement present Affect: normal affect Attitude: cooperative Thought process: Normal thought process present Thought content: Normal thought content present Insight: Good insight present (Psych) Judgement: Good judgement present (Psych) Office Procedures Cerumen Removal From which ear canal was the cerumen removed: bilateral Removal: irrigation Notes: patient tolerated procedure well, no complications and ear canal clear [id number] Irrigation/Lavage Assessment and Plan Assessment & Plan (1) Encounter for routine adult physical exam with abnormal findings: Code(s): Z00.01 - Encounter for general adult medical examination with abnormal findings Plan: Labs ordered Plan The patient agreed to the use of a healthcare or medical for this encounter. Scribed for PITA Lucas by maci Fraire scribe, on 11/09/2023 at 13:25 EST. Orders: Orders Comprehensive [place]. Panel Fast Today Z00.01 - Encounter for general adult medical examination with abnormal findings TSH reflex Free T4 Today Z00.01 - Encounter for general adult medical examination with abnormal findings UA CC w/rflx Micro + Cult Today Z00. - Encounter for general adult medical examination with abnormal findings Complete Blood Count Auto Diff Today Z00. - Encounter for general adult medical examination with abnormal findings Coding Level of Care Code Est Pt Prev Care 40-64y(61940) Diagnoses Encounter for routine adult physical exam with abnormal findings Z00. CPT Codes Office Procedure - CPT: 36884-Zsv Irrigation/Lavage ([id number])
== END 2023-11-09 14:20 | disposition home or self-care (01) ==
PROVIDERS: PCP Nurse Practitioner Family; Visit Provider Nurse Practitioner Family
DX: Z00.01 Encounter for general adult medical examination with abnormal findings (principal); H61.23 Impacted cerumen, bilateral
CPT/HCPCS: 69209; 99396

== ENCOUNTER 2024-02-26 11:13 | Outpatient (AMB) | payer OTHER, MEDICARE, MEDICAID, SELFPAY ==
[2024-02-26 11:46] VITALS: BP 120/90; PULSE 72; O2SAT 98; BMI 31.0
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
--- OUTSIDE RECORDS SUMMARY | 2024-02-28 15:06 | XMS_ITS | Clinical Summary ---
Author Organization Unknown Care Team Providers Care Window Framer Name Role Phone JOSELUIS GROSSMAN, EDUARDO Unavailable Unavailable NETTE BERGER, GISELA Unavailable Unavailable VISHAL BERGER, ANN Unavailable Unavailable Payers Payer Name Policy Type Policy Number Effective Date Expira tion Date [place] [id number] MEDICARE - [place] - [facility] [id number] Problems Condition Name Condition Details Condition Category Status Onset Date Resolution Date Last Treatment Date Treating Clinician Comments ENCOUNTER FOR OTHER ORTHOPEDIC AFTERCARE Active 03-20 00:00: 00 SPINAL STENOSIS, CERVICAL REGION Active 03-20 00:00: 00 HEMIPLGA FOLLOWING CEREBRAL INFRC AFF RIGHT DOMINANT SIDE Active 03-20 00:00: 00 UNSPECIFIED HEARING LOSS, UNSPECIFIED EAR Active 03-20 00:00: 00 ATTENTION-DE FICIT HYPERACTIVIT Y DISORDER, UNSPECIFIED TYPE Active 03-20 00:00: 00 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 Ordering Clinician Indication Dosage Frequency Signature (SIG) Comments Components hydroxyzine pamoate 50 mg capsule 07-18 00:00: 00 08-05 00:00 :00 No [id number] Per instruc tions Per instructio ns (route: oral) Med Classific ation: Central Nervous System Agents hydroxyzine pamoate 50 mg capsule 07-18 00:00: 00 08-05 00:00 :00 No [id number] Per instruc tions EVERY EVENING AT BEDTIME NEEDED Per instructio ns EVERY EVENING AT BEDTIME NEEDED (route: oral) Med Classific ation: Central Nervous System Agents celecoxib 100 mg capsule 07-08 00:00: 00 08-05 00:00 :00 No [id number] Per instruc tions Per instructio ns (route: oral) Med Classific ation: Analgesic , Anti-infl ammatory or Antipyret ic celecoxib 100 mg capsule 07-08 00:00: 00 08-05 00:00 :00 No [id number] Per instruc tions TWICE A DAY NEEDED Per instructio ns TWICE A DAY NEEDED (route: oral) Med Classific ation: Analgesic , Anti-infl ammatory or Antipyret ic Adderall 20 mg tablet 07-07 00:00: 00 Yes [id number] 1 tablet DAILY 1 tablet DAILY (route: oral) Med Classific ation: Central Nervous System Agents Adderall 20 mg tablet 07-07 00:00: 00 08-05 00:00 :00 No [id number] Per instruc tions EVERY MORNING AND AT Per instructio ns EVERY MORNING AND AT (route: oral) Med Classific ation: Central Nervous System Agents acetaminoph en 325 mg capsule 08-04 00:00: 00 08-18 23:59 :00 No [id number] 3 capsule EVERY 6 HOURS 3 capsule EVERY 6 HOURS (route: oral) Med Classific ation: Analgesic , Anti-infl ammatory or Antipyret ic Aspirin Low Dose 81 mg tablet,yarelis yed release 08-04 00:00: 00 09-14 23:59 :00 No [id number] 1 tablet DAILY 1 tablet DAILY (route: oral) Med Classific ation: Hematolog ical Agents cholecalcif ruthy (vitamin D3) 10 mcg (400 unit) chewable tablet 08-04 00:00: 00 Yes [id number] 1 tablet DAILY 1 tablet DAILY (route: oral) Med Classific ation: Electroly te Balance-N utritiona l Products diazepam 2 mg tablet 08-04 00:00: 00 09-14 23:59 :00 No [id number] 1 tablet EVERY 8 HOURS 1 tablet EVERY 8 HOURS (route: oral) Med Classific ation: Central Nervous System Agents docusate sodium 100 mg capsule 08-04 00:00: 00 Yes [id number] 1 capsule 2 TIMES DAILY 1 capsule 2 TIMES DAILY (route: oral) Med Classific ation: Gastroint estinal Therapy Agents gabapentin 300 mg capsule 08-04 00:00: 00 Yes [id number] 1 capsule 3 TIMES DAILY 1 capsule 3 TIMES DAILY (route: oral) Med Classific ation: Central Nervous System Agents Lidocaine Pain Relief 4 % topical patch 08-05 00:00: 00 09-14 23:59 :00 No [id number] 1 adhesiv e patch, medicat ed DAILY 1 adhesive patch, medicated DAILY (route: topical) Med Classific ation: Dermatolo gical oxycodone 5 mg tablet 08-04 00:00: 00 Yes [id number] Per instruc tions EVERY 4 HOURS Per instructio ns EVERY 4 HOURS (route: oral) Med Classific ation: Analgesic , Anti-infl ammatory or Antipyret ic Eliquis 5 mg tablet 09-14 00:00: 00 Yes [id number] 5 mg 2 TIMES DAILY 5 mg 2 TIMES DAILY (route: oral) Med Classific ation: Hematolog ical Agents Celebrex 100 mg capsule 09-14 00:00: 00 09-15 23:59 :00 No [id number] 100 mg EVERY 12 HOURS 100 mg EVERY 12 HOURS (route: oral) Med Classific ation: Analgesic , Anti-infl ammatory or Antipyret ic cyclobenzap rine 10 mg tablet 09-14 00:00: 00 Yes [id number] 10 mg DAILY 10 mg DAILY (route: oral) Med Classific ation: Locomotor System Immunizations Ordered Immunization Name Filled Immunization Name Date Status Comments Refusal Reason INFLUENZA, TIV (INACTIVATED) 2021-02-17 00:00:00 Vital Signs Vital Name Observation Time Observation Value Commen ts Temperature 2021-09-29 17:13:00.000 98 [degF] Temperature 2021-09-21 10:33:00.000 97.2 [degF] Temperature 2021-09-14 21:00:00.000 98.1 [degF] Temperature 2021-09-08 18:25:00.000 97.1 [degF] Temperature 2021-09-03 20:25:00.000 97.1 [degF] Temperature 2021-08-27 15:43:00.000 97.8 [degF] Temperature 2021-08-17 09:57:00.000 96.9 [degF] Temperature 2021-08-11 13:36:00.000 98 [degF] Temperature 2021-08-09 13:15:00.000 97.6 [degF] Temperature 2021-08-05 23:14:00.000 97.8 [degF] BMI (%) 2021-08-27 15:43:00.000 25 kg/m2 BMI (%) 2021-08-05 23:14:00.000 25 kg/m2 Height 2021-08-27 15:43:00.000 69 [in_us] Height 2021-08-05 23:14:00.000 69 [in_us] Pulse 2021-09-30 18:25:00.000 78 /min Pulse 2021-09-29 17:13:00.000 81 /min Pulse 2021-09-21 10:33:00.000 68 /min Pulse 2021-09-14 21:00:00.000 88 /min Pulse 2021-09-13 16:51:00.000 66 /min Pulse 2021-09-08 18:25:00.000 82 /min Pulse 2021-09-08 10:41:00.000 70 /min Pulse 2021-09-03 20:25:00.000 83 /min Pulse 2021-08-27 15:43:00.000 60 /min Pulse 2021-08-17 10:53:00.000 86 /min Pulse 2021-08-17 10:50:00.000 86 /min Pulse 2021-08-17 09:57:00.000 73 /min Pulse 2021-08-11 13:36:00.000 86 /min Pulse 2021-08-09 13:15:00.000 92 /min Pulse 2021-08-05 23:14:00.000 96 /min O2 Saturation (%) 2021-09-30 18:25:00.000 96 % O2 Saturation (%) 2021-09-29 17:13:00.000 95 % O2 Saturation (%) 2021-09-21 10:33:00.000 99 % O2 Saturation (%) 2021-09-14 21:00:00.000 96 % O2 Saturation (%) 2021-09-13 16:51:00.000 95 % O2 Saturation (%) 2021-09-08 18:25:00.000 99 % O2 Saturation (%) 2021-09-08 10:41:00.000 98 % O2 Saturation (%) 2021-09-03 20:25:00.000 97 % O2 Saturation (%) 2021-08-27 15:43:00.000 98 % O2 Saturation (%) 2021-08-17 10:53:00.000 98 % O2 Saturation (%) 2021-08-17 10:50:00.000 98 % O2 Saturation (%) 2021-08-17 09:57:00.000 98 % O2 Saturation (%) 2021-08-11 13:36:00.000 98 % O2 Saturation (%) 2021-08-09 13:15:00.000 99 % O2 Saturation (%) 2021-08-05 23:14:00.000 97 % Respirations 2021-09-29 17:13:00.000 18 /min Respirations 2021-09-21 10:33:00.000 18 /min Respirations 2021-09-14 21:00:00.000 18 /min Respirations 2021-09-08 18:25:00.000 18 /min Respirations 2021-09-08 10:41:00.000 14 /min Respirations 2021-09-03 20:25:00.000 18 /min Respirations 2021-08-27 15:43:00.000 18 /min Respirations 2021-08-17 10:50:00.000 14 /min Respirations 2021-08-17 09:57:00.000 18 /min Respirations 2021-08-11 13:36:00.000 18 /min Respirations 2021-08-09 13:15:00.000 18 /min Respirations 2021-08-05 23:14:00.000 18 /min Weight (lbs) 2021-08-27 15:43:00.000 172 [lb_av] Weight (lbs) 2021-08-05 23:14:00.000 172 [lb_av] Systolic Blood Pressure 2021-09-30 18:25:00.000 122 mm [Hg] Systolic Blood Pressure 2021-09-29 17:13:00.000 126 mm [Hg] Systolic Blood Pressure 2021-09-21 10:33:00.000 122 mm [Hg] Systolic Blood Pressure 2021-09-14 21:00:00.000 130 mm [Hg] Systolic Blood Pressure 2021-09-08 18:25:00.000 122 mm [Hg] Systolic Blood Pressure 2021-09-08 10:41:00.000 122 mm [Hg] Systolic Blood Pressure 2021-09-03 20:25:00.000 128 mm [Hg] Systolic Blood Pressure 2021-08-27 15:43:00.000 128 mm [Hg] Systolic Blood Pressure 2021-08-17 10:53:00.000 134 mm [Hg] Systolic Blood Pressure 2021-08-17 10:50:00.000 130 mm [Hg] Systolic Blood Pressure 2021-08-17 09:57:00.000 152 mm [Hg] Systolic Blood Pressure 2021-08-11 13:36:00.000 132 mm [Hg] Systolic Blood Pressure 2021-08-09 13:15:00.000 132 mm [Hg] Systolic Blood Pressure 2021-08-05 23:14:00.000 128 mm [Hg] Diastolic Blood Pressure 2021-09-30 18:25:00.000 66 mm [Hg] Diastolic Blood Pressure 2021-09-29 17:13:00.000 72 mm [Hg] Diastolic Blood Pressure 2021-09-21 10:33:00.000 78 mm [Hg] Diastolic Blood Pressure 2021-09-14 21:00:00.000 68 mm [Hg] Diastolic Blood Pressure 2021-09-08 18:25:00.000 82 mm [Hg] Diastolic Blood Pressure 2021-09-08 10:41:00.000 76 mm [Hg] Diastolic Blood Pressure 2021-09-03 20:25:00.000 74 mm [Hg] Diastolic Blood Pressure 2021-08-27 15:43:00.000 86 mm [Hg] Diastolic Blood Pressure 2021-08-17 10:53:00.000 88 mm [Hg] Diastolic Blood Pressure 2021-08-17 10:50:00.000 90 mm [Hg] Diastolic Blood Pressure 2021-08-17 09:57:00.000 86 mm [Hg] Diastolic Blood Pressure 2021-08-11 13:36:00.000 80 mm [Hg] Diastolic Blood Pressure 2021-08-09 13:15:00.000 84 mm [Hg] Diastolic Blood Pressure 2021-08-05 23:14:00.000 80 mm [Hg] Plan of Treatment Planned Activity Planned Date Details Comments Future Scheduled Test SKILLED NU RSE TO PERFORM GENERAL ASSESSMENT AND EVALUATE PATIENT, IDENTIFY PRIMARY AND CO-MORBID CONDITIONS, AND DEVELOP PATIENT SPECIFIC PLAN OF CARE THAT INCLUDES PATIENT GOAL FOR HOME HEALTH. CLINICAL SUMMARY SOC THE PATIENT IS RECEIVING HOMECARE DUE TO NEW ONSET/EXACERBATION OF: SURGICAL AFTERCARE FOR CERVICAL SPINAL STENOSIS. COMORBIDITIES INCLUDE CVA WITH RESIDUAL RIGHT SIDED WEAKNESS, ADHD, [place]. HOMECARE FOR SURGICAL AFTERCARE, WOUND CARE AND MEDICATION EDUCATION AND OCCUPATIONAL THERAPY TO LEFT ARM AND HAND RECENT HOSPITALIZATION/INPATIENT ADMISSION RELATED TO: ADMITTED TO [facility] JULY 28 FOR SCHEDULED LAMINECTOMY OF POSTERIOR C6 - C7 AND C7-T1 ON JULY 31. PATIENT DISCHARGED HOME AUGUST 04 NEW OR CHANGED MEDICATIONS PERTINENT TO THE PLAN OF CARE: NEW MEDICATIONS INCLUDE DIAZEPAM, COLACE, GABAPENTIN, LIDOCAINE PATCH AND OXYCODONE PATIENT LIVING SITUATION/CAREGIVER STATUS: LIVES ALONE IN SINGLE FAMILY HOME WITH 4 SANDOR, 2 DOGS AND SUPPORTIVE DAUGHTERS. DISCUSSED MAKING REFERRAL TO [facility] FOR [facility] AND [facility]DLER TIER RECENT FALLS: NA SKILLED TEACHING AND TRAINING, OBSERVATION AND ASSESSMENT, AND/OR TREATMENTS THAT REQUIRE SKILLED CARE: PATIENT ALERT ORIENTEDX3 PAIN TO NECK OF 2 AT SURGICAL SITE. STERISTRIPS IN PLACE, NATHANAEL, NO SIGNS OF INFECTION. PATIENT WAS INDEPENDENT PRIOR TO THE LAST MONTH WHEN HIS LEFT ARM AND HAND BECAME PROGRESSIVELY WEAKER. DTR STATES IT STARTED 4 TO 5 MONTHS AGO BUT BECAME ALMOST USELESS ONE MONTH AGO. PATIENT HAS RIGHT SIDED WEAKNESS FROM A STROKE WHEN HE WAS 2 YEARS OLD. HE WEARS A BRACE TO HIS RIGHT LOWER EXTREMITY. PATIENT IS CONTINENT OF BOWEL AND BLADDER. REQUIRES ASSISTANCE WITH ALL ADLS. AMBULATES WITH NO DEVICE. MANAGES HIS OWN MEDICATIONS BUT NEEDS ASSISTANCE OPENING THE BOTTLES ADDITIONAL DISCIPLINES NEEDED OR DECLINED ORDERED SERVICES: OCCUPATIONAL THERAPY NEEDED [code = SKILLED NURSE TO PERFORM GENERAL ASSESSMENT AND EVALUATE PATIENT, IDENTIFY PRIMARY AND CO-MORBID CONDITIONS, AND DEVELOP PATIENT SPECIFIC PLAN OF CARE THAT INCLUDES PATIENT GOAL FOR HOME HEALTH. CLINICAL SUMMARY SOC THE PATIENT IS RECEIVING HOMECARE DUE TO NEW ONSET/EXACERBATION OF: SURGICAL AFTERCARE FOR CERVICAL SPINAL STENOSIS. COMORBIDITIES INCLUDE CVA WITH RESIDUAL RIGHT SIDED WEAKNESS, ADHD, [place]. [facility]ARE FOR SURGICAL AFTERCARE, WOUND CARE AND MEDICATION EDUCATION AND OCCUPATIONAL THERAPY TO LEFT ARM AND HAND RECENT HOSPITALIZATION/INPATIENT ADMISSION RELATED TO: ADMITTED TO [facility] JULY 28 FOR SCHEDULED LAMINECTOMY OF POSTERIOR C6 - C7 AND C7-T1 ON JULY 31. PATIENT DISCHARGED HOME AUGUST 04 NEW OR CHANGED MEDICATIONS PERTINENT TO THE PLAN OF CARE: NEW MEDICATIONS INCLUDE DIAZEPAM, COLACE, GABAPENTIN, LIDOCAINE PATCH AND OXYCODONE PATIENT LIVING SITUATION/CAREGIVER STATUS: LIVES ALONE IN SINGLE FAMILY HOME WITH 4 SANDOR, 2 DOGS AND SUPPORTIVE DAUGHTERS. DISCUSSED MAKING REFERRAL TO [facility] FOR [facility] AND [facility]DLER TIER RECENT FALLS: NA SKILLED TEACHING AND TRAINING, OBSERVATION AND ASSESSMENT, AND/OR TREATMENTS THAT REQUIRE SKILLED CARE: PATIENT ALERT ORIENTEDX3 PAIN TO NECK OF 2 AT SURGICAL SITE. STERISTRIPS IN PLACE, HAND PACKER, NO SIGNS OF INFECTION. PATIENT WAS INDEPENDENT PRIOR TO THE LAST MONTH WHEN HIS LEFT ARM AND HAND BECAME PROGRESSIVELY WEAKER. DTR STATES IT STARTED 4 TO 5 MONTHS AGO BUT BECAME ALMOST USELESS ONE MONTH AGO. PATIENT HAS RIGHT SIDED WEAKNESS FROM A STROKE WHEN HE WAS 2 YEARS OLD. HE WEARS A BRACE TO HIS RIGHT LOWER EXTREMITY. PATIENT IS CONTINENT OF BOWEL AND BLADDER. REQUIRES ASSISTANCE WITH ALL ADLS. AMBULATES WITH NO DEVICE. MANAGES HIS OWN MEDICATIONS BUT NEEDS ASSISTANCE OPENING THE BOTTLES ADDITIONAL DISCIPLINES NEEDED OR DECLINED ORDERED SERVICES: OCCUPATIONAL THERAPY NEEDED ] Future Scheduled Test SKILLED NU RSE TO REVIEW PATIENT MEDICATIONS. INSTRUCT PATIENT/CAREGIVER ON MONITORING OF EFFECTIVENESS, ADVERSE DRUG REACTIONS, SIDE EFFECTS OF ALL MEDICATIONS (PRESCRIPTION/-OTC), AND HOW AND WHEN TO REPORT PROBLEMS. [code = SKILLED NURSE TO REVIEW PATIENT MEDICATIONS. INSTRUCT PATIENT/CAREGIVER ON MONITORING OF EFFECTIVENESS, ADVERSE DRUG REACTIONS, SIDE EFFECTS OF ALL MEDICATIONS (PRESCRIPTION/-OTC), AND HOW AND WHEN TO REPORT PROBLEMS.] Future Scheduled Test SKILLED NU RSE TO PERFORM HOME SAFETY AND FALL ASSESSMENT AND PROVIDE INSTRUCTION TO IMPLEMENT HOME SAFETY AND FALL PREVENTION STRATEGIES. [code = SKILLED NURSE TO PERFORM HOME SAFETY AND FALL ASSESSMENT AND PROVIDE INSTRUCTION TO IMPLEMENT HOME SAFETY AND FALL PREVENTION STRATEGIES.] Future Scheduled Test SKILLED NU RSE FOR O/A OF NEUROCOGNITIVE AND BEHAVIORAL STATUS DUE TO ADHD [code = SKILLED NURSE FOR O/A OF NEUROCOGNITIVE AND BEHAVIORAL STATUS DUE TO ADHD] Future Scheduled Test SKILLED NU RSE TO PROVIDE ASSESSMENT AND TEACHING/REINFORCEMENT OF MANAGEMENT OF DEPRESSION INCLUDING DISEASE PROCESS, MEDICATION MANAGEMENT, COPING SKILLS AND IDENTIFY CHANGES ASSOCIATED WITH DEPRESSIVE DISORDERS FOR EARLY INTERVENTION. [code = SKILLED NURSE TO PROVIDE ASSESSMENT AND TEACHING/REINFORCEMENT OF MANAGEMENT OF DEPRESSION INCLUDING DISEASE PROCESS, MEDICATION MANAGEMENT, COPING SKILLS AND IDENTIFY CHANGES ASSOCIATED WITH DEPRESSIVE DISORDERS FOR EARLY INTERVENTION.] Future Scheduled Test SKILLED NU RSE TO OBTAIN PULSE OXIMETRY MEASUREMENT PRN FOR SIGNS AND SYMPTOMS OF SHORTNESS OF BREATH, ACTIVITY INTOLERANCE AND WHEN OXYGEN IS ORDERED. [code = SKILLED NURSE TO OBTAIN PULSE OXIMETRY MEASUREMENT PRN FOR SIGNS AND SYMPTOMS OF SHORTNESS OF BREATH, ACTIVITY INTOLERANCE AND WHEN OXYGEN IS ORDERED.] Future Scheduled Test PATIENT YATES S A RISK OF REHOSPITALIZATION. SKILLED NURSE TO ESTABLISH SUPPORT MEASURES TO MINIMIZE RISK OF REHOSPITALIZATION, AND INSTRUCT PATIENT/CAREGIVER ON METHODS TO REDUCE AVOIDABLE HOSPITALIZATION. [code = PATIENT HAS A RISK OF REHOSPITALIZATION. SKILLED NURSE TO ESTABLISH SUPPORT MEASURES TO MINIMIZE RISK OF REHOSPITALIZATION, AND INSTRUCT PATIENT/CAREGIVER ON METHODS TO REDUCE AVOIDABLE HOSPITALIZATION.] Future Scheduled Test SKILLED NU RSE TO PROVIDE INSTRUCTION TO PATIENT/CAREGIVER RELATED TO DISCHARGE PLANNING. [code = SKILLED NURSE TO PROVIDE INSTRUCTION TO PATIENT/CAREGIVER RELATED TO DISCHARGE PLANNING.] Future Scheduled Test SKILLED NU RSE FOR OBSERVATION AND ASSESSMENT OF PATIENTS PAIN LEVEL AND EFFECTIVENESS OF PAIN MANAGEMENT REGIMEN. SKILLED NURSE TO INSTRUCT PATIENT/CAREGIVER REGARDING PHARMACOLOGIC AND NON-PHARMACOLOGIC PAIN CONTROL MEASURES. SKILLED NURSE TO REPORT TO PHYSICIAN IF PAIN IS UNCONTROLLED WITH CURRENT PAIN MANAGEMENT REGIMEN. [code = SKILLED NURSE FOR OBSERVATION AND ASSESSMENT OF PATIENTS PAIN LEVEL AND EFFECTIVENESS OF PAIN MANAGEMENT REGIMEN. SKILLED NURSE TO INSTRUCT PATIENT/CAREGIVER REGARDING PHARMACOLOGIC AND NON-PHARMACOLOGIC PAIN CONTROL MEASURES. SKILLED NURSE TO REPORT TO PHYSICIAN IF PAIN IS UNCONTROLLED WITH CURRENT PAIN MANAGEMENT REGIMEN.] Future Scheduled Test OCCUPATION AL THERAPIST TO EVALUATE PATIENT FOR STRENGTHENING TO LEFT HAND AND ARM [code = OCCUPATIONAL THERAPIST TO EVALUATE PATIENT FOR STRENGTHENING TO LEFT HAND AND ARM ] Future Scheduled Test NEED FOR S KILLED TEACHING AND INTERVENTION RELATED TO SURGICAL INCISION TO POSTERIOR NECK. MONITOR SITE FOR SIGNS AND SYMPTOMS OF INFECTION [code = NEED FOR SKILLED TEACHING AND INTERVENTION RELATED TO SURGICAL INCISION TO POSTERIOR NECK. MONITOR SITE FOR SIGNS AND SYMPTOMS OF INFECTION ] Future Scheduled Test SKILLED NU RSE TO ASSESS PATIENT'S SKIN INTEGRITY AND INSTRUCT PATIENT/CAREGIVER ON MEASURES TO PREVENT PRESSURE ULCERS [code = SKILLED NURSE TO ASSESS PATIENT'S SKIN INTEGRITY AND INSTRUCT PATIENT/CAREGIVER ON MEASURES TO PREVENT PRESSURE ULCERS] Future Scheduled Test SKILLED NU RSE TO INSTRUCT PATIENT/CAREGIVER ON WARNING SIGNS OF CVA, RISK FACTORS, AND METHODS TO MANAGE LEVEL GLASS VIAL FILLER EFFECTS OF CVA (RIGHT HEMIPLEGIA) [code = SKILLED NURSE TO INSTRUCT PATIENT/CAREGIVER ON WARNING SIGNS OF CVA, RISK FACTORS, AND METHODS TO MANAGE LEVEL GLASS VIAL FILLER EFFECTS OF CVA (RIGHT HEMIPLEGIA)] Future Scheduled Test SKILLED NU RSE FOR O/A AND SKILLED TEACHING RELATED TO SIGNS AND SYMPTOMS AND MANAGEMENT OF CERVICAL SPINAL STENOSIS [code = SKILLED NURSE FOR O/A AND SKILLED TEACHING RELATED TO SIGNS AND SYMPTOMS AND MANAGEMENT OF CERVICAL SPINAL STENOSIS] Future Scheduled Test OCCUPATION AL THERAPIST TO EVALUATE PATIENT SECONDARY TO FUNCTIONAL DEFICITS/SAFETY CONCERNS IDENTIFIED DURING EVALUATION OCCUPATIONAL THERAPY TO ESTABLISH /UPGRADE/DOWNGRADE THERAPEUTIC EXERCISE PROGRAM AND INSTRUCT PATIENT/CAREGIVER ON EXERCISE PRECAUTIONS WITH WRITTEN HOME PROGRAM. MAY INCLUDE PROM, AAROM, AROM, RROM APPROPRIATE TO IMPROVE FUNCTIONAL STRENGTH AND/OR RANGE OF MOTION. OCCUPATIONAL THERAPY TO PROVIDE PATIENT/CAREGIVER FINE MOTOR COORDINATION TRAINING TECHNIQUES TO ENHANCE PARTICIPATION IN ADLS. OCCUPATIONAL THERAPY TO ASSESS AND RECOMMEND HOME SAFETY ADAPTATIONS AND EDUCATE PATIENT /CAREGIVER ON FALL PREVENTION STRATEGIES TO ENHANCE PARTICIPATION IN ADLS. SUMMARY OF THERAPY EVAL/ASSESSMENT FINDINGS AND REASON(S) SKILLS OF A THERAPIST ARE INDICATED: OT EVALUATION (08/09/21) PATIENT IS A 56 YEAR OLD MALE REFERRED TO OT SERVICES AFTER BEING ADMITTED TO [facility] 07/28/21 FOR SCHEDULED LAMINECTOMY OF POSTERIOR C6 - C7 AND C7-T1 ON 07/31/21. PATIENT REPORTS WEAKNESS IN LUE THAT STARTED A FEW MONTHS AGO BUT THE LAST MONTH BEFORE SURGERY HIS LEFT WRIST/HAND (DOMINANT AND ONLY FUNCTIONING EXTREMITY) BECAME USELESS . PMH SIGNIFICANT FOR CVA WITH RESIDUAL RUE HEMIPARESIS AT AGE 2, ADHD, [place] WITH COCHLEAR IMPLANT. PATIENT WAS STABILIZED AND DISCHARGED HOME 08/04/21. PRIOR LEVEL OF FUNCTION: INDEPENDENT WITH ALL SELFCARE, MOBILITY WITHOUT DEVICES, IADLS, AND WAS DRIVING. 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 CURRENT LEVEL OF FUNCTION: PATIENT SEEN TODAY IN HOME WITHOUT USE OF A DEVICE. PATIENT WAS ABLE TO PERFORM FUNCTIONAL TRANSFERS SIT TO STAND TOILET TRANSFERS WITHOUT DIFFICULTY ABLE TO STEP IN AND OUT OF SHOWER STALL HOWEVER DID RECOMMEND GRAB BARS TO INCREASE SAFETY. PATIENT HAS VERY SUPPORTIVE FAMILY INVOLVED DAUGHTER HAS BEEN ASSISTING WITH DRESSING GROOMING MEALS ALL IADL TASKS. PATIENT HAVING SIGNIFICANT DIFFICULTY MANIPULATING OBJECTS INCLUDING JUST PULLING UP PANTS AFTER TOILETING DUE TO IMPAIRED LEFT UPPER EXTREMITY WEAKNESS POST SURGERY. 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 PATIENT DOES HAVE FUNCTIONAL RANGE OF LEFT SHOULDER FLEXION ABDUCTION INTERNAL EXTERNAL ROTATION LEFT ELBOW GOOD FLEXION EXTENSION RANGE ACTIVELY. PATIENT HAVING DIFFICULTY WITH WRIST FOREARM AND DIGIT MOVEMENTS DUE TO WEAKNESS AND ATROPHY COME DECREASE USED OVER THE MONTH PRIOR TO SURGERY. PATIENT DEPENDENT IN ALL ASPECTS OF I ADL'S AT THIS TIME WHICH FAMILY IS ASSISTING WITH WELL NEIGHBORS AND FRIENDS. PATIENT OFFERS MINIMAL COMPLAINTS OF PAIN IN NECK AND ARM ONLY WHEN CERTAIN MOVEMENTS ARE PERFORMED IN PARTICULAR TODAY WITH WRIST RADIAL DEVIATION CREATED A TIGHTNESS PAIN UP IN THE NECK HOWEVER RELIEVED WHEN WE RETURNED TO NEUTRAL. PATIENT HAD ORIGINALLY DECLINED INPATIENT REHAB BECAUSE HE DID NOT WANT TO GO TO A LONGTERM HOWEVER IS MOST APPROPRIATE FOR ACUTE LEVEL INPATIENT REHAB SHOULD PATIENT CONTINUE TO STRUGGLE WITH DAY-TO-DAY TASKS INCLUDING BASIC SELF-CARE TOILETING HE DOES NOT HAVE 24 HOUR CARE. RECOMMEND MOST APPROPRIATE TRANSITION TO OUTPATIENT WITH A CERTIFIED HAND THERAPIST AFTER HIS SURGICAL FOLLOW-UP NEXT MONTH. ASSESSMENT/POC: OCCUPATIONAL THERAPY EVALUATION COMPLETED THIS DATE WITH RECOMMENDATION FOR SKILLED OT SERVICES TO ADDRESS SAFETY AND ROM/STRENGTHENING AND FINE MOTOR COORDINATION FOR SELFCARE TASKS. RECOMMEND 2X/WKX2, 1WKX 2 TO JEREMIAH GOALS. SURGEON FOLLOW UP NEXT MONTH 08/2021. NOTIFIED OF OT EVAL AND POC. [code = OCCUPATIONAL THERAPIST TO EVALUATE PATIENT SECONDARY TO FUNCTIONAL DEFICITS/SAFETY CONCERNS IDENTIFIED DURING EVALUATION OCCUPATIONAL THERAPY TO ESTABLISH /UPGRADE/DOWNGRADE THERAPEUTIC EXERCISE PROGRAM AND INSTRUCT PATIENT/CAREGIVER ON EXERCISE PRECAUTIONS WITH WRITTEN HOME PROGRAM. MAY INCLUDE PROM, AAROM, AROM, RROM APPROPRIATE TO IMPROVE FUNCTIONAL STRENGTH AND/OR RANGE OF MOTION. OCCUPATIONAL THERAPY TO PROVIDE PATIENT/CAREGIVER FINE MOTOR COORDINATION TRAINING TECHNIQUES TO ENHANCE PARTICIPATION IN ADLS. OCCUPATIONAL THERAPY TO ASSESS AND RECOMMEND HOME SAFETY ADAPTATIONS AND EDUCATE PATIENT /CAREGIVER ON FALL PREVENTION STRATEGIES TO ENHANCE PARTICIPATION IN ADLS. SUMMARY OF THERAPY EVAL/ASSESSMENT FINDINGS AND REASON(S) SKILLS OF A THERAPIST ARE INDICATED: OT EVALUATION (08/09/21) PATIENT IS A 56 YEAR OLD MALE REFERRED TO OT SERVICES AFTER BEING ADMITTED TO [facility] 07/28/21 FOR SCHEDULED LAMINECTOMY OF POSTERIOR C6 - C7 AND C7-T1 ON 07/31/21. PATIENT REPORTS WEAKNESS IN LUE THAT STARTED A FEW MONTHS AGO BUT THE LAST MONTH BEFORE SURGERY HIS LEFT WRIST/HAND (DOMINANT AND ONLY FUNCTIONING EXTREMITY) BECAME USELESS . PMH SIGNIFICANT FOR CVA WITH RESIDUAL RUE HEMIPARESIS AT AGE 2, ADHD, [place] WITH COCHLEAR IMPLANT. PATIENT WAS STABILIZED AND DISCHARGED HOME 08/04/21. PRIOR LEVEL OF FUNCTION: INDEPENDENT WITH ALL SELFCARE, MOBILITY WITHOUT DEVICES, IADLS, AND WAS DRIVING. 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 CURRENT LEVEL OF FUNCTION: PATIENT SEEN TODAY IN HOME WITHOUT USE OF A DEVICE. PATIENT WAS ABLE TO PERFORM FUNCTIONAL TRANSFERS SIT TO STAND TOILET TRANSFERS WITHOUT DIFFICULTY ABLE TO STEP IN AND OUT OF SHOWER STALL HOWEVER DID RECOMMEND GRAB BARS TO INCREASE SAFETY. PATIENT HAS VERY SUPPORTIVE FAMILY INVOLVED DAUGHTER HAS BEEN ASSISTING WITH DRESSING GROOMING MEALS ALL IADL TASKS. PATIENT HAVING SIGNIFICANT DIFFICULTY MANIPULATING OBJECTS INCLUDING JUST PULLING UP PANTS AFTER TOILETING DUE TO IMPAIRED LEFT UPPER EXTREMITY WEAKNESS POST SURGERY. 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 PATIENT DOES HAVE FUNCTIONAL RANGE OF LEFT SHOULDER FLEXION ABDUCTION INTERNAL EXTERNAL ROTATION LEFT ELBOW GOOD FLEXION EXTENSION RANGE ACTIVELY. PATIENT HAVING DIFFICULTY WITH WRIST FOREARM AND DIGIT MOVEMENTS DUE TO WEAKNESS AND ATROPHY COME DECREASE USED OVER THE MONTH PRIOR TO SURGERY. PATIENT DEPENDENT IN ALL ASPECTS OF I ADL'S AT THIS TIME WHICH FAMILY IS ASSISTING WITH WELL NEIGHBORS AND FRIENDS. PATIENT OFFERS MINIMAL COMPLAINTS OF PAIN IN NECK AND ARM ONLY WHEN CERTAIN MOVEMENTS ARE PERFORMED IN PARTICULAR TODAY WITH WRIST RADIAL DEVIATION CREATED A TIGHTNESS PAIN UP IN THE NECK HOWEVER RELIEVED WHEN WE RETURNED TO NEUTRAL. PATIENT HAD ORIGINALLY DECLINED INPATIENT REHAB BECAUSE HE DID NOT WANT TO GO TO A LONGTERM HOWEVER IS MOST APPROPRIATE FOR ACUTE LEVEL INPATIENT REHAB SHOULD PATIENT CONTINUE TO STRUGGLE WITH DAY-TO-DAY TASKS INCLUDING BASIC SELF-CARE TOILETING HE DOES NOT HAVE 24 HOUR CARE. RECOMMEND MOST APPROPRIATE TRANSITION TO OUTPATIENT WITH A CERTIFIED HAND THERAPIST AFTER HIS SURGICAL FOLLOW-UP NEXT MONTH. ASSESSMENT/POC: OCCUPATIONAL THERAPY EVALUATION COMPLETED THIS DATE WITH RECOMMENDATION FOR SKILLED OT SERVICES TO ADDRESS SAFETY AND ROM/STRENGTHENING AND FINE MOTOR COORDINATION FOR SELFCARE TASKS. RECOMMEND 2X/WKX2, 1WKX 2 TO JEREMIAH GOALS. SURGEON FOLLOW UP NEXT MONTH 08/2021. NOTIFIED OF OT EVAL AND POC.] Goal 2021-08-27 Patient Goal - TO GET MY CHAPMAN D BACK Goal 2021-09-30 Patient Goal - TO GET MY CHAPMAN D BACK Goal Provider Goal - A PLAN OF CARE WILL BE ESTABLISHED THAT MEETS PATIENT'S [facility] NEEDS AND INCLUDES PATIENT GOAL FOR HOME HEALTH. Goal Provider Goal - PATIENT/CAREGIVER WILL VERBALIZE UNDERSTANDING OF EDUCATION PROVIDED ON MEDICATIONS BY THE END OF THE CERTIFICATION PERIOD. Goal Provider Goal - PATIENT/CAREGIVER WILL VERBALIZE/DEMONSTRATE EFFECTIVE HOME SAFETY AND FALL PREVENTION STRATEGIES THROUGHOUT CERTIFICATION PERIOD. Goal Provider Goal - PATIENT WILL BE ABLE TO PERFORM DAILY FUNCTIONS AND MAINTAIN OPTIMAL BEHAVIORAL/NEUROCOGNITIVE STATUS. Goal Provider Goal - PATIENT/CAREGIVER WILL VERBALIZE/DEMONSTRATE UNDERSTANDING OF THE MANAGEMENT OF DEPRESSION BY THE END OF THE EPISODE AND SYMPTOMS ARE IDENTIFIED AND MANAGED TO MAINTAIN PATIENT SAFETY IN THE HOME Goal Provider Goal - PULSE OXIMETER RESULTS OBTAINED NEEDED FOR RESPIRATORY COMPLICATIONS. Goal Provider Goal - PATIENT WILL HAVE SUPPORT MEASURES ESTABLISHED TO PREVENT REHOSPITALIZATION AND PATIENT/CAREGIVER WILL VERBALIZE/DEMONSTRATE METHODS TO REDUCE AVOIDABLE HOSPITALIZATION BY OCTOBER 03 2021 Goal Provider Goal - PATIENT/CAREGIVER WILL VERBALIZE UNDERSTANDING OF DISCHARGE PLANNING INSTRUCTIONS BY DATE OF DISCHARGE. Goal Provider Goal - PATIENT/CAREGIVER WILL DEMONSTRATE UNDERSTANDING OF PHARMACOLOGIC AND NONPHARMACOLOGIC PAIN CONTROL MEASURES AND PATIENT WILL HAVE IMPROVEMENT IN PAIN INTERFERING WITH ACTIVITY EVIDENCED BY PAIN CONTROLLED AT LEVEL OF 7 OR LESS BY END OF CERTIFICATION PERIOD. Goal Provider Goal - OCCUPATIONAL THERAPY EVALUATION TO BE COMPLETED WITH RECOMMENDATIONS AND WRITTEN PLAN OF TREATMENT ESTABLISHED FOR THE PHYSICIANS SIGNATURE. Goal Provider Goal - WOUND CARE WILL BE COMPLETED AND PATIENT WILL HAVE IMPROVED WOUND STATUS EVIDENCED BY NO SIGNS AND SYMPTOMS OF INFECTION, DECREASED WOUND SIZE, AND/OR NO COMPLICATIONS BY THE END OF THE CERTIFICATION PERIOD. Goal Provider Goal - PATIENT/CAREGIVER WILL VERBALIZE UNDERSTANDING OF PRESSURE ULCER PREVENTION BY END OF EPISODE Goal Provider Goal - PATIENT/CAREGIVER WILL DEMONSTRATE COMPLIANCE WITH TREATMENT REGIME AND VERBALIZE SIGNS AND SYMPTOMS TO REPORT WELL POSSIBLE COMPLICATIONS OF CVA BY END OF EPISODE Goal Provider Goal - PATIENT/CAREGIVER WILL VERBALIZE UNDERSTANDING OF MUSCULOSKELETAL DISEASE INCLUDING SIGNS AND SYMPTOMS, MANAGEMENT, AND PRESCRIBED TREATMENT REGIMEN BY END OF EPISODE. Goal Provider Goal - OCCUPATIONAL THERAPIST TO EVALUATE PATIENT SECONDARY TO FUNCTIONAL DEFICITS/SAFETY CONCERNS IDENTIFIED DURING EVALUATION. PATIENT/CAREGIVER WILL PERFORM THERAPEUTIC EXERCISE/S AND DEMONSTRATE PARTICIPATION IN A HOME PROGRAM TO IMPROVE ROM AND STRENGTH OF LUE (DOMINANT ARM) FOR BASIC SELFCARE TASKS. PATIENT/CAREGIVER WILL DEMONSTRATE IMPROVED FINE MOTOR COORDINATION TO IMPROVE FUNCTION OF FORENSIC SERGEANT FOR FEEDING/GROOMING TASKS CAREGIVER/PATIENT WILL DEMONSTRATE/VERBALIZE UNDERSTANDING OF RECOMMENDATIONS TO INCREASE SAFETY IN THE HOME AND FALL PREVENTION. Reason for Visit INDEPENDENT IN THE HOME Encounters Start Date/Time End Date/Time Encounter Type Admission Type Attending [facility] Care Department Encounter ID Discharge Date Discharge Status Discharge Condition Discharge Reason Percent Goals Met 2021-08-05 00:00:00 2021-09-30 00:00:00 Outpatient NEW ADMISSION EARLENE RODGERSINA [facility] [id number] 3300-07-14 00:00:00 DISCHARGE TO HOME OR SELF CARE INDEPENDEN T IN THE HOME GOALS MET ( ONLY) 93.33
== END 2024-02-26 12:47 | disposition home or self-care (01) ==
PROVIDERS: PCP Nurse Practitioner Family; Visit Provider Physician Assistant
DX: J06.9 Acute upper respiratory infection, unspecified (principal)

== ENCOUNTER 2024-02-26 11:13 | Outpatient (REF) | payer OTHER, MEDICARE, MEDICAID, SELFPAY ==
--- NOTE | ~2024-02-26 | XR_ITS ---
EXAMINATION: XR CHEST CLINICAL INFORMATION: R05.9 - Cough, unspecified COMPARISON: CXR on 05/28/19 TECHNIQUE: 2 views of the chest were obtained. FINDINGS: No significant abnormality is noted involving the heart, lungs, mediastinum, bony thorax or soft tissues. XR/XR chest 2V IMPRESSION: Unremarkable examination. Electronically signed by: Diane Hernandez MD 02/26/2024 02:04 PM JANIS
--- OUTSIDE RECORDS SUMMARY | 2024-02-28 15:25 | XMS_ITS | Clinical Summary ---
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 Active 03-20 00:00: [...] 07-18 00:00: 00 08-05 00:00 :00 No [id number] Per instruc tions Per instructio ns (route: oral) Med Classific ation: Central Nervous System Agents hydroxyzine pamoate 50 mg capsule 07-18 00:00: 00 08-05 00:00 :00 No [id number] Per instruc tions EVERY EVENING AT BEDTIME NEEDED Per instructio ns EVERY EVENING AT BEDTIME NEEDED (route: oral) Med Classific ation: Central Nervous System Agents celecoxib 100 mg capsule 07-08 00:00: 00 08-05 00:00 :00 No [id number] Per instruc tions Per instructio ns (route: oral) Med Classific ation: Analgesic , Anti-infl ammatory or Antipyret ic celecoxib 100 mg capsule 07-08 00:00: 00 08-05 00:00 :00 No [id number] Per instruc tions TWICE A DAY NEEDED Per instructio ns TWICE A DAY NEEDED (route: oral) Med Classific ation: Analgesic , Anti-infl ammatory or Antipyret ic Adderall 20 mg tablet 07-07 00:00: 00 Yes [id number] 1 tablet DAILY 1 tablet DAILY (route: oral) Med Classific ation: Central Nervous System Agents Adderall 20 mg tablet 07-07 00:00: 00 08-05 00:00 :00 No [id number] Per instruc tions EVERY MORNING AND AT Per instructio ns EVERY MORNING AND AT (route: oral) Med Classific ation: Central Nervous System Agents acetaminoph en 325 mg capsule 08-04 00:00: 00 08-18 23:59 :00 No [id number] 3 capsule EVERY 6 HOURS 3 capsule EVERY 6 HOURS (route: oral) Med Classific ation: Analgesic , Anti-infl ammatory or Antipyret ic Aspirin Low Dose 81 mg tablet,yarelis yed release 08-04 00:00: 00 09-14 23:59 :00 No [id number] 1 tablet DAILY 1 tablet DAILY (route: oral) Med Classific ation: Hematolog ical Agents cholecalcif ruthy (vitamin D3) 10 mcg (400 unit) chewable tablet 08-04 00:00: 00 Yes [id number] 1 tablet DAILY 1 tablet DAILY (route: oral) Med Classific ation: Electroly te Balance-N utritiona l Products diazepam 2 mg tablet 08-04 00:00: 00 09-14 23:59 :00 No [id number] 1 tablet EVERY 8 HOURS 1 tablet EVERY 8 HOURS (route: oral) Med Classific ation: Central Nervous System Agents docusate sodium 100 mg capsule 08-04 00:00: 00 Yes [id number] 1 capsule 2 TIMES DAILY 1 capsule 2 TIMES DAILY (route: oral) Med Classific ation: Gastroint estinal Therapy Agents gabapentin 300 mg capsule 08-04 00:00: 00 Yes [id number] 1 capsule 3 TIMES DAILY 1 capsule 3 TIMES DAILY (route: oral) Med Classific ation: Central Nervous System Agents Lidocaine Pain Relief 4 % topical patch 08-05 00:00: 00 09-14 23:59 :00 No [id number] 1 adhesiv e patch, medicat ed DAILY 1 adhesive patch, medicated DAILY (route: topical) Med Classific ation: Dermatolo gical oxycodone 5 mg tablet 08-04 00:00: 00 Yes [id number] Per instruc tions EVERY 4 HOURS Per instructio ns EVERY 4 HOURS (route: oral) Med Classific ation: Analgesic , Anti-infl ammatory or Antipyret ic Eliquis 5 mg tablet 09-14 00:00: 00 Yes [id number] 5 mg 2 TIMES DAILY 5 mg 2 TIMES DAILY (route: oral) Med Classific ation: Hematolog ical Agents Celebrex 100 mg capsule 09-14 00:00: 00 09-15 23:59 :00 No [id number] 100 mg EVERY 12 HOURS 100 mg EVERY 12 HOURS (route: oral) Med Classific ation: Analgesic , Anti-infl ammatory or Antipyret ic cyclobenzap rine 10 mg tablet 09-14 00:00: 00 Yes [id number] 10 mg DAILY 10 mg DAILY (route: [...] CVA WITH RESIDUAL RIGHT SIDED WEAKNESS, ADHD, KOOTENAI. [facility], WOUND CARE AND MEDICATION EDUCATION AND OCCUPATIONAL THERAPY TO LEFT ARM AND HAND RECENT HOSPITALIZATION/INPATIENT ADMISSION RELATED TO: ADMITTED TO [facility] JULY 28 FOR SCHEDULED LAMINECTOMY OF POSTERIOR C6 - C7 AND C7-T1 ON JULY 31. PATIENT DISCHARGED HOME AUGUST 04 NEW OR CHANGED MEDICATIONS PERTINENT TO THE PLAN OF CARE: NEW MEDICATIONS INCLUDE DIAZEPAM, COLACE, GABAPENTIN, LIDOCAINE PATCH AND OXYCODONE PATIENT LIVING SITUATION/CAREGIVER STATUS: LIVES ALONE IN SINGLE FAMILY HOME WITH 4 SANDOR, 2 DOGS AND SUPPORTIVE DAUGHTERS. DISCUSSED MAKING RE[facility]ERRAL TO [facility] AND TRUCK AND TRANSPORT MECHANIC RECENT FALLS: NA SKILLED TEACHING AND TRAINING, [...] CVA WITH RESIDUAL RIGHT SIDED WEAKNESS, ADHD, KOOTENAI. [facility], WOUND CARE AND MEDICATION EDUCATION AND OCCUPATIONAL THERAPY TO LEFT ARM AND HAND RECENT HOSPITALIZATION/INPATIENT ADMISSION RELATED TO: ADMITTED TO [facility] JULY 28 FOR SCHEDULED LAMINECTOMY OF POSTERIOR C6 - C7 AND C7-T1 ON JULY 31. PATIENT DISCHARGED HOME AUGUST 04 NEW OR CHANGED MEDICATIONS PERTINENT TO THE PLAN OF CARE: NEW MEDICATIONS INCLUDE DIAZEPAM, COLACE, GABAPENTIN, LIDOCAINE PATCH AND OXYCODONE PATIENT LIVING SITUATION/CAREGIVER STATUS: LIVES ALONE IN SINGLE FAMILY HOME WITH 4 SANDOR, 2 DOGS AND SUPPORTIVE DAUGHTERS. DISCUSSED MAKING REFERRAL TO [facility] MOW AND TRUCK AND TRANSPORT MECHANIC RECENT FALLS: NA SKILLED TEACHING AND TRAINING, OBSERVATION AND ASSESSMENT, AND/OR TREATMENTS THAT REQUIRE SKILLED CARE: PATIENT ALERT ORIENTEDX3 PAIN TO NECK OF 2 AT SURGICAL SITE[address] STERISTRIPS IN PLACE, COUNSELING PSYCHOLOGIST, NO SIGNS OF INFECTION. PATIENT WAS INDEPENDENT [...] CVA, RISK FACTORS, AND METHODS TO MANAGE SENIOR TECHNICAL ARCHITECT EFFECTS OF CVA (RIGHT HEMIPLEGIA) [code = SKILLED NURSE TO INSTRUCT PATIENT/CAREGIVER ON WARNING SIGNS OF CVA, RISK FACTORS, AND METHODS TO MANAGE SENIOR TECHNICAL ARCHITECT EFFECTS OF CVA (RIGHT HEMIPLEGIA)] Future Scheduled [...] OT SERVICES AFTER BEING ADMITTED TO [facility] 07/28/21 FOR SCHEDULED LAMINECTOMY OF POSTERIOR C6 - C7 AND C7-T1 ON 07/31/21. PATIENT REPORTS WEAKNESS IN LUE THAT STARTED A FEW MONTHS AGO BUT THE LAST MONTH BEFORE SURGERY HIS LEFT WRIST/HAND (DOMINANT AND ONLY FUNCTIONING EXTREMITY) BECAME USELESS . PMH SIGNIFICANT FOR CVA WITH RESIDUAL RUE HEMIPARESIS AT AGE 2, ADHD, KOOTENAI WITH COCHLEAR IMPLANT. PATIENT WAS STABILIZED AND [...] DID NOT WANT TO GO TO A CARE HOME HOWEVER IS MOST APPROPRIATE FOR ACUTE LEVEL [...] OT SERVICES AFTER BEING ADMITTED TO [facility] 07/28/21 FOR SCHEDULED LAMINECTOMY OF POSTERIOR C6 - C7 AND C7-T1 ON 07/31/21. PATIENT REPORTS WEAKNESS IN LUE THAT STARTED A FEW MONTHS AGO BUT THE LAST MONTH BEFORE SURGERY HIS LEFT WRIST/HAND (DOMINANT AND ONLY FUNCTIONING EXTREMITY) BECAME USELESS . PMH SIGNIFICANT FOR CVA WITH RESIDUAL RUE HEMIPARESIS AT AGE 2, ADHD, KOOTENAI WITH COCHLEAR IMPLANT. PATIENT WAS STABILIZED AND [...] DID NOT WANT TO GO TO A CARE HOME HOWEVER IS MOST APPROPRIATE FOR ACUTE LEVEL [...] FINE MOTOR COORDINATION TO IMPROVE FUNCTION OF STUDENT AFFAIRS VICE PRESIDENT FOR FEEDING/GROOMING TASKS CAREGIVER/PATIENT WILL DEMONSTRATE/VERBALIZE UNDERSTANDING OF RECOMMENDATIONS TO INCREASE SAFETY IN THE HOME AND FALL PREVENTION. Reason for Visit INDEPENDENT IN THE HOME Encounters Start Date/Time End Date/Time Encounter Type Admission Type Attending [facility] Care Department Encounter ID Discharge Date Discharge Status Discharge Condition Discharge Reason Percent Goals Met 2021-08-05 00:00:00 2021-09-30 00:00:00 Outpatient NEW ADMISSION EARLENE RODGERSINA [facility] [id number] 5206-07-14 00:00:00 DISCHARGE TO HOME OR SELF CARE INDEPENDEN T IN THE HOME GOALS MET ( ONLY) 93.33
--- OUTSIDE RECORDS SUMMARY | 2024-02-28 15:25 | XMS_ITS | Clinical Summary ---
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 03-20 00:00: [...] 07-18 00:00: 00 08-05 00:00 :00 No [id number] Per instruc tions Per instructio ns (route: oral) Med Classific ation: Central Nervous System Agents hydroxyzine pamoate 50 mg capsule 07-18 00:00: 00 08-05 00:00 :00 No [id number] Per instruc tions EVERY EVENING AT BEDTIME NEEDED Per instructio ns EVERY EVENING AT BEDTIME NEEDED (route: oral) Med Classific ation: Central Nervous System Agents celecoxib 100 mg capsule 07-08 00:00: 00 08-05 00:00 :00 No [id number] Per instruc tions Per instructio ns (route: oral) Med Classific ation: Analgesic , Anti-infl ammatory or Antipyret ic celecoxib 100 mg capsule 07-08 00:00: 00 08-05 00:00 :00 No [id number] Per instruc tions TWICE A DAY NEEDED Per instructio ns TWICE A DAY NEEDED (route: oral) Med Classific ation: Analgesic , Anti-infl ammatory or Antipyret ic Adderall 20 mg tablet 07-07 00:00: 00 Yes [id number] 1 tablet DAILY 1 tablet DAILY (route: oral) Med Classific ation: Central Nervous System Agents Adderall 20 mg tablet 07-07 00:00: 00 08-05 00:00 :00 No [id number] Per instruc tions EVERY MORNING AND AT Per instructio ns EVERY MORNING AND AT (route: oral) Med Classific ation: Central Nervous System Agents acetaminoph en 325 mg capsule 08-04 00:00: 00 08-18 23:59 :00 No [id number] 3 capsule EVERY 6 HOURS 3 capsule EVERY 6 HOURS (route: oral) Med Classific ation: Analgesic , Anti-infl ammatory or Antipyret ic Aspirin Low Dose 81 mg tablet,yarelis yed release 08-04 00:00: 00 09-14 23:59 :00 No [id number] 1 tablet DAILY 1 tablet DAILY (route: oral) Med Classific ation: Hematolog ical Agents cholecalcif ruthy (vitamin D3) 10 mcg (400 unit) chewable tablet 08-04 00:00: 00 Yes [id number] 1 tablet DAILY 1 tablet DAILY (route: oral) Med Classific ation: Electroly te Balance-N utritiona l Products diazepam 2 mg tablet 08-04 00:00: 00 09-14 23:59 :00 No [id number] 1 tablet EVERY 8 HOURS 1 tablet EVERY 8 HOURS (route: oral) Med Classific ation: Central Nervous System Agents docusate sodium 100 mg capsule 08-04 00:00: 00 Yes [id number] 1 capsule 2 TIMES DAILY 1 capsule 2 TIMES DAILY (route: oral) Med Classific ation: Gastroint estinal Therapy Agents gabapentin 300 mg capsule 08-04 00:00: 00 Yes [id number] 1 capsule 3 TIMES DAILY 1 capsule 3 TIMES DAILY (route: oral) Med Classific ation: Central Nervous System Agents Lidocaine Pain Relief 4 % topical patch 08-05 00:00: 00 09-14 23:59 :00 No [id number] 1 adhesiv e patch, medicat ed DAILY 1 adhesive patch, medicated DAILY (route: topical) Med Classific ation: Dermatolo gical oxycodone 5 mg tablet 08-04 00:00: 00 Yes [id number] Per instruc tions EVERY 4 HOURS Per instructio ns EVERY 4 HOURS (route: oral) Med Classific ation: Analgesic , Anti-infl ammatory or Antipyret ic Eliquis 5 mg tablet 09-14 00:00: 00 Yes [id number] 5 mg 2 TIMES DAILY 5 mg 2 TIMES DAILY (route: oral) Med Classific ation: Hematolog ical Agents Celebrex 100 mg capsule 09-14 00:00: 00 09-15 23:59 :00 No [id number] 100 mg EVERY 12 HOURS 100 mg EVERY 12 HOURS (route: oral) Med Classific ation: Analgesic , Anti-infl ammatory or Antipyret ic cyclobenzap rine 10 mg tablet 09-14 00:00: 00 Yes [id number] 10 mg DAILY 10 mg DAILY (route: [...] CVA WITH RESIDUAL RIGHT SIDED WEAKNESS, ADHD, YOMBA SHOSHONE. [facility], WOUND CARE AND MEDICATION EDUCATION AND OCCUPATIONAL THERAPY TO LEFT ARM AND HAND RECENT HOSPITALIZATION/INPATIENT ADMISSION RELATED TO: ADMITTED TO [facility] JULY 28 FOR SCHEDULED LAMINECTOMY OF POSTERIOR C6 - C7 AND C7-T1 ON JULY 31. PATIENT DISCHARGED HOME AUGUST 04 NEW OR CHANGED MEDICATIONS PERTINENT TO THE PLAN OF CARE: NEW MEDICATIONS INCLUDE DIAZEPAM, COLACE, GABAPENTIN, LIDOCAINE PATCH AND OXYCODONE PATIENT LIVING SITUATION/CAREGIVER STATUS: LIVES ALONE IN SINGLE FAMILY HOME WITH 4 SANDOR, 2 DOGS AND SUPPORTIVE DAUGHTERS. DISCUSSED MAKING REFERRAL TO [facility] FOR MOW AND DRUG ABUSE PROGRAM COORDINATOR RECENT FALLS: NA SKILLED TEACHING AND TRAINING, [...] CVA WITH RESIDUAL RIGHT SIDED WEAKNESS, ADHD, YOMBA SHOSHONE. [facility], WOUND CARE AND MEDICATION EDUCATION AND OCCUPATIONAL THERAPY TO LEFT ARM AND HAND RECENT HOSPITALIZATION/INPATIENT ADMISSION RELATED TO: ADMITTED TO [facility] JULY 28 FOR SCHEDULED LAMINECTOMY OF POSTERIOR C6 - C7 AND C7-T1 ON JULY 31. PATIENT DISCHARGED HOME AUGUST 04 NEW OR CHANGED MEDICATIONS PERTINENT TO THE PLAN OF CARE: NEW MEDICATIONS INCLUDE DIAZEPAM, COLACE, GABAPENTIN, LIDOCAINE PATCH AND OXYCODONE PATIENT LIVING SITUATION/CAREGIVER STATUS: LIVES ALONE IN SINGLE FAMILY HOME WITH 4 SANDOR, 2 DOGS AND SUPPORTIVE DAUGHTERS. DISCUSSED MAKING REFERRAL TO [facility] FOR MOW AND DRUG ABUSE PROGRAM COORDINATOR RECENT FALLS: NA SKILLED TEACHING AND TRAINING, OBSERVATION AND ASSESSMENT, AND/OR TREATMENTS THAT REQUIRE SKILLED CARE: PATIENT ALERT ORIENTEDX3 PAIN TO NECK OF 2 AT SURGICAL SITE[address] STERISTRIPS IN PLACE, LOCOMOTIVE OBSERVER, NO SIGNS OF INFECTION. 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 PATIENT REPORTS WEAKNESS IN LUE THAT STARTED A FEW MONTHS AGO BUT THE LAST MONTH BEFORE SURGERY HIS LEFT WRIST/HAND (DOMINANT AND ONLY FUNCTIONING EXTREMITY) BECAME USELESS . PMH SIGNIFICANT FOR CVA WITH RESIDUAL RUE HEMIPARESIS AT AGE 2, ADHD, YOMBA SHOSHONE WITH COCHLEAR IMPLANT. PATIENT WAS STABILIZED AND [...] DID NOT WANT TO GO TO A PENITENTIARY HOWEVER IS MOST APPROPRIATE FOR ACUTE LEVEL [...] TO OT SERVICES AFTER BEING ADMITTED TO [facility] 07/28/21 FOR SCHEDULED LAMINECTOMY OF POSTERIOR C6 - C7 AND C7-T1 ON 07/31/21. PATIENT REPORTS WEAKNESS IN LUE THAT STARTED A FEW MONTHS AGO BUT THE LAST MONTH BEFORE SURGERY HIS LEFT WRIST/HAND (DOMINANT AND ONLY FUNCTIONING EXTREMITY) BECAME USELESS . PMH SIGNIFICANT FOR CVA WITH RESIDUAL RUE HEMIPARESIS AT AGE 2, ADHD, YOMBA SHOSHONE WITH COCHLEAR IMPLANT. PATIENT WAS STABILIZED AND [...] DID NOT WANT TO GO TO A PENITENTIARY HOWEVER IS MOST APPROPRIATE FOR ACUTE LEVEL [...] CARE WILL BE ESTABLISHED THAT MEETS PATIENT'S NURSING HOME NEEDS AND INCLUDES PATIENT GOAL FOR HOME [...] FINE MOTOR COORDINATION TO IMPROVE FUNCTION OF BUILDING SERVICES SUPERVISOR FOR FEEDING/GROOMING TASKS CAREGIVER/PATIENT WILL DEMONSTRATE/VERBALIZE UNDERSTANDING OF RECOMMENDATIONS TO INCREASE SAFETY IN THE HOME AND FALL PREVENTION. Reason for Visit INDEPENDENT IN THE HOME Encounters Start Date/Time End Date/Time Encounter Type Admission Type Attending [facility] Care Department Encounter ID Discharge Date Discharge Status Discharge Condition Discharge Reason Percent Goals Met 2021-08-05 00:00:00 2021-09-30 00:00:00 Outpatient NEW ADMISSION EARLENE RODGERSINA [facility] [id number] 00:00:00 DISCHARGE TO HOME OR SELF CARE INDEPENDEN T IN THE HOME GOALS MET ( ONLY) 93.33
== END 2024-02-26 11:14 | disposition home or self-care (01) ==
LOC: HO.HMGCX 11:13
PROVIDERS: PCP Nurse Practitioner Family; Visit Provider Physician Assistant
DX: J06.9 Acute upper respiratory infection, unspecified (principal); R05.9 Cough, unspecified; Z86.73 Personal history of transient ischemic attack (TIA), and cerebral infarction without residual deficits; Z87.74 Personal history of (corrected) congenital malformations of heart and circulatory system
CPT/HCPCS: 71046

== ENCOUNTER 2024-03-04 12:00 | Outpatient (REF) | payer OTHER, MEDICARE, MEDICAID, SELFPAY ==
--- OUTSIDE RECORDS SUMMARY | 2024-03-04 12:03 | XMS_ITS | Clinical Summary ---
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 PUBLIC (CURRENT) USE OF ASPIRIN Active 03-20 00:00: [...] 07-18 00:00: 00 08-05 00:00 :00 No [id number] Per instruc tions Per instructio ns (route: oral) Med Classific ation: Central Nervous System Agents hydroxyzine pamoate 50 mg capsule 07-18 00:00: 00 08-05 00:00 :00 No [id number] Per instruc tions EVERY EVENING AT BEDTIME NEEDED Per instructio ns EVERY EVENING AT BEDTIME NEEDED (route: oral) Med Classific ation: Central Nervous System Agents celecoxib 100 mg capsule 07-08 00:00: 00 08-05 00:00 :00 No [id number] Per instruc tions Per instructio ns (route: oral) Med Classific ation: Analgesic , Anti-infl ammatory or Antipyret ic celecoxib 100 mg capsule 07-08 00:00: 00 08-05 00:00 :00 No [id number] Per instruc tions TWICE A DAY NEEDED Per instructio ns TWICE A DAY NEEDED (route: oral) Med Classific ation: Analgesic , Anti-infl ammatory or Antipyret ic Adderall 20 mg tablet 07-07 00:00: 00 Yes [id number] 1 tablet DAILY 1 tablet DAILY (route: oral) Med Classific ation: Central Nervous System Agents Adderall 20 mg tablet 07-07 00:00: 00 08-05 00:00 :00 No [id number] Per instruc tions EVERY MORNING AND AT Per instructio ns EVERY MORNING AND AT (route: oral) Med Classific ation: Central Nervous System Agents acetaminoph en 325 mg capsule 08-04 00:00: 00 08-18 23:59 :00 No [id number] 3 capsule EVERY 6 HOURS 3 capsule EVERY 6 HOURS (route: oral) Med Classific ation: Analgesic , Anti-infl ammatory or Antipyret ic Aspirin Low Dose 81 mg tablet,yarelis yed release 08-04 00:00: 00 09-14 23:59 :00 No [id number] 1 tablet DAILY 1 tablet DAILY (route: oral) Med Classific ation: Hematolog ical Agents cholecalcif ruthy (vitamin D3) 10 mcg (400 unit) chewable tablet 08-04 00:00: 00 Yes [id number] 1 tablet DAILY 1 tablet DAILY (route: oral) Med Classific ation: Electroly te Balance-N utritiona l Products diazepam 2 mg tablet 08-04 00:00: 00 09-14 23:59 :00 No [id number] 1 tablet EVERY 8 HOURS 1 tablet EVERY 8 HOURS (route: oral) Med Classific ation: Central Nervous System Agents docusate sodium 100 mg capsule 08-04 00:00: 00 Yes [id number] 1 capsule 2 TIMES DAILY 1 capsule 2 TIMES DAILY (route: oral) Med Classific ation: Gastroint estinal Therapy Agents gabapentin 300 mg capsule 08-04 00:00: 00 Yes [id number] 1 capsule 3 TIMES DAILY 1 capsule 3 TIMES DAILY (route: oral) Med Classific ation: Central Nervous System Agents Lidocaine Pain Relief 4 % topical patch 08-05 00:00: 00 09-14 23:59 :00 No [id number] 1 adhesiv e patch, medicat ed DAILY 1 adhesive patch, medicated DAILY (route: topical) Med Classific ation: Dermatolo gical oxycodone 5 mg tablet 08-04 00:00: 00 Yes [id number] Per instruc tions EVERY 4 HOURS Per instructio ns EVERY 4 HOURS (route: oral) Med Classific ation: Analgesic , Anti-infl ammatory or Antipyret ic Eliquis 5 mg tablet 09-14 00:00: 00 Yes [id number] 5 mg 2 TIMES DAILY 5 mg 2 TIMES DAILY (route: oral) Med Classific ation: Hematolog ical Agents Celebrex 100 mg capsule 09-14 00:00: 00 09-15 23:59 :00 No [id number] 100 mg EVERY 12 HOURS 100 mg EVERY 12 HOURS (route: oral) Med Classific ation: Analgesic , Anti-infl ammatory or Antipyret ic cyclobenzap rine 10 mg tablet 09-14 00:00: 00 Yes [id number] 10 mg DAILY 10 mg DAILY (route: [...] CVA WITH RESIDUAL RIGHT SIDED WEAKNESS, ADHD, [place]. [facility], WOUND CARE AND MEDICATION EDUCATION AND OCCUPATIONAL THERAPY TO LEFT ARM AND HAND RECENT HOSPITALIZATION/INPATIENT ADMISSION RELATED TO: ADMITTED TO [facility] JULY 28 FOR SCHEDULED LAMINECTOMY [...] AND SUPPORTIVE DAUGHTERS. 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 [facility], WOUND CARE AND MEDICATION EDUCATION AND OCCUPATIONAL THERAPY TO LEFT ARM AND HAND RECENT HOSPITALIZATION/INPATIENT ADMISSION RELATED TO: ADMITTED TO [facility] JULY 28 FOR SCHEDULED LAMINECTOMY [...] AND SUPPORTIVE DAUGHTERS. DISCUSSED MAKING REFERRAL TO [facility] FOR MOW AND OFFSET PRINTER RECENT FALLS: NA SKILLED TEACHING AND TRAINING, OBSERVATION AND ASSESSMENT, AND/OR TREATMENTS THAT REQUIRE SKILLED CARE: PATIENT ALERT ORIENTEDX3 PAIN TO NECK OF 2 AT SURGICAL SITE. STERISTRIPS IN PLACE, OD GRINDER OPERATOR, NO SIGNS OF INFECTION. PATIENT WAS INDEPENDENT [...] CVA, RISK FACTORS, AND METHODS TO MANAGE ACCOUNTANT CERTIFIED PUBLIC EFFECTS OF CVA (RIGHT HEMIPLEGIA) [code = SKILLED NURSE TO INSTRUCT PATIENT/CAREGIVER ON WARNING SIGNS OF CVA, RISK FACTORS, AND METHODS TO MANAGE ACCOUNTANT CERTIFIED PUBLIC EFFECTS OF CVA (RIGHT HEMIPLEGIA)] Future Scheduled [...] TO OT SERVICES AFTER BEING ADMITTED TO [facility] 07/28/21 FOR SCHEDULED LAMINECTOMY OF POSTERIOR C6 - C7 AND C7-T1 ON 07/31/21. PATIENT REPORTS WEAKNESS IN LUE THAT STARTED A FEW MONTHS AGO BUT THE LAST MONTH BEFORE SURGERY HIS LEFT WRIST/HAND (DOMINANT AND ONLY FUNCTIONING EXTREMITY) BECAME USELESS . PMH SIGNIFICANT FOR CVA WITH RESIDUAL RUE HEMIPARESIS AT AGE 2, ADHD, [place]IAM[place] WITH COCHLEAR IMPLANT. PATIENT WAS STABILIZED AND [...] DID NOT WANT TO GO TO A INTERMEDIATE HOWEVER IS MOST APPROPRIATE FOR ACUTE LEVEL [...] TO OT SERVICES AFTER BEING ADMITTED TO [facility] 07/28/21 FOR SCHEDULED LAMINECTOMY OF POSTERIOR C6 - C7 AND C7-T1 ON 07/31/21. PATIENT REPORTS WEAKNESS IN LUE THAT STARTED A FEW MONTHS AGO BUT THE LAST MONTH BEFORE SURGERY HIS LEFT WRIST/HAND (DOMINANT AND ONLY FUNCTIONING EXTREMITY) BECAME USELESS . PMH SIGNIFICANT FOR CVA WITH RESIDUAL RUE HEMIPARESIS AT AGE 2, ADHD, [place] WITH COCHLEAR IMPLANT. PATIENT WAS STABILIZED AND [...] DID NOT WANT TO GO TO A INTERMEDIATE HOWEVER IS MOST APPROPRIATE FOR ACUTE LEVEL [...] CARE WILL BE ESTABLISHED THAT MEETS PATIENT'S LONGTERM NEEDS AND INCLUDES PATIENT GOAL FOR HOME [...] FINE MOTOR COORDINATION TO IMPROVE FUNCTION OF MOBILE EQUIPMENT MECHANIC FOR FEEDING/GROOMING TASKS CAREGIVER/PATIENT WILL DEMONSTRATE/VERBALIZE UNDERSTANDING OF RECOMMENDATIONS TO INCREASE SAFETY IN THE HOME AND FALL PREVENTION. Reason for Visit INDEPENDENT IN THE HOME Encounters Start Date/Time End Date/Time Encounter Type Admission Type Attending [facility] Care Department Encounter ID Discharge Date Discharge Status Discharge Condition Discharge Reason Percent Goals Met 2021-08-05 00:00:00 2021-09-30 00:00:00 Outpatient NEW ADMISSION EARLENE [facility]ODGERS[facility] [id number] 00:00:00 DISCHARGE TO HOME OR SELF CARE INDEPENDEN T IN THE HOME GOALS MET ( ONLY) 93.33
--- OUTSIDE RECORDS SUMMARY | 2024-03-04 12:03 | XMS_ITS | Clinical Summary ---
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 Active 03-20 00:00: [...] 07-18 00:00: 00 08-05 00:00 :00 No [id number] Per instruc tions Per instructio ns (route: oral) Med Classific ation: Central Nervous System Agents hydroxyzine pamoate 50 mg capsule 07-18 00:00: 00 08-05 00:00 :00 No [id number] Per instruc tions EVERY EVENING AT BEDTIME NEEDED Per instructio ns EVERY EVENING AT BEDTIME NEEDED (route: oral) Med Classific ation: Central Nervous System Agents celecoxib 100 mg capsule 07-08 00:00: 00 08-05 00:00 :00 No [id number] Per instruc tions Per instructio ns (route: oral) Med Classific ation: Analgesic , Anti-infl ammatory or Antipyret ic celecoxib 100 mg capsule 07-08 00:00: 00 08-05 00:00 :00 No [id number] Per instruc tions TWICE A DAY NEEDED Per instructio ns TWICE A DAY NEEDED (route: oral) Med Classific ation: Analgesic , Anti-infl ammatory or Antipyret ic Adderall 20 mg tablet 07-07 00:00: 00 Yes [id number] 1 tablet DAILY 1 tablet DAILY (route: oral) Med Classific ation: Central Nervous System Agents Adderall 20 mg tablet 07-07 00:00: 00 08-05 00:00 :00 No [id number] Per instruc tions EVERY MORNING AND AT Per instructio ns EVERY MORNING AND AT (route: oral) Med Classific ation: Central Nervous System Agents acetaminoph en 325 mg capsule 08-04 00:00: 00 08-18 23:59 :00 No [id number] 3 capsule EVERY 6 HOURS 3 capsule EVERY 6 HOURS (route: oral) Med Classific ation: Analgesic , Anti-infl ammatory or Antipyret ic Aspirin Low Dose 81 mg tablet,yarelis yed release 08-04 00:00: 00 09-14 23:59 :00 No [id number] 1 tablet DAILY 1 tablet DAILY (route: oral) Med Classific ation: Hematolog ical Agents cholecalcif ruthy (vitamin D3) 10 mcg (400 unit) chewable tablet 08-04 00:00: 00 Yes [id number] 1 tablet DAILY 1 tablet DAILY (route: oral) Med Classific ation: Electroly te Balance-N utritiona l Products diazepam 2 mg tablet 08-04 00:00: 00 09-14 23:59 :00 No [id number] 1 tablet EVERY 8 HOURS 1 tablet EVERY 8 HOURS (route: oral) Med Classific ation: Central Nervous System Agents docusate sodium 100 mg capsule 08-04 00:00: 00 Yes [id number] 1 capsule 2 TIMES DAILY 1 capsule 2 TIMES DAILY (route: oral) Med Classific ation: Gastroint estinal Therapy Agents gabapentin 300 mg capsule 08-04 00:00: 00 Yes [id number] 1 capsule 3 TIMES DAILY 1 capsule 3 TIMES DAILY (route: oral) Med Classific ation: Central Nervous System Agents Lidocaine Pain Relief 4 % topical patch 08-05 00:00: 00 09-14 23:59 :00 No [id number] 1 adhesiv e patch, medicat ed DAILY 1 adhesive patch, medicated DAILY (route: topical) Med Classific ation: Dermatolo gical oxycodone 5 mg tablet 08-04 00:00: 00 Yes [id number] Per instruc tions EVERY 4 HOURS Per instructio ns EVERY 4 HOURS (route: oral) Med Classific ation: Analgesic , Anti-infl ammatory or Antipyret ic Eliquis 5 mg tablet 09-14 00:00: 00 Yes [id number] 5 mg 2 TIMES DAILY 5 mg 2 TIMES DAILY (route: oral) Med Classific ation: Hematolog ical Agents Celebrex 100 mg capsule 09-14 00:00: 00 09-15 23:59 :00 No [id number] 100 mg EVERY 12 HOURS 100 mg EVERY 12 HOURS (route: oral) Med Classific ation: Analgesic , Anti-infl ammatory or Antipyret ic cyclobenzap rine 10 mg tablet 09-14 00:00: 00 Yes [id number] 10 mg DAILY 10 mg DAILY (route: [...] CVA WITH RESIDUAL RIGHT SIDED WEAKNESS, ADHD, [place]. [facility], WOUND CARE AND MEDICATION EDUCATION AND OCCUPATIONAL THERAPY TO LEFT ARM AND HAND RECENT HOSPITALIZATION/INPATIENT ADMISSION RELATED TO: ADMITTED TO [facility] JULY 28 FOR SCHEDULED LAMINECTOMY OF POSTERIOR C6 - C7 AND C7-T1 ON JULY 31. PATIENT DISCHARGED HOME AUGUST 04 NEW OR CHANGED MEDICATIONS PERTINENT TO THE PLAN OF CARE: NEW MEDICATIONS INCLUDE DIAZEPAM, COLACE, GABAPENTIN, LIDOCAINE PATCH AND OXYCODONE PATIENT LIVING SITUATION/CAREGIVER STATUS: LIVES ALONE IN SINGLE FAMILY HOME WITH 4 SANDOR, 2 DOGS AND SUPPORTIVE DAUGHTERS. 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 [facility], WOUND CARE AND MEDICATION EDUCATION AND OCCUPATIONAL THERAPY TO LEFT ARM AND HAND RECENT HOSPITALIZATION/INPATIENT ADMISSION RELATED TO: ADMITTED TO [facility] JULY 28 FOR SCHEDULED LAMINECTOMY OF POSTERIOR C6 - C7 AND C7-T1 ON JULY 31. PATIENT DISCHARGED HOME AUGUST 04 NEW OR CHANGED MEDICATIONS PERTINENT TO THE PLAN OF CARE: NEW MEDICATIONS INCLUDE DIAZEPAM, COLACE, GABAPENTIN, LIDOCAINE PATCH AND OXYCODONE PATIENT LIVING SITUATION/CAREGIVER STATUS: LIVES ALONE IN SINGLE FAMILY HOME WITH 4 SANDOR, 2 DOGS AND SUPPORTIVE DAUGHTERS. DISCUSSED MAKING REFERRAL TO [facility] FOR MOW AND SLICER MACHINE OPERATOR RECENT FALLS: NA SKILLED TEACHING AND TRAINING, OBSERVATION AND ASSESSMENT, AND/OR TREATMENTS THAT REQUIRE SKILLED CARE: PATIENT ALERT ORIENTEDX3 PAIN TO NECK OF 2 AT SURG[address]ITE[address] STERISTR[address] IN PLACE, LOADER SEMICONDUCTOR DIES, NO SIGNS OF INFECTION. PATIENT WAS INDEPENDENT [...] CVA, RISK FACTORS, AND METHODS TO MANAGE LAUNDRY ROUTE DRIVER EFFECTS OF CVA (RIGHT HEMIPLEGIA) [code = SKILLED NURSE TO INSTRUCT PATIENT/CAREGIVER ON WARNING SIGNS OF CVA, RISK FACTORS, AND METHODS TO MANAGE LAUNDRY ROUTE DRIVER EFFECTS OF CVA (RIGHT HEMIPLEGIA)] Future Scheduled [...] TO OT SERVICES AFTER BEING ADMITTED TO [facility] 07/28/21 FOR SCHEDULED LAMINECTOMY OF POSTERIOR C6 - C7 AND C7-T1 ON 07/31/21. PATIENT REPORTS WEAKNESS IN LUE THAT STARTED A FEW MONTHS AGO BUT THE LAST MONTH BEFORE SURGERY HIS LEFT WRIST/HAND (DOMINANT AND ONLY FUNCTIONING EXTREMITY) BECAME USELESS . 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 PATIENT WAS STABILIZED AND [...] DID NOT WANT TO GO TO A SKILLED NURSING HOWEVER IS MOST APPROPRIATE FOR ACUTE LEVEL [...] TO OT SERVICES AFTER BEING ADMITTED TO [facility] 07/28/21 FOR SCHEDULED LAMINECTOMY OF POSTERIOR C6 - C7 AND C7-T1 ON 07/31/21. PATIENT REPORTS WEAKNESS IN LUE THAT STARTED A FEW MONTHS AGO BUT THE LAST MONTH BEFORE SURGERY HIS LEFT WRIST/HAND (DOMINANT AND ONLY FUNCTIONING EXTREMITY) BECAME USELESS . 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 PATIENT WAS STABILIZED AND [...] DID NOT WANT TO GO TO A SKILLED NURSING HOWEVER IS MOST APPROPRIATE FOR ACUTE LEVEL [...] CARE WILL BE ESTABLISHED THAT MEETS PATIENT'S ASSISTED NEEDS AND INCLUDES PATIENT GOAL FOR HOME [...] FINE MOTOR COORDINATION TO IMPROVE FUNCTION OF RESIDENTIAL CASE MANAGER FOR FEEDING/GROOMING TASKS CAREGIVER/PATIENT WILL DEMONSTRATE/VERBALIZE UNDERSTANDING OF RECOMMENDATIONS TO INCREASE SAFETY IN THE HOME AND FALL PREVENTION. Reason for Visit INDEPENDENT IN THE HOME Encounters Start Date/Time End Date/Time Encounter Type Admission Type Attending [facility] Care Department Encounter ID Discharge Date Discharge Status Discharge Condition Discharge Reason Percent Goals Met 2021-08-05 00:00:00 2021-09-30 00:00:00 Outpatient NEW ADMISSION EARLENE R[facility]GERS[facility] [id number] 00:00:00 DISCHARGE TO HOME OR SELF CARE INDEPENDEN T IN THE HOME GOALS MET ( ONLY) 93.33
[2024-03-04 13:23] LABS: Appearance Urine Cloudy; Color Urine Yellow; Glucose Urine UA Negative (Negative); Leukocyte Esterase Urine Negative (Negative); Nitrite Urine Negative (Negative); PH 6.5 (5.0-9.0); Urine Blood Negative (Negative); Urine Ketones Negative (Negative); Urine Protein Negative (Neg-Trace)
[2024-03-04 13:34] LABS: MANUAL DIFF FLAG NO
[2024-03-04 13:52] LABS: Basophils Percent Auto 0.7 % (0-2); Eosinophils Absolute Auto 0.4 X10*3/uL (0.0-0.4); Eosinophils Percent Auto 6.8 % (0-4); Hematocrit 39.7 % (42.0-52.0); Hemoglobin 13.2 g/dl (14.0-18.0); Imm Gran Abs Auto 0.02 X10*3/uL (0.00-0.03); Imm Gran Pct Auto 0.4 % (0.0-0.4); Lymphocytes Absolute Auto 1.9 X10*3/uL (1.2-4.9); Lymphocytes Percent Auto 34.4 % (20-40); Mean Corpuscular HGB Conc 33.2 g/dl (31.0-36.0); Mean Corpuscular Hemoglobin 32.2 pg (27.0-33.0); Mean Corpuscular Volume 96.8 fL (80.0-98.0); Mean Platelet Volume 10.5 fL (9.4-12.4); Monocytes Absolute Auto 0.5 X10*3/uL (0.1-1.2); Monocytes Percent Auto 9.4 % (2-11); Neutrophils Absolute Auto 2.7 x10*3/uL (2.0-8.3); Neutrophils Percent Auto 48.3 % (45-73); Platelet Count 286 X10*3/uL (160-400); Red Cell Distribution Width 13.6 % (11.0-16.0); White Blood Count 5.6 X10*3/uL (4.8-10.8)
[2024-03-04 14:21] LABS: Alanine Aminotransferase 36 U/L (0-40); Albumin Level 4.1 g/dL (3.5-5.0); Alkaline Phosphatase 57 U/L (39-117); Anion Gap 11 (12-20); Aspartate Amino Transferase 39 U/L (5-37); Bilirubin Total 0.9 mg/dL (0.0-1.0); Blood Urea Nitrogen 18 mg/dL (9-16); Calcium 9.1 mg/dL (8.4-10.2); Carbon Dioxide 26 mmol/L (22-29); Chloride 106 mmol/L (96-108); Estimated Glomerular Filt Rate > 60; Glucose Fasting 102 mg/dL (60-99); Potassium 4.5 mmol/L (3.3-5.1); Sodium 138 mmol/L (135-145); Total Protein 7.1 g/dL (6.5-8.0)
[2024-03-04 14:40] LABS: TSH reflex Free T4 2.18 uIU/mL (0.32-4.0)
== END 2024-03-04 12:01 | disposition home or self-care (01) ==
LOC: HO.HMGCLDS 12:00
PROVIDERS: PCP Nurse Practitioner Family; Visit Provider Nurse Practitioner Family
DX: Z00.01 Encounter for general adult medical examination with abnormal findings (principal)
CPT/HCPCS: 36415; 80053; 81003; 84443; 85025

== ENCOUNTER 2024-03-08 11:37 | Outpatient (AMB) | payer OTHER, MEDICARE, MEDICAID, SELFPAY ==
--- NOTE | 2024-03-08 11:38 | A.OFFVIS_ITS ---
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 He is a patient of Dr Gaines. He is seen for the following urologic conditions. 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 Current treatment includes more medications Prostate Symptom Score Moderate (9-19), Bother 3. Symptoms include incomplete emptying, nocturia (>2), and are progressing. Prior Prostate Score unknown. PSA - 10/07 2.0, 04/12 1.8 Associated conditions CAD No CVA No diabetes No elevated PSA No erectile dysfunction yes PFSH Medical History History of shingles Migraine PTSD (post-traumatic stress disorder) KASANDRA (obstructive sleep apnea) Somnolence, daytime Encounter for screening Encounter for screening Thoracic back pain Lower back pain Feeling of incomplete bladder emptying Weak urinary stream Bladder outlet obstruction Hearing loss Acoustic neuroma Cervical radiculopathy Cerebrovascular accident Attention deficit disorder Bipolar 1 disorder Surgical History History of esophagogastroduodenoscopy (EGD) History of back surgery H/O colonoscopy History of surgery History of cochlear implant History of elbow surgery History of sinus surgery History of brain surgery Family History Father No problems noted. Mother History of breast cancer Social History Household Members: None Housing: House Are you a primary hearing care professional to a significant other at home: No Do you presently have visiting nurse or other home services: No Alcohol intake: current Alcohol intake frequency: does not drink Patient Tobacco Use Status: Never used Tobacco e-Cigarette/Vaping Use: Never Used Second Hand Smoke Exposure: No service: No Current occupational status: unemployed Cognitive needs: No Hearing needs: No Vision needs: No Review of Systems Const Denies chills and Denies fever(s) Card Reports no additional complaints and Denies syncope Resp Denies cough GI Denies abdominal pain and Denies heartburn Reports as per HPI and Denies change in libido Neuro Denies syncope Psych Denies change in libido Endo Denies change in libido Physical Exam Const General: cooperative, healthy appearing, comfortable and no acute distress Orientation/consciousness: patient oriented x3 HEENT Face and sinus: Yes normal facial exam Mouth: moist mucous membranes Neck Neck: Yes normal visual inspection, Yes full ROM and Yes trachea midline Chest Chest palpation & inspection: normal inspection of the chest Resp Effort & Inspection: normal respiratory effort, able to speak in complete sentences and no respiratory distress GI Inspection: Yes normal to inspection Back/Spine/Pelvis Cervical Spine: normal cervical lordosis Thoracic/Lumbar Spine: thoracic and lumbar spine normal to inspection Skin General skin exam: no rashes or lesions noted Neuro General: patient oriented x3, gait normal, tone normal and moves all extremities Extrem General: Yes normal to inspection and Yes capillary refill normal Office Procedures Post Void Residual Post Residual Void Post Void Residual (PVR): 0 [id number] Void Residual by ultrasound Assessment & Plan Assessment & Plan (1) Bladder outlet obstruction: Code(s): N32.0 - Bladder-neck obstruction Category: Medical (2) Erectile dysfunction due to arterial insufficiency: Code(s): N52.01 - Erectile dysfunction due to arterial insufficiency Category: Medical Plan Six-month follow-up Orders: Orders AMB Urinalysis Automated Today Z13.9 - Encounter for screening, unspecified Patient Instructions: Imaging studies, laboratory and physical exam results were discussed and reviewed in detail. No major barriers to patient understanding were identified. An opportunity to ask questions regarding the treatment plan was provided. All questions were answered. The patient expressed understanding and agreement with the above treatment plan. The patient is aware they should contact our office by phone for worsening of th eir current condition or the appearance of new urologic symptoms. Compliance is encouraged with any medications and followup testing that is ordered. It is a privilege to participate in the urologic care of your patient. If you have any questions or concerns regarding treatment for the above conditions, or other urologic issues, please do not hesitate to contact me. The office telephone contact is [phone]. This note is constructed using voice recognition software. While every effort has been made to ensure accuracy milling machine set up operator errors may have been included. Yours sincerely, Dr Fabian Walton MD, [facility] - Urology Providers of Expert, Compassionate Care for the Genitourinary System Coding Level of Care Code Est Pt Level 3 (86349) Diagnoses Bladder outlet obstruction N32.0 Erectile dysfunction due to arterial insufficiency N52.01 CPT Codes Post Residual Void - PVR CPT Code: 10008-Rpow Void Residual by ultrasound ([id number])
--- OUTSIDE RECORDS SUMMARY | 2024-03-08 11:39 | XMS_ITS | Clinical Summary ---
Author Organization Unknown Care Team Providers Care Paint Stockman Name Role Phone JOSELUIS GROSSMAN, EDUARDO Unavailable Unavailable NETTE BERGER, GISELA Unavailable Unavailable VISHAL BERGER, ANN Unavailable Unavailable Payers Payer Name Policy Type Policy Number Effective Date Expira tion Date [employer] INSURANCE [id number] [place]IC[place] - [place] [facility] [id number] Problems Condition Name Condition Details Condition Category [...] DISORDER, UNSPECIFIED TYPE Active 03-20 00:00: 00 SCREEN WRITER (CURRENT) USE OF ASPIRIN Active 03-20 00:00: [...] 07-18 00:00: 00 08-05 00:00 :00 No [id number] Per instruc tions Per instructio ns (route: oral) Med Classific ation: Central Nervous System Agents hydroxyzine pamoate 50 mg capsule 07-18 00:00: 00 08-05 00:00 :00 No [id number] Per instruc tions EVERY EVENING AT BEDTIME NEEDED Per instructio ns EVERY EVENING AT BEDTIME NEEDED (route: oral) Med Classific ation: Central Nervous System Agents celecoxib 100 mg capsule 07-08 00:00: 00 08-05 00:00 :00 No [id number] Per instruc tions Per instructio ns (route: oral) Med Classific ation: Analgesic , Anti-infl ammatory or Antipyret ic celecoxib 100 mg capsule 07-08 00:00: 00 08-05 00:00 :00 No [id number] Per instruc tions TWICE A DAY NEEDED Per instructio ns TWICE A DAY NEEDED (route: oral) Med Classific ation: Analgesic , Anti-infl ammatory or Antipyret ic Adderall 20 mg tablet 07-07 00:00: 00 Yes [id number] 1 tablet DAILY 1 tablet DAILY (route: oral) Med Classific ation: Central Nervous System Agents Adderall 20 mg tablet 07-07 00:00: 00 08-05 00:00 :00 No [id number] Per instruc tions EVERY MORNING AND AT Per instructio ns EVERY MORNING AND AT (route: oral) Med Classific ation: Central Nervous System Agents acetaminoph en 325 mg capsule 08-04 00:00: 00 08-18 23:59 :00 No [id number] 3 capsule EVERY 6 HOURS 3 capsule EVERY 6 HOURS (route: oral) Med Classific ation: Analgesic , Anti-infl ammatory or Antipyret ic Aspirin Low Dose 81 mg tablet,yarelis yed release 08-04 00:00: 00 09-14 23:59 :00 No [id number] 1 tablet DAILY 1 tablet DAILY (route: oral) Med Classific ation: Hematolog ical Agents cholecalcif ruthy (vitamin D3) 10 mcg (400 unit) chewable tablet 08-04 00:00: 00 Yes [id number] 1 tablet DAILY 1 tablet DAILY (route: oral) Med Classific ation: Electroly te Balance-N utritiona l Products diazepam 2 mg tablet 08-04 00:00: 00 09-14 23:59 :00 No [id number] 1 tablet EVERY 8 HOURS 1 tablet EVERY 8 HOURS (route: oral) Med Classific ation: Central Nervous System Agents docusate sodium 100 mg capsule 08-04 00:00: 00 Yes [id number] 1 capsule 2 TIMES DAILY 1 capsule 2 TIMES DAILY (route: oral) Med Classific ation: Gastroint estinal Therapy Agents gabapentin 300 mg capsule 08-04 00:00: 00 Yes [id number] 1 capsule 3 TIMES DAILY 1 capsule 3 TIMES DAILY (route: oral) Med Classific ation: Central Nervous System Agents Lidocaine Pain Relief 4 % topical patch 08-05 00:00: 00 09-14 23:59 :00 No [id number] 1 adhesiv e patch, medicat ed DAILY 1 adhesive patch, medicated DAILY (route: topical) Med Classific ation: Dermatolo gical oxycodone 5 mg tablet 08-04 00:00: 00 Yes [id number] Per instruc tions EVERY 4 HOURS Per instructio ns EVERY 4 HOURS (route: oral) Med Classific ation: Analgesic , Anti-infl ammatory or Antipyret ic Eliquis 5 mg tablet 09-14 00:00: 00 Yes [id number] 5 mg 2 TIMES DAILY 5 mg 2 TIMES DAILY (route: oral) Med Classific ation: Hematolog ical Agents Celebrex 100 mg capsule 09-14 00:00: 00 09-15 23:59 :00 No [id number] 100 mg EVERY 12 HOURS 100 mg EVERY 12 HOURS (route: oral) Med Classific ation: Analgesic , Anti-infl ammatory or Antipyret ic cyclobenzap rine 10 mg tablet 09-14 00:00: 00 Yes [id number] 10 mg DAILY 10 mg DAILY (route: [...] CVA WITH RESIDUAL RIGHT SIDED WEAKNESS, ADHD, TRIBAL. [facility], WOUND CARE AND MEDICATION EDUCATION AND OCCUPATIONAL THERAPY TO LEFT ARM AND HAND RECENT HOSPITALIZATION/INPATIENT ADMISSION RELATED TO: ADMITTED TO [facility] JULY 28 FOR SCHEDULED LAMINECTOMY OF POSTERIOR C6 - C7 AND C7-T1 ON JULY 31. PATIENT DISCHARGED HOME AUGUST 04 NEW OR CHANGED MEDICATIONS PERTINENT TO THE PLAN OF CARE: NEW MEDICATIONS INCLUDE DIAZEPAM, COLACE, GABAPENTIN, LIDOCAINE PATCH AND OXYCODONE PATIENT LIVING SITUATION/CAREGIVER STATUS: LIVES ALONE IN SINGLE FAMILY HOME WITH 4 SANDOR, 2 DOGS AND SUPPORTIVE DAUGHTERS. DISCUSSED MAKING REFERRAL TO [facility] FOR MOW AND SENIOR USER EXPERIENCE ARCHITECT RECENT FALLS: NA SKILLED TEACHING AND TRAINING, [...] CVA WITH RESIDUAL RIGHT SIDED WEAKNESS, ADHD, TRIBAL. [facility], WOUND CARE AND MEDICATION EDUCATION AND OCCUPATIONAL THERAPY TO LEFT ARM AND HAND RECENT HOSPITALIZATION/INPATIENT ADMISSION RELATED TO: ADMITTED TO [facility] JULY 28 FOR SCHEDULED LAMINECTOMY OF POSTERIOR C6 - C7 AND C7-T1 ON JULY 31. PATIENT DISCHARGED HOME AUGUST 04 NEW OR CHANGED MEDICATIONS PERTINENT TO THE PLAN OF CARE: NEW MEDICATIONS INCLUDE DIAZEPAM, COLACE, GABAPENTIN, LIDOCAINE PATCH AND OXYCODONE PATIENT LIVING SITUATION/CAREGIVER STATUS: LIVES ALONE IN SINGLE FAMILY HOME WITH 4 SANDOR, 2 DOGS AND SUPPORTIVE DAUGHTERS. DISCUSSED MAKING REFERRAL TO [facility] FOR MOW AND SENIOR USER EXPERIENCE ARCHITECT RECENT FALLS: NA SKILLED TEACHING AND TRAINING, OBSERVATION AND ASSESSMENT, AND/OR TREATMENTS THAT REQUIRE SKILLED CARE: PATIENT ALERT ORIENTEDX3 PAIN TO NECK OF 2 AT SURGICAL SITE[address] STERISTRIPS IN PLACE, HYSTER DRIVER, NO SIGNS OF INFECTION. PATIENT WAS INDEPENDENT [...] CVA, RISK FACTORS, AND METHODS TO MANAGE SCREEN WRITER EFFECTS OF CVA (RIGHT HEMIPLEGIA) [code = SKILLED NURSE TO INSTRUCT PATIENT/CAREGIVER ON WARNING SIGNS OF CVA, RISK FACTORS, AND METHODS TO MANAGE SCREEN WRITER EFFECTS OF CVA (RIGHT HEMIPLEGIA)] Future Scheduled [...] TO OT SERVICES AFTER BEING ADMITTED TO [facility] 07/28/21 FOR SCHEDULED LAMINECTOMY OF POSTERIOR C6 - C7 AND C7-T1 ON 07/31/21. PATIENT REPORTS WEAKNESS IN LUE THAT STARTED A FEW MONTHS AGO BUT THE LAST MONTH BEFORE SURGERY HIS LEFT WRIST/HAND (DOMINANT AND ONLY FUNCTIONING EXTREMITY) BECAME USELESS . PMH SIGNIFICANT FOR CVA WITH RESIDUAL RUE HEMIPARESIS AT AGE 2, ADHD, TRIBAL WITH COCHLEAR IMPLANT. PATIENT WAS STABILIZED AND [...] DID NOT WANT TO GO TO A HALFWAY HOWEVER IS MOST APPROPRIATE FOR ACUTE LEVEL [...] TO OT SERVICES AFTER BEING ADMITTED TO [facility] 07/28/21 FOR SCHEDULED LAMINECTOMY OF POSTERIOR C6 - C7 AND C7-T1 ON 07/31/21. PATIENT REPORTS WEAKNESS IN LUE THAT STARTED A FEW MONTHS AGO BUT THE LAST MONTH BEFORE SURGERY HIS LEFT WRIST/HAND (DOMINANT AND ONLY FUNCTIONING EXTREMITY) BECAME USELESS . PMH SIGNIFICANT FOR CVA WITH RESIDUAL RUE HEMIPARESIS AT AGE 2, ADHD, TRIBAL WITH COCHLEAR IMPLANT. PATIENT WAS STABILIZED AND [...] DID NOT WANT TO GO TO A HALFWAY HOWEVER IS MOST APPROPRIATE FOR ACUTE LEVEL [...] CARE WILL BE ESTABLISHED THAT MEETS PATIENT'S MCC NEEDS AND INCLUDES PATIENT GOAL FOR HOME [...] FINE MOTOR COORDINATION TO IMPROVE FUNCTION OF WEED COOKING OPERATOR FOR FEEDING/GROOMING TASKS CAREGIVER/PATIENT WILL DEMONSTRATE/VERBALIZE UNDERSTANDING OF RECOMMENDATIONS TO INCREASE SAFETY IN THE HOME AND FALL PREVENTION. Reason for Visit INDEPENDENT IN THE HOME Encounters Start Date/Time End Date/Time Encounter Type Admission Type Attending [facility] Care Department Encounter ID Discharge Date Discharge Status Discharge Condition Discharge Reason Percent Goals Met 2021-08-05 00:00:00 2021-09-30 00:00:00 Outpatient NEW ADMISSION EARLENE RODGERSINA [facility] [id number] 0716-07-14 00:00:00 DISCHARGE TO HOME OR SELF CARE INDEPENDEN T IN THE HOME GOALS MET ( ONLY) 93.33
--- OUTSIDE RECORDS SUMMARY | 2024-03-08 11:39 | XMS_ITS | Clinical Summary ---
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 Active 03-20 00:00: [...] 07-18 00:00: 00 08-05 00:00 :00 No [id number] Per instruc tions Per instructio ns (route: oral) Med Classific ation: Central Nervous System Agents hydroxyzine pamoate 50 mg capsule 07-18 00:00: 00 08-05 00:00 :00 No [id number] Per instruc tions EVERY EVENING AT BEDTIME NEEDED Per instructio ns EVERY EVENING AT BEDTIME NEEDED (route: oral) Med Classific ation: Central Nervous System Agents celecoxib 100 mg capsule 07-08 00:00: 00 08-05 00:00 :00 No [id number] Per instruc tions Per instructio ns (route: oral) Med Classific ation: Analgesic , Anti-infl ammatory or Antipyret ic celecoxib 100 mg capsule 07-08 00:00: 00 08-05 00:00 :00 No [id number] Per instruc tions TWICE A DAY NEEDED Per instructio ns TWICE A DAY NEEDED (route: oral) Med Classific ation: Analgesic , Anti-infl ammatory or Antipyret ic Adderall 20 mg tablet 07-07 00:00: 00 Yes [id number] 1 tablet DAILY 1 tablet DAILY (route: oral) Med Classific ation: Central Nervous System Agents Adderall 20 mg tablet 07-07 00:00: 00 08-05 00:00 :00 No [id number] Per instruc tions EVERY MORNING AND AT Per instructio ns EVERY MORNING AND AT (route: oral) Med Classific ation: Central Nervous System Agents acetaminoph en 325 mg capsule 08-04 00:00: 00 08-18 23:59 :00 No [id number] 3 capsule EVERY 6 HOURS 3 capsule EVERY 6 HOURS (route: oral) Med Classific ation: Analgesic , Anti-infl ammatory or Antipyret ic Aspirin Low Dose 81 mg tablet,yarelis yed release 08-04 00:00: 00 09-14 23:59 :00 No [id number] 1 tablet DAILY 1 tablet DAILY (route: oral) Med Classific ation: Hematolog ical Agents cholecalcif ruthy (vitamin D3) 10 mcg (400 unit) chewable tablet 08-04 00:00: 00 Yes [id number] 1 tablet DAILY 1 tablet DAILY (route: oral) Med Classific ation: Electroly te Balance-N utritiona l Products diazepam 2 mg tablet 08-04 00:00: 00 09-14 23:59 :00 No [id number] 1 tablet EVERY 8 HOURS 1 tablet EVERY 8 HOURS (route: oral) Med Classific ation: Central Nervous System Agents docusate sodium 100 mg capsule 08-04 00:00: 00 Yes [id number] 1 capsule 2 TIMES DAILY 1 capsule 2 TIMES DAILY (route: oral) Med Classific ation: Gastroint estinal Therapy Agents gabapentin 300 mg capsule 08-04 00:00: 00 Yes [id number] 1 capsule 3 TIMES DAILY 1 capsule 3 TIMES DAILY (route: oral) Med Classific ation: Central Nervous System Agents Lidocaine Pain Relief 4 % topical patch 08-05 00:00: 00 09-14 23:59 :00 No [id number] 1 adhesiv e patch, medicat ed DAILY 1 adhesive patch, medicated DAILY (route: topical) Med Classific ation: Dermatolo gical oxycodone 5 mg tablet 08-04 00:00: 00 Yes [id number] Per instruc tions EVERY 4 HOURS Per instructio ns EVERY 4 HOURS (route: oral) Med Classific ation: Analgesic , Anti-infl ammatory or Antipyret ic Eliquis 5 mg tablet 09-14 00:00: 00 Yes [id number] 5 mg 2 TIMES DAILY 5 mg 2 TIMES DAILY (route: oral) Med Classific ation: Hematolog ical Agents Celebrex 100 mg capsule 09-14 00:00: 00 09-15 23:59 :00 No [id number] 100 mg EVERY 12 HOURS 100 mg EVERY 12 HOURS (route: oral) Med Classific ation: Analgesic , Anti-infl ammatory or Antipyret ic cyclobenzap rine 10 mg tablet 09-14 00:00: 00 Yes [id number] 10 mg DAILY 10 mg DAILY (route: [...] CVA WITH RESIDUAL RIGHT SIDED WEAKNESS, ADHD, MENOMINEE. [facility], WOUND CARE AND MEDICATION EDUCATION AND OCCUPATIONAL THERAPY TO LEFT ARM AND HAND RECENT HOSPITALIZATION/INPATIENT ADMISSION RELATED TO: ADMITTED TO [facility] JULY 28 FOR SCHEDULED LAMINECTOMY OF POSTERIOR C6 - C7 AND C7-T1 ON JULY 31. PATIENT DISCHARGED HOME AUGUST 04 NEW OR CHANGED MEDICATIONS PERTINENT TO THE PLAN OF CARE: NEW MEDICATIONS INCLUDE DIAZEPAM, COLACE, GABAPENTIN, LIDOCAINE PATCH AND OXYCODONE PATIENT LIVING SITUATION/CAREGIVER STATUS: LIVES ALONE IN SINGLE FAMILY HOME WITH 4 SANDOR, 2 DOGS AND SUPPORTIVE DAUGHTERS. DISCUSSED MAKING REFERRAL TO [facility] FOR MOW AND SHACTOR RECENT FALLS: NA SKILLED TEACHING AND TRAINING, [...] CVA WITH RESIDUAL RIGHT SIDED WEAKNESS, ADHD, MENOMINEE. [facility], WOUND CARE AND MEDICATION EDUCATION AND OCCUPATIONAL THERAPY TO LEFT ARM AND HAND RECENT HOSPITALIZATION/INPATIENT ADMISSION RELATED TO: ADMITTED TO [facility] JULY 28 FOR SCHEDULED LAMINECTOMY OF POSTERIOR C6 - C7 AND C7-T1 ON JULY 31. PATIENT DISCHARGED HOME AUGUST 04 NEW OR CHANGED MEDICATIONS PERTINENT TO THE PLAN OF CARE: NEW MEDICATIONS INCLUDE DIAZEPAM, COLACE, GABAPENTIN, LIDOCAINE PATCH AND OXYCODONE PATIENT LIVING SITUATION/CAREGIVER STATUS: LIVES ALONE IN SINGLE FAMILY HOME WITH 4 SANDOR, 2 DOGS AND SUPPORTIVE DAUGHTERS. DISCUSSED MAKING REFERRAL TO [facility] FOR MOW AND SHACTOR RECENT FALLS: NA SKILLED TEACHING AND TRAINING, OBSERVATION AND ASSESSMENT, AND/OR TREATMENTS THAT REQUIRE SKILLED CARE: PATIENT ALERT ORIENTEDX3 PAIN TO NECK OF 2 AT SURGICAL SITE[address] STERISTRIPS IN PLACE, CLIENT SERVICE MANAGER, NO SIGNS OF INFECTION. PATIENT WAS INDEPENDENT [...] CVA, RISK FACTORS, AND METHODS TO MANAGE MUFFLE OPERATOR EFFECTS OF CVA (RIGHT HEMIPLEGIA) [code = SKILLED NURSE TO INSTRUCT PATIENT/CAREGIVER ON WARNING SIGNS OF CVA, RISK FACTORS, AND METHODS TO MANAGE MUFFLE OPERATOR EFFECTS OF CVA (RIGHT HEMIPLEGIA)] Future Scheduled [...] TO OT SERVICES AFTER BEING ADMITTED TO [facility] 07/28/21 FOR SCHEDULED LAMINECTOMY OF POSTERIOR C6 - C7 AND C7-T1 ON 07/31/21. PATIENT REPORTS WEAKNESS IN LUE THAT STARTED A FEW MONTHS AGO BUT THE LAST MONTH BEFORE SURGERY HIS LEFT WRIST/HAND (DOMINANT AND ONLY FUNCTIONING EXTREMITY) BECAME USELESS . PMH SIGNIFICANT FOR CVA WITH RESIDUAL RUE HEMIPARESIS AT AGE 2, ADHD, MENOMINEE WITH COCHLEAR IMPLANT. PATIENT WAS STABILIZED AND [...] DID NOT WANT TO GO TO A RETIREMENT HOWEVER IS MOST APPROPRIATE FOR ACUTE LEVEL [...] TO OT SERVICES AFTER BEING ADMITTED TO [facility] 07/28/21 FOR SCHEDULED LAMINECTOMY OF POSTERIOR C6 - C7 AND C7-T1 ON 07/31/21. PATIENT REPORTS WEAKNESS IN LUE THAT STARTED A FEW MONTHS AGO BUT THE LAST MONTH BEFORE SURGERY HIS LEFT WRIST/HAND (DOMINANT AND ONLY FUNCTIONING EXTREMITY) BECAME USELESS . PMH SIGNIFICANT FOR CVA WITH RESIDUAL RUE HEMIPARESIS AT AGE 2, ADHD, MENOMINEE WITH COCHLEAR IMPLANT. PATIENT WAS STABILIZED AND [...] DID NOT WANT TO GO TO A RETIREMENT HOWEVER IS MOST APPROPRIATE FOR ACUTE LEVEL [...] FINE MOTOR COORDINATION TO IMPROVE FUNCTION OF MOLD STRIPPER FOR FEEDING/GROOMING TASKS CAREGIVER/PATIENT WILL DEMONSTRATE/VERBALIZE UNDERSTANDING OF RECOMMENDATIONS TO INCREASE SAFETY IN THE HOME AND FALL PREVENTION. Reason for Visit INDEPENDENT IN THE HOME Encounters Start Date/Time End Date/Time Encounter Type Admission Type [facility] Department Encounter ID Discharge Date Discharge Status Discharge Condition Discharge Reason Percent Goals Met 2021-08-05 00:00:00 2021-09-30 00:00:00 Outpatient NEW ADMISSION EARLENE RODGERSINA [facility] [id number] 7096-07-14 00:00:00 DISCHARGE TO HOME OR SELF CARE INDEPENDEN T IN THE HOME GOALS MET ( ONLY) 93.33
== END 2024-03-08 12:13 | disposition home or self-care (01) ==
LOC: HO.HUSH 11:37
PROVIDERS: PCP Nurse Practitioner Family; Visit Provider Urology
DX: N32.0 Bladder-neck obstruction (principal); N52.01 Erectile dysfunction due to arterial insufficiency
CPT/HCPCS: 99213

== ENCOUNTER → 2024-03-08 11:37 | Outpatient (BNVA) | payer OTHER, MEDICARE, MEDICAID, SELFPAY | PROVIDERS: PCP Nurse Practitioner Family; Visit Provider Urology | DX: N32.0 Bladder-neck obstruction (principal); N20.1 Calculus of ureter; N52.01 Erectile dysfunction due to arterial insufficiency | CPT/HCPCS: 51798 ==

== ENCOUNTER 2024-07-11 15:28 | Outpatient (AMB) | payer OTHER, MEDICARE, MEDICAID, SELFPAY ==
--- NOTE | 2024-07-11 15:35 | AM.OFFWIN_ITS ---
Intake Vital Signs 07/11/24 15:36 Height 5 ft 9 in Weight 209 lb BMI 30.9 BP 120/86 Blood Pressure Location Lt brachial Position Sitting Pulse 75 Pulse Source Pulse Oximeter Pulse Oximetry (%) 96 Oxygen Delivery Method Room Air Intake Visit Reasons: EP mouth pain/numbness, cyst? Acid reflux Intake Note: Patient here for mouth sore/abscess on roof of mouth that he noticed this morning. Patient Tobacco Use Status: Never used Tobacco Allergies Penicillins Allergy (Severe, Verified 07/11/24 15:36) ANAPHYLAXIS clopidogrel [From Plavix] Allergy (Intermediate, Verified 07/11/24 15:36) Itching morphine Adverse Reaction (Intermediate, Verified 07/11/24 15:36) Agitated Do you need a note to return to daycare/school/sports/work: No HPI HPI Comments History of Present Illness Details History - The patient is a 59-year-old male pres enting with a lump on the roof of the mouth that popped today when he ran his tongue along it. - The spontaneous lump discovered today and broke open, causing brown pus-like discharge. - The patient describes a numb sensation without previous attempts at treatment. - Left ear discomfort described intermit tently as being present without pinpoint pain - Intervention for the mouth lump includ es history of acid reflux management. Physical Exam General: Cooperative, healthy appearing, comfortable and no acute distress Orientation/consciousness: Patient oriented x3 Limitations: No limitations Head: Normal to inspection Ears: Hearing grossly normal bilaterally, external ears normal and TM's normal bilaterally. Nose: Normal external nose present, Normal nares present and No nasal discharge present Face and sinus: Normal facial exam Mouth: Normal oral and mucosa present and moist mucous membranes. 1 cm oblong area of flat erythema on the upper palate, no raised lesions, no drainage, no other abnormalities noted. Throat: Yes tonsils normal, Yes uvula midline. Posterior oropharynx normal Eyes: Appearance normal, both eyes and all related structures Neck: Normal visual inspection Respiratory: Normal respiratory effort, able to speak in complete sentences, no respiratory distress, not tachypneic, no tripod positioning and no use of accessory muscles Skin: No rashes or lesions noted Neuro: Patient oriented x3 Extremities: Normal to inspection and Yes no clubbing, cyanosis or edema [facility] Medical History (Updated 07/11/24 @ 16:14 by Shey Butterfield PA-C) Left hand weakness History of shingles Migraine PTSD (post-traumatic stress disorder) KASANDRA (obstructive sleep apnea) Somnolence, daytime Encounter for screening Encounter for screening Thoracic back pain Lower back pain Feeling of incomplete bladder emptying Weak urinary stream Bladder outlet obstruction Hearing loss Acoustic neuroma Cervical radiculopathy Cerebrovascular accident Attention deficit disorder Bipolar 1 disorder Surgical History (Updated 04/02/24 @ 13:08 by [facility] History of esophagogastroduodenoscopy (EGD) History of back surgery H/O colonoscopy History of surgery History of cochlear implant History of elbow surgery History of sinus surgery History of brain surgery Family History Father No problems noted. Mother History of breast cancer Social History Household Members: None Housing: House Are you a primary home care provider to a significant other at home: No Do you presently have visiting nurse or other home services: No Alcohol intake: current Alcohol intake frequency: does not drink Patient Tobacco Use Status: Never used Tobacco e-Cigarette/Vaping Use: Never Used Second Hand Smoke Exposure: No service: No Current occupational status: unemployed Cognitive needs: No Hearing needs: No Vision needs: No Review of Systems Const All systems reviewed & are unremarkable except as noted in HPI and below Physical Exam Vital Signs: Last Vital Signs Pulse 75 07/11/24 15:36 BP 120/86 07/11/24 15:36 Pulse Ox 96 07/11/24 15:36 Oxygen Delivery Method Room Air 07/11/24 15:36 BMI result Body Mass Index 30.9 Assessment & Plan Assessment & Plan (1) Mouth lesion: Code(s): K13.70 - Unspecified lesions of oral mucosa Plan: The patient was advised to perform warm saltwater rinses multiple times daily on the upper palate for the mild redness observed due to the spontaneously resolved lump. The left ear was found with only minimal cerumen and required no intervention. A follow-up with his PCP, NGOC Ochoa on the forthcoming Monday was scheduled to ensure the observation of any further development or resolution of the palate condition, with a possibility to extend to an ENT specialist if necessary. The patient was advised to notify of any new-onset pain or symptom changes before the scheduled follow-up. Patient was informed and verbally consented to the use of an ambient scribe for clinic note documentation during this visit Coding Level of Care Code Est Pt Level 3 (76836) Diagnoses Mouth lesion K13.70
[2024-07-11 15:36] VITALS: BP 120/86; PULSE 75; O2SAT 96; BMI 30.9
--- OUTSIDE RECORDS SUMMARY | 2024-07-11 18:10 | XMS_ITS ---
Author Organization [facility] Care Team Providers Care Electronic Scale Subassembler Name Role Phone Darielaibethmathieu, Abisai Unavailable Unavailable Kim Magallon Unavailable Unavailable Allergies and adverse reactions Code CodeSystem Substance Reaction Severity StartDate Concern Status 483025835 SNOMED CT Penicillins Moderate 12/26/2022 acti ve 7052 RXNORM Morphine Unknown 12/26/2022 active adhesive tape-silicones Unknown 12/26/2022 active Care Team Name Role Address Phone Organization Dates Abisai Darielaibetht PCP [address] [place] [address], [facility] (Office): : [facility] 12/26/2022 - 01/07/2023 Kim Magallon Attending Physician [address] [place] [address], [facility] (Office): : [facility] 12/26/2022 - 01/07/2023 Mental Status Section Date Assessment Total Score Description 01/07/2023 BIMS 15 cognitively int act CAM 0 No delirium ind icated PHQ-9 09 mild depression 01/02/2023 BIMS 14 cognitively int act CAM 0 No delirium ind icated PHQ-9 09 mild depression Problems Problem # Description Date of onset Resolved Date Code CodeSystem Concern Status 1 RADICULOPATHY, THORACIC REGION [address] active 2 ATHEROSCLEROTIC HEART DISEASE OF [place] CORONARY ARTERY WITHOUT ANGINA PECTORIS [id number] active 3 ATTENTION-DEFICIT HYPERACTIVITY DISORDER, UNSPECIFIED TYPE [address] active 4 BENIGN NEOPLASM OF CRANIAL NERVES [address] active 5 CERVICAL DISC DISORDER WITH MYELOPATHY, UNSPECIFIED CERVICAL REGION [address] active 6 CLONIC HEMIFACIAL SPASM, RIGHT [id number] active 7 CONTRACTURE OF MUSCLE, RIGHT HAND [address] active 8 ENCOUNTER FOR CHANGE OR REMOVAL OF SURGICAL WOUND DRESSING [address] active 9 FUSION OF SPINE, CERVICAL REGION [address] active 10 HEMIPLEGIA AND HEMIPARESIS FOLLOWING UNSPECIFIED CEREBROVASCULAR DISEASE AFFECTING RIGHT DOMINANT SIDE [address] active 11 LESION OF ULNAR NERVE, LEFT UPPER LIMB [address] active 12 MUSCLE WASTING AND ATROPHY, NOT ELSEWHERE CLASSIFIED, LEFT HAND [address] active 13 OTALGIA, UNSPECIFIED EAR [address] active 14 OTHER SPONDYLOSIS WITH RADICULOPATHY, THORACIC REGION [address] active 15 OTHER SYMPTOMS AND SIGNS INVOLVING THE MUSCULOSKELETAL SYSTEM [address] active 16 SEZARY DISEASE, UNSPECIFIED SITE 023 12/26/[address] completed 17 SPINAL STENOSIS, CERVICAL REGION [address] active Reason for Referral No Reasons for Referral Entered Social History Social History Observation Description Start Date End Date Code Code System Current Smoking Status Tobacco smoking consumption unknown 175040345 SNOMED CT Sex Assigned At Male 1965 10080-9 [facility] Vital Signs Code Code System Vitals Name Values and Units Timing Information 62052-2 [facility] Pain Level Value=0.0 01/07/2023 8310-5 [facility] Body Temperature Value=97.3 Units=?? F 01/05/2023 88155-8 [facility] Weight Acwpl=420.2 Units=Lbs 9279-1 [facility] Respiratory Rate Value=18.0 Units=/m in 12/29/2022 8462-4 [facility] Blood Pressure-Diastolic Value=73 Un its=mmHg 12/29/2022 8480-6 [facility] Blood Pressure-Systolic Bucmw=485 Un its=mmHg 12/29/2022 8867-4 [facility] Heart rate Value=81.0 Units=/min 02/2023 8302-2 [facility] Height Value=68.0 Units=Inches 12/26/2022 82728-5 [facility] O2 % BldC Oximetry Value=96.0 Units= % 12/26/2022
--- OUTSIDE RECORDS SUMMARY | 2024-07-11 18:10 | XMS_ITS | Clinical Summary ---
Author Organization [facility] Address [address] [place] [address] Phone Care Team Providers Care Enterprise Manager Name Role Phone Gaye Pina MD Primary Care Provider [phone] Encounters Date Type Department Care Team Description 04/17/2024 Lab Requisition [facility] [address] [place] [id number] Gaye Pina MD Encounter for other general examination 04/13/2024 Lab Requisition [facility] [address] [place] [address] Gaye Pina MD Encounter for other general examination from Last 3 Months Social History Tobacco Use Types Packs/Day Years Used Date Smoking Tobacco: Never Assessed Sex and Gender Information Value Date Recorded Sex Assigned at Not on file Legal Sex Male 7:24 AM EST Gender Identity Not on file Sexual Orientation Not on file Plan of Treatment Health Maintenance Due Date Last Done Comments DTaP,Tdap,and Td Vaccines (1 - Tdap) 1982 Pneumococcal Vaccine: 50+ Ye ars (1 of 1 - PCV) 2013 Zoster Vaccines (1 of 2) 2013 Cholesterol Screening (Lipid Panel) 02/20/2022 Colorectal Cancer Screening: Colonoscopy 02/20/2022 Depression Screening 02/20/2022 HIV Screening 02/20/2022 Hepatitis C Screening 02/20/2022 Medicare Annual Wellness Visit 02/20/2022 Social Influencers of Health Screening 02/20/2022 COVID-19 Vaccine ( - 2023-2 5 season) 2023 Influenza Vaccine (Season Ended) 2024 04/18/19 18 RSV Immunization Adult Patie nts (1 - 1-dose 75+ series) 2038 HIB Vaccines Aged Out No longer eligi ble based on patient's age to complete this topic HPV Vaccines Aged Out No longer eligi ble based on patient's age to complete this topic Hepatitis A Vaccines Aged Out No long er eligible based on patient's age to complete this topic Hepatitis B Vaccines Aged Out No long er eligible based on patient's age to complete this topic IPV Vaccines Aged Out No longer eligi ble based on patient's age to complete this topic MMR Vaccines Aged Out No longer eligi ble based on patient's age to complete this topic Meningococcal ACWY Vaccine Aged Out N o longer eligible based on patient's age to complete this topic Meningococcal B Vaccine Aged Out No l onger eligible based on patient's age to complete this topic Pneumococcal Vaccine: Pediat rics (0 to 5 Years) and At-Risk Patients (6 to 64 Years) Aged Out No longer eligi ble based on patient's age to complete this topic RSV Immunization Patients Un marcy 20 months Aged Out No longer eligible b ased on patient's age to complete this topic Varicella Vaccines Aged Out No longer eligible based on patient's age to complete this topic Procedures Procedure Name Priority Date/Time Associated Diagnosis Comments CBC WITH AUTO DIFFERENTIAL Routine 04/17/2024 5:59 AM EST Encounter for other general examination MAGNESIUM Routine 04/17/2024 5:59 AM EST Encounter for other general examination CBC AND DIFFERENTIAL Routine 04/17/2024 5:59 AM EST Encounter for other general examination COMPREHENSIVE METABOLIC PANEL Routine 04/17/2024 5:59 AM EST Encounter for other general examination CBC WITH AUTO DIFFERENTIAL Routine 04/13/2024 5:53 AM EST Encounter for other general examination MAGNESIUM Routine 04/13/2024 5:53 AM EST Encounter for other general examination CBC AND DIFFERENTIAL Routine 04/13/2024 5:53 AM EST Encounter for other general examination COMPREHENSIVE METABOLIC PANEL Routine 04/13/2024 5:53 AM EST Encounter for other general examination from Last 3 Months Results * (ABNORMAL) CBC auto differential (04/17/2024 5:59 AM EST) Only the most recent of2 resultswithin the time period is included. WBC 8.4 4.8 - 10.8 K/mcL LAB HEMETOLOGY METHOD 04/17/2024 11:30 AM [facility] RBC 3.90(L) 4.50 - 5.50 M/mcL LAB HEMETOLOGY METHOD 04/17/2024 11:30 AM [facility] Hemoglobin 12.3(L) 13.5 - 17.5 g/dL LAB HEMETOLOGY METHOD 04/17/2024 11:30 AM [facility] LAB Hematocrit 37.8(L) 42.0 - 54.0 % LAB HEMETOLOGY METHOD 04/17/2024 11:30 AM [facility] LAB MCV 97.2 79.0 - 98.0 FL LAB HEMETOLOGY METHOD 04/17/2024 11:30 AM [facility] LAB MCH 31.6 27.0 - 32.0 pcg LAB HEMETOLOGY METHOD 04/17/2024 11:30 AM [facility] LAB MCHC 32.5 32.0 - 37.0 g/dL LAB HEMETOLOGY METHOD 04/17/2024 11:30 AM [facility] LAB RDW 14.0 11.0 - 15.0 % LAB HEMETOLOGY METHOD 04/17/2024 11:30 AM [facility] LAB Platelets 336 130 - 400 K/mcL LAB HEMETOLOGY METHOD 04/17/2024 11:30 AM [facility] LAB MPV 9.9 7.0 - 11.0 FL LAB HEMETOLOGY METHOD 04/17/2024 11:30 AM [facility] LAB NRBC 0.0 <1.0 % LAB HEMETOLOGY METHOD 04/17/2024 11:30 AM [facility] LAB NRBC Absolute 0.00 <0.10 K/mcL LAB HEMETOLOGY METHOD 04/17/2024 11:30 AM [facility] Neutrophils Relative 36.9 % LAB HEMETOLOGY METHOD 04/17/2024 11:30 AM [facility] Lymphocytes Relative 38.9 % LAB HEMETOLOGY METHOD 04/17/2024 11:30 AM [facility] Monocytes Relative 9.9 % LAB HEMETOLOGY METHOD 04/17/2024 11:30 AM [facility] Eosinophils Relative 12.9 % LAB HEMETOLOGY METHOD 04/17/2024 11:30 AM [facility] Basophils Relative 1.0 % LAB HEMETOLOGY METHOD 04/17/2024 11:30 AM [facility] Immature Granulocytes Relative 0.4 % LAB HEMETOLOGY METHOD 04/17/2024 11:30 AM [facility] Neutrophils Absolute 3.09 1.50 - 7.00 K/mcL LAB HEMETOLOGY METHOD 04/17/2024 11:30 AM [facility] Lymphocytes Absolute 3.25 1.00 - 5.00 K/mcL LAB HEMETOLOGY METHOD 04/17/2024 11:30 AM [facility] Monocytes Absolute 0.83 0.20 - 1.00 K/mcL LAB HEMETOLOGY METHOD 04/17/2024 11:30 AM [facility] LAB Eosinophils Absolute 1.08(H) 0.00 - 0.50 K/mcL LAB HEMETOLOGY METHOD 04/17/2024 11:30 AM [facility] Basophils Absolute 0.08 0.00 - 0.20 K/mcL LAB HEMETOLOGY METHOD 04/17/2024 11:30 AM [facility] Immature Granulocytes Absolute 0.03 0.00 - 0.03 K/mcL LAB HEMETOLOGY METHOD 04/17/2024 11:30 AM EST [facility] Blood Venous blood specimen / Unknown Venipuncture / Unknown 04/17/2024 5:59 AM EST 04/17/2024 10:36 AM EST us Gaye Pina MD LAB BLOOD ORDERABLES Final Resu lt Performing Organization Address [facility]/ZIP Co de Phone Number [facility] [address] [place] [address], [place] [phone] * Magnesium (04/17/2024 5:59 AM EST) Only the most recent of2 resultswithin the time period is included. [facility] Magnesium 2.4 1.9 - 2.6 mg/dL LAB CHEMISTRY METHOD 04/17/2024 11:26 AM EST [facility] Blood Venous blood specimen / Unknown Venipuncture / Unknown 04/17/2024 5:59 AM EST 04/17/2024 10:36 AM EST us Gaye Pina MD LAB BLOOD ORDERABLES Final Resu lt Performing Organization Address [facility] de Phone Number [facility] [address] [place] [address], [place] [phone] * (ABNORMAL) Comprehensive metabolic panel (04/17/2024 5:59 AM EST) Only the most recent of2 resultswithin the time period is included. Pathologist [facility] Sodium 135 133 - 145 mmol/L LAB CHEMISTRY METHOD 04/17/2024 12:17 PM [facility] Potassium 4.3 3.5 - 5.5 mmol/L LAB CHEMISTRY METHOD 04/17/2024 12:17 PM [facility] Chloride 102 96 - 110 mmol/L LAB CHEMISTRY METHOD 04/17/2024 12:17 PM [facility] CO2 27 21 - 32 mmol/L LAB CHEMISTRY METHOD 04/17/2024 12:17 PM [facility] Anion Gap 6 3 - 11 LAB CHEMISTRY METHOD 04/17/2024 12:17 PM [facility] Glucose 97 70 - 100 mg/dL LAB CHEMISTRY METHOD 04/17/2024 12:17 PM [facility] BUN 18 5 - 25 mg/dL LAB CHEMISTRY METHOD 04/17/2024 12:17 PM [facility] Creatinine 0.96 0.70 - 1.30 mg/dL LAB CHEMISTRY METHOD 04/17/2024 12:17 PM [facility] LAB eGFR 90 >=60 mL/min/1. 73m2 LAB CHEMISTRY METHOD 04/17/2024 12:17 PM [facility] Comment:Calculation based on the??Chronic Kidney Disease Epidemiology Collaboration (CKD-EPI) equation refit??without adjustment for race. BUN/Creatinine Ratio 18.8 LAB CHEMISTRY METHOD 04/17/2024 12:17 PM [facility] Calcium 8.7 8.5 - 10.5 mg/dL LAB CHEMISTRY METHOD 04/17/2024 12:17 PM [facility] LAB AST (SGOT) 54(H) 10 - 42 unit/L LAB CHEMISTRY METHOD 04/17/2024 12:17 PM [facility] ALT (SGPT) 96(H) 10 - 60 unit/L LAB CHEMISTRY METHOD 04/17/2024 12:17 PM [facility] Alkaline Phosphatase 66 42 - 121 unit/L LAB CHEMISTRY METHOD 04/17/2024 12:17 PM [facility] Total Protein 6.2 6.0 - 8.0 g/dL LAB CHEMISTRY METHOD 04/17/2024 12:17 PM [facility] Albumin 3.0(L) 3.2 - 5.0 g/dL LAB CHEMISTRY METHOD 04/17/2024 12:17 PM [facility] Total Bilirubin 0.4 0.0 - 1.4 mg/dL LAB CHEMISTRY METHOD 04/17/2024 12:17 PM EST [facility] Blood Venous blood specimen / Unknown Venipuncture / Unknown 04/17/2024 5:59 AM EST 04/17/2024 10:36 AM EST us Gaye Pina MD LAB BLOOD ORDERABLES Final Resu lt [facility] ([facility] [address] [place] [address], from Last 3 Months Insurance MEDICAID - [place] MEDICARE Care Teams Enterprise Manager Relationship Specialty Start Date End Date Gaye Pina MD [address] [place] [id number] PCP - General Hospitalist Medicine 04/17/24
--- OUTSIDE RECORDS SUMMARY | 2024-07-11 18:10 | XMS_ITS | Encounter Summary ---
Author Organization [facility] Address [address] [place] [address] Care Team Providers Care Pole Sander Operator Name Role Phone Gaye Pina MD Primary Care Provider Encounter Details Date Type Department Care Team (Late st Contact Info) Description 04/17/2024 Lab Requisition [facility] [address] [place] [address] Gaye Pina MD [address] [place] [id number] Encounter for other general examination Social History Tobacco Use Types Packs/Day Years Used Date Smoking Tobacco: Never Assessed Sex and Gender Information Value Date Recorded Sex Assigned at Not on file Legal Sex Male 7:24 AM EST Gender Identity Not on file Sexual Orientation Not on file documented as of this encounter Plan of Treatment Not on file documented as of this encounter Procedures Procedure Name Priority Date/Time Associated Diagnosis Comments CBC WITH AUTO DIFFERENTIAL Routine 04/17/2024 5:59 AM EST Encounter for other general examination CBC AND DIFFERENTIAL Routine 04/17/2024 5:59 AM EST Encounter for other general examination MAGNESIUM Routine 04/17/2024 5:59 AM EST Encounter for other general examination COMPREHENSIVE METABOLIC PANEL Routine 04/17/2024 5:59 AM EST Encounter for other general examination documented in this encounter Results * (ABNORMAL) CBC auto differential (04/17/2024 5:59 AM EST) WBC 8.4 4.8 - 10.8 K/[facility] LAB HEMETOLOGY METHOD 04/17/2024 11:30 AM [facility] RBC 3.90(L) 4.50 - 5.50 M/mcL LAB HEMETOLOGY METHOD 04/17/2024 11:30 AM [facility] LAB Hemoglobin 12.3(L) 13.5 - 17.5 g/dL LAB HEMETOLOGY METHOD 04/17/2024 11:30 AM [facility] LAB Hematocrit 37.8(L) 42.0 - 54.0 % LAB HEMETOLOGY METHOD 04/17/2024 11:30 AM [facility] LAB MCV 97.2 79.0 - 98.0 FL LAB HEMETOLOGY METHOD 04/17/2024 11:30 AM [facility] LAB MCH 31.6 27.0 - 32.0 pcg LAB HEMETOLOGY METHOD 04/17/2024 11:30 AM [facility] LAB MCHC 32.5 32.0 - 37.0 g/dL LAB HEMETOLOGY METHOD 04/17/2024 11:30 AM [facility] LAB RDW 14.0 11.0 - 15.0 % LAB HEMETOLOGY METHOD 04/17/2024 11:30 AM [facility] LAB Platelets 336 130 - 400 K/mcL LAB HEMETOLOGY METHOD 04/17/2024 11:30 AM [facility] LAB MPV 9.9 7.0 - 11.0 FL LAB HEMETOLOGY METHOD 04/17/2024 11:30 AM [facility] LAB NRBC 0.0 <1.0 % LAB HEMETOLOGY METHOD 04/17/2024 11:30 AM [facility] LAB NRBC Absolute 0.00 <0.10 K/mcL LAB HEMETOLOGY METHOD 04/17/2024 11:30 AM [facility] LAB Neutrophils Relative 36.9 % LAB HEMETOLOGY METHOD 04/17/2024 11:30 AM [facility] Lymphocytes Relative 38.9 % LAB HEMETOLOGY METHOD 04/17/2024 11:30 AM [facility] Monocytes Relative 9.9 % LAB HEMETOLOGY METHOD 04/17/2024 11:30 AM [facility] LAB Eosinophils Relative 12.9 % LAB HEMETOLOGY METHOD 04/17/2024 11:30 AM [facility] Basophils Relative 1.0 % LAB HEMETOLOGY METHOD 04/17/2024 11:30 AM [facility] LAB Immature Granulocytes Relative 0.4 % LAB HEMETOLOGY METHOD 04/17/2024 11:30 AM [facility] LAB Neutrophils Absolute 3.09 1.50 - 7.00 K/mcL LAB HEMETOLOGY METHOD 04/17/2024 11:30 AM [facility] LAB Lymphocytes Absolute 3.25 1.00 - 5.00 K/mcL LAB HEMETOLOGY METHOD 04/17/2024 11:30 AM [facility] Monocytes Absolute 0.83 0.20 - 1.00 K/mcL LAB HEMETOLOGY METHOD 04/17/2024 11:30 AM [facility] LAB Eosinophils Absolute 1.08(H) 0.00 - 0.50 K/mcL LAB HEMETOLOGY METHOD 04/17/2024 11:30 AM [facility] Basophils Absolute 0.08 0.00 - 0.20 K/mcL LAB HEMETOLOGY METHOD 04/17/2024 11:30 AM [facility] Immature Granulocytes Absolute 0.03 0.00 - 0.03 K/mcL LAB HEMETOLOGY METHOD 04/17/2024 11:30 AM [facility] Blood Venous blood specimen / Unknown Venipuncture / Unknown 04/17/2024 5:59 AM EST 04/17/2024 10:36 AM EST us Gaye Pina MD LAB BLOOD ORDERABLES Final Resu lt Performing Organization Address City/[facility]/ZIP Co de Phone Number [facility] [address] [place] [address], [place] [phone] * Magnesium (04/17/2024 5:59 AM EST) Pathologist [facility] Magnesium 2.4 1.9 - 2.6 mg/dL LAB CHEMISTRY METHOD 04/17/2024 11:[address] [facility] Blood Venous blood specimen / Unknown Venipuncture / Unknown 04/17/2024 5:59 AM EST 04/17/2024 10:36 AM EST Gaye Pina MD LAB BLOOD ORDERABLES Final Resu lt Performing Organization Address [facility]/ZIP Co de Phone Number [facility] [address] [place] [address], [place] [phone] * (ABNORMAL) Comprehensive metabolic panel (04/17/2024 5:59 AM EST) [facility] Sodium 135 133 - 145 mmol/L LAB CHEMISTRY METHOD 04/17/2024 12:17 PM [facility] Potassium 4.3 3.5 - 5.5 mmol/L LAB CHEMISTRY METHOD 04/17/2024 12:17 PM [facility] Chloride 102 96 - 110 mmol/L LAB CHEMISTRY METHOD 04/17/2024 12:17 PM [facility] CO2 27 21 - 32 mmol/L LAB CHEMISTRY METHOD 04/17/2024 12:17 PM [facility] Anion Gap 6 3 - 11 LAB CHEMISTRY METHOD 04/17/2024 12:17 PM [facility] Glucose 97 70 - 100 mg/dL LAB CHEMISTRY METHOD 04/17/2024 12:17 PM [facility] BUN 18 5 - 25 mg/dL LAB CHEMISTRY METHOD 04/17/2024 12:17 PM [facility] Creatinine 0.96 0.70 - 1.30 mg/dL LAB CHEMISTRY METHOD 04/17/2024 12:17 PM [facility] LAB eGFR 90 >=60 mL/min/1. 73m2 LAB CHEMISTRY METHOD 04/17/2024 12:17 PM [facility] LAB Comment:Calculation based on the??Chronic Kidney Disease Epidemiology Collaboration (CKD-EPI) equation refit??without adjustment for race. BUN/Creatinine Ratio 18.8 LAB CHEMISTRY METHOD 04/17/2024 12:17 PM [facility] Calcium 8.7 8.5 - 10.5 mg/dL LAB CHEMISTRY METHOD 04/17/2024 12:17 PM [facility] AST (SGOT) 54(H) 10 - 42 unit/L LAB CHEMISTRY METHOD 04/17/2024 12:17 PM [facility] ALT (SGPT) 96(H) 10 - 60 unit/L LAB CHEMISTRY METHOD 04/17/2024 12:17 PM [facility] Alkaline Phosphatase 66 42 - 121 unit/L LAB CHEMISTRY METHOD 04/17/2024 12:17 PM [facility] Total Protein 6.2 6.0 - 8.0 g/dL LAB CHEMISTRY METHOD 04/17/2024 12:17 PM [facility] Albumin 3.0(L) 3.2 - 5.0 g/dL LAB CHEMISTRY METHOD 04/17/2024 12:17 PM [facility] Total Bilirubin 0.4 0.0 - 1.4 mg/dL LAB CHEMISTRY METHOD 04/17/2024 12:17 PM [facility] Blood Venous blood specimen / Unknown Venipuncture / Unknown 04/17/2024 5:59 AM EST 04/17/2024 10:36 AM EST us Gaye Pina MD LAB BLOOD ORDERABLES Final Resu lt [facility] [address] [place] [address], documented in this encounter Visit Diagnoses Diagnosis Encounter for other general examination documented in this encounter Care Teams Pole Sander Operator Relationship Specialty Start Date End Date Gaye Pina MD [address] [place] [id number] PCP - General Hospitalist Medicine 04/17/24 documented as of this encounter
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
--- OUTSIDE RECORDS SUMMARY | 2024-07-11 18:10 | XMS_ITS | Encounter Summary ---
Author Organization [facility] Address [address] [place] [address] Care Team Providers Care Electrical Continuity Inspector Name Role Phone Gaye Pina MD Primary Care Provider [phone] Encounter Details Date Type Department Care Team (Late st Contact Info) Description 04/13/2024 Lab Requisition [facility] - Main Lab [address] [place] [address] Gaye Pina MD [address] [place] [phone] Encounter for other general examination Social History [...] Diagnosis Comments CBC WITH AUTO DIFFERENTIAL Routine 04/13/2024 5:53 AM EST Encounter for other general examination CBC AND DIFFERENTIAL Routine 04/13/2024 5:53 AM EST Encounter for other general examination MAGNESIUM Routine 04/13/2024 5:53 AM EST Encounter for other general examination COMPREHENSIVE METABOLIC PANEL Routine 04/13/2024 5:53 AM EST Encounter for other general examination documented in this encounter Results * (ABNORMAL) CBC auto differential (04/13/2024 5:53 AM EST) WBC 8.4 4.8 - 10.8 K/[facility] LAB HEMETOLOGY METHOD 04/13/2024 11:27 AM [facility] RBC 3.70(L) 4.50 - 5.50 M/mcL LAB HEMETOLOGY METHOD 04/13/2024 11:27 AM [facility] Hemoglobin 12.0(L) 13.5 - 17.5 g/dL LAB HEMETOLOGY METHOD 04/13/2024 11:27 AM [facility] Hematocrit 36.3(L) 42.0 - 54.0 % LAB HEMETOLOGY METHOD 04/13/2024 11:27 AM [facility] MCV 97.3 79.0 - 98.0 FL LAB HEMETOLOGY METHOD 04/13/2024 11:27 AM [facility] MCH 32.2(H) 27.0 - 32.0 pcg LAB HEMETOLOGY METHOD 04/13/2024 11:27 AM [facility] MCHC 33.1 32.0 - 37.0 g/dL LAB HEMETOLOGY METHOD 04/13/2024 11:27 AM [facility] RDW 13.6 11.0 - 15.0 % LAB HEMETOLOGY METHOD 04/13/2024 11:27 AM [facility] Platelets 227 130 - 400 K/mcL LAB HEMETOLOGY METHOD 04/13/2024 11:27 AM [facility] MPV 10.5 7.0 - 11.0 FL LAB HEMETOLOGY METHOD 04/13/2024 11:27 AM [facility] NRBC 0.0 <1.0 % LAB HEMETOLOGY METHOD 04/13/2024 11:27 AM [facility] NRBC Absolute 0.00 <0.10 K/mcL LAB HEMETOLOGY METHOD 04/13/2024 11:27 AM [facility] Neutrophils Relative 50.3 % LAB HEMETOLOGY METHOD 04/13/2024 11:27 AM [facility] Lymphocytes Relative 30.4 % LAB HEMETOLOGY METHOD 04/13/2024 11:27 AM [facility] Monocytes Relative 10.7 % LAB HEMETOLOGY METHOD 04/13/2024 11:27 AM [facility] Eosinophils Relative 7.6 % LAB HEMETOLOGY METHOD 04/13/2024 11:27 AM [facility] Basophils Relative 0.6 % LAB HEMETOLOGY METHOD 04/13/2024 11:27 AM [facility] Immature Granulocytes Relative 0.4 % LAB HEMETOLOGY METHOD 04/13/2024 11:27 AM [facility] Neutrophils Absolute 4.23 1.50 - 7.00 K/mcL LAB HEMETOLOGY METHOD 04/13/2024 11:27 AM [facility] Lymphocytes Absolute 2.55 1.00 - 5.00 K/mcL LAB HEMETOLOGY METHOD 04/13/2024 11:27 AM [facility] Monocytes Absolute 0.90 0.20 - 1.00 K/mcL LAB HEMETOLOGY METHOD 04/13/2024 11:27 AM [facility] Eosinophils Absolute 0.64(H) 0.00 - 0.50 K/mcL LAB HEMETOLOGY METHOD 04/13/2024 11:27 AM [facility] Basophils Absolute 0.05 0.00 - 0.20 K/mcL LAB HEMETOLOGY METHOD 04/13/2024 11:27 AM [facility] Immature Granulocytes Absolute 0.03 0.00 - 0.03 K/mcL LAB HEMETOLOGY METHOD 04/13/2024 11:27 AM [facility] Blood Venous blood specimen / Unknown Venipuncture / Unknown 04/13/2024 5:53 AM EST 04/13/2024 10:00 AM EST us Gaye Pina MD LAB BLOOD ORDERABLES Final Resu lt Performing Organization Address [facility]/ZIP Co de Phone Number [facility] [address] [place] [address], * Magnesium (04/13/2024 5:53 AM EST) Magnesium 2.2 1.9 - 2.6 mg/dL LAB CHEMISTRY METHOD 04/13/2024 12:00 PM [facility] Blood Venous blood specimen / Unknown Venipuncture / Unknown 04/13/2024 5:53 AM EST 04/13/2024 10:00 AM EST Gaye Pina MD LAB BLOOD ORDERABLES Final Resu lt Performing Organization Address [facility]/ZIP Co de Phone Number [facility] [address] [place] [address], [place] [phone] * (ABNORMAL) Comprehensive metabolic panel (04/13/2024 5:53 AM EST) Pathologist [facility] Sodium 134 133 - 145 mmol/L LAB CHEMISTRY METHOD 04/13/2024 12:00 PM [facility] Potassium 4.0 3.5 - 5.5 mmol/L LAB CHEMISTRY METHOD 04/13/2024 12:00 PM [facility] Chloride 102 96 - 110 mmol/L LAB CHEMISTRY METHOD 04/13/2024 12:00 PM [facility] CO2 25 21 - 32 mmol/L LAB CHEMISTRY METHOD 04/13/2024 12:00 PM [facility] Anion Gap 7 3 - 11 LAB CHEMISTRY METHOD 04/13/2024 12:00 PM [facility] Glucose 92 70 - 100 mg/dL LAB CHEMISTRY METHOD 04/13/2024 12:00 PM [facility] BUN 16 5 - 25 mg/dL LAB CHEMISTRY METHOD 04/13/2024 12:00 PM [facility] Creatinine 1.06 0.70 - 1.30 mg/dL LAB CHEMISTRY METHOD 04/13/2024 12:00 PM [facility] eGFR 80 >=60 mL/min/1. 73m2 LAB CHEMISTRY METHOD 04/13/2024 12:00 PM [facility] Comment:Calculation based on the??Chronic Kidney Disease Epidemiology Collaboration (CKD-EPI) equation refit??without adjustment for race. BUN/Creatinine Ratio 15.1 LAB CHEMISTRY METHOD 04/13/2024 12:00 PM [facility] Calcium 8.5 8.5 - 10.5 mg/dL LAB CHEMISTRY METHOD 04/13/2024 12:00 PM [facility] AST (SGOT) 50(H) 10 - 42 unit/L LAB CHEMISTRY METHOD 04/13/2024 12:00 PM [facility] ALT (SGPT) 53 10 - 60 unit/L LAB CHEMISTRY METHOD 04/13/2024 12:00 PM [facility] Alkaline Phosphatase 59 42 - 121 unit/L LAB CHEMISTRY METHOD 04/13/2024 12:00 PM [facility] Total Protein 5.9(L) 6.0 - 8.0 g/dL LAB CHEMISTRY METHOD 04/13/2024 12:00 PM [facility] Albumin 3.0(L) 3.2 - 5.0 g/dL LAB CHEMISTRY METHOD 04/13/2024 12:00 PM [facility] Total Bilirubin 0.9 0.0 - 1.4 mg/dL LAB CHEMISTRY METHOD 04/13/2024 12:00 PM [facility] Blood Venous blood specimen / Unknown Venipuncture / Unknown 04/13/2024 5:53 AM EST 04/13/2024 10:00 AM EST us Gaye Pina MD LAB BLOOD ORDERABLES Final Resu lt [facility] [address] [place] [address], documented in this encounter Visit Diagnoses Diagnosis Encounter for other general examination documented in this encounter Care Teams Electrical Continuity Inspector Relationship Specialty Start Date End Date Gaye Pina MD [address] [place] [phone] PCP - General Hospitalist Medicine 04/17/24 documented as of this encounter
== END 2024-07-11 16:16 | disposition home or self-care (01) ==
PROVIDERS: PCP Nurse Practitioner Family; Visit Provider Physician Assistant
DX: K13.70 Unspecified lesions of oral mucosa (principal)

== ENCOUNTER → 2024-07-11 15:28 | Outpatient (BNVA) | payer OTHER, MEDICARE, MEDICAID, SELFPAY | PROVIDERS: PCP Nurse Practitioner Family; Visit Provider Physician Assistant ==

== ENCOUNTER 2024-07-16 15:34 | Outpatient (AMB) | payer OTHER, MEDICARE, MEDICAID, SELFPAY ==
--- NOTE | 2024-07-16 15:36 | A.OFFPC_ITS ---
Vital Signs 07/16/24 15:39 Height 5 ft 9 in BMI Reason not done Patient refused/unable BP 108/72 Blood Pressure Location Lt brachial Position Sitting Pulse 94 Pulse Source Pulse Oximeter Pulse Oximetry (%) 95 Oxygen Delivery Method Room Air Intake Visit Reasons: HDF Accompanied by: Spouse Allergies Penicillins Allergy (Severe, Verified 07/16/24 17:07) ANAPHYLAXIS clopidogrel [From Plavix] Allergy (Intermediate, Verified 07/16/24 17:07) Itching morphine Adverse Reaction (Intermediate, Verified 07/16/24 17:07) Agitated Medication List - Last Reconciled 07/16/24 by AUGIE Corbin-BC [AFO brace right leg As directed] aspirin 81 mg PO DAILY atorvastatin 80 mg PO BEDTIME cholecalciferol (vitamin D3) 25 mcg PO DAILY clobetasol 0.05% 1 appl topical BID [custom arch support right foot Use As directed NS] dextroamphetamine-amphetamine 20 mg (Adderall) 20 mg PO BID mecobalamin (vitamin B12) 1,000 mcg PO metoprolol succinate ER 50 mg PO DAILY miscellaneous medical supply 1 ea miscellaneous .daily use 1 day miscellaneous medical supply custom right arch support, pt has a brace multivitamin 1 tab PO DAILY sacubitril-valsartan 24-26 mg (Entresto) 1 tab PO BID triamcinolone acetonide 0.1% appl topical Tobacco use date assessed: 07/16/24 Dental Screening Dental Screen Date: 07/16/24 Did you have a dental visit in the last 12 months?: Yes Did you have a dental problem in the last 6 months where you did not have access to dental care?: No Was dental information given to patient?: Patient has dentist HPI HDF HPI Details Chief Complaint The patient presents for a generalized follow-up and reports eustachian tube dysfunction. History of Present Illness The patient is a 59-year-old male presenting with eustachian tube dysfunction and for a generalized follow-up. He experiences bilateral ear fullness and occasional tenderness, though his ears appear clinically normal upon examination. The patient has a history of hemiparesis affecting his right lower extremity resulting from a previous stroke. He requests a prescription for an AFO brace and arch support for the right foot. His medical history includes a lumbar laminectomy performed in March, after which he reports significant relief from previous symptoms, with no current weakness or radiculopathy on the left side (lle). He denies chest pain, shortness of breath, or edema. Preventat gretchen care, including a PSA test, is deemed necessary as part of the routine follow-up. dyslipidemia: on a statin, will check lipid levels Social History Health Maintenance - Routine preventative care recommended. - Planned [facility]. Review of Systems - Ears: Reports fullness and occasional tenderness bilaterally. - Respiratory: Denies chest pain and epifanio rtness of breath. - Neurological: Denies weakness in the l eft lower extremity post-laminectomy. Physical Exam General: Cooperative, healthy appearing, comfortable, no acute distress and well developed Orientation: Patient oriented x3 Limitations: No limitations Head: Normal to inspection Ears: Hearing grossly normal bilaterally, TMs easily seen, no signs of infection noted Nose: Normal external nose present Face and sinus: Normal facial exam Eyes: Appearance normal, both eyes and all related structures Neck: Normal visual inspection and Yes full ROM Respiratory: Normal respiratory effort and able to speak in complete sentences. Clear to auscultation bilaterally Cardiovascular: Regular rate and rhythm. Normal S1 and S2 GI: Normal to inspection. Soft to palpation and nontender Skin: No rashes or lesions noted Neuro: Patient oriented x3 Extremities: no edema bilat, weakness to right upper and lower extrem (baseline) Results Plan I plan to manage the eustachian tube dysfunction and allergic conditions with cetirizine 20 mg daily and fluticasone nasal spray. I will prescribe an AFO brace for the right lower extremity due to residual weakness from a previous stroke and a prescription for arch support. I have ordered a PSA test as part of the patient's due routine screenings. These steps ensure continuity in his current care and address his preventative needs. Discussion Notes I discussed with the patient the management of his eustachian tube dysfunction using cetirizine and fluticasone, highlighting their potential benefits in reducing symptoms. We addressed the necessity of an AFO brace and arch support for his right foot, emphasizing compliance to maintain mobility and prevent complications due to his prior stroke. I recommended obtaining a PSA test due to its relevance in preventative health maintenance. The patient was informed about the importance of these measures and the plan for future follow-ups in monitoring his conditions. Patient Instructions - Take cetirizine 20 mg daily for allerg ies. - Use Flonase as directed to help with n britt passage clearance. - Obtain prescription and use AFO brace for right lower extremity. - Obtain arch support for right foot as prescribed. - Complete a PSA test as ordered. - Follow up as discussed for ongoing mon itoring and preventative care. [facility] Medical History Left hand weakness History of shingles Migraine PTSD (post-traumatic stress disorder) KASANDRA (obstructive sleep apnea) Somnolence, daytime Encounter for screening Encounter for screening Thoracic back pain Lower back pain Feeling of incomplete bladder emptying Weak urinary stream Bladder outlet obstruction Hearing loss Acoustic neuroma Cervical radiculopathy Cerebrovascular accident Attention deficit disorder Bipolar 1 disorder Surgical History History of esophagogastroduodenoscopy (EGD) History of back surgery H/O colonoscopy History of surgery History of cochlear implant History of elbow surgery History of sinus surgery History of brain surgery Family History Father No problems noted. Mother History of breast cancer Social History Household Members: None Housing: House Are you a primary md do resident urgent care to a significant other at home: No Do you presently have visiting nurse or other home services: No Alcohol intake: current Alcohol intake frequency: does not drink Patient Tobacco Use Status: Never used Tobacco e-Cigarette/Vaping Use: Never Used Second Hand Smoke Exposure: No service: No Current occupational status: unemployed Cognitive needs: No Hearing needs: No Vision needs: No Questionnaire PHQ-9 Over the last 2 weeks, how often have you been bothered by any of the following problems? 08495 - PHQ-9 Billing: Patient declined-do not bill Source: Developed by Drs. Manjeet Hawthorne, Martha Alonso, Elijah Pena and colleagues, with an educational gustavo from [employer]. Thrive Questionnaire Date Thrive assessed: 07/16/24 I am a: Patient What is your living situation today?: I have a steady place to live Within the past 12 months, did the food you bought not last and you didn't have the money to get more?: Never true Within the past 12 months, did you worry whether your food would run out before you got money to buy more?: Never true Do you have trouble paying for medicines?: No Do you have trouble getting transportation to medical appointments?: No Do you have trouble paying your heating and electricity bill?: No Do you have trouble taking care of your child, family member or friend?: No Do you have trouble with day-to-day activities such as bathing, preparing meals, shopping, managing finances, etc.?: No Are you currently unemployed and looking for a job?: No Are you interested in more education?: No THRIVE Score: 0 AUDIT C Alcohol Use Questionnaire (AUDIT-C) 1. How often do you have a drink containing alcohol?: Monthly or less 2. How many drinks containing alcohol do you have on a typical day when you are drinking?: 1 or 2 3. How often do you have six or more drinks on one occasion?: Never Total Score: 1 Score Reviewed/Action Taken: Yes BERNADETTE-7 AMB Questionnaire BERNADETTE-7 Date BERNADETTE - 7 assessed: 07/16/24 Feeling nervous, anxious, or on edge: 0 = Not at all Not being able to stop or control worryin = Not at all Worrying too much about different things: 0 = Not at all Trouble relaxin = Not at all Being so restless that it is hard to sit still: 0 = Not at all Becoming easily annoyed or irritable: 1 = Several days Feeling afraid as if something awful might happen: 0 = Not at all Total BERNADETTE-7 score (0-4 normal; 5-9 mild; 10-14 moderate; 15-21 severe): 1 Source: Developed by Drs. Manjeet Hawthorne, Martha Alonso, Elijah Pena and colleagues, with an educational gustavo from [employer]. BERNADETTE-7 Assessment Billing BERNADETTE-7 Assessment Tool: BERNADETTE-7 Assessment 17659 Physical exam (Primary Care) Vital Signs: Last Vital Signs Pulse 94 07/16/24 15:39 BP 108/72 07/16/24 15:39 Pulse Ox 95 07/16/24 15:39 Oxygen Delivery Method Room Air 07/16/24 15:39 Tobacco/Smoking Status: Tobacco use Status Tobacco use date assessed 07/16/24 07/16/24 15:41 Patient Tobacco Use Status Never used Tobacco 07/16/24 15:36 e-Cigarette/Vaping Use Never Used 07/16/24 15:36 Thrive Assessment: Date of Thrive Assessment Date Thrive assessed 07/16/24 07/16/24 15:41 Coding Level of Care Code Est Pt Level 3 (43970) Diagnoses Dyslipidemia E78.5 Screening PSA (prostate specific antigen) Z12.5 Additional Codes BERNADETTE-7 Assessment Billing - BERNADETTE-7 Assessment Tool: BERNADETTE-7 Assessment 05148 ([id number]) Assessment & Plan Assessment & Plan (1) Dyslipidemia: Code(s): E78.5 - Hyperlipidemia, unspecified Category: Medical (2) Screening PSA (prostate specific antigen): Code(s): Z12.5 - Encounter for screening for malignant neoplasm of prostate Category: Medical Plan . Orders: Orders Comprehensive [place]. Panel Fast Today E78.5 - Hyperlipidemia, unspecified Lipid Panel Today E78.5 - Hyperlipidemia, unspecified Complete Blood Count Auto Diff Today E78.5 - Hyperlipidemia, unspecified TSH reflex Free T4 Today E78.5 - Hyperlipidemia, unspecified UA CC w/rflx Micro + Cult Today E78.5 - Hyperlipidemia, unspecified Prostate Specific Antigen Scr Today Z12.5 - Encounter for screening for malignant neoplasm of prostate Medications: New miscellaneous medical supply custom right arch support, pt has a brace 1 ea 0RF stroke Refilled atorvastatin 80 mg PO BEDTIME 90 tabs 4RF
[2024-07-16 15:39] VITALS: BP 108/72; PULSE 94; O2SAT 95
== END 2024-07-16 16:50 | disposition home or self-care (01) ==
LOC: HO.HMCC 15:35
PROVIDERS: PCP Nurse Practitioner Family; Visit Provider Nurse Practitioner Family
DX: E78.5 Hyperlipidemia, unspecified (principal); Z12.5 Encounter for screening for malignant neoplasm of prostate

== ENCOUNTER → 2024-07-16 15:34 | Outpatient (BNVA) | payer OTHER, MEDICARE, MEDICAID, SELFPAY | PROVIDERS: PCP Nurse Practitioner Family; Visit Provider Nurse Practitioner Family | DX: E78.5 Hyperlipidemia, unspecified (principal); H69.90 Unspecified Eustachian tube disorder, unspecified ear; I69.351 Hemiplegia and hemiparesis following cerebral infarction affecting right dominant side | CPT/HCPCS: 96127 ==

== ENCOUNTER 2024-07-26 13:39 | Outpatient (AMB) | payer OTHER, MEDICARE, MEDICAID, SELFPAY ==
--- OUTSIDE RECORDS SUMMARY | 2024-07-26 13:44 | XMS_ITS | Encounter Summary ---
Author Organization [facility] Address [address] [place] [address] Care Team Providers Care Size Marker Name Role Phone Gaye Pina MD Primary Care Provider [phone] Encounter Details Date Type Department Care Team (Late st Contact Info) Description 04/13/[address] [facility] - Main Lab [address] [place] [address] Gaye Pina MD [address] [place] [phone] Encounter for other general examination Social History [...] AM EST) WBC 8.4 4.8 - 10.8 K/[facility] LAB HEMETOLOGY METHOD 04/13/2024 11:27 AM [facility] [...] ORDERABLES Final Resu lt Performing Organization Address [facility]/ZIP Co de Phone Number [facility] [address] [place] [address], * Magnesium (04/13/2024 5:53 AM EST) Magnesium 2.2 1.9 - 2.6 mg/dL LAB CHEMISTRY METHOD 04/13/2024 12:00 PM [facility] Blood Venous blood specimen / Unknown Venipuncture / Unknown 04/13/2024 5:53 AM EST 04/13/2024 10:00 AM EST Gaye Pina MD LAB BLOOD ORDERABLES Final Resu lt Performing Organization Address [facility]/ZIP Co de Phone Number [facility] [address] [place] [address], [place] [phone] * (ABNORMAL) Comprehensive metabolic panel (04/13/2024 5:53 AM EST) Pathologist [facility] Sodium 134 133 - 145 mmol/L LAB [...] MD LAB BLOOD ORDERABLES Final Resu lt [facility] [address] [place] [address], documented in this encounter Visit Diagnoses Diagnosis Encounter for other general examination documented in this encounter Care Teams Size Marker Relationship Specialty Start Date End Date Gaye Pina MD [address] [place] [phone] PCP - General Hospitalist Medicine 04/17/24 documented as of this encounter
--- OUTSIDE RECORDS SUMMARY | 2024-07-26 13:44 | XMS_ITS | Encounter Summary ---
Author Organization [facility] Address [address] [place] [address] Care Team Providers Care Health And Safety Director Name Role Phone Gaye Pina MD Primary Care Provider Encounter Details Date Type Department Care Team (Late st Contact Info) Description 04/17/2024 Lab Requisition [facility] - Main Lab [address] [place] [address] Gaye Pina MD [address] [place] [id number] Encounter for other general examination Social History [...] AM EST) WBC 8.4 4.8 - 10.8 K/[facility] LAB HEMETOLOGY METHOD 04/17/2024 11:30 AM [facility] RBC 3.90(L) 4.50 - 5.50 M/mcL LAB HEMETOLOGY METHOD 04/17/2024 11:30 AM [facility] Hemoglobin 12.3(L) 13.5 - 17.5 g/dL LAB HEMETOLOGY METHOD 04/17/2024 11:30 AM [facility] Hematocrit 37.8(L) 42.0 - 54.0 % LAB HEMETOLOGY METHOD 04/17/2024 11:30 AM [facility] MCV 97.2 79.0 - 98.0 FL LAB HEMETOLOGY METHOD 04/17/2024 11:30 AM [facility] MCH 31.6 27.0 - 32.0 pcg LAB HEMETOLOGY METHOD 04/17/2024 11:30 AM [facility] MCHC 32.5 32.0 - 37.0 g/dL LAB HEMETOLOGY METHOD 04/17/2024 11:30 AM [facility] RDW 14.0 11.0 - 15.0 % LAB HEMETOLOGY METHOD 04/17/2024 11:30 AM [facility] Platelets 336 130 - 400 K/mcL LAB HEMETOLOGY METHOD 04/17/2024 11:30 AM [facility] MPV 9.9 7.0 - 11.0 FL LAB HEMETOLOGY METHOD 04/17/2024 11:30 AM [facility] NRBC 0.0 <1.0 % LAB HEMETOLOGY METHOD 04/17/2024 11:30 AM [facility] NRBC Absolute 0.00 <0.10 K/mcL LAB HEMETOLOGY METHOD 04/17/2024 11:30 AM [facility] Neutrophils Relative 36.9 % LAB HEMETOLOGY METHOD 04/17/2024 11:30 AM [facility] Lymphocytes Relative 38.9 % LAB HEMETOLOGY METHOD 04/17/2024 11:30 AM [facility] Monocytes Relative 9.9 % LAB HEMETOLOGY METHOD 04/17/2024 11:30 AM [facility] Eosinophils Relative 12.9 % LAB HEMETOLOGY METHOD 04/17/2024 11:30 AM [facility] Basophils Relative 1.0 % LAB HEMETOLOGY METHOD 04/17/2024 11:30 AM [facility] Immature Granulocytes Relative 0.4 % LAB HEMETOLOGY METHOD 04/17/2024 11:30 AM [facility] Neutrophils Absolute 3.09 1.50 - 7.00 K/mcL LAB HEMETOLOGY METHOD 04/17/2024 11:30 AM [facility] Lymphocytes Absolute 3.25 1.00 - 5.00 K/mcL LAB HEMETOLOGY METHOD 04/17/2024 11:30 AM [facility] Monocytes Absolute 0.83 0.20 - 1.00 K/mcL LAB HEMETOLOGY METHOD 04/17/2024 11:30 AM [facility] Eosinophils Absolute 1.08(H) 0.00 - 0.50 K/mcL LAB HEMETOLOGY METHOD 04/17/2024 11:30 AM [facility] Basophils Absolute 0.08 0.00 - 0.20 K/mcL LAB HEMETOLOGY METHOD 04/17/2024 11:30 AM [facility] Immature Granulocytes Absolute 0.03 0.00 - 0.03 K/mcL LAB HEMETOLOGY METHOD 04/17/2024 11:30 AM [facility] Blood Venous blood specimen / Unknown Venipuncture / Unknown 04/17/2024 5:59 AM EST 04/17/2024 10:36 AM EST us Gaye Pina MD LAB BLOOD ORDERABLES Final Resu lt Performing Organization Address City/[facility]/ZIP Co de Phone Number [facility] [address] [place] [address], [place] [phone] * Magnesium (04/17/2024 5:59 AM EST) Pathologist [facility] Magnesium 2.4 1.9 - 2.6 mg/dL LAB CHEMISTRY METHOD 04/17/2024 11:26 AM EST [facility] Blood Venous blood specimen / Unknown Venipuncture / Unknown 04/17/2024 5:59 AM EST 04/17/2024 10:36 AM EST Gaye Pina MD LAB BLOOD ORDERABLES Final Resu lt Performing Organization Address [facility]/ZIP Co de Phone Number [facility] [address] [place] [address], [place] [phone] * (ABNORMAL) Comprehensive metabolic panel (04/17/2024 5:59 AM EST) [facility] Sodium 135 133 - 145 mmol/L LAB CHEMISTRY METHOD 04/17/2024 12:17 PM [facility] Potassium 4.3 3.5 - 5.5 mmol/L LAB CHEMISTRY METHOD 04/17/2024 12:17 PM [facility] Chloride 102 96 - 110 mmol/L LAB CHEMISTRY METHOD 04/17/2024 12:17 PM [facility] CO2 27 21 - 32 mmol/L LAB CHEMISTRY METHOD 04/17/2024 12:17 PM [facility] Anion Gap 6 3 - 11 LAB CHEMISTRY METHOD 04/17/2024 12:17 PM [facility] Glucose 97 70 - 100 mg/dL LAB CHEMISTRY METHOD 04/17/2024 12:17 PM [facility] BUN 18 5 - 25 mg/dL LAB CHEMISTRY METHOD 04/17/2024 12:17 PM [facility] Creatinine 0.96 0.70 - 1.30 mg/dL LAB CHEMISTRY METHOD 04/17/2024 12:17 PM [facility] eGFR 90 >=60 mL/min/1. 73m2 LAB CHEMISTRY METHOD 04/17/2024 12:17 PM [facility] Comment:Calculation based on the??Chronic Kidney Disease Epidemiology Collaboration (CKD-EPI) equation refit??without adjustment for race. BUN/Creatinine Ratio 18.8 LAB CHEMISTRY METHOD 04/17/2024 12:17 PM [facility] Calcium 8.7 8.5 - 10.5 mg/dL LAB CHEMISTRY METHOD 04/17/2024 12:17 PM [facility] AST (SGOT) 54(H) 10 - 42 unit/L LAB CHEMISTRY METHOD 04/17/2024 12:17 PM [facility] ALT (SGPT) 96(H) 10 - 60 unit/L LAB CHEMISTRY METHOD 04/17/2024 12:17 PM [facility] Alkaline Phosphatase 66 42 - 121 unit/L LAB CHEMISTRY METHOD 04/17/2024 12:17 PM [facility] Total Protein 6.2 6.0 - 8.0 g/dL LAB CHEMISTRY METHOD 04/17/2024 12:17 PM [facility] Albumin 3.0(L) 3.2 - 5.0 g/dL LAB CHEMISTRY METHOD 04/17/2024 12:17 PM [facility] Total Bilirubin 0.4 0.0 - 1.4 mg/dL LAB CHEMISTRY METHOD 04/17/2024 12:17 PM [facility] Blood Venous blood specimen / Unknown Venipuncture / Unknown 04/17/2024 5:59 AM EST 04/17/2024 10:36 AM EST us Gaye Pina MD LAB BLOOD ORDERABLES Final Resu lt [facility] [address] [place] [address], documented in this encounter Visit Diagnoses Diagnosis Encounter for other general examination documented in this encounter Care Teams Health And Safety Director Relationship Specialty Start Date End Date Gaye Pina MD [address] [place] [id number] PCP - General Hospitalist Medicine 04/17/24 documented as of this encounter
--- OUTSIDE RECORDS SUMMARY | 2024-07-26 13:44 | XMS_ITS | Clinical Summary ---
Author Organization [address] [facility] Address [address] [place] [address] Phone Care Team Providers Care Turbine Assembler Name Role Phone Gaye Pina MD Primary Care Provider [phone] Social History Tobacco Use Types Packs/Day Years [...] on patient's age to complete this topic Insurance MEDICAID - [place] MEDICARE Care Teams Turbine Assembler Relationship Specialty Start Date End Date Gaye Pina MD [address] [place] [id number] PCP - General Hospitalist Medicine 04/17/24
--- NOTE | 2024-07-26 14:01 | AM.OFFWIN_ITS ---
Intake Vital Signs 07/26/24 14:06 Weight 214 lb 9 oz BP 110/70 Blood Pressure Location Lt brachial Position Sitting Pulse 77 Pulse Source Pulse Oximeter Pulse Oximetry (%) 95 Oxygen Delivery Method Room Air Intake Visit Reasons: EP swollen rt foot, both feet bothering him Intake Note: Patient here for soles of feet have been hurting,itching and swelling which started about 1 week ago. Patient Tobacco Use Status: Never used Tobacco Allergies Penicillins Allergy (Severe, Verified 07/26/24 14:14) ANAPHYLAXIS clopidogrel [From Plavix] Allergy (Intermediate, Verified 07/26/24 14:14) Itching morphine Adverse Reaction (Intermediate, Verified 07/26/24 14:14) Agitated Medication List - Last Reconciled 07/26/24 by Santiago Moreno MD [AFO brace right leg As directed] aspirin 81 mg PO DAILY atorvastatin 80 mg PO BEDTIME cholecalciferol (vitamin D3) 25 mcg PO DAILY clobetasol 0.05% 1 appl topical BID [custom arch support right foot Use As directed NS] dextroamphetamine-amphetamine 20 mg (Adderall) 20 mg PO BID mecobalamin (vitamin B12) 1,000 mcg PO metoprolol succinate ER 50 mg PO DAILY miscellaneous medical supply 1 ea miscellaneous .daily use 1 day miscellaneous medical supply custom right arch support, pt has a brace multivitamin 1 tab PO DAILY sacubitril-valsartan 24-26 mg (Entresto) 1 tab PO BID triamcinolone acetonide 0.1% appl topical Do you need a note to return to daycare/school/sports/work: No HPI EP swollen rt foot, both feet bothering him HPI Details History - The patient is a 59-year-old male pres enting with bilateral foot eruptions with pruritus. At the bottom of foot 1st the right and then left - Symptoms began on the right foot appro ximately one week ago and subsequently appeared on the left foot last night. - The patient reports that the affected areas are pruritic, particularly exacerbated at night. - The patient has a history of lumbar ne uropathy, predominantly affecting the left side, but denies any history of diabetes mellitus. - The patient is not currently employed and does not participate in activities that would notably irritate or cause friction to the feet. - The patient utilizes arch support and foot drop right side footwear with leather components but does experience sweating in the feet, which could exacerbate fungal growth. - There is no noted sensation loss despi te the presence of lumbar neuropathy. - There is also a history of acid reflux for which the patient has been using [id number] medication without specifying the exact treatment. Problem List - Tinea Pedis - peripheral neuropathy with foot drop r ight side - Gastroesophageal Reflux Disease (GERD) Patient Instructions - Apply the prescribed antifungal cream as directed to both feet. - Try to avoid scratching the affected a reas to prevent further irritation or infection. 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 - Continue to monitor symptoms and repor t any worsening or additional symptoms. Review of Systems - General: No fever no chills - Neurological: No headaches no dizziness - Ear nose throat: No sore throat no hearing difficulty no ear pain - Cardiovascular: No syncope, no chest pain, no palpitations - Gastrointestinal: No nausea vomiting or diarrhea Physical Exam General: No acute distress HEENT: No acute findings Neck: Supple Respiratory system: Able to talk in full sentences, no audible wheeze Gastrointestinal: Reports of acid reflux, no pain bowel sounds positive Extremities: Scaly rash plantar aspect right foot with scratch brittani patient states similar rash on the left foot GROUP DYNAMICS INSTRUCTOR: Alert awake oriented x3 motor sensory intact, foot drop splint right foot PFSH Medical History Left hand weakness History of shingles Migraine PTSD (post-traumatic stress disorder) KASANDRA (obstructive sleep apnea) Somnolence, daytime Encounter for screening Encounter for screening Thoracic back pain Lower back pain Feeling of incomplete bladder emptying Weak urinary stream Bladder outlet obstruction Hearing loss Acoustic neuroma Cervical radiculopathy Cerebrovascular accident Attention deficit disorder Bipolar 1 disorder Surgical History History of esophagogastroduodenoscopy (EGD) History of back surgery H/O colonoscopy History of surgery History of cochlear implant History of elbow surgery History of sinus surgery History of brain surgery Family History Father No problems noted. Mother History of breast cancer Social History Household Members: None Housing: House Are you a primary pediatric critical care nurse to a significant other at home: No Do you presently have visiting nurse or other home services: No Alcohol intake: current Alcohol intake frequency: does not drink Patient Tobacco Use Status: Never used Tobacco e-Cigarette/Vaping Use: Never Used Second Hand Smoke Exposure: No service: No Current occupational status: unemployed Cognitive needs: No Hearing needs: No Vision needs: No Physical Exam Vital Signs: Last Vital Signs Pulse 77 07/26/24 14:06 BP 110/70 07/26/24 14:06 Pulse Ox 95 07/26/24 14:06 Oxygen Delivery Method Room Air 07/26/24 14:06 Assessment & Plan Assessment & Plan (1) Tinea pedis of both feet: Code(s): B35.3 - Tinea pedis (2) GERD (gastroesophageal reflux disease): Code(s): K21.9 - Gastro-esophageal reflux disease without esophagitis Qualifiers: Esophagitis presence: without esophagitis Qualified Code(s): K21.9 - Gastro-esophageal reflux disease without esophagitis (3) Right foot drop: Code(s): M21.371 - Foot drop, right foot Plan History - The patient is a 59-year-old male presenting with bilateral foot eruptions with pruritus. At the bottom of foot 1st the right and then left - Symptoms began on the right foot approximately one week ago and subsequently appeared on the left foot last night. - The patient reports that the affected areas are pruritic, particularly exacerbated at night. - The patient has a history of lumbar neuropathy, predominantly affecting the left side, but denies any history of diabetes mellitus. - The patient is not currently employed and does not participate in activities that would notably irritate or cause friction to the feet. - The patient utilizes arch support and foot drop right side footwear with leather components but does experience sweating in the feet, which could exacerbate fungal growth. - There is no noted sensation loss despite the presence of lumbar neuropathy. - There is also a history of acid reflux for which the patient has been using [id number] medication without specifying the exact treatment. Problem List - Tinea Pedis - peripheral neuropathy with foot drop right side - Gastroesophageal Reflux Disease (GERD) Patient Instructions - Apply the prescribed antifungal cream as directed to both feet. - Try to avoid scratching the affected areas to prevent further irritation or infection. 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 - Continue to monitor symptoms and report any worsening or additional symptoms. Medications: New ketoconazole 2% Wear socks after to prevent slipping 1 appl topical .qhs 30 days 60 grams 0RF omeprazole 20 mg PO DAILY 90 caps 0RF Coding Level of Care Code Est Pt Level 3 (08249) Diagnoses Tinea pedis of both feet B35.3 Gastroesophageal reflux disease without esophagitis K21.9 Esophagitis presence: without esophagitis Right foot drop M21.371
[2024-07-26 14:06] VITALS: BP 110/70; PULSE 77; O2SAT 95
== END 2024-07-26 14:29 | disposition home or self-care (01) ==
PROVIDERS: PCP Nurse Practitioner Family; Visit Provider Internal Medicine
DX: B35.3 Tinea pedis (principal); K21.9 Gastro-esophageal reflux disease without esophagitis; M21.371 Foot drop, right foot

== ENCOUNTER → 2024-07-26 13:39 | Outpatient (BNVA) | payer OTHER, MEDICARE, MEDICAID, SELFPAY | PROVIDERS: PCP Nurse Practitioner Family; Visit Provider Internal Medicine | DX: Z13.89 Encounter for screening for other disorder (principal) ==

== ENCOUNTER 2024-08-24 09:17 | Outpatient (REF) | payer OTHER, MEDICARE, MEDICAID, SELFPAY ==
--- NOTE | ~2024-08-24 | XR_ITS ---
CLINICAL HISTORY: S29.9XXA - Unspecified injury of thorax, initial encounter --- Additional Notes or Special Instructions: felt acute popping sensation to left anterior chest wall with exertion more sherwin n 2 weeks ago. Symptoms pain with respirations persist. 4 view, chest and left ribs Comparison: None Findings: No fractures or dislocations. The visualized lungs are normal. IMPRESSION: No acute rib fractures. This document has been electronically signed by: Lul Thomas MD on 08/24/2024 11:17:34
[2024-08-24 11:10] LABS: MANUAL DIFF FLAG NO
[2024-08-24 11:18] LABS: Basophils Absolute Auto 0.1 X10*3/uL (0.0-0.2); Basophils Percent Auto 1.3 % (0-2); Eosinophils Absolute Auto 0.9 X10*3/uL (0.0-0.4); Eosinophils Percent Auto 13.6 % (0-4); Hematocrit 41.5 % (42.0-52.0); Hemoglobin 13.7 g/dl (14.0-18.0); Imm Gran Abs Auto 0.02 X10*3/uL (0.00-0.03); Imm Gran Pct Auto 0.3 % (0.0-0.4); Mean Corpuscular Hemoglobin 32.2 pg (27.0-33.0); Mean Corpuscular Volume 97.6 fL (80.0-98.0); Mean Platelet Volume 10.1 fL (9.4-12.4); Monocytes Absolute Auto 0.6 X10*3/uL (0.1-1.2); Monocytes Percent Auto 9.3 % (2-11); Neutrophils Absolute Auto 2.3 x10*3/uL (2.0-8.3); Neutrophils Percent Auto 32.5 % (45-73); Platelet Count 243 X10*3/uL (160-400); Red Blood Count 4.25 X10*6/uL (4.60-5.80); White Blood Count 6.9 X10*3/uL (4.8-10.8)
[2024-08-24 11:49] LABS: Alanine Aminotransferase 35 U/L (0-40); Albumin Level 4.4 g/dL (3.5-5.0); Alkaline Phosphatase 63 U/L (39-117); Anion Gap 9 (12-20); Aspartate Amino Transferase 34 U/L (5-37); Bilirubin Total 0.6 mg/dL (0.0-1.0); Blood Urea Nitrogen 23 mg/dL (9-16); Calcium 9.5 mg/dL (8.4-10.2); Carbon Dioxide 28 mmol/L (22-29); Chloride 109 mmol/L (96-108); Cholesterol 137 mg/dL (<200); Estimated Glomerular Filt Rate > 60; Glucose Fasting 102 mg/dL (60-99); HDL Cholesterol 59 mg/dL (>40); LDL Cholesterol Calculated 70 mg/dL (<100); Potassium 5.2 mmol/L (3.3-5.1); Sodium 141 mmol/L (135-145); Total Protein 7.1 g/dL (6.5-8.0); Triglycerides 42 mg/dL (<150)
[2024-08-24 12:05] LABS: Prostate Specific Antigen Scr 2.89 ng/mL (<0.05-4.0)
[2024-08-24 12:06] LABS: TSH reflex Free T4 1.76 uIU/mL (0.32-4.0)
[2024-08-24 13:44] LABS: Appearance Urine Turbid; Color Urine Yellow; Glucose Urine UA Negative (Negative); Leukocyte Esterase Urine Negative (Negative); Nitrite Urine Negative (Negative); PH 5.5 (5.0-9.0); Specific Gravity - Urine 1.025 (1.005-1.025); Urine Blood Negative (Negative); Urine Ketones Trace mg/dL (Negative); Urine Protein Negative (Neg-Trace)
== END 2024-08-24 09:18 | disposition home or self-care (01) ==
LOC: HO.HMGCX 09:17
PROVIDERS: PCP Nurse Practitioner Family; Visit Provider Physician Assistant Medical
DX: E78.5 Hyperlipidemia, unspecified (principal); Z12.5 Encounter for screening for malignant neoplasm of prostate; S29.9XXA Unspecified injury of thorax, initial encounter
CPT/HCPCS: 36415; 71101; 80053; 80061; 81003; 84153; 84443; 85025

== ENCOUNTER 2024-08-24 09:17 | Outpatient (AMB) | payer OTHER, MEDICARE, MEDICAID, SELFPAY ==
[2024-08-24 09:29] VITALS: BP 90/60; PULSE 69; RESP 16; TEMP 36.4; O2SAT 95; BMI 31.5
--- NOTE | 2024-08-24 09:29 | MHC.OFFWIV ---
Intake Vital Signs 08/24/24 09:29 Height 5 ft 9 in Weight 213 lb BMI 31.5 BP 90/60 Blood Pressure Location Lt brachial Position Sitting Respiration 16 Pulse 69 Pulse Source Pulse Oximeter Temp 97.6 F Temp Source Oral Pulse Oximetry (%) 95 Oxygen Delivery Method Room Air Intake Visit Reasons: EP-Fell a pop on Lt armpit (Pain) Intake Note: Pt is here today c/o Lt side upper rib pain due to pulling up pants and heard a pop: x2.5 weeks ago Patient Tobacco Use Status: Never used Tobacco Allergies Penicillins Allergy (Severe, Verified 11/27/24 16:02) ANAPHYLAXIS clopidogrel (From Plavix) Allergy (Intermediate, Verified 11/27/24 16:02) Itching morphine Adverse Reaction (Intermediate, Verified 11/27/24 16:02) Agitated HPI EP-Fell a pop on Lt armpit (Pain) HPI Details Patient is a 59-year-old male who comes to the walk-in clinic complaining of persistent pain to the left upper lateral chest wall when he leaned over to pull up his pants a few weeks ago. He denies other apparent trauma, repetitive use injury, respiratory symptoms, sternal chest pain, shortness of breath, cough, or other significant associated symptoms. [facility] Medical History Left hand weakness History of shingles Migraine PTSD (post-traumatic stress disorder) KASANDRA (obstructive sleep apnea) Somnolence, daytime Encounter for screening Encounter for screening Thoracic back pain Lower back pain Feeling of incomplete bladder emptying Weak urinary stream Bladder outlet obstruction Hearing loss Acoustic neuroma Cervical radiculopathy Cerebrovascular accident Attention deficit disorder Bipolar 1 disorder Surgical History History of esophagogastroduodenoscopy (EGD) History of back surgery H/O colonoscopy History of surgery History of cochlear implant History of elbow surgery History of sinus surgery History of brain surgery Family History Father No problems noted. Mother History of breast cancer Social History Household Members: None Housing: House Are you a primary nurse healthcare manager to a significant other at home: No Do you presently have visiting nurse or other home services: No Alcohol intake: current Alcohol intake frequency: does not drink Patient Tobacco Use Status: Never used Tobacco e-Cigarette/Vaping Use: Never Used Second Hand Smoke Exposure: No service: No Current occupational status: unemployed Cognitive needs: No Hearing needs: No Vision needs: No Review of Systems Const All systems reviewed & are unremarkable except as noted in HPI and below Physical Exam Vital Signs: Last Vital Signs Temp 97.6 F 08/24/24 09:29 Pulse 69 08/24/24 09:29 Resp 16 08/24/24 09:29 BP 90/60 08/24/24 09:29 Pulse Ox 95 08/24/24 09:29 Oxygen Delivery Method Room Air 08/24/24 09:29 BMI result Body Mass Index 31.5 No apparent distress at rest, however deep respirations cause some discomfort, as well as twisting of the trunk. No palpable deformity to the left axillary area ribs. No paradoxical chest wall movement, and anterior posterior compression does elicit pain. Lung sounds are clear bilaterally with no wheezing rales or rhonchi. There is no cough or work of breathing apparent. His vitals are stable and he is comfortable at rest. Assessment & Plan Assessment & Plan (1) Rib pain on left side: Code(s): R07.81 - Pleurodynia Plan Patient is a 59-year-old male with chest wall discomfort to the with lateral/axillary area for a few weeks now. It is possible that he did fracture and rib and it has healed at this point enough to not be visible on plain film x-ray, which shows no acute osseous trauma. We discussed that rib injuries can take more than a month to heal, and then he should continue to try to avoid twisting lifting or any other aggravating factors. He can take anti-inflammatories, and heat as needed. If symptoms persist for another few weeks, he should follow up with his primary care to do further evaluation. Orders: Orders XR ribs LT min 3V w CXR1V 08/24/24 S29.9XXA - Unspecified injury of thorax, initial encounter Medications: New ibuprofen 600 mg PO Q8H PRN 30 tabs 0RF pain Coding Level of Care Code Est Pt Level 4 (36430) Diagnoses Rib pain on left side R07.81
== END 2024-08-24 11:37 | disposition home or self-care (01) ==
LOC: HO.HMCWIC 09:17
PROVIDERS: PCP Nurse Practitioner Family; Visit Provider Physician Assistant Medical
DX: R07.81 Pleurodynia (principal)

== ENCOUNTER → 2024-08-24 10:32 | Outpatient (BNV) | payer OTHER, MEDICARE, MEDICAID, SELFPAY | PROVIDERS: PCP Nurse Practitioner Family; Visit Provider Radiology Vascular & Interventional Radiology | DX: S29.9XXA Unspecified injury of thorax, initial encounter (principal) | CPT/HCPCS: 71101 ==

== ENCOUNTER 2024-09-10 14:09 | Outpatient (REF) | payer OTHER, MEDICARE, MEDICAID, SELFPAY ==
[2024-09-10 16:25] LABS: Anion Gap 15 (12-20); Carbon Dioxide 25 mmol/L (22-29); Chloride 105 mmol/L (96-108); Potassium 4.9 mmol/L (3.3-5.1); Sodium 140 mmol/L (135-145)
--- OUTSIDE RECORDS SUMMARY | 2024-09-10 17:17 | XMS_ITS | Clinical Summary ---
Author Organization [facility] Address [address] [place] [address] Phone Care Team Providers Care Senior Housekeeper Name Role Phone Gaye Pina MD Primary Care Provider [phone] Social History Tobacco Use Types Packs/Day Years [...] Insurance MEDICAID - [place] MEDICARE Care Teams Senior Housekeeper Relationship Specialty Start Date End Date Gaye Pina MD [address] [place] [id number] PCP - General Hospitalist Medicine 04/17/24
== END 2024-09-10 14:10 | disposition home or self-care (01) ==
LOC: HO.HMGCLDS 14:09
PROVIDERS: PCP Nurse Practitioner Family; Visit Provider Nurse Practitioner Family
DX: E87.5 Hyperkalemia (principal); R39.15 Urgency of urination; N32.0 Bladder-neck obstruction; N52.01 Erectile dysfunction due to arterial insufficiency; N28.1 Cyst of kidney, acquired
CPT/HCPCS: 36415; 80051

== ENCOUNTER 2024-09-10 15:22 | Outpatient (AMB) | payer OTHER, MEDICARE, MEDICAID, SELFPAY ==
--- NOTE | 2024-09-10 15:33 | A.OFFVIS_ITS ---
Intake Visit Reasons: 6m follow up Intake Note: Patient is present for 6M F/U Urology Medication:VITAMIN B12 Antibiotic Allergy:PENICILLINS Blood Thinner:NONE Acid Washer Operator Required: No Allergies Penicillins Allergy (Severe, Verified 09/10/24 15:40) ANAPHYLAXIS clopidogrel (From Plavix) Allergy (Intermediate, Verified 09/10/24 15:40) Itching morphine Adverse Reaction (Intermediate, Verified 09/10/24 15:40) Agitated HPI Comments Details: Michael is a very pleasant male. He is a patient of Dr Christine. He is seen for the following urologic conditions. - lower urinary tract symptoms - erectile dysfunction - renal cyst Significant deterioration in urinary urgency and frequency Waking 4 times at night Occurred after lower back surgery Rise in PSA Trial oxybutynin Bladder ultrasound Repeat PSA Background PFO with right upper extremity weakness following stroke and cervical impingement of left upper extremity nerves Erectile dysfunction Good response to on demand tadalafil Lower Urinary Tract Symptoms: Current visit is for further symptom evaluation of, lower urinary tract symptoms, predominate obstructive symptoms. Current treatment includes more medications Prostate Symptom Score Moderate (9-19), Bother 3. Symptoms include incomplete emptying, nocturia (>2), and are progressing. Prior Prostate Score unknown. PSA - 10/07 2.0, 04/12 1.8, 09/11 2.9 Associated conditions CAD No CVA No diabetes No elevated PSA No erectile dysfunction yes PFSH Medical History Left hand weakness History of shingles Migraine PTSD (post-traumatic stress disorder) KASANDRA (obstructive sleep apnea) Somnolence, daytime Encounter for screening Encounter for screening Thoracic back pain Lower back pain Feeling of incomplete bladder emptying Weak urinary stream Bladder outlet obstruction Hearing loss Acoustic neuroma Cervical radiculopathy Cerebrovascular accident Attention deficit disorder Bipolar 1 disorder Surgical History History of esophagogastroduodenoscopy (EGD) History of back surgery H/O colonoscopy History of surgery History of cochlear implant History of elbow surgery History of sinus surgery History of brain surgery Family History Father No problems noted. Mother History of breast cancer Social History Household Members: None Housing: House Are you a primary healthcare project manager to a significant other at home: No Do you presently have visiting nurse or other home services: No Alcohol intake: current Alcohol intake frequency: does not drink Patient Tobacco Use Status: Never used Tobacco e-Cigarette/Vaping Use: Never Used Second Hand Smoke Exposure: No service: No Current occupational status: unemployed Cognitive needs: No Hearing needs: No Vision needs: No Review of Systems Const Denies chills and Denies fever(s) Card Reports no additional complaints and Denies syncope Resp Denies cough GI Denies abdominal pain and Denies heartburn Reports as per HPI and Denies change in libido Neuro Denies syncope Psych Denies change in libido Endo Denies change in libido Physical Exam Const General: cooperative, healthy appearing, comfortable and no acute distress Orientation/consciousness: patient oriented x3 HEENT Face and sinus: Yes normal facial exam Mouth: moist mucous membranes Neck Neck: Yes normal visual inspection, Yes full ROM and Yes trachea midline Chest Chest palpation & inspection: normal inspection of the chest Resp Effort & Inspection: normal respiratory effort, able to speak in complete sentences and no respiratory distress GI Inspection: Yes normal to inspection Back/Spine/Pelvis Cervical Spine: normal cervical lordosis Thoracic/Lumbar Spine: thoracic and lumbar spine normal to inspection Skin General skin exam: no rashes or lesions noted Neuro General: patient oriented x3, gait normal, tone normal and moves all extremities Extrem General: Yes normal to inspection and Yes capillary refill normal Assessment & Plan Assessment & Plan (1) Urinary urgency: Code(s): R39.15 - Urgency of urination Category: Medical (2) Bladder outlet obstruction: Code(s): N32.0 - Bladder-neck obstruction Category: Medical (3) Erectile dysfunction due to arterial insufficiency: Code(s): N52.01 - Erectile dysfunction due to arterial insufficiency Category: Medical Plan Two month follow-up tele Orders: Orders PSA,Total (Free>4and<10) 2 Months R97.20 - Elevated prostate specific antigen [PSA] US bladder Today R39.12 - Poor urinary stream, R39.15 - Urgency of urination Medications: New oxybutynin chloride ER 5 mg PO DAILY 30 tabs 1RF 30 days R39.15 - Urgency of urination Patient Instructions: This note is constructed using voice recognition software. While every effort has been made to ensure accuracy rig supervisor errors may have been included. Imaging studies, laboratory and physical exam results were discussed and reviewed in detail. No major barriers to patient understanding were identified. An opportunity to ask questions regarding the treatment plan was provided. All questions were answered. The patient expressed understanding and agreement with the above treatment plan. The patient is aware they should contact our office by phone for worsening of their current condition or the appearance of new urologic symptoms. Compliance is encouraged with any medications and followup testing that is ordered. It is a privilege to participate in the urologic care of your patient. If you have any questions or concerns regarding treatment for the above conditions, or other urologic issues, please do not hesitate to contact me. The office telephone contact is [phone]. Sincerely, Dr Fabian Walton MD, [facility] - Urology Compassionate Specialist Care for the Genitourinary System Coding Level of Care Code Est Pt Level 4 (00228) Diagnoses Urinary urgency R39.15 Bladder outlet obstruction N32.0 Erectile dysfunction due to arterial insufficiency N52.01
== END 2024-09-10 16:20 | disposition home or self-care (01) ==
LOC: HO.HUSH 15:22
PROVIDERS: PCP Nurse Practitioner Family; Visit Provider Urology
DX: R39.15 Urgency of urination (principal); N32.0 Bladder-neck obstruction; N52.01 Erectile dysfunction due to arterial insufficiency
CPT/HCPCS: 99214

== ENCOUNTER 2024-11-20 10:49 | Outpatient (REF) | payer OTHER, MEDICARE, MEDICAID, SELFPAY ==
--- OUTSIDE RECORDS SUMMARY | 2024-11-20 12:49 | XMS_ITS | Encounter Summary ---
Author Organization [facility] Address [address] [place] [phone] Phone Care Team Providers Care Business Systems Analyst Name Role Phone Duong Naylor MD Unavailable Unknown, Unknown Primary Care Provider Marifer Lawson NP Unavailable [phone] Reason for Referral * Occupational Therapy (Routine) - Closed Specialty Diagnoses / Procedures Referred By Jo murdock Referred To Contact Occupational Therapy Diagnoses Encounter for rehabilitation Duong Naylor MD [address] [facility] [address] [place] [phone] Phone: tel: fax: [address] [address] Phone: tel: Referral ID Status Reason Start Date Expiration Date Visits Re quested Visits Authorized [id number] Closed 06/15/2023 06/14/2024 1 1 Encounter Details Date Type Department Care Team (Latest Contact Info) Description 06/15/2023 Transcribe Orders [facility] [address] [place] [id number] Duong Naylor MD [address] [facility] [address] [place] [phone] Encounter for rehabilitation (Primary Dx) Social History Tobacco Use Types Packs/Day Years Used Date Smoking Tobacco: Never Education Answer Date Recorded Are you interested in more education? Not on emeli e 05/11/2023 Are you concerned about learning? Not on file 05/11/2023 No 05/11/2023 No 05/11/2023 Digital Access Answer Date Recorded No 05/11/2023 No 05/11/2023 Reliable internet access at home? Not on file 05/11/2023 Device with a working camera? Not on file Sex and Gender Information Value Date Recorded Sex Assigned at Not on file Legal Sex Male 8:02 PM EST Gender Identity Not on file Sexual Orientation Not on file documented as of this encounter Plan of Treatment Scheduled Referrals Name Type Priority Associated Diagnoses Orde r Schedule Ambulatory referral to [facility] Occupational Therapy Outpatient Referral Routine Encounter for rehabilitation Ordered: 06/15/2023 documented as of this encounter Visit Diagnoses Diagnosis Encounter for rehabilitation- Primary documented in this encounter Care Teams Business Systems Analyst Relationship Specialty Start Date End Date Unknown, Unknown, MD PCP - General 05/11/23 Duong Naylor MD [address] [place] [phone] Neurosurgery 05/09/23 Marifer Chino NP [address] [place] [phone] Nurse Practitioner 06/13/23 documented as of this encounter Additional Source Comments The information contained in this document represents components of the legal health record. It is not the complete legal health record.[facility]
--- OUTSIDE RECORDS SUMMARY | 2024-11-20 12:49 | XMS_ITS | Encounter Summary ---
Author Organization [facility] Address [address] [place] [address] Care Team Providers Care Boom Cat Operator Name Role Phone Gaye Pina MD Primary Care Provider Encounter Details Date Type Department Care Team (Late st Contact Info) Description 04/13/2024 Lab Requisition [facility] - Main Lab [address] [place] [address] Gaye Pina MD [address] [place] [phone] Encounter for other general examination Social History [...] AM EST) WBC 8.4 4.8 - 10.8 K/[facility] LAB HEMETOLOGY METHOD 04/13/2024 11:27 AM [facility] RBC 3.70(L) 4.50 - 5.50 M/mcL LAB HEMETOLOGY METHOD 04/13/2024 11:27 AM [facility] Hemoglobin 12.0(L) 13.5 - 17.5 g/dL LAB HEMETOLOGY METHOD 04/13/2024 11:27 AM [facility] Hematocrit 36.3(L) 42.0 - 54.0 % LAB HEMETOLOGY METHOD 04/13/2024 11:27 AM [facility] MCV 97.3 79.0 - 98.0 FL LAB HEMETOLOGY METHOD 04/13/2024 11:27 AM [facility] MCH 32.2(H) 27.0 - 32.0 pcg LAB HEMETOLOGY METHOD 04/13/2024 11:27 AM [facility] MCHC 33.1 32.0 - 37.0 g/dL LAB HEMETOLOGY METHOD 04/13/2024 11:27 AM [facility] RDW 13.6 11.0 - 15.0 % LAB HEMETOLOGY METHOD 04/13/2024 11:27 AM [facility] Platelets 227 130 - 400 K/mcL LAB HEMETOLOGY METHOD 04/13/2024 11:27 AM [facility] MPV 10.5 7.0 - 11.0 FL LAB HEMETOLOGY METHOD 04/13/2024 11:27 AM [facility] NRBC 0.0 <1.0 % LAB HEMETOLOGY METHOD 04/13/2024 11:27 AM [facility] NRBC Absolute 0.00 <0.10 K/mcL LAB HEMETOLOGY METHOD 04/13/2024 11:27 AM [facility] Neutrophils Relative 50.3 % LAB HEMETOLOGY METHOD 04/13/2024 11:27 AM [facility] Lymphocytes Relative 30.4 % LAB HEMETOLOGY METHOD 04/13/2024 11:27 AM [facility] Monocytes Relative 10.7 % LAB HEMETOLOGY METHOD 04/13/2024 11:27 AM [facility] Eosinophils Relative 7.6 % LAB HEMETOLOGY METHOD 04/13/2024 11:27 AM [facility] Basophils Relative 0.6 % LAB HEMETOLOGY METHOD 04/13/2024 11:27 AM [facility] Immature Granulocytes Relative 0.4 % LAB HEMETOLOGY METHOD 04/13/2024 11:27 AM [facility] Neutrophils Absolute 4.23 1.50 - 7.00 K/mcL LAB HEMETOLOGY METHOD 04/13/2024 11:27 AM [facility] Lymphocytes Absolute 2.55 1.00 - 5.00 K/mcL LAB HEMETOLOGY METHOD 04/13/2024 11:27 AM [facility] Monocytes Absolute 0.90 0.20 - 1.00 K/mcL LAB HEMETOLOGY METHOD 04/13/2024 11:27 AM [facility] Eosinophils Absolute 0.64(H) 0.00 - 0.50 K/mcL LAB HEMETOLOGY METHOD 04/13/2024 11:27 AM [facility] Basophils Absolute 0.05 0.00 - 0.20 K/mcL LAB HEMETOLOGY METHOD 04/13/2024 11:27 AM [facility] Immature Granulocytes Absolute 0.03 0.00 - 0.03 K/mcL LAB HEMETOLOGY METHOD 04/13/2024 11:27 AM [facility] Blood Venous blood specimen / Unknown Venipuncture / Unknown 04/13/2024 5:53 AM EST 04/13/2024 10:00 AM EST us Gaye Pina MD LAB BLOOD ORDERABLES Final Resu lt Performing Organization Address [facility]/ZIP Co de Phone Number [facility] [address] [place] [address], * Magnesium (04/13/2024 5:53 AM EST) Magnesium 2.2 1.9 - 2.6 mg/dL LAB CHEMISTRY METHOD 04/13/2024 12:00 PM [facility] Blood Venous blood specimen / Unknown Venipuncture / Unknown 04/13/2024 5:53 AM EST 04/13/2024 10:00 AM EST Gaye Pina MD LAB BLOOD ORDERABLES Final Resu lt Performing Organization Address [facility]/ZIP Co de Phone Number [facility] [address] [place] [address], [place] [phone] * (ABNORMAL) Comprehensive metabolic panel (04/13/2024 5:53 AM EST) Pathologist [facility] Sodium 134 133 - 145 mmol/L LAB CHEMISTRY METHOD 04/13/2024 12:00 PM [facility] Potassium 4.0 3.5 - 5.5 mmol/L LAB CHEMISTRY METHOD 04/13/2024 12:00 PM [facility] Chloride 102 96 - 110 mmol/L LAB CHEMISTRY METHOD 04/13/2024 12:00 PM [facility] CO2 25 21 - 32 mmol/L LAB CHEMISTRY METHOD 04/13/2024 12:00 PM [facility] Anion Gap 7 3 - 11 LAB CHEMISTRY METHOD 04/13/2024 12:00 PM [facility] Glucose 92 70 - 100 mg/dL LAB CHEMISTRY METHOD 04/13/2024 12:00 PM [facility] BUN 16 5 - 25 mg/dL LAB CHEMISTRY METHOD 04/13/2024 12:00 PM [facility] Creatinine 1.06 0.70 - 1.30 mg/dL LAB CHEMISTRY METHOD 04/13/2024 12:00 PM [facility] eGFR 80 >=60 mL/min/1. 73m2 LAB CHEMISTRY METHOD 04/13/2024 12:00 PM [facility] Comment:Calculation based on the Chronic Kidney Disease Epidemiology Collaboration (CKD-EPI) equation refit without adjustment for race. BUN/Creatinine Ratio 15.1 LAB CHEMISTRY METHOD 04/13/2024 12:00 PM [facility] Calcium 8.5 8.5 - 10.5 mg/dL LAB CHEMISTRY METHOD 04/13/2024 12:00 PM [facility] AST (SGOT) 50(H) 10 - 42 unit/L LAB CHEMISTRY METHOD 04/13/2024 12:00 PM [facility] ALT (SGPT) 53 10 - 60 unit/L LAB CHEMISTRY METHOD 04/13/2024 12:00 PM [facility] Alkaline Phosphatase 59 42 - 121 unit/L LAB CHEMISTRY METHOD 04/13/2024 12:00 PM [facility] Total Protein 5.9(L) 6.0 - 8.0 g/dL LAB CHEMISTRY METHOD 04/13/2024 12:00 PM [facility] Albumin 3.0(L) 3.2 - 5.0 g/dL LAB CHEMISTRY METHOD 04/13/2024 12:00 PM [facility] Total Bilirubin 0.9 0.0 - 1.4 mg/dL LAB CHEMISTRY METHOD 04/13/2024 12:00 PM [facility] Blood Venous blood specimen / Unknown Venipuncture / Unknown 04/13/2024 5:53 AM EST 04/13/2024 10:00 AM EST us Gaye Pina MD LAB BLOOD ORDERABLES Final Resu lt [facility] [address] [place] [address], documented in this encounter Visit Diagnoses Diagnosis Encounter for other general examination documented in this encounter Care Teams Boom Cat Operator Relationship Specialty Start Date End Date Gaye Pina MD [address] [place] [phone] PCP - General Hospitalist Medicine 04/17/24 documented as of this encounter
--- OUTSIDE RECORDS SUMMARY | 2024-11-20 12:49 | XMS_ITS | Clinical Summary ---
Author Organization [facility] Address [address] [place] [address] Phone Care Team Providers Care Data Architect Manager Name Role Phone Duong Naylor MD Unavailable [phone] Unknown, Unknown Primary Care Provider Marifer Lawson NP Unavailable [phone] Medications No known medications Active Problems Problem Noted Date Diagnosed Date Cervical spondylosis 06/21/2012 Overview (05/10/2014): Cervical spondylosis Social History Tobacco Use Types Packs/Day Years [...] on file Sexual Orientation Not on file Last Filed Vital Signs Vital Sign Reading Time Taken Comments Blood Pressure 140/92 06/21/2012 2:39 PM EDT Pulse 100 06/21/2012 2:39 PM EDT Temperature - - Respiratory Rate - - Oxygen Saturation - - Inhaled Oxygen Concentration - - Weight 84.4 kg (186 lb) 06/21/2012 2:39 PM EDT Height 175.3 cm (5' 9 ) 06/21/2012 2:39 PM EDT Body Mass Index 27.47 06/21/2012 2:39 PM EDT Plan of Treatment Health Maintenance Due Date Last Done Comments Adult Td,Tdap Booster 1963 LIPID PANEL 1963 DEPRESSION SCREENING 1975 HEPATITIS C SCREENING 1981 HIV ONE-TIME SCREENING (18-6 5 YEARS) 1981 SMOKING STATUS SCREENING (On ce After 26 Yrs) 1989 COLOGUARD 02/29/2008 COLONOSCOPY 02/29/2008 COLORECTAL CANCER SCREENING 02/29/2008 FIT TEST 02/29/2008 FOBT 02/29/2008 SIGMOIDOSCOPY 02/29/2008 VIRTUAL COLONOSCOPY 02/29/2008 PNEUMOCOCCAL VACCINES (50+ y ears) (1 of 1 - PCV) 2013 ZOSTER VACCINES (1 of 2) 2013 COVID-19 VACCINE (1 - 2023-2 5 season) 2023 INFLUENZA VACCINE (#1) 2024 RSV VACCINE (1 - 1-dose 75+ series) 2038 HEPATITIS A VACCINES Aged Out No long er eligible based on patient's age to complete this topic HIB VACCINES Aged Out No longer eligi ble based on patient's age to complete this topic MENINGOCOCCAL VACCINES (ACWY) Aged Out No longer eligible based on patient's age to complete this topic MENINGOCOCCAL VACCINES (B) Aged Out N o longer eligible based on patient's age to complete this topic Medical Devices Not on file Insurance [employer] [facility] CHOICE MEDICARE PART A & B Member Subscriber Plan / Payer (Ef fective 2018-Present) Name:Michael Bland Member ID:[id number] Relation to Subscriber:Self Name:Michael Bland Subscriber ID:[id number] Payer ID:[id number] Group ID:Not on file Type:Medicare Address: [employer] [address] [facility] MEDICARE PART A & B Member Subscriber Plan / Payer (Ef fective 2018-Present) Name:Michael Bland Member ID:[id number] Relation to Subscriber:Self Name:Michael Bland Subscriber ID:[id number] Payer ID:[id number] Group ID:Not on file Type:Medicare Address: [employer] [address] [facility] CHOICE MEDICARE PART A & [place] [address] [address] CHOICE MEDICARE PART A & B [facility] [employer] CHOICE MEDICARE PART A & B [facility] CHOICE MEDICARE PART A & B Care Teams Data Architect Manager Relationship Specialty Start Date End Date Unknown, Unknown, PCP - General 05/11/23 Duong Naylor MD [address] [place] [address] [phone] Neurosurgery 05/09/23 Marifer Chino NP [address] [place] [phone] Nurse Practitioner 06/13/23 Additional Source Comments The information contained in this document represents components of the legal health record. It is not the complete legal health record.[facility]
--- OUTSIDE RECORDS SUMMARY | 2024-11-20 12:49 | XMS_ITS | Clinical Summary ---
Author Organization 299 [facility] Address [address] [place] [address] Phone Care Team Providers Care Promos Executive Producer Name Role Phone Gaye Pina MD Primary Care Provider [phone] Social History Tobacco Use Types Packs/Day Years [...] Panel) 02/20/2022 Colorectal Cancer Screening: Colonoscopy 02/20/2022 HIV Screening 02/20/2022 Hepatitis C Screening 02/20/2022 Medicare Annual Wellness Visit 02/20/2022 Social Influencers of Health Screening 02/20/2022 Depression Screening 03/20/2024 COVID-19 Vaccine ( - 2023-2 5 season) 2024 Influenza Vaccine (#1) 2024 04/18/2017 RSV Immunization Adult Patie nts (1 - [...] Insurance MEDICA[place] - [place] MEDICARE Care Teams Promos Executive Producer Relationship Specialty Start Date End Date Gaye Pina MD [address] [place] [address] PCP - General Hospitalist Medicine 04/17/24
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
--- OUTSIDE RECORDS SUMMARY | 2024-11-20 12:49 | XMS_ITS | Encounter Summary ---
Author Organization [facility] Address [address] [place] [address] Care Team Providers Care Parts Counter Representative Name Role Phone Gaye Pina MD Primary Care Provider Encounter Details Date Type Department Care Team (Late st Contact Info) Description 04/17/2024 Lab Requisition [facility] - Main Lab [address] [place] [address] Gaye Pina MD [address] [place] [address] Encounter for other general examination Social History [...] AM EST) WBC 8.4 4.8 - 10.8 K/[facility] LAB HEMETOLOGY METHOD 04/17/2024 11:30 AM [facility] LAB RBC 3.90(L) 4.50 - 5.50 M/mcL LAB HEMETOLOGY METHOD 04/17/2024 11:30 AM [facility] LAB Hemoglobin 12.3(L) 13.5 - 17.5 g/dL LAB HEMETOLOGY METHOD 04/17/2024 11:30 AM [facility] LAB Hematocrit 37.8(L) 42.0 - 54.0 % LAB HEMETOLOGY METHOD 04/17/2024 11:30 AM [facility] LAB MCV 97.2 79.0 - 98.0 FL LAB HEMETOLOGY METHOD 04/17/2024 11:30 AM [facility] LAB MCH 31.6 27.0 - 32.0 pcg LAB HEMETOLOGY METHOD 04/17/2024 11:30 AM [facility] LAB MCHC 32.5 32.0 - 37.0 g/dL LAB HEMETOLOGY METHOD 04/17/2024 11:30 AM [facility] LAB RDW 14.0 11.0 - 15.0 % LAB HEMETOLOGY METHOD 04/17/2024 11:30 AM [facility] LAB Platelets 336 130 - 400 K/mcL LAB HEMETOLOGY METHOD 04/17/2024 11:30 AM [facility] LAB MPV 9.9 7.0 - 11.0 FL LAB HEMETOLOGY METHOD 04/17/2024 11:30 AM [facility] LAB NRBC 0.0 <1.0 % LAB HEMETOLOGY METHOD 04/17/2024 11:30 AM [facility] LAB NRBC Absolute 0.00 <0.10 K/mcL LAB HEMETOLOGY METHOD 04/17/2024 11:30 AM [facility] Neutrophils Relative 36.9 % LAB HEMETOLOGY METHOD 04/17/2024 11:30 AM [facility] Lymphocytes Relative 38.9 % LAB HEMETOLOGY METHOD 04/17/2024 11:30 AM [facility] Monocytes Relative 9.9 % LAB HEMETOLOGY METHOD 04/17/2024 11:30 AM [facility] Eosinophils Relative 12.9 % LAB HEMETOLOGY METHOD 04/17/2024 11:30 AM [facility] Basophils Relative 1.0 % LAB HEMETOLOGY METHOD 04/17/2024 11:30 AM [facility] Immature Granulocytes Relative 0.4 % LAB HEMETOLOGY METHOD 04/17/2024 11:30 AM [facility] LAB Neutrophils Absolute 3.09 1.50 - 7.00 K/mcL LAB HEMETOLOGY METHOD 04/17/2024 11:30 AM [facility] Lymphocytes Absolute 3.25 1.00 - 5.00 K/mcL LAB HEMETOLOGY METHOD 04/17/2024 11:30 AM [facility] Monocytes Absolute 0.83 0.20 - 1.00 K/mcL LAB HEMETOLOGY METHOD 04/17/2024 11:30 AM [facility] LAB Eosinophils Absolute 1.08(H) 0.00 - 0.50 K/mcL LAB HEMETOLOGY METHOD 04/17/2024 11:30 AM [facility] Basophils Absolute 0.08 0.00 - 0.20 K/mcL LAB HEMETOLOGY METHOD 04/17/2024 11:30 AM [facility] Immature Granulocytes Absolute 0.03 0.00 - 0.03 K/mcL LAB HEMETOLOGY METHOD 04/17/2024 11:30 AM [facility] Blood Venous blood specimen / Unknown Venipuncture / Unknown 04/17/2024 5:59 AM EST 04/17/2024 10:36 AM EST us Gaye Pina MD LAB BLOOD ORDERABLES Final Resu lt Performing Organization Address City/[facility]/ZIP Co de Phone Number [facility] [address] [place] [address], [place] [phone] * Magnesium (04/17/2024 5:59 AM EST) Pathologist [facility] Magnesium 2.4 1.9 - 2.6 mg/dL LAB CHEMISTRY METHOD 04/17/2024 11:26 AM EST [facility] Blood Venous blood specimen / Unknown Venipuncture / Unknown 04/17/2024 5:59 AM EST 04/17/2024 10:36 AM EST Gaye Pina MD LAB BLOOD ORDERABLES Final Resu lt Performing Organization Address [facility]/ZIP Co de Phone Number [facility] [address] [place] [address], [place] [phone] * (ABNORMAL) Comprehensive metabolic panel (04/17/2024 5:59 AM EST) [facility] Sodium 135 133 - 145 mmol/L LAB CHEMISTRY METHOD 04/17/2024 12:17 PM [facility] Potassium 4.3 3.5 - 5.5 mmol/L LAB CHEMISTRY METHOD 04/17/2024 12:17 PM [facility] Chloride 102 96 - 110 mmol/L LAB CHEMISTRY METHOD 04/17/2024 12:17 PM [facility] CO2 27 21 - 32 mmol/L LAB CHEMISTRY METHOD 04/17/2024 12:17 PM [facility] Anion Gap 6 3 - 11 LAB CHEMISTRY METHOD 04/17/2024 12:17 PM [facility] Glucose 97 70 - 100 mg/dL LAB CHEMISTRY METHOD 04/17/2024 12:17 PM [facility] BUN 18 5 - 25 mg/dL LAB CHEMISTRY METHOD 04/17/2024 12:17 PM [facility] Creatinine 0.96 0.70 - 1.30 mg/dL LAB CHEMISTRY METHOD 04/17/2024 12:17 PM [facility] eGFR 90 >=60 mL/min/1. 73m2 LAB CHEMISTRY METHOD 04/17/2024 12:17 PM [facility] Comment:Calculation based on the Chronic Kidney Disease Epidemiology Collaboration (CKD-EPI) equation refit without adjustment for race. BUN/Creatinine Ratio 18.8 LAB CHEMISTRY METHOD 04/17/2024 12:17 PM [facility] Calcium 8.7 8.5 - 10.5 mg/dL LAB CHEMISTRY METHOD 04/17/2024 12:17 PM [facility] AST (SGOT) 54(H) 10 - 42 unit/L LAB CHEMISTRY METHOD 04/17/2024 12:17 PM [facility] ALT (SGPT) 96(H) 10 - 60 unit/L LAB CHEMISTRY METHOD 04/17/2024 12:17 PM [facility] Alkaline Phosphatase 66 42 - 121 unit/L LAB CHEMISTRY METHOD 04/17/2024 12:17 PM [facility] Total Protein 6.2 6.0 - 8.0 g/dL LAB CHEMISTRY METHOD 04/17/2024 12:17 PM [facility] Albumin 3.0(L) 3.2 - 5.0 g/dL LAB CHEMISTRY METHOD 04/17/2024 12:17 PM [facility] Total Bilirubin 0.4 0.0 - 1.4 mg/dL LAB CHEMISTRY METHOD 04/17/2024 12:17 PM [facility] Blood Venous blood specimen / Unknown Venipuncture / Unknown 04/17/2024 5:59 AM EST 04/17/2024 10:36 AM EST us Gaye Pina MD LAB BLOOD ORDERABLES Final Resu lt [facility] [address] [place], [place] [address] [phone] documented in this encounter Visit Diagnoses Diagnosis Encounter for other general examination documented in this encounter Care Teams Parts Counter Representative Relationship Specialty Start Date End Date Gaye Pina MD [address] [place] [phone] PCP - General Hospitalist Medicine 04/17/24 documented as of this encounter
[2024-11-20 16:37] LABS: Anion Gap 14 (12-20); Carbon Dioxide 27 mmol/L (22-29); Chloride 109 mmol/L (96-108); Potassium 5.7 mmol/L (3.3-5.1); Sodium 144 mmol/L (135-145)
[2024-11-20 16:58] LABS: PSA,Total (Free>4and<10) 2.95 ng/mL (0.00-4.00)
== END 2024-11-20 10:50 | disposition home or self-care (01) ==
LOC: HO.HMGCLDS 10:49
PROVIDERS: PCP Nurse Practitioner Family; Referring Provider Urology; Visit Provider Nurse Practitioner Family
DX: H61.23 Impacted cerumen, bilateral (principal); R21 Rash and other nonspecific skin eruption; E87.6 Hypokalemia; R97.20 Elevated prostate specific antigen [PSA]; Z12.5 Encounter for screening for malignant neoplasm of prostate
CPT/HCPCS: 36415; 69209; 80051; 84153

== ENCOUNTER 2024-11-20 10:57 | Outpatient (AMB) | payer OTHER, MEDICARE, MEDICAID, SELFPAY ==
[2024-11-20 11:15] VITALS: BP 100/70; PULSE 83; TEMP 36.6; O2SAT 96; BMI 31.2
--- NOTE | 2024-11-20 11:15 | AM.OFFWIN_ITS ---
Intake Vital Signs 11/20/24 11:15 Height 5 ft 9 in Weight 211 lb BMI 31.2 BP 100/70 Blood Pressure Location Lt brachial Position Sitting Pulse 83 Pulse Source Pulse Oximeter Temp 97.9 F Temp Source Oral Pulse Oximetry (%) 96 Oxygen Delivery Method Room Air Intake Visit Reasons: EP-b/l ears block & redness chest mole Intake Note: pt presents with bilateral ear blockage with difficulty hearing and irritated mole lateral to left nipple Patient Tobacco Use Status: Never used Tobacco Allergies Penicillins Allergy (Severe, Verified 11/20/24 11:18) ANAPHYLAXIS clopidogrel (From Plavix) Allergy (Intermediate, Verified 11/20/24 11:18) Itching morphine Adverse Reaction (Intermediate, Verified 11/20/24 11:18) Agitated Do you need a note to return to daycare/school/sports/work: No HPI HPI Comments History of Present Illness Details History - The patient is a 59-year-old male pres enting with ear blockage and a rash in the groin area. - Impacted cerumen: The patient reports a sensation of blocked ears, particularly on the right side, for approximately three weeks. - The patient attempted to use ear drops without relief. - He has a pain and pressure in both of the ears. - He has no YATES or dizziness. - He has decreased hearing and he thinks that he may have an ear infection. - He has no cold symptoms. rash - The patient reports an intermittent re d rash in the groin area, which is dry and flaky. - The rash is localized to the sides of the legs and is not associated with the genitalia. - The patient maintains hygiene by showe ring, but the rash persists with an odor. - He states that it is dry and has no di scharge noted. - He states that it is not always there. - He denies new foods, lotions, soap, de tergents, clothes, pets, or travel. Physical Exam General: Cooperative, healthy appearing, comfortable, no acute distress and well developed Head: Normal to inspection, but patient reports head pressure and pain. Ears: External ears normal bilaterally. No tragus or mastoid tenderness noted. Both ears are very blocked with dark cerumen. TM's not visualized. Face and sinus: Normal facial exam. No TTP of the sinuses. Neck: Normal visual inspection. Full ROM. No lymphadenopathy noted. Respiratory: Normal respiratory effort and able to speak in complete sentences. Clear to auscultation bilaterally. No w/r/r noted. Cardiac: RRR, no m/r/g noted. Normal S1 and S2 noted. Skin: Red, dry, flaky rash noted on the sides of the legs in the groin area. No rashes or lesions noted elsewhere. Neuro: Patient oriented x3 Patient was informed and verbally consented to the use of an ambient scribe for clinic note documentation during this visit. [facility] Medical History Left hand weakness History of shingles Migraine PTSD (post-traumatic stress disorder) KASANDRA (obstructive sleep apnea) Somnolence, daytime Encounter for screening Encounter for screening Thoracic back pain Lower back pain Feeling of incomplete bladder emptying Weak urinary stream Bladder outlet obstruction Hearing loss Acoustic neuroma Cervical radiculopathy Cerebrovascular accident Attention deficit disorder Bipolar 1 disorder Surgical History History of esophagogastroduodenoscopy (EGD) History of back surgery H/O colonoscopy History of surgery History of cochlear implant History of elbow surgery History of sinus surgery History of brain surgery Family History Father No problems noted. Mother History of breast cancer Social History Household Members: None Housing: House Are you a primary health care facility administrator to a significant other at home: No Do you presently have visiting nurse or other home services: No Alcohol intake: current Alcohol intake frequency: does not drink Patient Tobacco Use Status: Never used Tobacco e-Cigarette/Vaping Use: Never Used Second Hand Smoke Exposure: No service: No Current occupational status: unemployed Cognitive needs: No Hearing needs: No Vision needs: No Review of Systems Const All systems reviewed & are unremarkable except as noted in HPI and below Physical Exam Vital Signs: Last Vital Signs Temp 97.9 F 11/20/24 11:15 Pulse 83 11/20/24 11:15 BP 100/70 11/20/24 11:15 Pulse Ox 96 11/20/24 11:15 Oxygen Delivery Method Room Air 11/20/24 11:15 BMI result Body Mass Index 31.2 Office Procedures Cerumen Removal From which ear canal was the cerumen removed: bilateral Removal: irrigation Notes: patient tolerated procedure well, no complications and ear canal clear [id number] Irrigation/Lavage Assessment & Plan Assessment & Plan (1) Rash: Code(s): R21 - Rash and other nonspecific skin eruption (2) Impacted cerumen of both ears: Code(s): H61.23 - Impacted cerumen, bilateral Plan 1. Impacted Cerumen - Plan to irrigate the ears to remove the cerumen blockage. - debrox drops sent to the pharmacy - avoid q-tips 2. Tinea Cruris - Prescribe antifungal cream to be applied two to three times daily for three weeks. - may need referral to derm Orders: Orders AMB Cerumen Removal Today H61.23 - Impacted cerumen, bilateral Medications: New carbamide peroxide 6.5% (Debrox) 5 drps otic (ears) DAILY 15 mL 0RF 4 days clotrimazole 1% 1 appl topical bid 45 grams 1RF 4 weeks Coding Level of Care Code Est Pt Level 4 (84862) Diagnoses Rash R21 Impacted cerumen of both ears H61.23 CPT Codes Office Procedure - CPT: 25218-Kqe Irrigation/Lavage ([id number])
== END 2024-11-20 12:42 | disposition home or self-care (01) ==
PROVIDERS: PCP Nurse Practitioner Family; Visit Provider Physician Assistant Medical
DX: R21 Rash and other nonspecific skin eruption (principal); H61.23 Impacted cerumen, bilateral

== ENCOUNTER 2024-11-23 13:21 | Outpatient (REF) | payer OTHER, MEDICARE, MEDICAID, SELFPAY ==
--- OUTSIDE RECORDS SUMMARY | 2024-11-23 13:24 | XMS_ITS | Encounter Summary ---
Author Organization [facility] Address [address] [facility] [address] [place] [address] Phone Care Team Providers Care Audience Development Manager Name Role Phone Duong Naylor MD Unavailable Unknown, Unknown Primary Care Provider Marifer Lawson NP Unavailable [phone] Reason for Referral * Occupational Therapy (Routine) - Closed Specialty Diagnoses / Procedures Referred By Jo murdock Referred To Contact Occupational Therapy Diagnoses Encounter for rehabilitation Duong Naylor MD [address] [facility] [address] [place] [phone] Phone: tel: fax: [address] [address] Phone: tel: Referral ID Status Reason Start Date Expiration Date Visits Re quested Visits Authorized [id number] Closed 06/15/2023 06/14/2024 1 1 Encounter Details Date Type Department Care Team (Latest Contact Info) Description 06/15/2023 Transcribe Orders [facility] [address] [place] [address] Duong Naylor MD [address] [facility] [address] [place] [address] [phone] Encounter for rehabilitation (Primary Dx) Social History [...] Diagnoses Orde r Schedule Ambulatory referral to [facility] Occupational Therapy Outpatient Referral Routine Encounter for rehabilitation Ordered: 06/15/2023 documented as of this encounter Visit Diagnoses Diagnosis Encounter for rehabilitation- Primary documented in this encounter Care Teams Audience Development Manager Relationship Specialty Start Date End Date Unknown, Unknown, MD PCP - General 05/11/23 Duong Nyalor MD [address] [place] [address] [phone] Neurosurgery 05/09/23 Marifer Chino NP [address] [place] [phone] Nurse Practitioner 06/13/23 documented as of this encounter Additional Source Comments The information contained in this document represents components of the legal health record. It is not the complete legal health record.[facility]
--- OUTSIDE RECORDS SUMMARY | 2024-11-23 13:24 | XMS_ITS | Clinical Summary ---
Author Organization 299 [facility] Address [address] [place] [address] Phone Care Team Providers Care Forest Pathologist Name Role Phone Gaye Pina MD Primary Care Provider [phone] Social History Tobacco Use Types Packs/Day Years [...] Insurance [place] - [place] MEDICARE Care Teams Forest Pathologist Relationship Specialty Start Date End Date Gaye Pina MD [address] [place] [phone] PCP - General Hospitalist Medicine 04/17/24
--- OUTSIDE RECORDS SUMMARY | 2024-11-23 13:25 | XMS_ITS | Clinical Summary ---
Author Organization [facility] Address [address] [place] [address] Phone Care Team Providers Care Real Estate Acquisition Analyst Name Role Phone Duong Naylor MD Unavailable Unknown, Unknown Primary Care Provider Marifer Lawson NP Unavailable [phone] Medications No known medications Active Problems Problem [...] 2013 ZOSTER VACCINES (1 of 2) 2013 INFLUENZA VACCINE (#1) 2024 COVID-19 VACCINE ( - 2023-2 5 season) 2024 RSV VACCINE (1 - 1-dose 75+ [...] topic Medical Devices Not on file Insurance [employer] [facility] CHOICE MEDICARE PART A & B Member Subscriber Plan / Payer (Ef fective 2018-Present) Name:Michael Bland Member ID:[id number] Relation to Subscriber:Self Name:Michael Bland Subscriber ID:[id number] Payer ID:[id number] Group ID:Not on file Type:Medicare Address: [employer] [address] [facility] MEDICARE PART A & B Member Subscriber Plan / Payer (Ef fective 2018-Present) Name:Michael Bland Member ID:[id number] Relation to Subscriber:Self Name:Michael Bland Subscriber ID:[id number] Payer ID:[id number] Group ID:Not on file Type:Medicare Address: [employer] [address] [facility] CHOICE MEDICARE PART A & [place] [address] [place] [address] CHOICE MEDICARE PART A & B [facility] [employer] CHOICE MEDICARE PART A & B [facility] CHOICE MEDICARE PART A & B Care Teams Real Estate Acquisition Analyst Relationship Specialty Start Date End Date Unknown, Unknown, PCP - General 05/11/23 Duong Naylor MD [address] [place] [address] [phone] Neurosurgery 05/09/23 Marifer Chino NP [address] [place] [phone] Nurse Practitioner 06/13/23 Additional Source Comments The information contained in this document represents components of the legal health record. It is not the complete legal health record.[facility]
--- OUTSIDE RECORDS SUMMARY | 2024-11-23 13:25 | XMS_ITS | Encounter Summary ---
Author Organization [facility] [place] Address [address] [place] [address] Care Team Providers Care Radiological Technician Name Role Phone Gaye Pina MD Primary Care Provider Encounter Details Date Type Department Care Team (Late st Contact Info) Description 04/17/2024 Lab Requisition [facility] - Main Lab [address] [place] [address] Gaye Pina MD [address] [place] [address] Encounter for other general examination Social History [...] AM EST) WBC 8.4 4.8 - 10.8 K/[facility] LAB HEMETOLOGY METHOD 04/17/2024 11:30 AM [facility] RBC 3.90(L) 4.50 - 5.50 M/mcL LAB HEMETOLOGY METHOD 04/17/2024 11:30 AM [facility] Hemoglobin 12.3(L) 13.5 - 17.5 g/dL LAB HEMETOLOGY METHOD 04/17/2024 11:30 AM [facility] LAB Hematocrit 37.8(L) 42.0 - 54.0 % LAB HEMETOLOGY METHOD 04/17/2024 11:30 AM [facility] LAB MCV 97.2 79.0 - 98.0 FL LAB HEMETOLOGY METHOD 04/17/2024 11:30 AM [facility] LAB MCH 31.6 27.0 - 32.0 pcg LAB HEMETOLOGY METHOD 04/17/2024 11:30 AM [facility] LAB MCHC 32.5 32.0 - 37.0 g/dL LAB HEMETOLOGY METHOD 04/17/2024 11:30 AM [facility] LAB RDW 14.0 11.0 - 15.0 % LAB HEMETOLOGY METHOD 04/17/2024 11:30 AM [facility] LAB Platelets 336 130 - 400 K/mcL LAB HEMETOLOGY METHOD 04/17/2024 11:30 AM [facility] LAB MPV 9.9 7.0 - 11.0 FL LAB HEMETOLOGY METHOD 04/17/2024 11:30 AM [facility] LAB NRBC 0.0 <1.0 % LAB HEMETOLOGY METHOD 04/17/2024 11:30 AM [facility] LAB NRBC Absolute 0.00 <0.10 K/mcL LAB HEMETOLOGY METHOD 04/17/2024 11:30 AM [facility] LAB Neutrophils Relative 36.9 % LAB HEMETOLOGY METHOD 04/17/2024 11:30 AM [facility] LAB Lymphocytes Relative 38.9 % LAB HEMETOLOGY METHOD 04/17/2024 11:30 AM [facility] LAB Monocytes Relative 9.9 % LAB HEMETOLOGY METHOD 04/17/2024 11:30 AM [facility] LAB Eosinophils Relative 12.9 % LAB HEMETOLOGY METHOD 04/17/2024 11:30 AM [facility] Basophils Relative 1.0 % LAB HEMETOLOGY METHOD 04/17/2024 11:30 AM [facility] LAB Immature Granulocytes Relative 0.4 % LAB HEMETOLOGY METHOD 04/17/2024 11:30 AM [facility] LAB Neutrophils Absolute 3.09 1.50 - 7.00 K/mcL LAB HEMETOLOGY METHOD 04/17/2024 11:30 AM [facility] Lymphocytes Absolute 3.25 1.00 - 5.00 K/mcL LAB HEMETOLOGY METHOD 04/17/2024 11:30 AM [facility] Monocytes Absolute 0.83 0.20 - 1.00 K/mcL LAB HEMETOLOGY METHOD 04/17/2024 11:30 AM [facility] LAB Eosinophils Absolute 1.08(H) 0.00 - 0.50 K/mcL LAB HEMETOLOGY METHOD 04/17/2024 11:30 AM [facility] Basophils Absolute 0.08 0.00 - 0.20 K/mcL LAB HEMETOLOGY METHOD 04/17/2024 11:30 AM [facility] Immature Granulocytes Absolute 0.03 0.00 - 0.03 K/mcL LAB HEMETOLOGY METHOD 04/17/2024 11:30 AM [facility] Blood Venous blood specimen / Unknown Venipuncture / Unknown 04/17/2024 5:59 AM EST 04/17/2024 10:36 AM EST us Gaye Pina MD LAB BLOOD ORDERABLES Final Resu lt Performing Organization Address City/[facility]/ZIP Co de Phone Number [facility] [address] [place] [address], [place] [phone] * Magnesium (04/17/2024 5:59 AM EST) Pathologist [facility] Magnesium 2.4 1.9 - 2.6 mg/dL LAB CHEMISTRY METHOD 04/17/2024 11:[address] [facility] Blood Venous blood specimen / Unknown Venipuncture / Unknown 04/17/2024 5:59 AM EST 04/17/2024 10:36 AM EST Gaye Pina MD LAB BLOOD ORDERABLES Final Resu lt Performing Organization Address [facility]/ZIP Co de Phone Number [facility] [address] [place] [address], [place] [phone] * (ABNORMAL) Comprehensive metabolic panel (04/17/2024 5:59 AM EST) [facility] Sodium 135 133 - 145 mmol/L LAB CHEMISTRY METHOD 04/17/2024 12:17 PM [facility] Potassium 4.3 3.5 - 5.5 mmol/L LAB CHEMISTRY METHOD 04/17/2024 12:17 PM [facility] Chloride 102 96 - 110 mmol/L LAB CHEMISTRY METHOD 04/17/2024 12:17 PM [facility] CO2 27 21 - 32 mmol/L LAB CHEMISTRY METHOD 04/17/2024 12:17 PM [facility] Anion Gap 6 3 - 11 LAB CHEMISTRY METHOD 04/17/2024 12:17 PM [facility] Glucose 97 70 - 100 mg/dL LAB CHEMISTRY METHOD 04/17/2024 12:17 PM [facility] BUN 18 5 - 25 mg/dL LAB CHEMISTRY METHOD 04/17/2024 12:17 PM [facility] Creatinine 0.96 0.70 - 1.30 mg/dL LAB CHEMISTRY METHOD 04/17/2024 12:17 PM [facility] LAB eGFR 90 >=60 mL/min/1. 73m2 LAB CHEMISTRY METHOD 04/17/2024 12:17 PM [facility] Comment:Calculation based on the Chronic Kidney Disease Epidemiology Collaboration (CKD-EPI) equation refit without adjustment for race. BUN/Creatinine Ratio 18.8 LAB CHEMISTRY METHOD 04/17/2024 12:17 PM [facility] Calcium 8.7 8.5 - 10.5 mg/dL LAB CHEMISTRY METHOD 04/17/2024 12:17 PM [facility] AST (SGOT) 54(H) 10 - 42 unit/L LAB CHEMISTRY METHOD 04/17/2024 12:17 PM [facility] ALT (SGPT) 96(H) 10 - 60 unit/L LAB CHEMISTRY METHOD 04/17/2024 12:17 PM [facility] Alkaline Phosphatase 66 42 - 121 unit/L LAB CHEMISTRY METHOD 04/17/2024 12:17 PM [facility] Total Protein 6.2 6.0 - 8.0 g/dL LAB CHEMISTRY METHOD 04/17/2024 12:17 PM [facility] Albumin 3.0(L) 3.2 - 5.0 g/dL LAB CHEMISTRY METHOD 04/17/2024 12:17 PM [facility] Total Bilirubin 0.4 0.0 - 1.4 mg/dL LAB CHEMISTRY METHOD 04/17/2024 12:17 PM [facility] Blood Venous blood specimen / Unknown Venipuncture / Unknown 04/17/2024 5:59 AM EST 04/17/2024 10:36 AM EST us Gaye Pina MD LAB BLOOD ORDERABLES Final Resu lt [facility] [address] [place], [place] [address] [phone] documented in this encounter Visit Diagnoses Diagnosis Encounter for other general examination documented in this encounter Care Teams Radiological Technician Relationship Specialty Start Date End Date Gaye Pina MD [address] [place] [phone] PCP - General Hospitalist Medicine 04/17/24 documented as of this encounter
--- OUTSIDE RECORDS SUMMARY | 2024-11-23 13:25 | XMS_ITS | Encounter Summary ---
Author Organization Jenna [facility] Address [address] [place] [address] Care Team Providers Care Care Coordination Manager Name Role Phone Gaye Pina MD Primary Care Provider [phone] Encounter Details Date Type Department Care Team (Late st Contact Info) Description 04/13/2024 Lab Requisition [facility] - Main Lab [address] [place] [address] Gaye Pina MD [address] [place] [phone] Encounter for other general examination Social History [...] AM EST) WBC 8.4 4.8 - 10.8 K/[facility] LAB HEMETOLOGY METHOD 04/13/2024 11:27 AM [facility] RBC 3.70(L) 4.50 - 5.50 M/mcL LAB HEMETOLOGY METHOD 04/13/2024 11:27 AM [facility] Hemoglobin 12.0(L) 13.5 - 17.5 g/dL LAB HEMETOLOGY METHOD 04/13/2024 11:27 AM [facility] Hematocrit 36.3(L) 42.0 - 54.0 % LAB HEMETOLOGY METHOD 04/13/2024 11:27 AM [facility] MCV 97.3 79.0 - 98.0 FL LAB HEMETOLOGY METHOD 04/13/2024 11:27 AM [facility] MCH 32.2(H) 27.0 - 32.0 pcg LAB HEMETOLOGY METHOD 04/13/2024 11:27 AM [facility] MCHC 33.1 32.0 - 37.0 g/dL LAB HEMETOLOGY METHOD 04/13/2024 11:27 AM [facility] RDW 13.6 11.0 - 15.0 % LAB HEMETOLOGY METHOD 04/13/2024 11:27 AM [facility] Platelets 227 130 - 400 K/mcL LAB HEMETOLOGY METHOD 04/13/2024 11:27 AM [facility] MPV 10.5 7.0 - 11.0 FL LAB HEMETOLOGY METHOD 04/13/2024 11:27 AM [facility] NRBC 0.0 <1.0 % LAB HEMETOLOGY METHOD 04/13/2024 11:27 AM [facility] NRBC Absolute 0.00 <0.10 K/mcL LAB HEMETOLOGY METHOD 04/13/2024 11:27 AM [facility] Neutrophils Relative 50.3 % LAB HEMETOLOGY METHOD 04/13/2024 11:27 AM [facility] Lymphocytes Relative 30.4 % LAB HEMETOLOGY METHOD 04/13/2024 11:27 AM [facility] Monocytes Relative 10.7 % LAB HEMETOLOGY METHOD 04/13/2024 11:27 AM [facility] Eosinophils Relative 7.6 % LAB HEMETOLOGY METHOD 04/13/2024 11:27 AM [facility] Basophils Relative 0.6 % LAB HEMETOLOGY METHOD 04/13/2024 11:27 AM [facility] Immature Granulocytes Relative 0.4 % LAB HEMETOLOGY METHOD 04/13/2024 11:27 AM [facility] Neutrophils Absolute 4.23 1.50 - 7.00 K/mcL LAB HEMETOLOGY METHOD 04/13/2024 11:27 AM [facility] Lymphocytes Absolute 2.55 1.00 - 5.00 K/mcL LAB HEMETOLOGY METHOD 04/13/2024 11:27 AM [facility] Monocytes Absolute 0.90 0.20 - 1.00 K/mcL LAB HEMETOLOGY METHOD 04/13/2024 11:27 AM [facility] Eosinophils Absolute 0.64(H) 0.00 - 0.50 K/mcL LAB HEMETOLOGY METHOD 04/13/2024 11:27 AM [facility] Basophils Absolute 0.05 0.00 - 0.20 K/mcL LAB HEMETOLOGY METHOD 04/13/2024 11:27 AM [facility] Immature Granulocytes Absolute 0.03 0.00 - 0.03 K/mcL LAB HEMETOLOGY METHOD 04/13/2024 11:27 AM [facility] Blood Venous blood specimen / Unknown Venipuncture / Unknown 04/13/2024 5:53 AM EST 04/13/2024 10:00 AM EST us Gaye Pina MD LAB BLOOD ORDERABLES Final Resu lt Performing Organization Address [facility]/ZIP Co de Phone Number [facility] [address] [place] [address], * Magnesium (04/13/2024 5:53 AM EST) Magnesium 2.2 1.9 - 2.6 mg/dL LAB CHEMISTRY METHOD 04/13/2024 12:00 PM [facility] Blood Venous blood specimen / Unknown Venipuncture / Unknown 04/13/2024 5:53 AM EST 04/13/2024 10:00 AM EST Gaye Pina MD LAB BLOOD ORDERABLES Final Resu lt Performing Organization Address [facility]/ZIP Co de Phone Number [facility] [address] [place] [address], [place] [phone] * (ABNORMAL) Comprehensive metabolic panel (04/13/2024 5:53 AM EST) Pathologist [facility] Sodium 134 133 - 145 mmol/L LAB CHEMISTRY METHOD 04/13/2024 12:00 PM [facility] Potassium 4.0 3.5 - 5.5 mmol/L LAB CHEMISTRY METHOD 04/13/2024 12:00 PM [facility] Chloride 102 96 - 110 mmol/L LAB CHEMISTRY METHOD 04/13/2024 12:00 PM [facility] CO2 25 21 - 32 mmol/L LAB CHEMISTRY METHOD 04/13/2024 12:00 PM [facility] Anion Gap 7 3 - 11 LAB CHEMISTRY METHOD 04/13/2024 12:00 PM [facility] Glucose 92 70 - 100 mg/dL LAB CHEMISTRY METHOD 04/13/2024 12:00 PM [facility] BUN 16 5 - 25 mg/dL LAB CHEMISTRY METHOD 04/13/2024 12:00 PM [facility] Creatinine 1.06 0.70 - 1.30 mg/dL LAB CHEMISTRY METHOD 04/13/2024 12:00 PM [facility] eGFR 80 >=60 mL/min/1. 73m2 LAB CHEMISTRY METHOD 04/13/2024 12:00 PM [facility] Comment:Calculation based on the Chronic Kidney Disease Epidemiology Collaboration (CKD-EPI) equation refit without adjustment for race. BUN/Creatinine Ratio 15.1 LAB CHEMISTRY METHOD 04/13/2024 12:00 PM [facility] Calcium 8.5 8.5 - 10.5 mg/dL LAB CHEMISTRY METHOD 04/13/2024 12:00 PM [facility] AST (SGOT) 50(H) 10 - 42 unit/L LAB CHEMISTRY METHOD 04/13/2024 12:00 PM [facility] ALT (SGPT) 53 10 - 60 unit/L LAB CHEMISTRY METHOD 04/13/2024 12:00 PM [facility] Alkaline Phosphatase 59 42 - 121 unit/L LAB CHEMISTRY METHOD 04/13/2024 12:00 PM [facility] Total Protein 5.9(L) 6.0 - 8.0 g/dL LAB CHEMISTRY METHOD 04/13/2024 12:00 PM [facility] Albumin 3.0(L) 3.2 - 5.0 g/dL LAB CHEMISTRY METHOD 04/13/2024 12:00 PM [facility] Total Bilirubin 0.9 0.0 - 1.4 mg/dL LAB CHEMISTRY METHOD 04/13/2024 12:00 PM [facility] Blood Venous blood specimen / Unknown Venipuncture / Unknown 04/13/2024 5:53 AM EST 04/13/2024 10:00 AM EST us Gaye Pina MD LAB BLOOD ORDERABLES Final Resu lt [facility] [address] [place] [address], documented in this encounter Visit Diagnoses Diagnosis Encounter for other general examination documented in this encounter Care Teams Care Coordination Manager Relationship Specialty Start Date End Date Gaye Pina MD [address] [place] [phone] PCP - General Hospitalist Medicine 04/17/24 documented as of this encounter
[2024-11-23 15:57] LABS: Anion Gap 13 (12-20); Carbon Dioxide 19 mmol/L (22-29); Chloride 109 mmol/L (96-108); Potassium 4.3 mmol/L (3.3-5.1); Sodium 137 mmol/L (135-145)
== END 2024-11-23 13:22 | disposition home or self-care (01) ==
LOC: HO.HMGCLDS 13:21
PROVIDERS: PCP Nurse Practitioner Family; Visit Provider Nurse Practitioner Family
DX: E87.5 Hyperkalemia (principal)
CPT/HCPCS: 36415; 80051

== ENCOUNTER 2024-11-27 12:55 | Outpatient (REF) | payer OTHER, MEDICARE, MEDICAID, SELFPAY ==
--- NOTE | ~2024-11-27 | US_ITS ---
EXAMINATION: US PELVIS LIMITED (BLADDER) CLINICAL INFORMATION: R39.12 - Poor urinary stream. COMPARISON: None available. TECHNIQUE: Real-time imaging of the bladder. FINDINGS: BLADDER: Well distended and normal. Bilateral ureteral jets are demonstrated. Prevoid bladder volume is 258 mL. Postvoid bladder volume is 119 mL. Images of the prostate showing a to appear heterogeneous with geographic hyperechoic and hypoechoic regions. US/US bladder IMPRESSION: Incomplete emptying of the bladder on postvoid images with a small residual volume. Heterogeneous appearing prostate of uncertain significance, possibly with cystic changes. Electronically signed by: Liu Hooker MD 11/27/2024 01:20 PM EDT
--- OUTSIDE RECORDS SUMMARY | 2024-11-27 15:56 | XMS_ITS | Encounter Summary ---
Author Organization Jenna [facility] Address [address] [place] [address] Care Team Providers Care Dairy Cattle Farm Worker Name Role Phone Gaye Pina MD Primary Care Provider Encounter Details Date Type Department Care Team (Late st Contact Info) Description 04/17/2024 Lab Requisition [facility] - Main Lab [address] [place] [address] Gaye Pina MD [address] [place] [phone] Encounter for other general examination Social History [...] AM EST) WBC 8.4 4.8 - 10.8 K/[facility] LAB HEMETOLOGY METHOD 04/17/2024 11:30 AM [facility] [...] ORDERABLES Final Resu lt Performing Organization Address City/[facility]/ZIP Co de Phone Number [facility] [address] [place] [address], [place] [phone] * Magnesium (04/17/2024 5:59 AM EST) Pathologist [facility] Magnesium 2.4 1.9 - 2.6 mg/dL LAB CHEMISTRY METHOD 04/17/2024 11:26 AM EST [facility] Blood Venous blood specimen / Unknown Venipuncture / Unknown 04/17/2024 5:59 AM EST 04/17/2024 10:36 AM EST Gaye Pina MD LAB BLOOD ORDERABLES Final Resu lt Performing Organization Address [facility]/ZIP Co de Phone Number [facility] [address] [place] [address], [place] [phone] * (ABNORMAL) Comprehensive metabolic panel (04/17/2024 5:59 AM EST) [facility] Sodium 135 133 - 145 mmol/L LAB [...] Resu lt [facility] [address] [place], [place] [address] [phone] documented in this encounter Visit Diagnoses Diagnosis Encounter for other general examination documented in this encounter Care Teams Dairy Cattle Farm Worker Relationship Specialty Start Date End Date Gaye Pina MD [address] [place] [phone] PCP - General Hospitalist Medicine 04/17/24 documented as of this encounter
--- OUTSIDE RECORDS SUMMARY | 2024-11-27 15:56 | XMS_ITS | Clinical Summary ---
Author Organization 299 [facility] Address [address] [place] [address] Phone Care Team Providers Care Tactical Debriefer Name Role Phone Gaye Pina MD Primary Care Provider [phone] Social History Tobacco Use Types Packs/Day Years [...] Insurance MEDICAID - [place] MEDICARE Care Teams Tactical Debriefer Relationship Specialty Start Date End Date Gaye Pina MD [address] [place] [phone] PCP - General Hospitalist Medicine 04/17/24
--- OUTSIDE RECORDS SUMMARY | 2024-11-27 15:56 | XMS_ITS | Encounter Summary ---
Author Organization [facility] Address [address] [place] [address] Care Team Providers Care Business Objects Report Developer Name Role Phone Gaye Pina MD Primary Care Provider [phone] Encounter Details Date Type Department Care Team (Late st Contact Info) Description 04/13/2024 Lab Requisition [facility] - Main Lab [address] [place] [address] Gaye Pina MD [address] [place] [address] Encounter for other general examination Social History [...] AM EST) WBC 8.4 4.8 - 10.8 K/[facility] LAB HEMETOLOGY METHOD 04/13/2024 11:27 AM [facility] LAB RBC 3.70(L) 4.50 - 5.50 M/mcL LAB HEMETOLOGY METHOD 04/13/2024 11:27 AM [facility] LAB Hemoglobin 12.0(L) 13.5 - 17.5 g/dL LAB HEMETOLOGY METHOD 04/13/2024 11:27 AM [facility] LAB Hematocrit 36.3(L) 42.0 - 54.0 % LAB HEMETOLOGY METHOD 04/13/2024 11:27 AM [facility] LAB MCV 97.3 79.0 - 98.0 FL LAB HEMETOLOGY METHOD 04/13/2024 11:27 AM [facility] LAB MCH 32.2(H) 27.0 - 32.0 pcg LAB HEMETOLOGY METHOD 04/13/2024 11:27 AM [facility] LAB MCHC 33.1 32.0 - 37.0 g/dL LAB HEMETOLOGY METHOD 04/13/2024 11:27 AM [facility] LAB RDW 13.6 11.0 - 15.0 % LAB HEMETOLOGY METHOD 04/13/2024 11:27 AM [facility] LAB Platelets 227 130 - 400 K/mcL LAB HEMETOLOGY METHOD 04/13/2024 11:27 AM [facility] LAB MPV 10.5 7.0 - 11.0 FL LAB HEMETOLOGY METHOD 04/13/2024 11:27 AM [facility] LAB NRBC 0.0 <1.0 % LAB HEMETOLOGY METHOD 04/13/2024 11:27 AM [facility] LAB NRBC Absolute 0.00 <0.10 K/mcL LAB HEMETOLOGY METHOD 04/13/2024 11:27 AM [facility] LAB Neutrophils Relative 50.3 % LAB HEMETOLOGY METHOD 04/13/2024 11:27 AM [facility] LAB Lymphocytes Relative 30.4 % LAB HEMETOLOGY METHOD 04/13/2024 11:27 AM [facility] LAB Monocytes Relative 10.7 % LAB HEMETOLOGY METHOD 04/13/2024 11:27 AM [facility] LAB Eosinophils Relative 7.6 % LAB HEMETOLOGY METHOD 04/13/2024 11:27 AM [facility] LAB Basophils Relative 0.6 % LAB HEMETOLOGY METHOD 04/13/2024 11:27 AM [facility] LAB Immature Granulocytes Relative 0.4 % LAB HEMETOLOGY METHOD 04/13/2024 11:27 AM [facility] LAB Neutrophils Absolute 4.23 1.50 - 7.00 K/mcL LAB HEMETOLOGY METHOD 04/13/2024 11:27 AM [facility] LAB Lymphocytes Absolute 2.55 1.00 - 5.00 K/mcL LAB HEMETOLOGY METHOD 04/13/2024 11:27 AM [facility] LAB Monocytes Absolute 0.90 0.20 - 1.00 K/mcL LAB HEMETOLOGY METHOD 04/13/2024 11:27 AM [facility] LAB Eosinophils Absolute 0.64(H) 0.00 - 0.50 K/mcL LAB HEMETOLOGY METHOD 04/13/2024 11:27 AM [facility] LAB Basophils Absolute 0.05 0.00 - 0.20 K/mcL LAB HEMETOLOGY METHOD 04/13/2024 11:27 AM [facility] LAB Immature Granulocytes Absolute 0.03 0.00 - 0.03 K/mcL LAB HEMETOLOGY METHOD 04/13/2024 11:27 AM [facility] LAB Blood Venous blood specimen / Unknown Venipuncture / Unknown 04/13/2024 5:53 AM EST 04/13/2024 10:00 AM EST us Gaye Pina MD LAB BLOOD ORDERABLES Final Resu lt Performing Organization Address [facility]/ZIP Co de Phone Number [facility] [address] [place] [address], * Magnesium (04/13/2024 5:53 AM EST) Magnesium 2.2 1.9 - 2.6 mg/dL LAB CHEMISTRY METHOD 04/13/2024 12:00 PM [facility] LAB Blood Venous blood specimen / Unknown Venipuncture / Unknown 04/13/2024 5:53 AM EST 04/13/2024 10:00 AM EST Gaye Pina MD LAB BLOOD ORDERABLES Final Resu lt Performing Organization Address [facility]/ZIP Co de Phone Number [facility] [address] [place] [address], [place] [phone] * (ABNORMAL) Comprehensive metabolic panel (04/13/2024 5:53 AM EST) Pathologist [facility] Sodium 134 133 - 145 mmol/L LAB CHEMISTRY METHOD 04/13/2024 12:00 PM [facility] Potassium 4.0 3.5 - 5.5 mmol/L LAB CHEMISTRY METHOD 04/13/2024 12:00 PM [facility] LAB Chloride 102 96 - 110 mmol/L LAB CHEMISTRY METHOD 04/13/2024 12:00 PM [facility] LAB CO2 25 21 - 32 mmol/L LAB CHEMISTRY METHOD 04/13/2024 12:00 PM [facility] LAB Anion Gap 7 3 - 11 LAB CHEMISTRY METHOD 04/13/2024 12:00 PM [facility] LAB Glucose 92 70 - 100 mg/dL LAB CHEMISTRY METHOD 04/13/2024 12:00 PM [facility] BUN 16 5 - 25 mg/dL LAB CHEMISTRY METHOD 04/13/2024 12:00 PM [facility] LAB Creatinine 1.06 0.70 - 1.30 mg/dL LAB CHEMISTRY METHOD 04/13/2024 12:00 PM [facility] LAB eGFR 80 >=60 mL/min/1. 73m2 LAB CHEMISTRY METHOD 04/13/2024 12:00 PM [facility] LAB Comment:Calculation based on the Chronic Kidney Disease Epidemiology Collaboration (CKD-EPI) equation refit without adjustment for race. BUN/Creatinine Ratio 15.1 LAB CHEMISTRY METHOD 04/13/2024 12:00 PM [facility] LAB Calcium 8.5 8.5 - 10.5 mg/dL LAB CHEMISTRY METHOD 04/13/2024 12:00 PM [facility] LAB AST (SGOT) 50(H) 10 - 42 unit/L LAB CHEMISTRY METHOD 04/13/2024 12:00 PM [facility] LAB ALT (SGPT) 53 10 - 60 unit/L LAB CHEMISTRY METHOD 04/13/2024 12:00 PM [facility] LAB Alkaline Phosphatase 59 42 - 121 unit/L LAB CHEMISTRY METHOD 04/13/2024 12:00 PM [facility] Total Protein 5.9(L) 6.0 - 8.0 g/dL LAB CHEMISTRY METHOD 04/13/2024 12:00 PM [facility] Albumin 3.0(L) 3.2 - 5.0 g/dL LAB CHEMISTRY METHOD 04/13/2024 12:00 PM [facility] Total Bilirubin 0.9 0.0 - 1.4 mg/dL LAB CHEMISTRY METHOD 04/13/2024 12:00 PM [facility] Blood Venous blood specimen / Unknown Venipuncture / Unknown 04/13/2024 5:53 AM EST 04/13/2024 10:00 AM EST us Gaye Pina MD LAB BLOOD ORDERABLES Final Resu lt [facility] [address] [place] [address], documented in this encounter Visit Diagnoses Diagnosis Encounter for other general examination documented in this encounter Care Teams Business Objects Report Developer Relationship Specialty Start Date End Date Gaye Pina MD [address] [place] [phone] PCP - General Hospitalist Medicine 04/17/24 documented as of this encounter
--- OUTSIDE RECORDS SUMMARY | 2024-11-27 15:56 | XMS_ITS | Clinical Summary ---
Author Organization [facility] Address [address] [place] [address] Phone Care Team Providers Care Sifter And Miller Name Role Phone Duong Naylor MD Unavailable Unknown, Unknown Primary Care Provider Marifer Lawson NP Unavailable [phone] Medications No known medications Active Problems Problem [...] topic Medical Devices Not on file Insurance [employer] [facility] COMMUNITY CHOICE MEDICARE PART A & B Member Subscriber Plan / Payer (Ef fective 2018-Present) Name:Michael Bland Member ID:[id number] Relation to Subscriber:Self Name:Michael Bland Subscriber ID:[id number] Payer ID:[id number] Group ID:Not on file Type:Medicare Address: [employer] [address] [facility] MEDICARE PART A & B Member Subscriber Plan / Payer (Ef fective 2018-Present) Name:Michael Bland Member ID:[id number] Relation to Subscriber:Self Name:Michael Bland Subscriber ID:[id number] Payer ID:[id number] Group ID:Not on file Type:Medicare Address: [employer] [address] [facility] CHOICE MEDICARE PART A & [place] [place] [address] CHOICE MEDICARE PART A & B [facility] [employer] CHOICE MEDICARE PART A & B [facility] CHOICE MEDICARE PART A & B Care Teams Sifter And Miller Relationship Specialty Start Date End Date Unknown, Unknown, PCP - General 05/11/23 Duong Naylor MD [address] [place] [phone] Neurosurgery 05/09/23 Marifer Chino NP [address] [place] [phone] Nurse Practitioner 06/13/23 Additional Source Comments The information contained in this document represents components of the legal health record. It is not the complete legal health record.[facility]
--- OUTSIDE RECORDS SUMMARY | 2024-11-27 15:56 | XMS_ITS | Encounter Summary ---
Author Organization [facility] Address [address] [place] [address] Phone Care Team Providers Care Hand Pattern Marker Name Role Phone Duong Naylor MD Unavailable Unknown, Unknown Primary Care Provider Marifer Lawson NP Unavailable [phone] Reason for Referral * Occupational Therapy (Routine) - Closed Specialty Diagnoses / Procedures Referred By Jo murdock Referred To Contact Occupational Therapy Diagnoses Encounter for rehabilitation Duong Naylor MD [address] [facility] [address] [place] [phone] Phone: tel: fax: [address] [address] Phone: tel: Referral ID Status Reason Start Date Expiration Date Visits Re quested Visits Authorized [id number] Closed 06/15/2023 06/14/2024 1 1 Encounter Details Date Type Department Care Team (Latest Contact Info) Description 06/15/2023 Transcribe Orders [facility] [address] [place] [address] Duong Naylor MD [address] [facility] [address] [place] [address] [phone] Encounter for rehabilitation (Primary Dx) Social History [...] Diagnoses Orde r Schedule Ambulatory referral to [facility] Occupational Therapy Outpatient Referral Routine Encounter for rehabilitation Ordered: 06/15/2023 documented as of this encounter Visit Diagnoses Diagnosis Encounter for rehabilitation- Primary documented in this encounter Care Teams Hand Pattern Marker Relationship Specialty Start Date End Date Unknown, Unknown, MD PCP - General 05/11/23 Duong Naylor MD [address] [place] [phone] Neurosurgery 05/09/23 Marifer Chino NP [address] [place] [phone] Nurse Practitioner 06/13/23 documented as of this encounter Additional Source Comments The information contained in this document represents components of the legal health record. It is not the complete legal health record.[facility]
== END 2024-11-27 12:56 | disposition home or self-care (01) ==
LOC: HO.HMGCX 12:55
PROVIDERS: PCP Nurse Practitioner Family; Visit Provider Urology
DX: Z00.01 Encounter for general adult medical examination with abnormal findings (principal); I69.351 Hemiplegia and hemiparesis following cerebral infarction affecting right dominant side; E53.8 Deficiency of other specified B group vitamins; B35.6 Tinea cruris; M24.542 Contracture, left hand; R39.12 Poor urinary stream; R39.15 Urgency of urination
CPT/HCPCS: 76857; 96127

== ENCOUNTER → 2024-11-27 12:58 | Outpatient (BNV) | payer OTHER, MEDICARE, MEDICAID, SELFPAY | PROVIDERS: PCP Nurse Practitioner Family; Visit Provider Radiology Diagnostic Radiology | DX: R39.12 Poor urinary stream (principal) | CPT/HCPCS: 76857 ==

== ENCOUNTER 2024-11-27 15:00 | Outpatient (AMB) | payer OTHER, MEDICARE, MEDICAID, SELFPAY ==
[2024-11-27 15:11] VITALS: BP 106/68; PULSE 84; O2SAT 97; BMI 31.6
--- NOTE | 2024-11-27 15:11 | A.OFFPC_ITS ---
Vital Signs 11/27/24 15:11 Height 5 ft 9 in Weight 214 lb BMI 31.6 BP 106/68 Blood Pressure Location Lt brachial Position Sitting Pulse 84 Pulse Source Pulse Oximeter Pulse Oximetry (%) 97 Intake Visit Reasons: annual Allergies Penicillins Allergy (Severe, Verified 11/27/24 16:02) ANAPHYLAXIS clopidogrel (From Plavix) Allergy (Intermediate, Verified 11/27/24 16:02) Itching morphine Adverse Reaction (Intermediate, Verified 11/27/24 16:02) Agitated Medication List - Last Reconciled 11/27/24 by Don Meraz, INVENTORY CONTROL SPECIALIST-BC [AFO brace right leg daily use] aspirin 81 mg PO DAILY atorvastatin 80 mg PO BEDTIME carbamide peroxide 6.5% (Debrox) 5 drps otic (ears) DAILY 4 days cholecalciferol (vitamin D3) 25 mcg PO DAILY clobetasol 0.05% 1 appl topical BID clotrimazole 1% 1 appl topical bid 4 weeks [custom arch support right foot Use As directed NS] dextroamphetamine-amphetamine 20 mg (Adderall) 20 mg PO BID ibuprofen 600 mg PO Q8H PRN ketoconazole 2% 1 appl topical .qhs 30 days mecobalamin (vitamin B12) 1,000 mcg PO metoprolol succinate ER 50 mg PO DAILY miscellaneous medical supply 1 ea miscellaneous .daily use 1 day miscellaneous medical supply custom right arch support, pt has a brace multivitamin 1 tab PO DAILY omeprazole 20 mg PO DAILY oxybutynin chloride ER 5 mg PO DAILY 30 days [rollator walker with seat, brakes As directed] sacubitril-valsartan 24-26 mg (Entresto) 1 tab PO BID [Rotary Peel Oven Tender Walker/travel wheelchair As directed] triamcinolone acetonide 0.1% appl topical Tobacco use date assessed: 07/16/24 Dental Screening Dental Screen Date: 07/16/24 HPI annual HPI Details History of Present Illness The patient is a 59-year-old male presenting for a physical examination with a history of right hemiparesis. 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 He has limited flexion and extension at the right elbow, although he maintains full range of motion in the left upper extremity. The patient utilizes an AFO brace on the right lower extremity due to the hemiparesis, and he has fair extension and flexion at the knee. He has undergone several surgeries on the lumbar and cervical spine over the years. pt went to [facility] 4 days ago for a multitude of issues, appears nothing major, missing documentation on this. Health Maintenance colon screen is up to date PSA up to date sees a urologist, marketing strategist Social History Review of Systems - Cardiovascular: Denies chest pain - Respiratory: Denies dyspnea - Gastrointestinal: Denies abdominal constanza n, hematochezia, constipation, diarrhea - Psychiatric: Denies suicidal ideation, denies homicidal ideation Physical Exam General: Cooperative, healthy appearing, comfortable, no acute distress and well developed Orientation: Patient oriented x3 Limitations: Limited use of right upper extremity due to atrophy, limited flex ion and extension at the right elbow Head: Normal to inspection Ears: Hearing grossly normal bilaterally Nose: Normal external nose present Face and sinus: Normal facial exam Eyes: Appearance normal, both eyes and all related structures Neck: Normal visual inspection and Yes full ROM Respiratory: Normal respiratory effort and able to speak in complete sentences. Clear to auscultation bilaterally Cardiovascular: Regular rate and rhythm. Normal S1 and S2 GI: Normal to inspection. Soft to palpation and nontender : Testicles without masses/lesions and no hernias appreciated Skin:no lesions noted, tinea cruris noted. Neuro: Patient oriented x3 Extremities: Atrophy to right upper extremity, limited use. Full range of motion to the left upper extremity. Right lower extremity has AFO brace due to right hemiparesis. limited extension and flexion at the right knee and RLE extension and flexion. Left upper extremity and hand from the MCP joints distally have some extension, fingers are extended, but able to grasp. Normal to inspection otherwise. PLAN: lab work new AFO brace order printed out EKG was NSR, signed OT for left hand PFSH Medical History Left hand weakness History of shingles Migraine PTSD (post-traumatic stress disorder) KASANDRA (obstructive sleep apnea) Somnolence, daytime Encounter for screening Encounter for screening Thoracic back pain Lower back pain Feeling of incomplete bladder emptying Weak urinary stream Bladder outlet obstruction Hearing loss Acoustic neuroma Cervical radiculopathy Cerebrovascular accident Attention deficit disorder Bipolar 1 disorder Surgical History History of esophagogastroduodenoscopy (EGD) History of back surgery H/O colonoscopy History of surgery History of cochlear implant History of elbow surgery History of sinus surgery History of brain surgery Family History Father No problems noted. Mother History of breast cancer Social History Household Members: None Housing: House Are you a primary healthcare management to a significant other at home: No Do you presently have visiting nurse or other home services: No Alcohol intake: current Alcohol intake frequency: does not drink Patient Tobacco Use Status: Never used Tobacco e-Cigarette/Vaping Use: Never Used Second Hand Smoke Exposure: No service: No Current occupational status: unemployed Cognitive needs: No Hearing needs: No Vision needs: No Questionnaire PHQ-9 Over the last 2 weeks, how often have you been bothered by any of the following problems? 1. Little interest or pleasure in doing things: not at all 2. Feeling down, depressed, or hopeless: not at all 3. Trouble falling or staying asleep, or sleeping too much: not at all 4. Feeling tired or having little energy: not at all 5. Poor appetite or overeating: not at all 6. Feeling bad about yourself - or that you are a failure or have let yourself or your family down: not at all 7. Trouble concentrating on things, such as reading the newspaper or watching television: not at all 8. Moving or speaking so slowly that other people could have noticed. Or the opposite - being so fidgety or restless that you have been moving around a lot more than usual: not at all 9. Thoughts that you would be better off or of hurting yourself in some way: not at all Total score: 0 Depression Screening Interpretation: Negative Depression Screening Done: Yes 16489 - PHQ-9 Billing: Yes Source: Developed by Drs. Manjeet Hawthorne, Martha Alonso, Elijah Pena and colleagues, with an educational gustavo from [employer]. Thrive Questionnaire Date Thrive assessed: 07/16/24 I am a: Patient What is your living situation today?: I have a steady place to live Within the past 12 months, did the food you bought not last and you didn't have the money to get more?: Never true Within the past 12 months, did you worry whether your food would run out before you got money to buy more?: Never true Do you have trouble paying for medicines?: No Do you have trouble getting transportation to medical appointments?: No Do you have trouble paying your heating and electricity bill?: No Do you have trouble taking care of your child, family member or friend?: No Do you have trouble with day-to-day activities such as bathing, preparing meals, shopping, managing finances, etc.?: No Are you currently unemployed and looking for a job?: No Are you interested in more education?: No THRIVE Score: 0 BERNADETTE-7 AMB Questionnaire BERNADETTE-7 Date BERNADETTE - 7 assessed: 07/16/24 Feeling nervous, anxious, or on edge: 0 = Not at all Not being able to stop or control worryin = Not at all Worrying too much about different things: 0 = Not at all Trouble relaxin = Not at all Being so restless that it is hard to sit still: 0 = Not at all Becoming easily annoyed or irritable: 1 = Several days Feeling afraid as if something awful might happen: 0 = Not at all Total BERNADETTE-7 score (0-4 normal; 5-9 mild; 10-14 moderate; 15-21 severe): 1 Source: Developed by Drs. Manjeet Hawthorne, Martha Alonso, Elijah Pena and colleagues, with an educational gustavo from [employer]. BERNADETTE-7 Assessment Billing BERNADETTE-7 Assessment Tool: BERNADETTE-7 Assessment 76348 Physical exam (Primary Care) Vital Signs: Last Vital Signs Pulse 84 11/27/24 15:11 BP 106/68 11/27/24 15:11 Pulse Ox 97 11/27/24 15:11 BMI result Body Mass Index 31.6 Tobacco/Smoking Status: Tobacco use Status Tobacco use date assessed 07/16/24 11/27/24 15:11 Patient Tobacco Use Status Never used Tobacco 11/27/24 15:11 e-Cigarette/Vaping Use Never Used 11/27/24 15:11 PHQ-9: PHQ-9 Score PHQ-9: Total score 0 11/27/24 15:47 Depression Screening Interpretation: Negative Thrive Assessment: Date of Thrive Assessment Date Thrive assessed 07/16/24 11/27/24 15:11 Coding Level of Care Code Est Pt Level 3 (98211) Est Pt Prev Care 40-64y(65062) Diagnoses Encounter for routine adult physical exam with abnormal findings Z00. B12 deficiency E53.8 Cerebrovascular accident I63.9 Right hemiparesis G81.91 Tinea cruris B35.6 Contracture, left hand M24.542 Additional Codes BERNADETTE-7 Assessment Billing - BERNADETTE-7 Assessment Tool: BERNADETTE-7 Assessment 45244 ([id number]) PHQ-9 - 80912 - PHQ-9 Billing: Yes ([id number]) Assessment & Plan Assessment & Plan (1) Encounter for routine adult physical exam with abnormal findings: Code(s): Z. 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 PFO , has been repaired Code(s): I63.9 - Cerebral infarction, unspecified Category: Medical (4) Right hemiparesis: Code(s): G81.91 - Hemiplegia, unspecified affecting right dominant side Category: Medical (5) Tinea cruris: Code(s): B35.6 - Tinea cruris Category: Medical (6) Contracture, left hand: Code(s): M24.542 - Contracture, left hand Category: Medical Plan . Orders: Orders Comprehensive [place]. Panel Fast Today Z00. - Encounter for general adult medical examination with abnormal findings TSH reflex Free T4 Today Z00. - Encounter for general adult medical examination with abnormal findings Lipid Panel Today Z00. - Encounter for general adult medical examination with abnormal findings Vitamin B12 and Folate Today E53.8 - Deficiency of other specified B group vitamins AMB EKG-In Office Today Z00. - Encounter for general adult medical examination with abnormal findings Complete Blood Count Auto Diff Today Z00.01 - Encounter for general adult medical examination with abnormal findings UA CC w/rflx Micro + Cult Today Z00.01 - Encounter for general adult medical examination with abnormal findings OT Evaluation and Treatment Today M24.542 - Contracture, left hand Medications: Changed From [AFO brace right leg] As directed 1 ea 0RF G81.91 - Hemiplegia, unspecified affecting right dominant side, I63.9 - Cerebral infarction, unspecified, M21.371 - Foot drop, right foot, M25.371 - Other instability, right ankle To [AFO brace right leg] daily use 1 ea 0RF G81.91 - Hemiplegia, unspecified affecting right dominant side, I63.9 - Cerebral infarction, unspecified, M21.371 - Foot drop, right foot, M25.371 - Other instability, right ankle From ketoconazole 2% Wear socks after to prevent slipping 1 appl topical .qhs 30 days 60 grams 0RF To ketoconazole 2% 1 appl topical .qhs 60 grams 0RF 30 days
== END 2024-11-27 16:41 | disposition home or self-care (01) ==
LOC: HO.HMCC 15:01
PROVIDERS: PCP Nurse Practitioner Family; Visit Provider Nurse Practitioner Family
DX: Z00.01 Encounter for general adult medical examination with abnormal findings (principal); E53.8 Deficiency of other specified B group vitamins; I63.9 Cerebral infarction, unspecified; G81.91 Hemiplegia, unspecified affecting right dominant side; B35.6 Tinea cruris; M24.542 Contracture, left hand

== ENCOUNTER 2025-01-16 10:22 | Outpatient (REF) | payer OTHER, MEDICARE, MEDICAID, SELFPAY ==
--- OUTSIDE RECORDS SUMMARY | 2025-01-16 12:33 | XMS_ITS | Clinical Summary ---
Author Organization [address] [facility] Address [address] [place] [address] Phone Care Team Providers Care Wine Consultant Name Role Phone Gaye Pina MD Primary Care Provider [phone] Social History Tobacco Use Types Packs/Day Years Used Date Smoking Tobacco: Never Assessed Sex and Gender Information Value Date Recorded Sex Assigned at Not on file Legal Sex Male 7:24 AM EST Gender Identity Not on file Sexual Orientation Not on file Plan of Treatment Health Maintenance Due Date Last Done Comments Colorectal Cancer Screening: Colonoscopy 1963 DTaP,Tdap,and Td Vaccines (1 - Tdap) 1982 Pneumococcal Vaccine: 50+ Ye ars (1 of 1 - PCV) 2013 Zoster Vaccines (1 of 2) 2013 Cholesterol Screening (Lipid Panel) 02/20/2022 HIV Screening 02/20/2022 Hepatitis C Screening 02/20/2022 Medicare Annual Wellness Visit 02/20/2022 Social Influencers of Health Screening 02/20/2022 Depression Screening 03/20/2024 COVID-19 Vaccine (1 - 2023-2 5 season) 2024 Influenza Vaccine [...] Insurance MEDICAID - [place] MEDICARE Care Teams Wine Consultant Relationship Specialty Start Date End Date Gaye Pina MD [address] [place] [address] PCP - General Hospitalist Medicine 04/17/24
--- OUTSIDE RECORDS SUMMARY | 2025-01-16 12:33 | XMS_ITS | Clinical Summary ---
Author Organization [facility] Address [address] [place] [address] Phone Care Team Providers Care Gas Operations Analyst Name Role Phone Duong Naylor MD Unavailable Unknown, Unknown Primary Care Provider Marifer Lawson NP Unavailable [phone] Medications No known medications Active Problems Problem [...] VACCINE (#1) 2024 COVID-19 VACCINE ( - 2024-2 6 season) 2024 RSV VACCINE (1 - 1-dose [...] topic Medical Devices Not on file Insurance [email or web address] [facility] COMMUNITY CHOICE MEDICARE PART A & B Member Subscriber Plan / Payer (Ef fective 2018-Present) Name:Michael Bland Member ID:[id number] Relation to Subscriber:Self Name:Michael Bland Subscriber ID:[id number] Payer ID:[id number] Group ID:Not on file Type:Medicare Address: [employer] [address] [facility] MEDICARE PART A & B Member Subscriber Plan / Payer (Ef fective 2018-Present) Name:Michael Bland Member ID:[id number] Relation to Subscriber:Self Name:Michael Bland Subscriber ID:[id number] Payer ID:[id number] Group ID:Not on file Type:Medicare Address: [employer] [address] [facility] CHOICE MEDICARE PART A & [place] [address] [place] [address] CHOICE MEDICARE PART A & B [facility] [place] [employer] [facility] [email or web address] CHOICE MEDICARE PART A & B [facility] [place] [employer] [facility] CHOICE MEDICARE PART A & B Care Teams Gas Operations Analyst Relationship Specialty Start Date End Date Unknown, Unknown, PCP - General 05/11/23 Duong Naylor MD [address] [place] [address] [phone] Neurosurgery 05/09/23 Marifer Chino NP [address] [place] [phone] Nurse Practitioner 06/13/23 Additional Source Comments The information contained in this document represents components of the legal health record. It is not the complete legal health record.[facility]
--- OUTSIDE RECORDS SUMMARY | 2025-01-16 12:34 | XMS_ITS | Encounter Summary ---
Author Organization [facility] Address [address] [place] [address] Care Team Providers Care Carpenter Streetcar Name Role Phone Gaye Pina MD Primary Care Provider Encounter Details Date Type Department Care Team (Late st Contact Info) Description 04/17/2024 Lab Requisition [facility] - Main Lab [address] [place] [address] Gaye Pina MD [address] [place] [address] Encounter for other general examination Social History [...] AM EST) WBC 8.4 4.8 - 10.8 K/[facility] LAB HEMETOLOGY METHOD 04/17/2024 11:30 AM [facility] LAB RBC 3.90(L) 4.50 - 5.50 M/mcL LAB HEMETOLOGY METHOD 04/17/2024 11:30 AM [facility] LAB Hemoglobin 12.3(L) 13.5 - 17.5 g/dL LAB HEMETOLOGY METHOD 04/17/2024 11:30 AM [facility] LAB Hematocrit 37.8(L) 42.0 - 54.0 % LAB HEMETOLOGY METHOD 04/17/2024 11:30 AM [facility] LAB MCV 97.2 79.0 - 98.0 FL LAB HEMETOLOGY METHOD 04/17/2024 11:30 AM [facility] LAB MCH 31.6 27.0 - 32.0 pcg LAB HEMETOLOGY METHOD 04/17/2024 11:30 AM [facility] LAB MCHC 32.5 32.0 - 37.0 g/dL LAB HEMETOLOGY METHOD 04/17/2024 11:30 AM [facility] LAB RDW 14.0 11.0 - 15.0 % LAB HEMETOLOGY METHOD 04/17/2024 11:30 AM [facility] LAB Platelets 336 130 - 400 K/mcL LAB HEMETOLOGY METHOD 04/17/2024 11:30 AM [facility] LAB MPV 9.9 7.0 - 11.0 FL LAB HEMETOLOGY METHOD 04/17/2024 11:30 AM [facility] LAB NRBC 0.0 <1.0 % LAB HEMETOLOGY METHOD 04/17/2024 11:30 AM [facility] LAB NRBC Absolute 0.00 <0.10 K/mcL LAB HEMETOLOGY METHOD 04/17/2024 11:30 AM [facility] LAB Neutrophils Relative 36.9 % LAB HEMETOLOGY METHOD 04/17/2024 11:30 AM [facility] LAB Lymphocytes Relative 38.9 % LAB HEMETOLOGY METHOD 04/17/2024 11:30 AM [facility] LAB Monocytes Relative 9.9 % LAB HEMETOLOGY METHOD 04/17/2024 11:30 AM [facility] LAB Eosinophils Relative 12.9 % LAB HEMETOLOGY METHOD 04/17/2024 11:30 AM [facility] LAB Basophils Relative 1.0 % LAB HEMETOLOGY METHOD 04/17/2024 11:30 AM [facility] LAB Immature Granulocytes Relative 0.4 % LAB HEMETOLOGY METHOD 04/17/2024 11:30 AM [facility] LAB Neutrophils Absolute 3.09 1.50 - 7.00 K/mcL LAB HEMETOLOGY METHOD 04/17/2024 11:30 AM [facility] LAB Lymphocytes Absolute 3.25 1.00 - 5.00 K/mcL LAB HEMETOLOGY METHOD 04/17/2024 11:30 AM [facility] LAB Monocytes Absolute 0.83 0.20 - 1.00 K/mcL LAB HEMETOLOGY METHOD 04/17/2024 11:30 AM [facility] LAB Eosinophils Absolute 1.08(H) 0.00 - 0.50 K/mcL LAB HEMETOLOGY METHOD 04/17/2024 11:30 AM [facility] LAB Basophils Absolute 0.08 0.00 - 0.20 K/mcL LAB HEMETOLOGY METHOD 04/17/2024 11:30 AM [facility] LAB Immature Granulocytes Absolute 0.03 0.00 - 0.03 K/mcL LAB HEMETOLOGY METHOD 04/17/2024 11:30 AM [facility] LAB Blood Venous blood specimen / Unknown Venipuncture / Unknown 04/17/2024 5:59 AM EST 04/17/2024 10:36 AM EST us Gaye Pina MD LAB BLOOD ORDERABLES Final Resu lt Performing Organization Address City/[facility]/ZIP Co de Phone Number [facility] [address] [place] [address], [place] [phone] * Magnesium (04/17/2024 5:59 AM EST) Pathologist [facility] Magnesium 2.4 1.9 - 2.6 mg/dL LAB CHEMISTRY METHOD 04/17/2024 11:26 AM EST [facility] Blood Venous blood specimen / Unknown Venipuncture / Unknown 04/17/2024 5:59 AM EST 04/17/2024 10:36 AM EST Gaye Pina MD LAB BLOOD ORDERABLES Final Resu lt Performing Organization Address [facility]/ZIP Co de Phone Number [facility] [address] [place] [address], [place] [phone] * (ABNORMAL) Comprehensive metabolic panel (04/17/2024 5:59 AM EST) [facility] Sodium 135 133 - 145 mmol/L LAB CHEMISTRY METHOD 04/17/2024 12:17 PM [facility] Potassium 4.3 3.5 - 5.5 mmol/L LAB CHEMISTRY METHOD 04/17/2024 12:17 PM [facility] Chloride 102 96 - 110 mmol/L LAB CHEMISTRY METHOD 04/17/2024 12:17 PM [facility] CO2 27 21 - 32 mmol/L LAB CHEMISTRY METHOD 04/17/2024 12:17 PM [facility] Anion Gap 6 3 - 11 LAB CHEMISTRY METHOD 04/17/2024 12:17 PM [facility] Glucose 97 70 - 100 mg/dL LAB CHEMISTRY METHOD 04/17/2024 12:17 PM [facility] BUN 18 5 - 25 mg/dL LAB CHEMISTRY METHOD 04/17/2024 12:17 PM [facility] Creatinine 0.96 0.70 - 1.30 mg/dL LAB CHEMISTRY METHOD 04/17/2024 12:17 PM [facility] LAB eGFR 90 >=60 mL/min/1. 73m2 LAB CHEMISTRY METHOD 04/17/2024 12:17 PM [facility] LAB Comment:Calculation based on the Chronic Kidney Disease Epidemiology Collaboration (CKD-EPI) equation refit without adjustment for race. BUN/Creatinine Ratio 18.8 LAB CHEMISTRY METHOD 04/17/2024 12:17 PM [facility] Calcium 8.7 8.5 - 10.5 mg/dL LAB CHEMISTRY METHOD 04/17/2024 12:17 PM [facility] AST (SGOT) 54(H) 10 - 42 unit/L LAB CHEMISTRY METHOD 04/17/2024 12:17 PM [facility] ALT (SGPT) 96(H) 10 - 60 unit/L LAB CHEMISTRY METHOD 04/17/2024 12:17 PM [facility] Alkaline Phosphatase 66 42 - 121 unit/L LAB CHEMISTRY METHOD 04/17/2024 12:17 PM [facility] Total Protein 6.2 6.0 - 8.0 g/dL LAB CHEMISTRY METHOD 04/17/2024 12:17 PM [facility] Albumin 3.0(L) 3.2 - 5.0 g/dL LAB CHEMISTRY METHOD 04/17/2024 12:17 PM [facility] Total Bilirubin 0.4 0.0 - 1.4 mg/dL LAB CHEMISTRY METHOD 04/17/2024 12:17 PM [facility] Blood Venous blood specimen / Unknown Venipuncture / Unknown 04/17/2024 5:59 AM EST 04/17/2024 10:36 AM EST us Gaye Pina MD LAB BLOOD ORDERABLES Final Resu lt [facility] [address] [place], [place] [address] [phone] documented in this encounter Visit Diagnoses Diagnosis Encounter for other general examination documented in this encounter Care Teams Carpenter Streetcar Relationship Specialty Start Date End Date Gaye Pina MD [address] [place] [phone] PCP - General Hospitalist Medicine 04/17/24 documented as of this encounter
--- OUTSIDE RECORDS SUMMARY | 2025-01-16 12:34 | XMS_ITS | Encounter Summary ---
Author Organization [facility] Address [address] [place] [address] Phone Care Team Providers Care President Of The [place] Name Role Phone Duong Naylor MD Unavailable Unknown, Unknown Primary Care Provider Marifer Lawson NP Unavailable [phone] Reason for Referral * Occupational Therapy (Routine) - Closed Specialty Diagnoses / Procedures Referred By Jo murdock Referred To Contact Occupational Therapy Diagnoses Encounter for rehabilitation Duong Naylor MD [address] [facility] [address] [place] [phone] Phone: tel: fax: [address] [address] Phone: tel: Referral ID Status Reason Start Date Expiration Date Visits Re quested Visits Authorized [id number] Closed 06/15/2023 06/14/2024 1 1 Encounter Details Date Type Department Care Team (Latest Contact Info) Description 06/15/2023 Transcribe Orders [facility] [address] [place] [phone] Duong Naylor MD [address] [facility] [address] [place] [phone] Encounter for rehabilitation (Primary Dx) Social History [...] Diagnoses Orde r Schedule Ambulatory referral to [facility] Occupational Therapy Outpatient Referral Routine Encounter for rehabilitation Ordered: 06/15/2023 documented as of this encounter Visit Diagnoses Diagnosis Encounter for rehabilitation- Primary documented in this encounter Care Teams President Of The [place] Relationship Specialty Start Date End Date Unknown, Unknown, MD PCP - General 05/11/23 Duong Naylor MD [address] [place] [phone] Neurosurgery 05/09/23 Marifer Chino NP [address] [place] [phone] Nurse Practitioner 06/13/23 documented as of this encounter Additional Source Comments The information contained in this document represents components of the legal health record. It is not the complete legal health record.[facility]
--- OUTSIDE RECORDS SUMMARY | 2025-01-16 12:34 | XMS_ITS | Encounter Summary ---
Author Organization [facility] Address [address] [place] [address] Care Team Providers Care Manager Interventional Name Role Phone Gaye Pina MD Primary Care Provider [phone] Encounter Details Date Type Department Care Team (Late st Contact Info) Description 04/13/2024 Lab Requisition [facility] Lab [address] [place] [address] Gaye Pina MD [address] [place] [phone] Encounter for other general examination Social History [...] AM EST) WBC 8.4 4.8 - 10.8 K/[facility] LAB HEMETOLOGY METHOD 04/13/2024 11:27 AM [facility] LAB RBC 3.70(L) 4.50 - 5.50 M/mcL LAB HEMETOLOGY METHOD 04/13/2024 11:27 AM [facility] LAB Hemoglobin 12.0(L) 13.5 - 17.5 g/dL LAB HEMETOLOGY METHOD 04/13/2024 11:27 AM [facility] LAB Hematocrit 36.3(L) 42.0 - 54.0 % LAB HEMETOLOGY METHOD 04/13/2024 11:27 AM [facility] LAB MCV 97.3 79.0 - 98.0 FL LAB HEMETOLOGY METHOD 04/13/2024 11:27 AM [facility] LAB MCH 32.2(H) 27.0 - 32.0 pcg LAB HEMETOLOGY METHOD 04/13/2024 11:27 AM [facility] LAB MCHC 33.1 32.0 - 37.0 g/dL LAB HEMETOLOGY METHOD 04/13/2024 11:27 AM [facility] LAB RDW 13.6 11.0 - 15.0 % LAB HEMETOLOGY METHOD 04/13/2024 11:27 AM [facility] LAB Platelets 227 130 - 400 K/mcL LAB HEMETOLOGY METHOD 04/13/2024 11:27 AM [facility] LAB MPV 10.5 7.0 - 11.0 FL LAB HEMETOLOGY METHOD 04/13/2024 11:27 AM [facility] LAB NRBC 0.0 <1.0 % LAB HEMETOLOGY METHOD 04/13/2024 11:27 AM [facility] LAB NRBC Absolute 0.00 <0.10 K/mcL LAB HEMETOLOGY METHOD 04/13/2024 11:27 AM [facility] Neutrophils Relative 50.3 % LAB HEMETOLOGY METHOD 04/13/2024 11:27 AM [facility] Lymphocytes Relative 30.4 % LAB HEMETOLOGY METHOD 04/13/2024 11:27 AM [facility] Monocytes Relative 10.7 % LAB HEMETOLOGY METHOD 04/13/2024 11:27 AM [facility] Eosinophils Relative 7.6 % LAB HEMETOLOGY METHOD 04/13/2024 11:27 AM [facility] Basophils Relative 0.6 % LAB HEMETOLOGY METHOD 04/13/2024 11:27 AM [facility] Immature Granulocytes Relative 0.4 % LAB HEMETOLOGY METHOD 04/13/2024 11:27 AM [facility] Neutrophils Absolute 4.23 1.50 - 7.00 K/mcL LAB HEMETOLOGY METHOD 04/13/2024 11:27 AM [facility] Lymphocytes Absolute 2.55 1.00 - 5.00 K/mcL LAB HEMETOLOGY METHOD 04/13/2024 11:27 AM [facility] Monocytes Absolute 0.90 0.20 - 1.00 K/mcL LAB HEMETOLOGY METHOD 04/13/2024 11:27 AM [facility] Eosinophils Absolute 0.64(H) 0.00 - 0.50 K/mcL LAB HEMETOLOGY METHOD 04/13/2024 11:27 AM [facility] Basophils Absolute 0.05 0.00 - 0.20 K/mcL LAB HEMETOLOGY METHOD 04/13/2024 11:27 AM [facility] Immature Granulocytes Absolute 0.03 0.00 - 0.03 K/mcL LAB HEMETOLOGY METHOD 04/13/2024 11:27 AM [facility] Blood Venous blood specimen / Unknown Venipuncture / Unknown 04/13/2024 5:53 AM EST 04/13/2024 10:00 AM EST us Gaye Pina MD LAB BLOOD ORDERABLES Final Resu lt Performing Organization Address [facility]/ZIP Co de Phone Number [facility] [address] [place] [address], * Magnesium (04/13/2024 5:53 AM EST) Magnesium 2.2 1.9 - 2.6 mg/dL LAB CHEMISTRY METHOD 04/13/2024 12:00 PM [facility] Blood Venous blood specimen / Unknown Venipuncture / Unknown 04/13/2024 5:53 AM EST 04/13/2024 10:00 AM EST Gaye Pina MD LAB BLOOD ORDERABLES Final Resu lt Performing Organization Address [facility]/ZIP Co de Phone Number [facility] [address] [place] [address], [place] [phone] * (ABNORMAL) Comprehensive metabolic panel (04/13/2024 5:53 AM EST) Pathologist [facility] Sodium 134 133 - 145 mmol/L LAB CHEMISTRY METHOD 04/13/2024 12:00 PM [facility] Potassium 4.0 3.5 - 5.5 mmol/L LAB CHEMISTRY METHOD 04/13/2024 12:00 PM [facility] Chloride 102 96 - 110 mmol/L LAB CHEMISTRY METHOD 04/13/2024 12:00 PM [facility] CO2 25 21 - 32 mmol/L LAB CHEMISTRY METHOD 04/13/2024 12:00 PM [facility] Anion Gap 7 3 - 11 LAB CHEMISTRY METHOD 04/13/2024 12:00 PM [facility] Glucose 92 70 - 100 mg/dL LAB CHEMISTRY METHOD 04/13/2024 12:00 PM [facility] BUN 16 5 - 25 mg/dL LAB CHEMISTRY METHOD 04/13/2024 12:00 PM [facility] Creatinine 1.06 0.70 - 1.30 mg/dL LAB CHEMISTRY METHOD 04/13/2024 12:00 PM [facility] eGFR 80 >=60 mL/min/1. 73m2 LAB CHEMISTRY METHOD 04/13/2024 12:00 PM [facility] Comment:Calculation based on the Chronic Kidney Disease Epidemiology Collaboration (CKD-EPI) equation refit without adjustment for race. BUN/Creatinine Ratio 15.1 LAB CHEMISTRY METHOD 04/13/2024 12:00 PM [facility] Calcium 8.5 8.5 - 10.5 mg/dL LAB CHEMISTRY METHOD 04/13/2024 12:00 PM [facility] AST (SGOT) 50(H) 10 - 42 unit/L LAB CHEMISTRY METHOD 04/13/2024 12:00 PM [facility] ALT (SGPT) 53 10 - 60 unit/L LAB CHEMISTRY METHOD 04/13/2024 12:00 PM [facility] Alkaline Phosphatase 59 42 - 121 unit/L LAB CHEMISTRY METHOD 04/13/2024 12:00 PM [facility] Total Protein 5.9(L) 6.0 - 8.0 g/dL LAB CHEMISTRY METHOD 04/13/2024 12:00 PM [facility] Albumin 3.0(L) 3.2 - 5.0 g/dL LAB CHEMISTRY METHOD 04/13/2024 12:00 PM [facility] Total Bilirubin 0.9 0.0 - 1.4 mg/dL LAB CHEMISTRY METHOD 04/13/2024 12:00 PM [facility] Blood Venous blood specimen / Unknown Venipuncture / Unknown 04/13/2024 5:53 AM EST 04/13/2024 10:00 AM EST us Gaye Pina MD LAB BLOOD ORDERABLES Final Resu lt [facility] [address] [place] [address], documented in this encounter Visit Diagnoses Diagnosis Encounter for other general examination documented in this encounter Care Teams Manager Interventional Relationship Specialty Start Date End Date Gaye Pina MD [address] [place] [phone] PCP - General Hospitalist Medicine 04/17/24 documented as of this encounter
[2025-01-16 13:15] LABS: MANUAL DIFF FLAG NO
[2025-01-16 13:19] LABS: Appearance Urine Clear; Glucose Urine UA Negative (Negative); PH 5.5 (5.0-9.0); Specific Gravity - Urine 1.025 (1.005-1.025)
[2025-01-16 13:24] LABS: Hematocrit 41.2 % (42.0-52.0); Hemoglobin 13.2 g/dl (14.0-18.0); Imm Gran Abs Auto 0.02 X10*3/uL (0.00-0.03); Imm Gran Pct Auto 0.3 % (0.0-0.4); Lymphocytes Absolute Auto 2.5 X10*3/uL (1.2-4.9); Mean Corpuscular HGB Conc 32.0 g/dl (31.0-36.0); Mean Corpuscular Hemoglobin 31.8 pg (27.0-33.0); Mean Corpuscular Volume 99.3 fL (80.0-98.0); NRBC Abs Auto 0.000 X10*3/uL (0.0-0.012); NRBC Pct Auto 0.0 /100WBC (0.0-0.2); Platelet Count 251 X10*3/uL (160-400); Red Blood Count 4.15 X10*6/uL (4.60-5.80); White Blood Count 6.6 X10*3/uL (4.8-10.8)
[2025-01-16 13:49] LABS: Alanine Aminotransferase 41 U/L (0-40); Albumin Level 4.2 g/dL (3.5-5.0); Alkaline Phosphatase 62 U/L (39-117); Aspartate Amino Transferase 42 U/L (5-37); Total Protein 6.8 g/dL (6.5-8.0)
[2025-01-16 13:53] LABS: Alanine Aminotransferase 48 U/L (0-40); Albumin Level 4.2 g/dL (3.5-5.0); Alkaline Phosphatase 61 U/L (39-117); Anion Gap 11 (12-20); Aspartate Amino Transferase 47 U/L (5-37); Blood Urea Nitrogen 24 mg/dL (9-16); Calcium 9.0 mg/dL (8.4-10.2); Carbon Dioxide 25 mmol/L (22-29); Chloride 109 mmol/L (96-108); Cholesterol 135 mg/dL (<200); Estimated Glomerular Filt Rate > 60; HDL Cholesterol 59 mg/dL (>40); Potassium 4.3 mmol/L (3.3-5.1); Sodium 141 mmol/L (135-145); Total Protein 6.7 g/dL (6.5-8.0); Triglycerides 63 mg/dL (<150)
[2025-01-16 14:50] LABS: Folate 12.9 ng/mL (> or = 4.0); Vitamin B12 1583 pg/mL (200-900)
== END 2025-01-16 10:23 | disposition home or self-care (01) ==
LOC: HO.HMGCLDS 10:22
PROVIDERS: Absent Provider Physician Assistant; PCP Nurse Practitioner Family; Visit Provider Nurse Practitioner Family
DX: Z00.01 Encounter for general adult medical examination with abnormal findings (principal); E53.8 Deficiency of other specified B group vitamins; E78.5 Hyperlipidemia, unspecified
CPT/HCPCS: 36415; 80053; 80061; 80076; 81003; 82248; 82607; 82746; 84443; 85025

== ENCOUNTER 2025-01-25 13:09 | Outpatient (REF) | payer OTHER, MEDICARE, MEDICAID, SELFPAY ==
--- OUTSIDE RECORDS SUMMARY | 2025-01-25 13:12 | XMS_ITS | Encounter Summary ---
Author Organization [facility] Address [address] [place] [address] Phone Care Team Providers Care Motor Hotel Manager Name Role Phone Duong Naylor MD Unavailable Unknown, Unknown Primary Care Provider Marifer Lawson NP Unavailable [phone] Reason for Referral * Occupational Therapy (Routine) - Closed Specialty Diagnoses / Procedures Referred By Jo murdock Referred To Contact Occupational Therapy Diagnoses Encounter for rehabilitation Duong Naylor MD [address] [facility] [address] [place] [phone] Phone: tel: fax: [address] [address] Phone: tel: Referral ID Status Reason Start Date Expiration Date Visits Re quested Visits Authorized [id number] Closed 06/15/2023 06/14/2024 1 1 Encounter Details Date Type Department Care Team (Latest Contact Info) Description 06/15/2023 Transcribe Orders [facility] [address] [place] [phone] Duong Naylor MD [address] [facility] [address] [place] [address] [phone] Encounter for rehabilitation (Primary Dx) Social History [...] Diagnoses Orde r Schedule Ambulatory referral to [facility] Occupational Therapy Outpatient Referral Routine Encounter for rehabilitation Ordered: 06/15/2023 documented as of this encounter Visit Diagnoses Diagnosis Encounter for rehabilitation- Primary documented in this encounter Care Teams Motor Hotel Manager Relationship Specialty Start Date End Date Unknown, Unknown, MD PCP - General 05/11/23 Duong Naylor MD [address] [place] [address] [phone] Neurosurgery 05/09/23 Marifer Chino NP [address] [place] [phone] Nurse Practitioner 06/13/23 documented as of this encounter Additional Source Comments The information contained in this document represents components of the legal health record. It is not the complete legal health record.[facility]
--- OUTSIDE RECORDS SUMMARY | 2025-01-25 13:12 | XMS_ITS | Clinical Summary ---
Author Organization [facility] Address [address] [place] [address] Phone Care Team Providers Care Bookkeepers Supervisor Name Role Phone Duong Naylor MD Unavailable [phone] Unknown, Unknown Primary Care Provider Marifer Lawson NP Unavailable [phone] Medications No known medications Active Problems Problem [...] topic Medical Devices Not on file Insurance [employer] [facility] CHOICE MEDICARE PART A & B Member Subscriber Plan / Payer (Ef fective 2018-Present) Name:Michael Bland Member ID:[id number] Relation to Subscriber:Self Name:Michael Bland Subscriber ID:[id number] Payer ID:[id number] Group ID:Not on file Type:Medicare Address: [employer] [address] [facility] MEDICARE PART A & B Member Subscriber Plan / Payer (Ef fective 2018-Present) Name:Michael Bland Member ID:[id number] Relation to Subscriber:Self Name:Michael Bland Subscriber ID:[id number] Payer ID:[id number] Group ID:Not on file Type:Medicare Address: [employer] [address] [facility] CHOICE MEDICARE PART A & [place] [address] [address] CHOICE MEDICARE PART A & B [facility] [employer] CHOICE MEDICARE PART A & B [facility] CHOICE MEDICARE PART A & B Care Teams Bookkeepers Supervisor Relationship Specialty Start Date End Date Unknown, Unknown, PCP - General 05/11/23 Duong Naylor MD [address] [place] [phone] Neurosurgery 05/09/23 Marifer Chino NP [address] [place] [phone] Nurse Practitioner 06/13/23 Additional Source Comments The information contained in this document represents components of the legal health record. It is not the complete legal health record.[facility]
[2025-01-25 15:23] LABS: MANUAL DIFF FLAG NO
[2025-01-25 15:46] LABS: Imm Gran Abs Auto 0.02 X10*3/uL (0.00-0.03); Imm Gran Pct Auto 0.3 % (0.0-0.4); Mean Corpuscular HGB Conc 33.3 g/dl (31.0-36.0); NRBC Abs Auto 0.000 X10*3/uL (0.0-0.012); NRBC Pct Auto 0.0 /100WBC (0.0-0.2)
[2025-01-25 15:52] LABS: Iron 74 mcg/dL (45-160); Percent Iron Saturation 26 % (15-50); Total Iron Binding Capacity 284 mcg/dL (228-428); Unsaturated Iron Binding 210 ug/dL
[2025-01-25 15:58] LABS: Hematocrit 40.3 % (42.0-52.0); Hemoglobin 13.4 g/dl (14.0-18.0); Lymphocytes Absolute Auto 2.7 X10*3/uL (1.2-4.9); Mean Corpuscular Hemoglobin 32.0 pg (27.0-33.0); Mean Corpuscular Volume 96.2 fL (80.0-98.0); Platelet Count 310 X10*3/uL (160-400); Red Blood Count 4.19 X10*6/uL (4.60-5.80); Reticulocytes Absolute 0.066 X10*6/uL (0.026-0.095); White Blood Count 7.9 X10*3/uL (4.8-10.8)
[2025-01-25 16:14] LABS: RET ABN SCTR 1
[2025-01-25 16:15] LABS: Ferritin 112 ng/mL (20-250)
[2025-01-26 04:48] LABS: HBS Num1 10.06 mIU/mL (0-7.99); HBc Num1 0.11 S/CO (0.00-0.79); HBsAGNum1 0.33 S/CO (0.00-0.99); Hepatitis A Antibody IgM 0.18 Index (0-0.79); Hepatitis B Surface Antigen Negative (Negative); ~HepC Num1 0.08 S/CO (0.00-0.79); ~Hepatitis A Antibody IgM Nonreactive (Nonreactive); ~Hepatitis C Antibody Nonreactive (Nonreactive)
[2025-01-26 05:40] LABS: HBS Num2 9.96 mIU/mL (0-7.99); HBS Num3 10.43 mIU/mL (0-7.99)
[2025-01-26 05:41] LABS: ~Hepatitis B Surface Antibody GRAYZONE (Nonreactive)
== END 2025-01-25 13:10 | disposition home or self-care (01) ==
LOC: HO.HMGCLDS 13:09
PROVIDERS: PCP Nurse Practitioner Family; Visit Provider Nurse Practitioner Family
DX: R74.8 Abnormal levels of other serum enzymes (principal); D64.9 Anemia, unspecified
CPT/HCPCS: 36415; 82728; 83010; 83540; 83615; 85025; 85045; 86015; 86704; 86706; 86709; 86803; 87340

== ENCOUNTER 2025-02-10 15:13 | Emergency (ER) | payer OTHER, MEDICARE, MEDICAID, SELFPAY ==
--- NOTE | ~2025-02-10 | CT_ITS ---
CLINICAL HISTORY: r o PE, CROOKS Exam: Contrast-enhanced chest CT pulmonary angiogram with multiplanar reformats. Comparison: None. Findings: There is no pulmonary embolism or thoracic aortic dissection. No mediastinal or hilar masses or adenopathy. No pleural or pericardial effusions. Images below the diaphragms reveal no acute abnormalities. Lungs are free of focal consolidation. No pneumothorax. Airways are grossly patent. Mild pulmonary mosaic attenuation is nonspecific although may be seen in small airways disease. Osseous structures reveal no destructive osseous lesions. Impression: 1. No pulmonary embolism, aortic dissection or pulmonary consolidation. 2. Mild pulmonary mosaic attenuation. This document has been electronically signed by: Armen Barksdale MD on 02/10/2025 18:38:47
--- NOTE | ~2025-02-10 | XR_ITS ---
EXAMINATION: XR CHEST CLINICAL INFORMATION: SOB COMPARISON: 08/24/2024, 02/26/2024. TECHNIQUE: 2 views of the chest were obtained. FINDINGS: The cardiac, hilar, and mediastinal contours are normal. The lungs are clear bilaterally. There is no pneumothorax or pleural effusion. There is no focal osseous or soft tissue abnormality. Mild scoliosis with degenerative changes throughout the spine. XR/XR chest 2V IMPRESSION: No active pulmonary disease. Electronically signed by: Jose Daley MD 02/10/2025 04:20 PM [facility]
--- NOTE | 2025-02-10 15:16 | ECG_ITS ---
Test Reason : chest pain Blood Pressure : */* mmHG Vent. Rate : 90 BPM Atrial Rate : 90 BPM P-R Int : 156 ms QRS Dur : 84 ms QT Int : 362 ms P-R-T Axes : 84 40 -11 degrees QTcB Int : 442 ms Sinus rhythm with frequent Premature ventricular complexes Nonspecific ST and T wave abnormality Abnormal ECG When compared with ECG of 21-Jan-2015 16:51, Premature ventricular complexes are now Present Nonspecific T wave abnormality now evident in Inferior leads Referred By: Generic ED Physician Electronically Signed By: Fausto Low
[2025-02-10 15:22] VITALS: BP 113/72; PULSE 90; RESP 16; TEMP 36.1; O2SAT 95; BMI 31.2
--- NOTE | 2025-02-10 15:29 | ED.CHESTPAIN ---
HPI - Chest Pain General Chief Complaint: Dyspnea Stated Complaint: CP Time Seen by Provider: 02/10/25 15:50 History of Present Illness ED Provider: Ignacia Ricci HPI narrative: 59-year-old male with a medical history significant for right hemiparesis status post CVA at the age of 4-1/2 with baseline atrophy of the right upper extremity and limited use, PFO, migraine, PTSD, KASANDRA, bladder outlet obstruction, acoustic neuroma status post resection, cervical radiculopathy, ADD and bipolar 1 disorder previously followed by cardiology Dr. Bergman, presents to the ED with chief complaint of shortness of breath and cough. Patient reports he has been feeling more short of breath over the past several days that is worse with exertion as well as a cough that is productive of yellow to green sputum. No lower extremity edema or pain, no numbness or tingling. Denies any substernal chest pain or pressure, no palpitations. He has not used [id number] medications at home prior to arrival to help with symptoms. He denies any known sick contacts. Reports a subjective fever at the beginning of his illness, which was roughly 3-5 days ago. No abdominal pain, nausea or vomiting, urinary complaints. Reports tightness in the chest with coughing episodes. No urinary complaints. Related Data Home Medications ?Medication ?Instructions ?Recorded ?Confirmed cholecalciferol (vitamin D3) 25 25 mcg PO DAILY 02/05/20 11/27/24 mcg (1,000 unit) capsule multivitamin 1 tab PO DAILY 02/05/20 11/27/24 dextroamphetamine-amphetamine 20 20 mg PO BID attention 11/08/21 11/27/24 mg tablet (Adderall) aspirin 81 mg tablet,delayed 81 mg PO DAILY 01/27/22 11/27/24 release mecobalamin (vitamin B12) 500 mcg 1,000 mcg PO 02/27/23 11/27/24 chewable tablet sacubitril 24 mg-valsartan 26 mg 1 tab PO BID 04/17/23 11/27/24 tablet (Entresto) clobetasol 0.05 % topical cream 1 appl topical BID 07/16/24 11/27/24 metoprolol succinate 50 mg 50 mg PO DAILY 07/16/24 11/27/24 tablet,extended release 24 hr triamcinolone acetonide 0.1 % appl topical 07/16/24 11/27/24 topical cream Previous Rx's ?Medication ?Instructions ?Recorded miscellaneous medical supply 1 ea miscellaneous .daily use off 08/09/23 balance 1 day #1 ea atorvastatin 80 mg tablet 80 mg PO BEDTIME #90 tabs 07/16/24 custom arch support right foot #1 ea 07/16/24 miscellaneous medical supply #1 ea 07/16/24 omeprazole 20 mg capsule,delayed 20 mg PO DAILY #90 caps 07/26/24 release Instrument Processing Tech Walker/travel wheelchair #1 ea 07/29/24 ibuprofen 600 mg tablet 600 mg PO Q8H PRN pain #30 tabs 08/24/24 rollator walker with seat, brakes #1 ea 08/29/24 oxybutynin chloride 5 mg 5 mg PO DAILY 30 days #30 tabs 09/10/24 tablet,extended release 24 hr carbamide peroxide 6.5 % ear drops 5 drp otic (ears) DAILY 4 days #15 11/20/24 (Debrox) mL clotrimazole 1 % topical cream 1 appl topical bid 4 weeks #45 11/20/24 grams AFO brace right leg #1 ea 11/27/24 ketoconazole 2 % topical cream 1 appl topical .qhs 30 days #60 01/22/25 grams albuterol sulfate 90 mcg/actuation 1 inh inhalation QID PRN shortness 02/10/25 aerosol inhaler (Ventolin HFA) of breath or wheezing 7 days #8.5 grams azithromycin 250 mg tablet See Rx Instructions PO .COMPLEX #6 02/10/25 (Zithromax Z-Wilman) tabs prednisone 20 mg tablet 40 mg (2 x 20 mg) PO DAILY 5 days 02/10/25 #10 tabs Allergies Allergy/AdvReac Type Severity Reaction Status Date / Time Penicillins Allergy Severe ANAPHYLAXIS Verified 02/10/25 15:23 clopidogrel (From Plavix) Allergy Intermediate Itching Verified 02/10/25 15:23 adhesive Allergy Mild Rash Verified 02/10/25 15:23 morphine AdvReac Intermediate Agitated Verified 02/10/25 15:23 Review of Systems Review of Systems: ROS is otherwise negative unless mentioned in HPI. [facility] Past Medical History Medical History Left hand weakness History of shingles Migraine PTSD (post-traumatic stress disorder) KASANDRA (obstructive sleep apnea) Somnolence, daytime Encounter for screening Encounter for screening Thoracic back pain Lower back pain Feeling of incomplete bladder emptying Weak urinary stream Bladder outlet obstruction Hearing loss Acoustic neuroma Cervical radiculopathy Cerebrovascular accident Attention deficit disorder Bipolar 1 disorder Surgical History History of esophagogastroduodenoscopy (EGD) History of back surgery H/O colonoscopy History of surgery History of cochlear implant History of elbow surgery History of sinus surgery History of brain surgery Family History Family History Father No problems noted. Mother History of breast cancer Social History Social History Household Members: None Housing: House Are you a primary childcare attendant to a significant other at home: No Do you presently have visiting nurse or other home services: No Alcohol intake: current Alcohol intake frequency: holidays/special occasions only Patient Tobacco Use Status: Never used Tobacco Smoked in Last 30 Days: No e-Cigarette/Vaping Use: Never Used Second Hand Smoke Exposure: No Use of substances other than those prescribed or required for medical reasons: No Advance Directives: No Advance Directives Information Provided: Yes service: No Current occupational status: unemployed Cognitive needs: No Hearing needs: No Vision needs: No Physical Exam Exam: Exam: Nursing notes and vital signs reviewed. Constitutional: Well-appearing, NAD. Alert. Oriented X3. Eyes: EOMI. ENT: Pharynx normal. Neck: Normal inspection. Neck supple. CVS: Normal heart rate and rhythm. Pulses normal. Respiratory: No respiratory distress. Breath sounds normal. Diminished at the bilateral bases. Abdomen: Soft and nontender, nondistended. Skin: Skin warm and dry. Normal skin color. Extremities: No lower extremity edema. Neuro: Oriented X 3. No motor deficit. Vital Signs: Vital Signs: Last Vital Signs Temp 97.0 F 02/10/25 15:22 Pulse 71 02/10/25 18:27 Resp 18 02/10/25 18:27 BP 122/71 02/10/25 18:27 Pulse Ox 99 02/10/25 18:27 O2 Del Method Room Air 02/10/25 18:27 BMI result Body Mass Index 31.2 Course Course Course Narrative: This is an RME: Additional HPI, ROS, PE not included below will be deferred to primary provider. RME assessment and note performed by: Danielle Blankenship PA-C This is a 59-year-old male, with a past medical history of CVA as a 2-year-old with residual right-sided deficits, NSTEMI, DVT (not on anticoagulation) who presents emergency department with concerns of shortness for breath with exertion for the last 3 days. No lower extremity swelling. No fevers or chills. He has a history of pneumonia. He is not on anticoagulation. Plan: Labs, EKG, CXR, viral swabs, further ER eval needed Medications Administered Discontinued Medications Generic Name Dose Route Start Last Admin Trade Name Freq PRN Reason Stop Dose Admin Iohexol 100 ml 02/10/25 18:11 02/10/25 18:12 Iohexol 350 Mg/Ml 100 Ml Infus..Btl IV 02/10/25 18:12 65 ml ONCE ONE Administration Methylprednisolone Sodium Succinate 60 mg 02/10/25 17:28 02/10/25 17:54 Methylprednisolone Sod Succ 125 Mg/2 Ml Vial IVPUSH 02/10/25 17:29 60 mg ONCE ONE Administration Medical Decision Making Medical Decision Making [facility] Narrative: Upon assessment he overall appears well. He answers questions appropriately. Reports several days of viral illness like symptoms, no shortness for breath on exertion. Possibly underlying ACS though unlikely, we will obtain troponins, viral panel, lab work. This was ordered in triage. I was able to review the EKG which is reassuring and does not appear ischemic at this time. Plan to trend troponins, obtain x-ray of the chest and reassess. Offered Tylenol in the ED but he declined. 1730-- 2nd trop is flat. He reports CROOKS persistently. We will obtain CTA of the chest rule out underlying PE though unlikely given the CROOKS, and ambulatory pulse ox. We will administer a small dose of steroids given his coughing, as pathology is likely viral. 192-- CTA of the chest shows no acute abnormalities, specifically no PE, pneumonia. This is likely viral in nature. His ambulatory pulse ox is 95% on room air. He does not report endorsing any exertional chest pain or pressure, shortness of breath. Reports improvement after the dose of Solu-Medrol in the ED. Given it is likely viral in nature, plan to discharge home with oral steroids and a Z-Wilman for the next several days given his KASANDRA history. I did recommend he follows up with PCP within the next 1 week, provided return precautions to the ED. He is agreeable with plan of care. Differential Diagnosis Differential Diagnoses: The differential diagnosis associated with the presentation includes Viral illness, pneumonia, ACS, mi, new CHF, fluid overload Admission/Observation Consideration of admission/observation: Escalation of care including admission/observation considered (Not indicated) Lab Data MDM Lab Attestation statement: I reviewed the patient's lab results. (Overall reassuring) 02/10/25 15:51 02/10/25 15:51 Labs: Lab Results 02/10/25 02/10/25 02/10/25 Range/Units 15:51 16:27 16:56 WBC 7.7 (4.8-10.8) X10*3/uL RBC 4.10 L (4.60-5.80) X10*6/uL Hgb 13.1 L (14.0-18.0) g/dl Hct 39.8 L (42.0-52.0) % MCV 97.1 (80.0-98.0) fL MCH 32.0 (27.0-33.0) pg MCHC 32.9 (31.0-36.0) g/dl RDW 14.0 (11.0-16.0) % Plt Count 200 D (160-400) X10*3/uL MPV 10.0 (9.4-12.4) fL Immature Gran % (Auto) 0.1 (0.0-0.4) % Neut % (Auto) 45.4 (45-73) % Lymph % (Auto) 31.9 (20-40) % [place] % (Auto) 11.8 H (2-11) % Eos % (Auto) 10.3 H (0-4) % Baso % (Auto) 0.5 (0-2) % Lymph # (Auto) 2.5 (1.2-4.9) X10*3/uL [place] # (Auto) 0.9 (0.1-1.2) X10*3/uL Eos # (Auto) 0.8 H (0.0-0.4) X10*3/uL Baso # (Auto) 0.0 (0.0-0.2) X10*3/uL Abs Immat Gran (auto) 0.01 (0.00-0.03) X10*3/uL Absolute Neuts (auto) 3.5 (2.0-8.3) x10*3/uL Absolute Nucleated RBC 0.000 (0.0-0.012) X10*3/uL Nucleated RBC % (auto) 0.0 (0.0-0.2) /100WBC PT 12.0 (11.2-13.5) SEC INR 1.0 (0.9-1.1) Sodium 140 (135-145) mmol/L Potassium 3.9 (3.3-5.1) mmol/L Chloride 111 H (96-108) mmol/L Carbon Dioxide 23 (22-29) mmol/L Anion Gap 10 L (12-20) BUN 23 H (9-16) mg/dL Creatinine 0.95 (0.5-1.4) mg/dL Estim Creat Clear Calc 93.2 Estimated GFR > 60 Random Glucose 106 (60-115) mg/dL Calcium 9.1 (8.4-10.2) mg/dL Magnesium 2.0 (1.6-2.6) mg/dL Total Bilirubin 0.6 (0.0-1.0) mg/dL Direct Bilirubin 0.2 (0.0-0.5) mg/dL AST 30 (5-37) U/L ALT 27 (0-40) U/L Alkaline Phosphatase 64 (39-117) U/L Troponin I High Sens 4.4 6.5 (<3.5-35.0) ng/L NT-Pro-B Natriuret Pep 378.5 H (<300) pg/mL Total Protein 6.8 (6.5-8.0) g/dL Albumin 4.2 (3.5-5.0) g/dL Influenza Type A (PCR) NEGATIVE (Negative) Influenza Type B (PCR) NEGATIVE (Negative) RSV RNA Qual (PCR) NEGATIVE (Negative) SARS-CoV-2 RNA (RT-PCR) NEGATIVE (Negative) Independent Interpretation I performed an independent interpretation of an: EKG and Plain X-Ray Interpretation: Rate: 90 Rhythm: NSR, occ PVCs [place]:84/40/-11 Normal P waves. Normal SHANNAN. Normal QRS complex. ST T wave : nonspecific abnormality qTC: 442 prior studies:similar The study has been interpreted contemporaneously by me. I have reviewed the patient's imaging and agree with the radiologist's findings. Radiology Impression Discussion of test interpretation with radiology: I have reviewed the radiologist's reading. Radiologist Impression: XR/XR chest 2V IMPRESSION: No active pulmonary disease. CTA chest PE: Impression: 1. No pulmonary embolism, aortic dissection or pulmonary consolidation. 2. Mild pulmonary mosaic attenuation. Independent Historian None External Record Review External record reviewed: Office record and Outpatient record (Cardiology visit from 03/31/2022) Chronic Conditions Patient?s care impacted by: Hypertension and Other (KASANDRA) Social Determinants Patient?s care significantly limited by Social Determinants of Health including: Problems related to primary support group Discharge Plan Discharge Clinical Impression: Upper respiratory infection, viral Patient Disposition: Home, Self-Care Instructions: Upper Respiratory Infection (DC) Additional Instructions: As we discussed, you had an extensive workup today that included an x-ray of the chest, CT of the chest, lab work, an EKG, which was all very reassuring. At this time, we are discharging home as you will likely have a viral illness, we want you to take a Z-Wilman as prescribed to you, and the steroid. Please follow up with your PCP within 1 week. With any worsening complaints at any time, seek re-evaluation in the ED. Prescriptions: New azithromycin [Zithromax Z-Wilman] 250 mg tablet See Rx Instructions .ROUTE .COMPLEX Qty: 6 0RF Rx Instructions: For 250 mg dose pack: take 500 mg today (day 1), then 250 mg for 4 days (days 2-5) prednisone 20 mg tablet 40 mg PO DAILY 5 Days Qty: 10 0RF albuterol sulfate [Ventolin HFA] 90 mcg/actuation HFA aerosol inhaler 1 inh inhalation QID PRN (Reason: shortness of breath or wheezing) 7 Days Qty: 8.5 0RF No Action (DME) custom arch support right foot See Rx Instructions .Route .MEDSUPPLY Qty: 1 0RF Rx Instructions: Use As directed (DME) Instrument Processing Tech Walker/travel wheelchair See Rx Instructions .Route .MEDSUPPLY Qty: 1 0RF Rx Instructions: As directed (DME) rollator walker with seat, brakes See Rx Instructions .Route .MEDSUPPLY Qty: 1 0RF Rx Instructions: As directed ketoconazole 2 % cream 1 appl topical .qhs 30 Days Qty: 60 0RF aspirin [Aspir-81] 81 mg Tablet,Delayed Release (Dr/Ec) 81 mg PO DAILY cholecalciferol (vitamin D3) 25 mcg (1,000 unit) capsule 25 mcg PO DAILY multivitamin Tablet 1 tab PO DAILY dextroamphetamine-amphetamine [Adderall] 20 mg tablet 20 mg PO BID miscellaneous medical supply Misc 1 ea miscellaneous .daily use 1 Days Qty: 1 0RF Rx Instructions: right foot, 1/2 inch lift (heel) mecobalamin (vitamin B12) 500 mcg tablet,chewable 1,000 mcg PO Entresto 24-26 mg tablet 1 tab PO BID oxybutynin chloride 5 mg tablet extended release 24hr 5 mg PO DAILY 30 Days Qty: 30 1RF omeprazole 20 mg capsule,delayed release(DR/EC) 20 mg PO DAILY Qty: 90 0RF ibuprofen 600 mg tablet 600 mg PO Q8H PRN (Reason: pain) Qty: 30 0RF Debrox 6.5 % drops 5 drp otic (ears) DAILY 4 Days Qty: 15 0RF clotrimazole 1 % cream 1 appl topical bid 28 Days Qty: 45 1RF (DME) AFO brace right leg See Rx Instructions .Route .MEDSUPPLY Qty: 1 0RF Rx Instructions: daily use metoprolol succinate 50 mg tablet extended release 24 hr 50 mg PO DAILY clobetasol 0.05 % cream 1 appl topical BID triamcinolone acetonide 0.1 % cream topical (DME) miscellaneous medical supply Package See Rx Instructions .Route Qty: 1 0RF Rx Instructions: custom right arch support, pt has a brace atorvastatin 80 mg tablet 80 mg PO BEDTIME Qty: 90 4RF Referrals: Don Meraz, B[facility]ER OPERATOR-BC [Primary Care Provider, Internal Medicine] Print Language: Grenadian
[2025-02-10 15:56] LABS: MANUAL DIFF FLAG NO
[2025-02-10 16:00] LABS: Hematocrit 39.8 % (42.0-52.0); Hemoglobin 13.1 g/dl (14.0-18.0); Imm Gran Abs Auto 0.01 X10*3/uL (0.00-0.03); Imm Gran Pct Auto 0.1 % (0.0-0.4); Lymphocytes Absolute Auto 2.5 X10*3/uL (1.2-4.9); Mean Corpuscular HGB Conc 32.9 g/dl (31.0-36.0); Mean Corpuscular Hemoglobin 32.0 pg (27.0-33.0); Mean Corpuscular Volume 97.1 fL (80.0-98.0); NRBC Abs Auto 0.000 X10*3/uL (0.0-0.012); NRBC Pct Auto 0.0 /100WBC (0.0-0.2); Platelet Count 200 X10*3/uL (160-400); Red Blood Count 4.10 X10*6/uL (4.60-5.80); White Blood Count 7.7 X10*3/uL (4.8-10.8)
[2025-02-10 16:11] LABS: INTERNATIONAL NORM RATIO 1.0 (0.9-1.1); Prothrombin Time 12.0 SEC (11.2-13.5)
[2025-02-10 16:17] LABS: Alanine Aminotransferase 27 U/L (0-40); Albumin Level 4.2 g/dL (3.5-5.0); Alkaline Phosphatase 64 U/L (39-117); Anion Gap 10 (12-20); Aspartate Amino Transferase 30 U/L (5-37); Blood Urea Nitrogen 23 mg/dL (9-16); Calcium 9.1 mg/dL (8.4-10.2); Carbon Dioxide 23 mmol/L (22-29); Chloride 111 mmol/L (96-108); Creatinine Clr Calc Pharmacy 93.2; Estimated Glomerular Filt Rate > 60; Magnesium 2.0 mg/dL (1.6-2.6); Potassium 3.9 mmol/L (3.3-5.1); Sodium 140 mmol/L (135-145); Total Protein 6.8 g/dL (6.5-8.0)
[2025-02-10 16:27] LABS: Troponin-I High Sensitivity 4.4 ng/L (<3.5-35.0)
[2025-02-10 17:14] LABS: Resp Syncy Virus RNA Qual PCR NEGATIVE (Negative); SARS COV2 PCR INHOUSE NEGATIVE (Negative)
[2025-02-10 17:19] LABS: Troponin-I High Sensitivity 6.5 ng/L (<3.5-35.0)
[2025-02-10 17:30] LABS: NT Pro B Type Natriuretic Pept 378.5 pg/mL (<300)
--- NOTE | 2025-02-10 17:40 | MHC.EDTECH ---
pt stated between 94%-97% during ambulation trial, RN made aware
[2025-02-10] MEDS: iohexoL 350 MG/ML 100 ML INFUS..BTL IV (18:12)
[2025-02-10 18:27] VITALS: BP 122/71; PULSE 71; RESP 18; O2SAT 99
--- NOTE | 2025-02-10 19:28 | PC.NURSE ---
this rn assumed care of pt, pt taken on walk around ed, ambulated with steady gait and offers no complaints.
[2025-02-10 19:43] VITALS: BP 118/75; PULSE 79; RESP 20; TEMP 36.7; O2SAT 100
--- OUTSIDE RECORDS SUMMARY | 2025-02-10 20:14 | XMS_ITS | Encounter Summary ---
Author Organization Formerly [facility] Address [address] [place] [phone] Phone Care Team Providers Care Ice Cream Server Name Role Phone Duong Naylor MD Unavailable [phone] Unknown, Unknown Primary Care Provider Marifer Lawson NP Unavailable [phone] Reason for Referral * Occupational Therapy (Routine) - Closed Specialty Diagnoses / Procedures Referred By Jo murdock Referred To Contact Occupational Therapy Diagnoses Encounter for rehabilitation Duong Naylor MD [address] [facility] [address] [place] [phone] Phone: tel: fax: [address] [address] Phone: tel: Referral ID Status Reason Start Date Expiration Date Visits Re quested Visits Authorized [id number] Closed 06/15/2023 06/14/2024 1 1 Encounter Details Date Type Department Care Team (Latest Contact Info) Description 06/15/2023 Transcribe Orders [facility] [address] [place] [phone] Duong Naylor MD [address] [facility] [address] [place] [phone] Encounter for rehabilitation (Primary Dx) Social History [...] Diagnoses Orde r Schedule Ambulatory referral [facility] Occupational Therapy Outpatient Referral Routine Encounter for rehabilitation Ordered: 06/15/2023 documented as of this encounter Visit Diagnoses Diagnosis Encounter for rehabilitation- Primary documented in this encounter Care Teams Ice Cream Server Relationship Specialty Start Date End Date Unknown, Unknown, MD PCP - General 05/11/23 Duong Naylor MD [address] [place] [phone] Neurosurgery 05/09/23 aMrifer Chino NP [address] [place] [phone] Nurse Practitioner 06/13/23 documented as of this encounter Additional Source Comments The information contained in this document represents components of the legal health record. It is not the complete legal health record.Formerly [facility]
--- OUTSIDE RECORDS SUMMARY | 2025-02-10 20:14 | XMS_ITS | Clinical Summary ---
Author Organization [address] [facility] Address [address] [place] [address] Phone Care Team Providers Care Senior Analysis Specialist Name Role Phone Gaye Pina MD Primary Care Provider [phone] Social History Tobacco Use Types Packs/Day Years [...] Depression Screening 03/20/2024 COVID-19 Vaccine (1 - 2024-2 6 season) 2024 Influenza Vaccine (#1) 2024 04/18/2017 [...] MEDICAID - [place] MEDICARE Care Teams Senior Analysis Specialist Relationship Specialty Start Date End Date Gaye Pina MD [address] [place] [phone] PCP - General Hospitalist Medicine 04/17/24
--- OUTSIDE RECORDS SUMMARY | 2025-02-10 20:14 | XMS_ITS | Encounter Summary ---
Author Organization [facility] Address [address] [place] [address] Care Team Providers Care Ebd Special Education Teacher Name Role Phone Gaye Pina MD Primary Care Provider [phone] Encounter Details Date Type Department Care Team (Late st Contact Info) Description 04/13/2024 Lab Requisition [facility] - Main Lab [address] [place] [address] Gaye Pina MD [address] [place] [phone] Encounter for other general examination Social History [...] AM EST) WBC 8.4 4.8 - 10.8 K/[facility] LAB HEMETOLOGY METHOD 04/13/2024 11:27 AM [facility] LAB RBC 3.70(L) 4.50 - 5.50 M/mcL LAB HEMETOLOGY METHOD 04/13/2024 11:27 AM [facility] LAB Hemoglobin 12.0(L) 13.5 - 17.5 g/dL LAB HEMETOLOGY METHOD 04/13/2024 11:27 AM [facility] LAB Hematocrit 36.3(L) 42.0 - 54.0 % LAB HEMETOLOGY METHOD 04/13/2024 11:27 AM [facility] LAB MCV 97.3 79.0 - 98.0 FL LAB HEMETOLOGY METHOD 04/13/2024 11:27 AM [facility] LAB MCH 32.2(H) 27.0 - 32.0 pcg LAB HEMETOLOGY METHOD 04/13/2024 11:27 AM [facility] LAB MCHC 33.1 32.0 - 37.0 g/dL LAB HEMETOLOGY METHOD 04/13/2024 11:27 AM [facility] LAB RDW 13.6 11.0 - 15.0 % LAB HEMETOLOGY METHOD 04/13/2024 11:27 AM [facility] LAB Platelets 227 130 - 400 K/mcL LAB HEMETOLOGY METHOD 04/13/2024 11:27 AM [facility] LAB MPV 10.5 7.0 - 11.0 FL LAB HEMETOLOGY METHOD 04/13/2024 11:27 AM [facility] LAB NRBC 0.0 <1.0 % LAB HEMETOLOGY METHOD 04/13/2024 11:27 AM [facility] LAB NRBC Absolute 0.00 <0.10 K/mcL LAB HEMETOLOGY METHOD 04/13/2024 11:27 AM [facility] LAB Neutrophils Relative 50.3 % LAB HEMETOLOGY METHOD 04/13/2024 11:27 AM [facility] LAB Lymphocytes Relative 30.4 % LAB HEMETOLOGY METHOD 04/13/2024 11:27 AM [facility] LAB Monocytes Relative 10.7 % LAB HEMETOLOGY METHOD 04/13/2024 11:27 AM [facility] LAB Eosinophils Relative 7.6 % LAB HEMETOLOGY METHOD 04/13/2024 11:27 AM [facility] LAB Basophils Relative 0.6 % LAB HEMETOLOGY METHOD 04/13/2024 11:27 AM [facility] LAB Immature Granulocytes Relative 0.4 % LAB HEMETOLOGY METHOD 04/13/2024 11:27 AM [facility] LAB Neutrophils Absolute 4.23 1.50 - 7.00 K/mcL LAB HEMETOLOGY METHOD 04/13/2024 11:27 AM [facility] LAB Lymphocytes Absolute 2.55 1.00 - 5.00 K/mcL LAB HEMETOLOGY METHOD 04/13/2024 11:27 AM [facility] LAB Monocytes Absolute 0.90 0.20 - 1.00 K/mcL LAB HEMETOLOGY METHOD 04/13/2024 11:27 AM [facility] LAB Eosinophils Absolute 0.64(H) 0.00 - 0.50 K/mcL LAB HEMETOLOGY METHOD 04/13/2024 11:27 AM [facility] LAB Basophils Absolute 0.05 0.00 - 0.20 K/mcL LAB HEMETOLOGY METHOD 04/13/2024 11:27 AM [facility] LAB Immature Granulocytes Absolute 0.03 0.00 - 0.03 K/mcL LAB HEMETOLOGY METHOD 04/13/2024 11:27 AM [facility] LAB Blood Venous blood specimen / Unknown Venipuncture / Unknown 04/13/2024 5:53 AM EST 04/13/2024 10:00 AM EST us Gaye Pina MD LAB BLOOD ORDERABLES Final Resu lt Performing Organization Address [facility]/ZIP Co de Phone Number [facility] [address] [place] [address], * Magnesium (04/13/2024 5:53 AM EST) Magnesium 2.2 1.9 - 2.6 mg/dL LAB CHEMISTRY METHOD 04/13/2024 12:00 PM [facility] LAB Blood Venous blood specimen / Unknown Venipuncture / Unknown 04/13/2024 5:53 AM EST 04/13/2024 10:00 AM EST Gaye Pina MD LAB BLOOD ORDERABLES Final Resu lt Performing Organization Address [facility]/ZIP Co de Phone Number [facility] [address] [place] [address], [place] [phone] * (ABNORMAL) Comprehensive metabolic panel (04/13/2024 5:53 AM EST) Pathologist [facility] Sodium 134 133 - 145 mmol/L LAB CHEMISTRY METHOD 04/13/2024 12:00 PM [facility] LAB Potassium 4.0 3.5 - 5.5 mmol/L LAB CHEMISTRY METHOD 04/13/2024 12:00 PM [facility] LAB Chloride 102 96 - 110 mmol/L LAB CHEMISTRY METHOD 04/13/2024 12:00 PM [facility] LAB CO2 25 21 - 32 mmol/L LAB CHEMISTRY METHOD 04/13/2024 12:00 PM [facility] LAB Anion Gap 7 3 - 11 LAB CHEMISTRY METHOD 04/13/2024 12:00 PM [facility] LAB Glucose 92 70 - 100 mg/dL LAB CHEMISTRY METHOD 04/13/2024 12:00 PM [facility] LAB BUN 16 5 - 25 mg/dL LAB CHEMISTRY METHOD 04/13/2024 12:00 PM [facility] LAB Creatinine 1.06 0.70 - 1.30 mg/dL LAB CHEMISTRY METHOD 04/13/2024 12:00 PM [facility] LAB eGFR 80 >=60 mL/min/1. 73m2 LAB CHEMISTRY METHOD 04/13/2024 12:00 PM [facility] LAB Comment:Calculation based on the Chronic Kidney Disease Epidemiology Collaboration (CKD-EPI) equation refit without adjustment for race. BUN/Creatinine Ratio 15.1 LAB CHEMISTRY METHOD 04/13/2024 12:00 PM [facility] LAB Calcium 8.5 8.5 - 10.5 mg/dL LAB CHEMISTRY METHOD 04/13/2024 12:00 PM [facility] LAB AST (SGOT) 50(H) 10 - 42 unit/L LAB CHEMISTRY METHOD 04/13/2024 12:00 PM [facility] LAB ALT (SGPT) 53 10 - 60 unit/L LAB CHEMISTRY METHOD 04/13/2024 12:00 PM [facility] LAB Alkaline Phosphatase 59 42 - 121 unit/L LAB CHEMISTRY METHOD 04/13/2024 12:00 PM [facility] Total Protein 5.9(L) 6.0 - 8.0 g/dL LAB CHEMISTRY METHOD 04/13/2024 12:00 PM [facility] LAB Albumin 3.0(L) 3.2 - 5.0 g/dL LAB CHEMISTRY METHOD 04/13/2024 12:00 PM [facility] Total Bilirubin 0.9 0.0 - 1.4 mg/dL LAB CHEMISTRY METHOD 04/13/2024 12:00 PM [facility] LAB Blood Venous blood specimen / Unknown Venipuncture / Unknown 04/13/2024 5:53 AM EST 04/13/2024 10:00 AM EST us Gaye Pina MD LAB BLOOD ORDERABLES Final Resu lt [facility] [address] [place] [address], documented in this encounter Visit Diagnoses Diagnosis Encounter for other general examination documented in this encounter Care Teams Ebd Special Education Teacher Relationship Specialty Start Date End Date Gaye Pina MD [address] [place] [phone] PCP - General Hospitalist Medicine 04/17/24 documented as of this encounter
--- OUTSIDE RECORDS SUMMARY | 2025-02-10 20:14 | XMS_ITS | Clinical Summary ---
Author Organization [facility] Address [address] [place] [address] Phone Care Team Providers Care Cartridge Gauger Name Role Phone Duong Naylor MD Unavailable [phone] Unknown, Unknown Primary Care Provider Marifer Lawson NP Unavailable [phone] Medications No known medications Active Problems Problem [...] 2013 INFLUENZA VACCINE (#1) 2024 COVID-19 VACCINE (1 - 2024-2 6 season) 2024 RSV VACCINE (1 - 1-dose 75+ series) 2038 HEPATITIS A VACCINES Aged Out No long er eligible based on patient's age to complete this topic HIB VACCINES Aged Out No longer eligi ble based on patient's age to complete this topic IPV VACCINES Aged Out No longer eligi ble based on patient's age to complete this topic MENINGOCOCCAL VACCINES (ACWY) Aged Out No longer eligible based on patient's age to complete this topic MENINGOCOCCAL VACCINES (B) Aged Out N o longer eligible based on patient's age to complete this topic Medical Devices Not on file Insurance MD-IT [facility] CHOICE MEDICARE PART A & B [facility] CHOICE MEDICARE PART A & B CHOICE MEDICARE PART A & [place] [address] [address] [place] [address] CHOICE MEDICARE PART A & [facility] CHOICE [facility] Address: [address] [address] MEDICARE PART A & B [facility] CHOICE MEDICARE PART A & B Care Teams Cartridge Gauger Relationship Specialty Start Date End Date Unknown, Unknown, PCP - General 05/11/23 Duong Naylor MD [address] [place] [address] [address] [place] [id number] Neurosurgery 05/09/23 Marifer Chino NP [address] [place] [address] Nurse Practitioner 06/13/23 Additional Source Comments The information contained in this document represents components of the legal health record. It is not the complete legal health record.[facility]
--- OUTSIDE RECORDS SUMMARY | 2025-02-10 20:14 | XMS_ITS | Encounter Summary ---
Author Organization [facility] Address [address] [place] [address] Care Team Providers Care Nuclear Powerplant Mechanic Name Role Phone Gaye Pina MD Primary Care Provider Encounter Details Date Type Department Care Team (Late st Contact Info) Description 04/17/[address] [facility] - Main Lab [address] [place] [address] Gaye Pian MD [address] [place] [address] Encounter for other general examination Social History [...] AM EST) WBC 8.4 4.8 - 10.8 K/[facility] LAB HEMETOLOGY METHOD 04/17/2024 11:30 AM [facility] LAB RBC 3.90(L) 4.50 - 5.50 M/mcL LAB HEMETOLOGY METHOD 04/17/2024 11:30 AM [facility] LAB Hemoglobin 12.3(L) 13.5 - 17.5 g/dL LAB HEMETOLOGY METHOD 04/17/2024 11:30 AM [facility] LAB Hematocrit 37.8(L) 42.0 - 54.0 % LAB HEMETOLOGY METHOD 04/17/2024 11:30 AM [facility] LAB MCV 97.2 79.0 - 98.0 FL LAB HEMETOLOGY METHOD 04/17/2024 11:30 AM [facility] LAB MCH 31.6 27.0 - 32.0 pcg LAB HEMETOLOGY METHOD 04/17/2024 11:30 AM [facility] LAB MCHC 32.5 32.0 - 37.0 g/dL LAB HEMETOLOGY METHOD 04/17/2024 11:30 AM [facility] LAB RDW 14.0 11.0 - 15.0 % LAB HEMETOLOGY METHOD 04/17/2024 11:30 AM [facility] LAB Platelets 336 130 - 400 K/mcL LAB HEMETOLOGY METHOD 04/17/2024 11:30 AM [facility] LAB MPV 9.9 7.0 - 11.0 FL LAB HEMETOLOGY METHOD 04/17/2024 11:30 AM [facility] LAB NRBC 0.0 <1.0 % LAB HEMETOLOGY METHOD 04/17/2024 11:30 AM [facility] LAB NRBC Absolute 0.00 <0.10 K/mcL LAB HEMETOLOGY METHOD 04/17/2024 11:30 AM [facility] LAB Neutrophils Relative 36.9 % LAB HEMETOLOGY METHOD 04/17/2024 11:30 AM [facility] LAB Lymphocytes Relative 38.9 % LAB HEMETOLOGY METHOD 04/17/2024 11:30 AM [facility] LAB Monocytes Relative 9.9 % LAB HEMETOLOGY METHOD 04/17/2024 11:30 AM [facility] LAB Eosinophils Relative 12.9 % LAB HEMETOLOGY METHOD 04/17/2024 11:30 AM [facility] LAB Basophils Relative 1.0 % LAB HEMETOLOGY METHOD 04/17/2024 11:30 AM [facility] LAB Immature Granulocytes Relative 0.4 % LAB HEMETOLOGY METHOD 04/17/2024 11:30 AM [facility] LAB Neutrophils Absolute 3.09 1.50 - 7.00 K/mcL LAB HEMETOLOGY METHOD 04/17/2024 11:30 AM [facility] LAB Lymphocytes Absolute 3.25 1.00 - 5.00 K/mcL LAB HEMETOLOGY METHOD 04/17/2024 11:30 AM [facility] LAB Monocytes Absolute 0.83 0.20 - 1.00 K/mcL LAB HEMETOLOGY METHOD 04/17/2024 11:30 AM [facility] LAB Eosinophils Absolute 1.08(H) 0.00 - 0.50 K/mcL LAB HEMETOLOGY METHOD 04/17/2024 11:30 AM [facility] LAB Basophils Absolute 0.08 0.00 - 0.20 K/mcL LAB HEMETOLOGY METHOD 04/17/2024 11:30 AM [facility] LAB Immature Granulocytes Absolute 0.03 0.00 - 0.03 K/mcL LAB HEMETOLOGY METHOD 04/17/2024 11:30 AM [facility] LAB Blood Venous blood specimen / Unknown Venipuncture / Unknown 04/17/2024 5:59 AM EST 04/17/2024 10:36 AM EST us Gaye Pina MD LAB BLOOD ORDERABLES Final Resu lt Performing Organization Address City/[facility]/ZIP Co de Phone Number [facility] [address] [place] [address], [place] [phone] * Magnesium (04/17/2024 5:59 AM EST) Pathologist [facility] Magnesium 2.4 1.9 - 2.6 mg/dL LAB CHEMISTRY METHOD 04/17/2024 11:26 AM EST [facility] Blood Venous blood specimen / Unknown Venipuncture / Unknown 04/17/2024 5:59 AM EST 04/17/2024 10:36 AM EST Gaye Pina MD LAB BLOOD ORDERABLES Final Resu lt Performing Organization Address [facility]/ZIP Co de Phone Number [facility] [address] [place] [address], [place] [phone] * (ABNORMAL) Comprehensive metabolic panel (04/17/2024 5:59 AM EST) [facility] Sodium 135 133 - 145 mmol/L LAB CHEMISTRY METHOD 04/17/2024 12:17 PM [facility] LAB Potassium 4.3 3.5 - 5.5 mmol/L LAB CHEMISTRY METHOD 04/17/2024 12:17 PM [facility] LAB Chloride 102 96 - 110 mmol/L LAB CHEMISTRY METHOD 04/17/2024 12:17 PM [facility] LAB CO2 27 21 - 32 mmol/L LAB CHEMISTRY METHOD 04/17/2024 12:17 PM [facility] LAB Anion Gap 6 3 - 11 LAB CHEMISTRY METHOD 04/17/2024 12:17 PM [facility] LAB Glucose 97 70 - 100 mg/dL LAB CHEMISTRY METHOD 04/17/2024 12:17 PM [facility] LAB BUN 18 5 - 25 mg/dL LAB CHEMISTRY METHOD 04/17/2024 12:17 PM [facility] LAB Creatinine 0.96 0.70 - 1.30 mg/dL LAB CHEMISTRY METHOD 04/17/2024 12:17 PM [facility] LAB eGFR 90 >=60 mL/min/1. 73m2 LAB CHEMISTRY METHOD 04/17/2024 12:17 PM [facility] LAB Comment:Calculation based on the Chronic Kidney Disease Epidemiology Collaboration (CKD-EPI) equation refit without adjustment for race. BUN/Creatinine Ratio 18.8 LAB CHEMISTRY METHOD 04/17/2024 12:17 PM [facility] LAB Calcium 8.7 8.5 - 10.5 mg/dL LAB CHEMISTRY METHOD 04/17/2024 12:17 PM [facility] LAB AST (SGOT) 54(H) 10 - 42 unit/L LAB CHEMISTRY METHOD 04/17/2024 12:17 PM [facility] LAB ALT (SGPT) 96(H) 10 - 60 unit/L LAB CHEMISTRY METHOD 04/17/2024 12:17 PM [facility] LAB Alkaline Phosphatase 66 42 - 121 unit/L LAB CHEMISTRY METHOD 04/17/2024 12:17 PM [facility] LAB Total Protein 6.2 6.0 - 8.0 g/dL LAB CHEMISTRY METHOD 04/17/2024 12:17 PM [facility] LAB Albumin 3.0(L) 3.2 - 5.0 g/dL LAB CHEMISTRY METHOD 04/17/2024 12:17 PM [facility] Total Bilirubin 0.4 0.0 - 1.4 mg/dL LAB CHEMISTRY METHOD 04/17/2024 12:17 PM [facility] LAB Blood Venous blood specimen / Unknown Venipuncture / Unknown 04/17/2024 5:59 AM EST 04/17/2024 10:36 AM EST us Gaye Pina MD LAB BLOOD ORDERABLES Final Resu lt [facility] [address] [place], [place] [address] [phone] documented in this encounter Visit Diagnoses Diagnosis Encounter for other general examination documented in this encounter Care Teams Nuclear Powerplant Mechanic Relationship Specialty Start Date End Date Gaye Pina MD [address] [place] [address] PCP - General Hospitalist Medicine 04/17/24 documented as of this encounter
== END 2025-02-10 19:44 | disposition home or self-care (01) ==
PROVIDERS: Nurse Practitioner; Physician Assistant Medical; Emergency Provider Emergency Medicine; PCP Nurse Practitioner Family
DX: J06.9 Acute upper respiratory infection, unspecified (principal); R07.9 Chest pain, unspecified; R06.00 Dyspnea, unspecified; Z03.818 Encounter for observation for suspected exposure to other biological agents ruled out
CPT/HCPCS: 36415; 71046; 71275; 80048; 80076; 83735; 83880; 84484; 85025; 85610; 87637; 93005; 96374; 99284; 99285; J2919; Q9967

== ENCOUNTER → 2025-02-10 15:16 | Outpatient (BNV) | payer OTHER, MEDICARE, MEDICAID, SELFPAY | PROVIDERS: Emergency Provider Emergency Medicine; PCP Nurse Practitioner Family; Visit Provider Internal Medicine Cardiovascular Disease | DX: I49.3 Ventricular premature depolarization (principal) | CPT/HCPCS: 93010 ==

== ENCOUNTER → 2025-02-10 15:36 | Outpatient (BNV) | payer OTHER, MEDICARE, MEDICAID, SELFPAY | PROVIDERS: PCP Nurse Practitioner Family; Visit Provider Radiology Diagnostic Radiology | DX: R06.09 Other forms of dyspnea (principal); R06.02 Shortness of breath | CPT/HCPCS: 71046; 71275 ==

== ENCOUNTER 2025-02-21 14:48 | Outpatient (AMB) | payer OTHER, MEDICARE, MEDICAID, SELFPAY ==
--- NOTE | 2025-02-21 15:13 | A.OFFVIS_ITS ---
Intake Visit Reasons: 2m/PSA/US/UA/PVR(set) Intake Note: Reason for Visit: PSA/Bladder Ultrasound Urology Meds: Oxybutynin Blood Thinners: Aspirin Labs: PSA 2.95 (11/20/2024) Imaging: Bladder US 11/27/2024 Last PVR: None Inspector Machine Parts Required: No Accompanied by: Self / Same As Patient Allergies Penicillins Allergy (Severe, Verified 02/21/25 15:19) ANAPHYLAXIS clopidogrel (From Plavix) Allergy (Intermediate, Verified 02/21/25 15:19) Itching adhesive Allergy (Mild, Verified 02/21/25 15:19) Rash morphine Adverse Reaction (Intermediate, Verified 02/21/25 15:19) Agitated HPI Comments Details: Michael is a very pleasant male. He is a patient of Dr Christine. He is seen for the following urologic conditions. 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 Current treatment includes more medications Prostate Symptom Score Moderate (9-19), Bother 3. Symptoms include incomplete emptying, nocturia (>2), and are progressing. Prior Prostate Score unknown. PSA - 10/07 2.0, 04/12 1.8, 09/11 2.9, 12/12 2.9 Associated conditions CAD No CVA No diabetes No elevated PSA No erectile dysfunction yes PFSH Medical History Left hand weakness History of shingles Migraine PTSD (post-traumatic stress disorder) KASANDRA (obstructive sleep apnea) Somnolence, daytime Encounter for screening Encounter for screening Thoracic back pain Lower back pain Feeling of incomplete bladder emptying Weak urinary stream Bladder outlet obstruction Hearing loss Acoustic neuroma Cervical radiculopathy Cerebrovascular accident Attention deficit disorder Bipolar 1 disorder Surgical History History of esophagogastroduodenoscopy (EGD) History of back surgery H/O colonoscopy History of surgery History of cochlear implant History of elbow surgery History of sinus surgery History of brain surgery Family History Father No problems noted. Mother History of breast cancer Social History Household Members: None Housing: House Are you a primary resident care associate to a significant other at home: No Do you presently have visiting nurse or other home services: No Alcohol intake: current Alcohol intake frequency: holidays/special occasions only Patient Tobacco Use Status: Never used Tobacco e-Cigarette/Vaping Use: Never Used Second Hand Smoke Exposure: No service: No Current occupational status: unemployed Cognitive needs: No Hearing needs: No Vision needs: No Review of Systems Const Denies chills and Denies fever(s) Card Reports no additional complaints and Denies syncope Resp Denies cough GI Denies abdominal pain and Denies heartburn Reports as per HPI and Denies change in libido Neuro Denies syncope Psych Denies change in libido Endo Denies change in libido Physical Exam Const General: cooperative, healthy appearing, comfortable and no acute distress Orientation/consciousness: patient oriented x3 HEENT Face and sinus: Yes normal facial exam Mouth: moist mucous membranes Neck Neck: Yes normal visual inspection, Yes full ROM and Yes trachea midline Chest Chest palpation & inspection: normal inspection of the chest Resp Effort & Inspection: normal respiratory effort, able to speak in complete sentences and no respiratory distress GI Inspection: Yes normal to inspection Back/Spine/Pelvis Cervical Spine: normal cervical lordosis Thoracic/Lumbar Spine: thoracic and lumbar spine normal to inspection Skin General skin exam: no rashes or lesions noted Neuro General: patient oriented x3, gait normal, tone normal and moves all extremities Extrem General: Yes normal to inspection and Yes capillary refill normal Assessment & Plan Assessment & Plan (1) Bladder outlet obstruction: Code(s): N32.0 - Bladder-neck obstruction Category: Medical (2) Urinary urgency: Code(s): R39.15 - Urgency of urination Category: Medical Plan Three-month follow-up PVR Medications: New fesoterodine ER 4 mg PO DAILY 30 tabs 1RF 30 days R39.15 - Urgency of urination alfuzosin ER 10 mg PO DAILY 30 tabs 1RF 30 days R39.15 - Urgency of urination Discontinued oxybutynin chloride ER Discontinued Reason: Patient Completed Course 5 mg PO DAILY 30 days 30 tabs 1RF R39.15 - Urgency of urination Patient Instructions: This note is constructed using voice recognition software. While every effort has been made to ensure accuracy materials director errors may have been included. Imaging studies, laboratory and physical exam results were discussed and reviewed in detail. No major barriers to patient understanding were identified. An opportunity to ask questions regarding the treatment plan was provided. All questions were answered. The patient expressed understanding and agreement with the above treatment plan. The patient is aware they should contact our office by phone for worsening of their current condition or the appearance of new urologic symptoms. Compliance is encouraged with any medications and followup testing that is ordered. It is a privilege to participate in the urologic care of your patient. If you have any questions or concerns regarding treatment for the above conditions, or other urologic issues, please do not hesitate to contact me. The office telephone contact is [phone]. Sincerely, Dr Fabian Walton MD, KATHRYN [facility] Compassionate Specialist Care for the Genitourinary System Coding Level of Care Code Est Pt Level 4 (85012) Diagnoses Bladder outlet obstruction N32.0 Urinary urgency R39.15
--- OUTSIDE RECORDS SUMMARY | 2025-02-21 18:54 | XMS_ITS | Encounter Summary ---
Author Organization [facility] Address [address] [place] [address] Phone Care Team Providers Care Link Trainer Mechanic Name Role Phone Duong Naylor MD Unavailable Unknown, Unknown Primary Care Provider Marifer Lawson NP Unavailable [phone] Reason for Referral * Occupational Therapy (Routine) - Closed Specialty Diagnoses / Procedures Referred By Jo murdock Referred To Contact Occupational Therapy Diagnoses Encounter for rehabilitation Duong Naylor MD [address] [facility] [address] [place] [phone] Phone: tel: fax: [address] [address] Phone: tel: Referral ID Status Reason Start Date Expiration Date Visits Re quested Visits Authorized [id number] Closed 06/15/2023 06/14/2024 1 1 Encounter Details Date Type Department Care Team (Latest Contact Info) Description 06/15/2023 Transcribe Orders [facility] [address] [place] [phone] Duong Naylor MD [address] [facility] [address] [place] [phone] Encounter for rehabilitation (Primary Dx) Social History [...] Diagnoses Orde r Schedule Ambulatory referral to [facility] Occupational Therapy Outpatient Referral Routine Encounter for rehabilitation Ordered: 06/15/2023 documented as of this encounter Visit Diagnoses Diagnosis Encounter for rehabilitation- Primary documented in this encounter Care Teams Link Trainer Mechanic Relationship Specialty Start Date End Date Unknown, Unknown, MD PCP - General 05/11/23 Duong Naylor MD [address] [place] [phone] Neurosurgery 05/09/23 Marifer Chino NP [address] [place] [phone] Nurse Practitioner 06/13/23 documented as of this encounter Additional Source Comments The information contained in this document represents components of the legal health record. It is not the complete legal health record.[facility]
--- OUTSIDE RECORDS SUMMARY | 2025-02-21 18:54 | XMS_ITS | Encounter Summary ---
Author Organization [facility] Address [address] [place] [address] Care Team Providers Care Threshing Department Supervisor Name Role Phone Gaye Pina MD Primary Care Provider [phone] Encounter Details Date Type Department Care Team (Late st Contact Info) Description 04/13/2024 Lab Requisition [facility] - Main Lab [address] [place] [address] Gaye Pina MD [address] [place] [phone] Encounter for other general examination Social History [...] AM EST) WBC 8.4 4.8 - 10.8 K/[facility] LAB HEMETOLOGY METHOD 04/13/2024 11:27 AM [facility] LAB RBC 3.70(L) 4.50 - 5.50 M/mcL LAB HEMETOLOGY METHOD 04/13/2024 11:27 AM [facility] LAB Hemoglobin 12.0(L) 13.5 - 17.5 g/dL LAB HEMETOLOGY METHOD 04/13/2024 11:27 AM [facility] LAB Hematocrit 36.3(L) 42.0 - 54.0 % LAB HEMETOLOGY METHOD 04/13/2024 11:27 AM [facility] LAB MCV 97.3 79.0 - 98.0 FL LAB HEMETOLOGY METHOD 04/13/2024 11:27 AM [facility] LAB MCH 32.2(H) 27.0 - 32.0 pcg LAB HEMETOLOGY METHOD 04/13/2024 11:27 AM [facility] LAB MCHC 33.1 32.0 - 37.0 g/dL LAB HEMETOLOGY METHOD 04/13/2024 11:27 AM [facility] LAB RDW 13.6 11.0 - 15.0 % LAB HEMETOLOGY METHOD 04/13/2024 11:27 AM [facility] LAB Platelets 227 130 - 400 K/mcL LAB HEMETOLOGY METHOD 04/13/2024 11:27 AM [facility] LAB MPV 10.5 7.0 - 11.0 FL LAB HEMETOLOGY METHOD 04/13/2024 11:27 AM [facility] LAB NRBC 0.0 <1.0 % LAB HEMETOLOGY METHOD 04/13/2024 11:27 AM [facility] LAB NRBC Absolute 0.00 <0.10 K/mcL LAB HEMETOLOGY METHOD 04/13/2024 11:27 AM [facility] Neutrophils Relative 50.3 % LAB HEMETOLOGY METHOD 04/13/2024 11:27 AM [facility] Lymphocytes Relative 30.4 % LAB HEMETOLOGY METHOD 04/13/2024 11:27 AM [facility] Monocytes Relative 10.7 % LAB HEMETOLOGY METHOD 04/13/2024 11:27 AM [facility] Eosinophils Relative 7.6 % LAB HEMETOLOGY METHOD 04/13/2024 11:27 AM [facility] Basophils Relative 0.6 % LAB HEMETOLOGY METHOD 04/13/2024 11:27 AM [facility] Immature Granulocytes Relative 0.4 % LAB HEMETOLOGY METHOD 04/13/2024 11:27 AM [facility] Neutrophils Absolute 4.23 1.50 - 7.00 K/mcL LAB HEMETOLOGY METHOD 04/13/2024 11:27 AM [facility] Lymphocytes Absolute 2.55 1.00 - 5.00 K/mcL LAB HEMETOLOGY METHOD 04/13/2024 11:27 AM [facility] Monocytes Absolute 0.90 0.20 - 1.00 K/mcL LAB HEMETOLOGY METHOD 04/13/2024 11:27 AM [facility] Eosinophils Absolute 0.64(H) 0.00 - 0.50 K/mcL LAB HEMETOLOGY METHOD 04/13/2024 11:27 AM [facility] Basophils Absolute 0.05 0.00 - 0.20 K/mcL LAB HEMETOLOGY METHOD 04/13/2024 11:27 AM [facility] Immature Granulocytes Absolute 0.03 0.00 - 0.03 K/mcL LAB HEMETOLOGY METHOD 04/13/2024 11:27 AM [facility] Blood Venous blood specimen / Unknown Venipuncture / Unknown 04/13/2024 5:53 AM EST 04/13/2024 10:00 AM EST us Gaye Pina MD LAB BLOOD ORDERABLES Final Resu lt Performing Organization Address [facility]/ZIP Co de Phone Number [facility] [address] [place] [address], * Magnesium (04/13/2024 5:53 AM EST) Magnesium 2.2 1.9 - 2.6 mg/dL LAB CHEMISTRY METHOD 04/13/2024 12:00 PM [facility] Blood Venous blood specimen / Unknown Venipuncture / Unknown 04/13/2024 5:53 AM EST 04/13/2024 10:00 AM EST Gaye Pina MD LAB BLOOD ORDERABLES Final Resu lt Performing Organization Address [facility]/ZIP Co de Phone Number [facility] [address] [place] [address], [place] [phone] * (ABNORMAL) Comprehensive metabolic panel (04/13/2024 5:53 AM EST) Pathologist [facility] Sodium 134 133 - 145 mmol/L LAB CHEMISTRY METHOD 04/13/2024 12:00 PM [facility] Potassium 4.0 3.5 - 5.5 mmol/L LAB CHEMISTRY METHOD 04/13/2024 12:00 PM [facility] Chloride 102 96 - 110 mmol/L LAB CHEMISTRY METHOD 04/13/2024 12:00 PM [facility] CO2 25 21 - 32 mmol/L LAB CHEMISTRY METHOD 04/13/2024 12:00 PM [facility] Anion Gap 7 3 - 11 LAB CHEMISTRY METHOD 04/13/2024 12:00 PM [facility] Glucose 92 70 - 100 mg/dL LAB CHEMISTRY METHOD 04/13/2024 12:00 PM [facility] BUN 16 5 - 25 mg/dL LAB CHEMISTRY METHOD 04/13/2024 12:00 PM [facility] Creatinine 1.06 0.70 - 1.30 mg/dL LAB CHEMISTRY METHOD 04/13/2024 12:00 PM [facility] eGFR 80 >=60 mL/min/1. 73m2 LAB CHEMISTRY METHOD 04/13/2024 12:00 PM [facility] Comment:Calculation based on the Chronic Kidney Disease Epidemiology Collaboration (CKD-EPI) equation refit without adjustment for race. BUN/Creatinine Ratio 15.1 LAB CHEMISTRY METHOD 04/13/2024 12:00 PM [facility] Calcium 8.5 8.5 - 10.5 mg/dL LAB CHEMISTRY METHOD 04/13/2024 12:00 PM [facility] AST (SGOT) 50(H) 10 - 42 unit/L LAB CHEMISTRY METHOD 04/13/2024 12:00 PM [facility] ALT (SGPT) 53 10 - 60 unit/L LAB CHEMISTRY METHOD 04/13/2024 12:00 PM [facility] Alkaline Phosphatase 59 42 - 121 unit/L LAB CHEMISTRY METHOD 04/13/2024 12:00 PM [facility] Total Protein 5.9(L) 6.0 - 8.0 g/dL LAB CHEMISTRY METHOD 04/13/2024 12:00 PM [facility] Albumin 3.0(L) 3.2 - 5.0 g/dL LAB CHEMISTRY METHOD 04/13/2024 12:00 PM [facility] Total Bilirubin 0.9 0.0 - 1.4 mg/dL LAB CHEMISTRY METHOD 04/13/2024 12:00 PM [facility] Blood Venous blood specimen / Unknown Venipuncture / Unknown 04/13/2024 5:53 AM EST 04/13/2024 10:00 AM EST us Gaye Pina MD LAB BLOOD ORDERABLES Final Resu lt [facility] [address] [place] [address], documented in this encounter Visit Diagnoses Diagnosis Encounter for other general examination documented in this encounter Care Teams Threshing Department Supervisor Relationship Specialty Start Date End Date Gaye Pina MD [address] [place] [phone] PCP - General Hospitalist Medicine 04/17/24 documented as of this encounter
--- OUTSIDE RECORDS SUMMARY | 2025-02-21 18:54 | XMS_ITS | Clinical Summary ---
Author Organization [address] [facility] Address [address] [place] [address] Phone Care Team Providers Care University Manager Name Role Phone Gaye Pina MD Primary Care Provider [phone] Social History Tobacco Use Types Packs/Day Years [...] Insurance MEDICAID - [place] MEDICARE Care Teams University Manager Relationship Specialty Start Date End Date Gaye Pina MD [address] [place] [phone] PCP - General Hospitalist Medicine 04/17/24
--- OUTSIDE RECORDS SUMMARY | 2025-02-21 18:54 | XMS_ITS | Clinical Summary ---
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 [facility] MEDICARE PART A & B Member Subscriber Plan / Payer (Ef fective 2018-Present) Name:Michael Bland Member ID:[id number] Relation to Subscriber:Self Name:Michael Bland Subscriber ID:[id number] Payer ID:[id number] Group ID:Not on file Type:Medicare Address: [employer] [address] [facility] CHOICE MEDICARE PART A & [place] [address] CHOICE MEDICARE PART A & B [facility] [employer] CHOICE MEDICARE PART A & [facility] CHOICE MEDICARE PART A & B Care Teams Hydroelectric Plant Mechanical Engineer Relationship Specialty Start Date End Date Unknown, Unknown, PCP - General 05/11/23 Duong Naylor MD [address] [place] [phone] Neurosurgery 05/09/23 Marifer Chino NP [address] [place] [phone] Nurse Practitioner 06/13/23 Additional Source Comments The information contained in this document represents components of the legal health record. It is not the complete legal health record.[facility]
--- OUTSIDE RECORDS SUMMARY | 2025-02-21 18:54 | XMS_ITS | Encounter Summary ---
Author Organization [facility] Address [address] [place] [address] Care Team Providers Care Boring Machine Operator Horizontal Name Role Phone Gaye Pina MD Primary Care Provider Encounter Details Date Type Department Care Team (Late st Contact Info) Description 04/17/2024 Lab Requisition [facility] - Main Lab [address] [place] [address] Gaye Pina MD [address] [place] [phone] Encounter for other general examination Social History [...] AM EST) WBC 8.4 4.8 - 10.8 K/[facility] LAB HEMETOLOGY METHOD 04/17/2024 11:30 AM [place] [...] ORDERABLES Final Resu lt Performing Organization Address City/[facility] [address]/ZIP Co de Phone Number [facility] [address] [place] [address], [place] [phone] * Magnesium (04/17/2024 5:59 AM EST) Pathologist [facility] Magnesium 2.4 1.9 - 2.6 mg/dL LAB CHEMISTRY METHOD 04/17/2024 11:[address] [facility] Blood Venous blood specimen / Unknown Venipuncture / Unknown 04/17/2024 5:59 AM EST 04/17/2024 10:36 AM EST Gaye Pina MD LAB BLOOD ORDERABLES Final Resu lt Performing Organization Address [facility] [address]/ZIP Co de Phone Number [facility] [address] [place] [address], [place] [phone] * (ABNORMAL) Comprehensive metabolic panel (04/17/2024 5:59 [...] Resu lt [facility] [address] [place], [place] [id number] [phone] documented in this encounter Visit Diagnoses Diagnosis Encounter for other general examination documented in this encounter Care Teams Boring Machine Operator Horizontal Relationship Specialty Start Date End Date Gaye Pina MD [address] [place] [phone] PCP - General Hospitalist Medicine 04/17/24 documented as of this encounter
== END 2025-02-21 15:29 | disposition home or self-care (01) ==
LOC: HO.HUSH 14:48
PROVIDERS: PCP Nurse Practitioner Family; Visit Provider Urology
DX: N32.0 Bladder-neck obstruction (principal); R39.15 Urgency of urination
CPT/HCPCS: 99214

== ENCOUNTER 2025-03-03 14:00 | Outpatient (RCR) | payer OTHER, MEDICARE, MEDICAID, SELFPAY ==
--- NOTE | 2024-12-25 14:54 | MHC.OT.EP ---
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 HIS MAIN CONCERN IS FATIGUE AND WEAKNESS IN HIS L UE. HE PRESENTS TODAY W/ WNL ROM OF HIS L SHOULDER AND ELBOW; THE ABILITY TO MAKE A COMPOSITE FIST BUT IS UNABLE TO FULLY EXTEND HIS DIGITS. HE ALSO HAS SIGNIFICANT HAND WEAKNESS. PT WOULD BENEFIT FROM SKILLED OT THERAPY TO ADDRESS HAND WEAKNESS AND FATIGUE TO BE ABLE TO INCREASE THE FUNCTIONAL USE OF HIS L UE Frequency and Duration: The patient will be seen 1x a week for 6 weeks Short Term Goals: PT WILL BE COMPLAINT W/ HIS HEP PT WILL BE COMPLAINT W/ ENERGY CONSERVATION TECHNIQUES PT WILL HAVE 10 LBS OF L HAND GRANULATING BLENDER Skilled Nursing Goals: PT WILL HABE 15 LBS OF L HAND GRANULATING BLENDER PT WILL REPORT USING HIS L HAND TO PERFROM GROOMIG TECHNIQUES W/ DECREASED FATIGUE Treatment Plan: Therapeutic Exercise Therapeutic Activity Home Exercise Program Splinting Neuro Re-ed Patient Education NMES Joint Mobilization Soft Tissue Mobilization Electronically Signed By: Nenita Carrero OTR/L Please Sign and return to therapist. Thank you once again for your referral.
== END 2025-03-03 15:35 | disposition home or self-care (01) ==
LOC: HO.OT 14:00
PROVIDERS: PCP Nurse Practitioner Family; Visit Provider Nurse Practitioner Family
DX: M24.542 Contracture, left hand (principal)
CPT/HCPCS: 29125; 97110; 97140; 97166; 97760